=== PATIENT | female | born 1945 | race Caucasian/White ===

== ENCOUNTER 2017-12-10 14:31 | Outpatient (RCR) | payer MEDICARE, OTHER, SELFPAY ==
[2017-12-10 15:10] VITALS: BP 145/77; PULSE 70; RESP 18; TEMP 36.8; BMI 23.9
--- NOTE | 2017-12-10 17:20 | PCM.WC.HP ---
(1) Ulcer of left foot Status: Acute Current Visit: Yes Code(s): L97.529 - Non-pressure chronic ulcer of other part of left foot with unspecified severity (2) Foot callus Status: Acute Current Visit: Yes Code(s): L84 - Corns and callosities (3) Type 2 diabetes mellitus Status: Chronic Current Visit: Yes Code(s): E11.9 - Type 2 diabetes mellitus without complications (4) Status post coronary artery bypass graft Status: Chronic Current Visit: No Code(s): Z95.1 - Presence of aortocoronary bypass graft History of Present Illness Date of Service: 12/10/17 Chief Complaint: Sore on left foot caused by removing tape. History of Wound: 72 year old female was being seen for a wound on her left lateral foot at the base of the 5th toe. She states that she was seeing a javascript engineer, Dr. Santo in [place] for a callus on the arch of her left foot and for her history of Charcot foot. A month ago she had a bandage covering the callus and when she removed it, the tape pulled some skin off at the base of her 5th toe. She has had an opened wound there ever since. She has been applying silvadine cream and soaking her foot in epsome salt as prescribed by her javascript engineer. She continues to have a very large callus on the arch of her left foot. 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 Past Medical History Past Medical History: Chronic Problems Status post coronary artery bypass graft (Chronic) Coronary artery disease (Chronic) Status post stents and CABG. Type 2 diabetes mellitus (Chronic) Hypertension (Chronic) Hyperlipidemia (Chronic) Allergies/Adverse Reactions: Allergies No Known Allergies Allergy (Verified 12/12/15 22:48) Home Medications: Ambulatory Orders Medication Instructions Recorded Aspirin [Aspirin, Baby] 81 mg PO DAILY 12/12/15 Atorvastatin Calcium [Lipitor] 40 mg PO QHS 12/12/15 Carvedilol [Coreg (Beta Britney)] 25 mg PO BID 12/12/15 Milk Thistle 1,000 mg PO DAILY 12/12/15 Multivitamins,Therapeutic 1 tablet PO DAILY 12/12/15 [Multivitamin] Pyridoxine HCl [Vitamin B-6] 100 mg PO DAILY 12/12/15 Ramipril [Altace] 2.5 mg PO DAILY 12/12/15 Vitamin B12 1,000 mg PO DAILY 12/12/15 Vitamin C 1,000 mg PO DAILY 12/12/15 Insulin Detemir [Levemir FlexPen] 15 units SC DAILY 12/13/15 Insulin Detemir [Levemir FlexPen] 18 units SC QHS 12/13/15 - Family History Maternal No pertinent history Smoking Status: Never smoker Review of Systems Constitutional: Denies: Chills, Fever, Weight Change Eyes: Denies: Pain, Vision Change HEENT: Denies: Difficulty Hearing, Difficulty Swallowing, Sinus Congestion Cardiovascular: Denies: Chest Pain, Edema, Palpitations Respiratory: Denies: Cough, Shortness of Breath Gastrointestinal: Denies: Diarrhea, Nausea, Vomiting Musculoskeletal: Reports: Foot Pain - Left foot pain with a callus and open sore Skin: Reports: Wounds - Left lateral foot opened area plus callus on left arch of foot Neurological: Reports: Numbness - Has neuropathy of her feet. Endocrine: Denies: Change in Body Habitus - Physical Exam Vital Signs Temp Pulse Resp BP 98.2 F 70 18 145/77 H 12/10/17 15:10 12/10/17 15:10 12/10/17 15:10 12/10/17 15:10 General: Alert, Oriented x3, Cooperative HEENT: Atraumatic, PERRLA, EOMI Oral: Moist Mucosa Lungs: Clear to auscultation, Normal air movement Cardiovascular: Regular rate, Regular Rhythm Extremities: No edema, Diminished Peripheral Pulses Skin: Ulcer/ Wound - Ulcer left lateral foot at the base of 5th toe. Area is soft, moist and alvarez in appearance with strong odor. There is significant amount of thickened, dry skin surrounding the area. There is a large, thickened callus on the arch of her left foot. Wound Measurements and Assessment WC - Nurse 1 - General Ulcer Measurement Start: 12/10/17 15:01 Freq: Status: Active Protocol: Activity Type Activity Date Activity User E-Sign Co-Sign Detail Recorded Client Recorded Date Recorded By Document 12/10/17 15:10 DV [id number] 12/10/17 15:32 DV 12/10/17 15:10 Wound Center Nurse 1 [Ulcer Assessment] #1 Left Lateral Foot -Combined with other wound No -Current Size (cm) - Length 4.0 -Current Size (cm) - Width 4.0 -Current Size (cm) - Depth 0.4 -Total Square Cm 16.00 -Date of Last Picture (Recall this 12/10/17 field) -Photo Taken Yes -Epithelialization None Present -Tunneling No -Undermining/Tunneling No -Circular Undermining No -Classification - Gtz Grading ( Grade 2 Diabetic Ulcer) -Exudate Amt Medium (34-66%) -Exudate Type Yellow/Green -Wound Margin Indistinct, Non -Visible -Granulation Amt None Present (0 %) -Granulation Quality N/A -Slough/Fibrin Yes -Necrosis Amt Large (67-100%) -Necrotic Tissue Type Adherent Slough -Structure Exposed None/Limited to Skin Breakdown -Texture (Gissell-wound Skin Appearance) Assessed Localized Edema -Moisture (Gissell-wound Skin Appearance Assessed ) Weeping -Color (Gissell-wound Skin Appearance) Assessed Erythema -Temperature (Gissell-wound Skin No Abnormality Appearance) (Pt Warm) -Tenderness on Palpation (Gissell-wound No Skin Appearance) -Ulcer Cleansing Wound Cleanser -Foul Odor after Cleansing Yes -Anesthetic Used 4% Lidocaine Solution [Edema Assessment] -Lower Limb Edema Present Yes -Right Calf (cm) 31.0 -Right Ankle (cm) 22.0 -Left Calf (cm) 32.0 -Left Ankle (cm) 19.0 WC - Nurse 2 - General Ulcer CM Notes Start: 12/10/17 15:01 Freq: Status: Active Protocol: Activity Type Activity Date Activity User E-Sign Co-Sign Detail Recorded Client Recorded Date Recorded By Document 12/10/17 16:00 GREG [id number] 12/10/17 16:15 GREG 12/10/17 16:00 Wound Center Nurse 2 [Procedure/Treatment] #1 Left Lateral Foot -Time 16:00 -Correct Patient Yes -Correct Side, Site, Position Yes -Correct Procedure Yes -Procedure Performed Yes -Type of Procedure Debridement -Clinical Debridement Subcutaneous -Post Debridement Size (cm) - Length 2.3 -Post Debridement Size (cm) - Width 4.0 -Post Debridement Size (cm) - Depth 0.1 -Total Square Cm 9.20 -Wound/Ulcer Outcome Not Healed -Ulcer Cleansing Rinsed/ Irrigated with Saline -Foul Odor after Cleansing No -Bioengineered Tissue No -Bleeding Controlled with Pressure -Treatment Response Procedure Tolerated Well [See Physician Procedure note for Specifics] Pain Scale: 0-10 Numeric [Pain] -Is Patient Pain Free? Yes Musculoskeletal: No Tenderness to Palpation of Joints or Extremities Neurological: Neuro grossly intact Psych/Mental Status: Normal Affect, Appropriate Debridement Note Post-Debridement Measurements/Treatment WC - Nurse 2 - General Ulcer CM Notes Start: 12/10/17 15:01 Freq: Status: Active Protocol: Activity Type Activity Date Activity User E-Sign Co-Sign Detail Recorded Client Recorded Date Recorded By Document 12/10/17 16:00 [id number] 12/10/17 16:15 GREG 12/10/17 16:00 Wound Center Nurse 2 #1 Left Lateral Foot -Time 16:00 -Correct Patient Yes -Correct Side, Site, Position Yes -Correct Procedure Yes -Procedure Performed Yes -Type of Procedure Debridement -Clinical Debridement Subcutaneous -Post Debridement Size (cm) - Length 2.3 -Post Debridement Size (cm) - Width 4.0 -Post Debridement Size (cm) - Depth 0.1 -Total Square Cm 9.20 -Wound/Ulcer Outcome Not Healed -Ulcer Cleansing Rinsed/ Irrigated with Saline -Foul Odor after Cleansing No -Bioengineered Tissue No -Bleeding Controlled with Pressure -Treatment Response Procedure Tolerated Well Pain Scale: 0-10 Numeric Is Patient Pain Free? Yes Wound debrided: Left lateral foot Type of Debridement: Excisional debridement Anesthesia Used: 4% Lidocaine Solution Depth: - - Unable to debride center of wound. Percentage of wound debrided: 10 Instrument Used: 7mm curette Tissue Removed: Able to remove dry thickened tissue surrounding ulcer area Amount of bleeding with debridement: None Patient tolerated procedure well Unable to debride the center of the ulcer due to thickened, moist tissue. Most likely will need to be surgically debrided to unroof the thickened, moist skin. Able to remove significant amount of dry, thickened skin from around the left lateral ulcer. Assessment/Plan Active Problems Ulcer of left foot (Acute) Foot callus (Acute) Type 2 diabetes mellitus (Chronic) Assessment: 1. Ulcer left foot. 2. Foot callus arch of left foot. 3. Type 2 diabetes melllitus. 4. S/p coronar artery bypass graft Plan: The patient was seen and examined at the wound center today and was updated on the plan of care. A subcutaneous debridement was attempted without being able to remove the subcutaneous tissue and slough of left lateral ulcer. This most likely will need to bee surgically debrided. Was able to remove thickened dry skin from around the ulcer. Will start patient on daily silver cell dressing to left lateral foot. She is wearing a Darco Shoe on her left foot. Will obtain labs, vascular studies and xray of left foot. Encouraged high protein diet. Will consult either Dr. Omer or Dr. Mcdermott for surgical debridement consult of both the left lateral foot ulcer and the left foot callus on the arch of the foot. She will follow up in one week with one of them for further management of these issues.
== END 2017-12-25 23:59 ==
LOC: WC 14:31
PROVIDERS: Visit Provider Podiatrist
DX: E11.621 Type 2 diabetes mellitus with foot ulcer (principal); L84 Corns and callosities; L97.521 Non-pressure chronic ulcer of other part of left foot limited to breakdown of skin; Z95.1 Presence of aortocoronary bypass graft; I10 Essential (primary) hypertension; M20.40 Other hammer toe(s) (acquired), unspecified foot; Z95.2 Presence of prosthetic heart valve; I25.10 Atherosclerotic heart disease of native coronary artery without angina pectoris; E78.5 Hyperlipidemia, unspecified; Z79.899 Other long term (current) drug therapy; Z79.4 Long term (current) use of insulin; Z79.82 Long term (current) use of aspirin; E11.42 Type 2 diabetes mellitus with diabetic polyneuropathy
CPT/HCPCS: 11042; 99213; G0463

== ENCOUNTER → 2017-12-12 15:25 | Outpatient (CLI) | payer MEDICARE, OTHER, SELFPAY ==
--- NOTE | 2017-12-12 15:43 | RAD_ITS ---
STUDY: X-RAY - LEFT FOOT CLINICAL: Female, 72 years old. NON HEALING MID PLANTAR AND LATERAL ULCER TECHNIQUE: 3 view(s) of the foot. # of Images: 3 COMPARISON: None. FINDINGS: There is a plantar calcaneal spur. There is demineralization of the osseous structures. Normal visualized subtalar, talonavicular, calcaneocuboid articulations. There is chronic tarsometatarsal joint arthropathy with subluxation most likely represent neurogenic arthropathy. There is demineralization of the metatarsi. Normal metatarsophalangeal joint of the great toe. Normal tibial and fibular sesamoid bones. Normal interphalangeal joint of the great toe. Normal phalanges of the great toe. Normal second through fifth metatarsophalangeal joints. Normal interphalangeal joints and phalanges of the lesser toes. The soft tissue structures are unremarkable. RAD/Foot min 3 Views IMPRESSION: There is chronic tarsometatarsal joint arthropathy with subluxation most likely represent neurogenic arthropathy. Electronically Signed: Nima Ramírez MD at 15:19 EDT Tel , Service support ,
[2017-12-12 16:12] LABS: Hematocrit 35.1 % (37-47); Mean Corp Hgb Conc 31.3 g/gl (32-36); Mean Corpuscular Hgb 26.5 pg (27.0-32.0); Mean Corpuscular Volume 84.6 fL (81-99); Mean Platelet Vol. 12.1 fl (6.2-12.0); Platelet Count 284 K/mm3 (150-450); RBC Distribution Width CV 15.5 % (11.6-14.6); RBC Distribution Width SD 46.6 fl (35.1-43.9); Red Blood Count 4.15 M/mm3 (4.2-5.4); White Blood Count 11.2 K/mm3 (4.4-11.0)
[2017-12-12 16:16] LABS: Scan Indicated on CBC? Y/N NO
[2017-12-12 16:59] LABS: Erythrocyte Sedimentation Rate 72 mm/hr (0-30)
[2017-12-12 19:55] LABS: ALB/GLOB Ratio 0.6 RATIO (0.9-2.4); AST(SGOT) 14 U/L (15-37); Alanine Aminotransfer ALT/SGPT 10 U/L (13-56); Albumin, Serum 2.8 g/dL (3.2-5.0); Alkaline Phosphatase 128 U/L (45-117); Anion Gap 5 (5-15); BUN 18 mg/dL (7-18); BUN/Creat Ratio 17.5 RATIO (10-20); Calcium,Total 9.9 mg/dL (8.5-10.1); Chloride 103 mmol/L (98-107); Creatinine, Serum 1.03 mg/dL (0.55-1.02); EST Glomerular Filtration Rate 56 mL/min (>60); Est Glom Filt Rate - Afr Amer 68 mL/min (>60); Globulin 4.9 g/dL (2.2-4.2); Glucose 199 mg/dL (74-106); Potassium 4.2 mmol/L (3.5-5.1); Prealbumin 12.7 mg/dL (20.0-40.0); Protein, Total 7.7 g/dL (6.4-8.2); Sodium Level 135 mmol/L (136-145)
== END ==
PROVIDERS: Family Provider Family Medicine; PCP Family Medicine; Referring Provider Nurse Practitioner Family; Visit Provider Nurse Practitioner Family
DX: E11.9 Type 2 diabetes mellitus without complications (principal)
CPT/HCPCS: 36415; 73630; 80053; 84134; 85027; 85652; 86140

== ENCOUNTER 2017-12-15 21:59 | Inpatient (IN) | payer MEDICARE, OTHER, SELFPAY ==
[2017-12-15 22:00] VITALS: BP 135/64; PULSE 80; RESP 18; TEMP 37; O2SAT 95; BMI 23.9
--- NOTE | 2017-12-15 22:33 | EKG12_ITS ---
Test Reason : NAUSEA/VOMIT Blood Pressure : / mmHG Vent. Rate : 081 BPM Atrial Rate : 081 BPM P-R Int : 162 ms QRS Dur : 090 ms QT Int : 382 ms P-R-T Axes : 055 004 138 degrees QTc Int : 443 ms Normal sinus rhythm Minimal voltage criteria for LVH, may be normal variant Septal infarct (cited on or before 05-JUN-2003) T wave abnormality, consider lateral ischemia Abnormal ECG Confirmed by ROGELIO BLOCK, BRENT ([id number]), field map editor OLIVEIRO WONG ([id number]) on 12/17/2017 11:26:36 AM Referred By: DR SANTAMARIA Confirmed By:BRENT MERCADO MD
--- NOTE | 2017-12-15 22:33 | CT_ITS ---
STUDY: CT ABDOMEN AND PELVIS WITHOUT CONTRAST REASON FOR EXAM: Female, 72 years old. Nausea, vomiting and abdominal pain. History of prior splenectomy, BOBBY and BSO. History of breast cancer and lymphoma. Prior history of CABG in 5 cardiac stents. RADIATION DOSAGE (If Supplied By Facility): CTDIvol = ( 6.47 ) mGy, DLP = ( 311.84 ) mGycm TECHNIQUE: Transaxial images were obtained from the dome of the diaphragm to the symphysis pubis without oral contrast, and without intravenous contrast. Sagittal and coronal images were reconstructed. Individualized dose optimization techniques were used for this CT. COMPARISON: Prior abdomen and pelvic CT exam of December 12, 2015 FINDINGS: Stable chronic bibasilar lung changes. Coronary calcifications, stent artifact status post prior midline sternotomy. Status post mitral valve replacement? Hepatomegaly. Calcified granuloma of the liver. The nondistended gallbladder with multiple small calcified gallstones. Absence of the spleen. Normal pancreas. Normal bilateral adrenal glands. Normal right kidney. Normal left kidney. Nondistended food filled stomach. Nondistended small bowel. Nondistended colon. Diverticulosis of the colon without evidence of acute diverticulitis. The appendix is visualized and appears normal. There is diffuse atherosclerotic calcification of the abdominal aorta, without a demonstrated aneurysm. Normal inferior vena cava. Normal retroperitoneum. Nondistended urinary bladder. Status post hysterectomy without pelvic mass or free fluid of the pelvis. The patient has a large protruding disc graft isn't of the midline of the abdominal wall which contains nonobstructed transverse colon. Which is a new finding from the prior exam. The mouth of the defect is spacious measuring 9 cm across and the 5 cm from superior to inferior. Below the umbilicus there is a midline pelvic incision which appears thickened or not completely healed with several deep air bubbles at the upper edge of the incision. Demineralized osseous structures with mild degenerative disc changes of the lumbar spine. CT/Abdomen/Pelvis without Cont IMPRESSION: Hepatomegaly. Calcified granuloma of the liver. Absent spleen. Cholelithiasis. Multiple small gallstones in a nondistended gallbladder. No acute renal findings. Negative for hydronephrosis, renal, ureteral or bladder stones. No acute bowel related findings. Negative for evidence of bowel obstruction, perforation or inflammatory bowel changes. Diverticulosis without evidence of acute diverticulitis. A normal appendix is identified. Status post hysterectomy with no pelvic mass or free fluid of the pelvis. A large dysraphism of the upper abdominal wall containing nonobstructed transverse colon. Anterior pelvic wall incision which does not appear to be completely healed into a discrete scar. There are deep air bubbles associated with the upper end of the incision. Presumably this is a recent incision. Infectious process not excludable although a focal well-defined fluid collection is not evident. Electronically Signed: Phoebe Beltre MD at 23:54 EDT , Service support ,
--- NOTE | 2017-12-15 22:38 | ED.DCSUM_ITS ---
- ER Visit Summary Date of Service: 12/15/17 Chief Complaint: Vomiting History of Present Illness: The patient is a 72 F presents with vomiting. She states this started this evening. She had several episodes of nonbloody nonbilious emesis. She states she had diarrhea as well. She denies blood in her stool. She denies abdominal pain. Denies possible bad food exposure. She denies chest pain or shortness of breath. Family also noted that her left leg has become increasingly red. She has an ulcer with foul-smelling drainage on her left foot. She has had subjective fever and chills. Physical Examination: Vitals are stable. Patient is afebrile. Alert no acute distress. HEENT exam dry mucous membranes Neck is supple. Lungs are clear and equal bilaterally. Heart is regular rate and rhythm. Abdomen is soft nontender nondistended. No guarding or rebound. Incision clean, dry intact Extremities left leg erythema and warmth, left lateral foot ulcer with purulent drainage Skin is warm and dry. No focal neurologic deficit. Remainder of exam is unremarkable. Emergency Department Course and Treatment: Patient was given IV fluids, Zofran. EKG is sinus rate 81, unchanged from previous. Chest x-ray shows chronic changes. Left foot x-ray shows profound osteopenia with degenerative arthrosis. Subtle erosive changes in the fifth metatarsal head with associated soft tissue swelling and subcutaneous emphysema suggesting osteomyelitis. CT abd/pelvis shows no acute bowel related findings. Negative for evidence of bowel obstruction, perforation or inflammatory bowel changes. Diverticulosis without evidence of acute diverticulitis. A normal appendix is identified. Status post hysterectomy with no pelvic mass or free fluid of the pelvis. A large ventral hernia of the upper abdominal wall containing nonobstructed transverse colon. Anterior pelvic wall incision which does not appear to be completely healed into a discrete scar. There are deep air bubbles associated with the upper end of the incision. Presumably this is a recent incision. Infectious process not excludable although a focal well-defined fluid collection is not evident. Lactic acid is normal. ESR 84. CRP 115. CBC shows white count 15.9, hemoglobin 9.6. Chemistries show sodium 135, potassium 5.4 which is moderately hemolyzed, glucose 181, BUN 27, creatinine 1.16. Lipase is normal. Troponin is negative. Blood cultures were sent. She was given Zosyn and vancomycin. Discussed with the hospitalist for admission. Disposition: Admission Impression: Left foot osteomyelitis, cellulitis; Nausea and vomiting This note was generated with Cloud[employer] dictation software. It may contain incorrect words, spelling, and punctuation that were not noted in review of the chart prior to signing ED Disposition - Plan for ED Patient: Chief Complaint: Nausea/Vomiting Referrals: Neal Moulton [Primary Care Provider] -
--- NOTE | 2017-12-15 22:57 | RAD_ITS ---
STUDY: X-RAY CHEST REASON FOR EXAM: Female, 72 years old. Nausea and vomiting TECHNIQUE: Single AP portable view of the chest. COMPARISON: 12/15/2015 FINDINGS: EKG leads overlie the chest There are interstitial fibrotic changes of the lungs. There is no demonstrated pleural abnormality. Sternal cerclage wires and vascular clips are present from a prior sternotomy and coronary artery bypass graft procedure (CABG). Normal mediastinum and ajay. Normal visualized pulmonary arteries. Normal visualized aortic arch and descending thoracic aorta. There are diffuse degenerative changes of the visualized thoracic spine. There is degenerative osteoarthritis of the bilateral shoulders. There is no demonstrated abnormality of the visualized soft tissue structures of the upper abdomen. RAD/Chest 1 View (Portable) IMPRESSION: Chronic interstitial changes, no superimposed acute pulmonary process Electronically Signed: Owen Harris MD at 23:15 EDT , Service support ,
--- NOTE | 2017-12-15 22:57 | RAD_ITS ---
STUDY: X-RAY - LEFT FOOT CLINICAL: Female, 72 years old. Left foot nonhealing wounds TECHNIQUE: 3 view(s) of the foot. COMPARISON: None. FINDINGS: Bones are diffusely demineralized. Degenerative arthrosis noted at all visualized joint spaces, most notably in the tarsal metatarsal joint spaces and in the PIP and DIP joints. Calcaneal heel spurs noted. There is no demonstrated fracture, but there is subtle erosive changes in the fifth metatarsal head with nearby and associated subcutaneous emphysema suggesting an inflammatory process. Osteomyelitis is likely. A subtle fracture or erosive lesion elsewhere could be overlooked due to the profound osteopenia and overlapping osseous structures. If there are strong clinical suspicion of such, recommend further evaluation with MRI RAD/Foot min 3 Views IMPRESSION: Profound osteopenia with degenerative arthrosis Subtle erosive changes in the fifth metatarsal head with associated soft tissue swelling and subcutaneous emphysema suggesting osteomyelitis. Calcaneal spurs Vascular calcifications No demonstrated fracture, please see discussion above Electronically Signed: Owen Harris MD at 23:19 EDT , Service support ,
[2017-12-15 23:04] LABS: Erythrocyte Sedimentation Rate 84 mm/hr (0-30)
[2017-12-15 23:21] LABS: Lactic Acid 0.8 mmol/L (0.4-2.0)
[2017-12-15 23:35] LABS: Absolute Lymphocyte Count 1.58 X10^3/ul (0.83-4.51); Absolute Neutrophil Count 12.8 X10^3/uL (2.0-7.7); Basophil# 0.03 X10^3/uL; Basophil% 0.2 % (0-1); Eosinophil# 0.09 X10^3/uL; Eosinophils% 0.6 % (0-5); Hematocrit 30.8 % (37-47); Hemoglobin 9.6 g/dl (12.0-15.0); Lymphocyte # 1.58 X10^3/ul (4.0); Lymphocyte % 9.9 % (19-41); Mean Corp Hgb Conc 31.2 g/gl (32-36); Mean Corpuscular Hgb 25.5 pg (27.0-32.0); Mean Corpuscular Volume 81.7 fL (81-99); Mean Platelet Vol. 11.5 fl (6.2-12.0); Monocyte# 1.37 X10^3/uL; Monocyte% 8.6 % (0-10); Neutrophil # 12.84 X10^3/uL (2.7-7.7); Neutrophil % 80.6 % (47-70); Platelet Count 289 K/mm3 (150-450); RBC Distribution Width CV 15.7 % (11.6-14.6); RBC Distribution Width SD 47.4 fl (35.1-43.9); Red Blood Count 3.77 M/mm3 (4.2-5.4); White Blood Count 15.9 K/mm3 (4.4-11.0)
[2017-12-15 23:36] LABS: POSITIVE COUNT NO; POSITIVE DIFFERENTIAL NO; POSITIVE MORPHOLOGY NO
[2017-12-15 23:40] LABS: ALB/GLOB Ratio 0.5 RATIO (0.9-2.4); AST(SGOT) 25 U/L (15-37); Alanine Aminotransfer ALT/SGPT 12 U/L (13-56); Albumin, Serum 2.5 g/dL (3.2-5.0); Alkaline Phosphatase 108 U/L (45-117); Anion Gap 11 (5-15); BUN 27 mg/dL (7-18); BUN/Creat Ratio 23.3 RATIO (10-20); Calcium,Total 9.5 mg/dL (8.5-10.1); Chloride 101 mmol/L (98-107); Creatinine, Serum 1.16 mg/dL (0.55-1.02); EST Glomerular Filtration Rate 49 mL/min (>60); Est Glom Filt Rate - Afr Amer 59 mL/min (>60); Estimated Creatinine Clearance 35.18 ml/min; Glucose 181 mg/dL (74-106); Lipase 135 U/L (73-393); Potassium 5.4 mmol/L (3.5-5.1); Protein, Total 7.5 g/dL (6.4-8.2); Sodium Level 135 mmol/L (136-145)
[2017-12-15 23:47] LABS: Bacteria 0 SEEN /hpf (None Seen); Mucous, Urine 0 SEEN /hpf (<or=2+); Red Blood Cells-Urine 0 SEEN /hpf (0-5)
[2017-12-15 23:51] LABS: Color, Urine Yellow (Yellow); Glucose, Dipstick 100 mg/dl (Normal); Ketone-Dipstick Negative (Negative); Leukocyte Esterase-Dipstick Negative /ul (Negative); Nitrite-Dipstick Negative (Negative); Occult Blood-Urine 25 /ul (Negative); Protein-Dipstick 500 mg/dl (Negative); Urine Bilirubin Dipstick Negative (Negative); Urine Clarity Clear (Clear); Urine Urobilinogen Normal (Normal)
[2017-12-15 23:58] LABS: Squamous Epithelial Cells - UA 0-5 SEEN /hpf (5-10); White Blood Cells 0-5 SEEN /hpf (0-5)
[2017-12-16] VITALS (14 sets, daily range): BP systolic 118–151; BP diastolic 60–79; PULSE 64–78; RESP 16–19; TEMP 36.4–37.3; O2SAT 94–99; BMI 24.0; BMI 24.1
[2017-12-16] MEDS: Piperacil/Tazobactam 3.375 GM/50 ML ML IV ×4 (00:03→21:29)
--- NOTE | 2017-12-16 03:31 | PCM.HP.STD ---
Problem List (1) Acute osteomyelitis Status: Acute History of Present Illness Date of Admission: 12/16/17 Chief Complaint: vomiting and increased redness of left foot and left leg The patient is a 72 year old F with a significant history of CAD Status post CABG and stents; diabetes mellitus with neuropathy who presented with vomiting and increase redness of her left foot and her left leg. Patient have chronic wound at plantar side of her left foot that she has been having frequent debridement. Patient reports loss of feeling in bilateral foot but occasionally she has shooting pain in bilateral foot. About 3 weeks ago she also developed a wound at the lateral side of her left foot. She follows up with our wound clinic and she was supposed to see Dr. Omer. Also she reported that she was scheduled to have arterial Doppler of the leg before this admission. 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 Patient stated that at that time she was vomiting. So this time around, she linked up her vomiting with some possible source of infection; and possibly an infection of her left foot since she has also noticed increased redness in her left foot. X-ray of her left foot showed findings suggestive of osteomyelitis On admission her CRP was elevated. Past Medical History Past Medical History (Chronic Problems): Chronic Problems Status post coronary artery bypass graft (Chronic) Coronary artery disease (Chronic) Status post stents and CABG. Type 2 diabetes mellitus (Chronic) Hypertension (Chronic) Hyperlipidemia (Chronic) Allergies No Known Allergies Allergy (Verified 12/15/17 21:59) Home Medications: Ambulatory Orders Medication Instructions Recorded Aspirin [Aspirin, Baby] 81 mg PO DAILY 12/12/15 Atorvastatin Calcium [Lipitor] 40 mg PO QHS 12/12/15 Carvedilol [Coreg (Beta Britney)] 25 mg PO BID 12/12/15 Milk Thistle 1,000 mg PO DAILY 12/12/15 Multivitamins,Therapeutic 1 tablet PO DAILY 12/12/15 [Multivitamin] Ramipril [Altace] 2.5 mg PO DAILY 12/12/15 Vitamin C 1,000 mg PO DAILY 12/12/15 Insulin Detemir [Levemir FlexPen] 18 units SC BID 12/13/15 Calcium Citrate-Vit D3 Tablet 1 tab PO DAILY 12/15/17 Ubidecarenone [Co Q-10] 200 mg PO DAILY 12/15/17 Surgical History: - - 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 Lives: With Family Smoking Status: Never smoker Alcohol: None - *Family History Maternal History Items: Cancer - Her mother had throat cancer; and a sister had breast cancer. She had other sibling that had prostate cancer and cancer at the back of the head ofher sibling., Hypertension Review of Systems Constitutional: Reports: Chills. Denies: Fever, Weight Change HEENT: Denies: Head Aches, Sinus Congestion, Sinus Drainage Cardiovascular: Denies: Chest Pain, Palpitations Respiratory: Denies: Cough, Shortness of breath at rest, Sputum production Gastrointestinal: Denies: Abdominal Pain, Nausea, Vomiting Genitourinary: Denies: Dysuria Musculoskeletal: Reports: - - Left foot pain Skin: Reports: - - Erythema of left foot and left lower leg. Denies: Rash, Wounds - Plantar side of left foot and lateral side of left foot. Neurological: Denies: Numbness, Tingling, Focal weakness Psychiatric: Denies: Anxiety, Depression, Homicidal Ideations, Suicidal Ideations Hematologic/ Lymphatic: Denies: Easy Bruising, Easy Bleeding VTE Information - Inpt Only VTE Present on Admission: No VTE Mechan Device Prophylaxis: None VTE Pharm Prophylaxis ordered?: Yes Patient Problems: Active and Suspected Problems Acute osteomyelitis (Acute) - Physical Exam General: Alert, Oriented x3, Cooperative HEENT: Atraumatic, PERRLA, EOMI, Normocephalic Neck: Supple, No JVD, Negative Carotid Bruits Lungs: Clear to auscultation, Normal air movement Cardiovascular: Regular rate, No murmurs, - - No DP pulse palpated in left foot. Abdomen: Bowel Sounds Present - Hyperactive, Soft, Non Tender, - - Abdominal hernia Extremities: No edema, Capillary Refill Less than 3 Seconds, - - Flattening of right foot. Skin: - - Wound with eschar on the plantar side of left foot and lateral side of left foot. Musculoskeletal: Tenderness - Left foot and left leg Neurological: Cranial nerves II-XII grossly intact Psych/Mental Status: Normal Affect, Appropriate Vital Signs Temp Pulse Resp BP Pulse Ox 98.4 F 75 16 133/60 H 96 12/16/17 02:25 12/16/17 03:07 12/16/17 03:07 12/16/17 02:25 12/16/17 03:07 Oxygen Delivery Method Room Air Weight: 59.562 kg Body Mass Index (BMI) 24.0 Finger Stick Blood Glucose 153 Laboratory Tests Past 24 Hrs 12/15/17 12/15/17 12/15/17 00:45 22:40 22:40 WBC 15.9 H RBC 3.77 L Hgb 9.6 L Hct 30.8 L MCV 81.7 MCH 25.5 L MCHC 31.2 L RDW 15.7 H RDW Differential 47.4 H Plt Count 289 MPV 11.5 Immature Gran % (Auto) 0.100 Neut % (Auto) 80.6 H Lymph % (Auto) 9.9 L [place] % (Auto) 8.6 Eos % (Auto) 0.6 Baso % (Auto) 0.2 Absolute Neuts (auto) 12.8 H Absolute Lymphs (auto) 1.58 Total Counted Not Reportable ESR 84 H Sodium 135 L Potassium 5.4 H Chloride 101 Carbon Dioxide 23.0 Anion Gap 11 BUN 27 H Creatinine 1.16 H Estim Creat Clear Calc 35.18 Est GFR (MDRD) Af Amer 59 L Est GFR (MDRD) Non-Af 49 L BUN/Creatinine Ratio 23.3 H Glucose 181 H Lactic Acid Calcium 9.5 Total Bilirubin 0.60 AST 25 ALT 12 L Alkaline Phosphatase 108 Troponin I < 0.015 C-React Prot Ext Range 115.00 H Total Protein 7.5 Albumin 2.5 L Globulin 5.0 H Albumin/Globulin Ratio 0.5 L Lipase 135 Urine Color Yellow Urine Clarity Clear Urine pH 6.0 Ur Specific [place] 1.020 Urine Protein 500 H Urine Glucose (UA) 100 H Urine Ketones Negative Urine Occult Blood 25 H Urine Nitrite Negative Urine Bilirubin Negative Urine Urobilinogen Normal Ur Leukocyte Esterase Negative Urine RBC 0 SEEN Urine WBC 0-5 SEEN Ur Squamous Epith Cells 0-5 SEEN Urine Bacteria 0 SEEN Urine Mucus 0 SEEN 12/15/17 22:40 WBC RBC Hgb Hct MCV MCH MCHC RDW RDW Differential Plt Count MPV Immature Gran % (Auto) Neut % (Auto) Lymph % (Auto) [place] % (Auto) Eos % (Auto) Baso % (Auto) Absolute Neuts (auto) Absolute Lymphs (auto) Total Counted ESR Sodium Potassium Chloride Carbon Dioxide Anion Gap BUN Creatinine Estim Creat Clear Calc Est GFR (MDRD) Af Amer Est GFR (MDRD) Non-Af BUN/Creatinine Ratio Glucose Lactic Acid 0.8 Calcium Total Bilirubin AST ALT Alkaline Phosphatase Troponin I C-React Prot Ext Range Total Protein Albumin Globulin Albumin/Globulin Ratio Lipase Urine Color Urine Clarity Urine pH Ur Specific [place] Urine Protein Urine Glucose (UA) Urine Ketones Urine Occult Blood Urine Nitrite Urine Bilirubin Urine Urobilinogen Ur Leukocyte Esterase Urine RBC Urine WBC Ur Squamous Epith Cells Urine Bacteria Urine Mucus Assessment/Plan All Active Problems Ulcer of left foot (Acute) Foot callus (Acute) Acute osteomyelitis (Acute) Thrombocytopenia (Acute) E coli bacteremia (Acute) Hepatosplenomegaly (Acute) Hydroureter on left (Acute) Hydronephrosis of left kidney (Acute) Pyelonephritis (Acute) The patient is a 72 year old F with a significant history of CAD Status post CABG and stents; diabetes mellitus with neuropathy who presented with vomiting and increase redness of her left foot and her left leg; elevated CRP and radiographic findings suggestive of osteomyelitis of her left foot.. Acute Osteomyelitis of left foot X-ray findings suggestive of cellulitis of left foot Elevated white count and CRP History of diabetes and chronic pain and wound to left foot Vancomycin and Zosyn started in the emergency department Vancomycin and Zosyn continued. Arterial ultrasound of left foot Podiatry consulted MRI for better definition ordered. Trend CBC and BMP. CKD stage III Creatinine at baseline. Diabetes mellitus with proteinuria Blood glucose at admission was above goal. On twice daily basis glucose insulin at home. Correction scale insulin ordered for now.. Hypokalemia Potassium on admission was 5.4 Trend. Hypertension Blood pressure at admission was above goal Ramipril continued Trend Blood pressure DVT prophylaxis Subcutaneous heparin. Code Visit Inpatient E&M: 11619 Init Hosp L3
--- NOTE | 2017-12-16 03:54 | MRI_ITS ---
STUDY: MRI LEFT FOREFOOT WITH AND WITHOUT CONTRAST REASON FOR EXAM: Chronic lateral foot wound. Also medial wound since October. Evaluate osteomyelitis. TECHNIQUE: Standardized fat and water weighted pulse sequences were obtained in all 3 orthogonal planes, post contrast administration. 6 ml of Gadavist contrast material was administered intravenously for the contrast portion of the examination. COMPARISON: Radiographs 12/15/2017. FINDINGS: Normal metatarsophalangeal joint of the hallux. Normal tibial and fibular sesamoids, with normal sesamoids-first metatarsal articulations. Normal interphalangeal joint of the hallux. Normal proximal and distal phalanges of the great toe. Normal medial and lateral heads of the flexor hallucis brevis tendons. Normal flexor and extensor hallucis longus tendons. There is bone edema of the distal diaphysis of the fifth metatarsal and fifth proximal phalanx (inversion recovery sagittal image 20) with corresponding decreased T1 bone marrow signal (T1 sagittal image 21) and contrast enhancement (postcontrast T1 sagittal image 21) suggestive of osteomyelitis. There is a very small effusion of the fifth metatarsophalangeal joint (inversion recovery sagittal image 20). Normal second through fourth metatarsophalangeal (MTP) joints. Normal interphalangeal joints of the second through fourth toes. Normal proximal, middle and distal phalanges of the second through fourth toes. Normal flexor and extensor tendons of the second through fifth toes. Normal first through fourth intermetatarsal spaces. There is neuropathic osteoarthropathy of the Lisfranc articulation (T1 sagittal images 5-18) with disruption of Lisfranc ligament (T2 series 6 images 10, 11). There is atrophy with fat replacement of the intrinsic muscles of the forefoot (T1 sagittal images 10-19) suggestive of peripheral neuropathy. There is a soft tissue ulcer at the lateral aspect of the fifth metatarsophalangeal joint with soft tissue gas (T1 series 4 images 12-14) but no demonstrated soft tissue abscess. There is edema in the subcutis adipose space particularly in the dorsal lateral aspect of the foot with contrast enhancement (postcontrast T1 sagittal images 17-23) suggestive of cellulitis. There is a pressure lesion at the plantar medial aspect of the first metatarsophalangeal joint (T1 series 4 images 6-9). MRI/Lower Ext No Joint W/WO Cont IMPRESSION: Signal alterations of the fifth metatarsal and fifth proximal phalanx suggestive of osteomyelitis. Neuropathic osteoarthropathy of Lisfranc articulation. Atrophy of the intrinsic muscles of the forefoot suggestive of peripheral neuropathy. Soft tissue ulcer at the lateral aspect of the fifth metatarsophalangeal joint without demonstrated soft tissue abscess. Cellulitis. Pressure lesion at the plantar medial aspect of the first metatarsophalangeal joint. Electronically Signed: Luc Meneses MD at 10:33 EDT Tel , Service support ,
--- NOTE | 2017-12-16 05:09 | PCM.RX.CS ---
Consult Pharmacy has been consulted to manage selected antiobiotic: Vancomycin Type of Consult: New start Suspected Infection: Osteomyelitis Prior Doses of Antibiotics Received/Current Regimen: Medications Vancomycin HCl 750 mg/ Sodium (Chloride) 265 mls @ 250 mls/hr IV Q24H ROSSANA Discontinued Medications Vancomycin HCl 1,250 mg/ (Sodium Chloride) 275 mls @ 167 mls/hr IV X1 ONE Stop: 12/16/17 01:25 Last Admin: 12/16/17 00:57 Dose: 167 mls/hr Labs: Sodium 135 mmol/L (136-145) L 12/15/17 22:40 Potassium 5.4 mmol/L (3.5-5.1) H 12/15/17 22:40 Chloride 101 mmol/L (98-107) 12/15/17 22:40 Carbon Dioxide 23.0 mmol/L (21.0-32.0) 12/15/17 22:40 Anion Gap 11 (5-15) 12/15/17 22:40 BUN 27 mg/dL (7-18) H 12/15/17 22:40 Creatinine 1.16 mg/dL (0.55-1.02) H 12/15/17 22:40 Est GFR (MDRD) Af Amer 59 mL/min (>60) L 12/15/17 22:40 Est GFR (MDRD) Non-Af 49 mL/min (>60) L 12/15/17 22:40 BUN/Creatinine Ratio 23.3 RATIO (10-20) H 12/15/17 22:40 Glucose 181 mg/dL (74-106) H 12/15/17 22:40 Weight used for dosin.6 kg Estimated Creatinine Clearance: 35 Goal Trough: 15-20 mcg/mL Pharmacy Plan for Drug Dosing: Pharmacy Service will continue to monitor and adjust dosing as required. Follow-Up Labs: Trough Vancomycin Labs to be done on [date and time ordered]: 12/18/17 @0030
[2017-12-16] MEDS: Heparin Injection (Vial) 5,000 UNIT/ML VIAL 5000 UNIT SC ×2 (05:53→21:30)
[2017-12-16] MEDS: Insulin Lispro 100 UNIT/ML INSULN.PEN SQ ×2 (06:04→21:30)
[2017-12-16 07:43] LABS: Anion Gap 10 (5-15); BUN 23 mg/dL (7-18); BUN/Creat Ratio 23.3 RATIO (10-20); Chloride 104 mmol/L (98-107); Creatinine, Serum 0.99 mg/dL (0.55-1.02); EST Glomerular Filtration Rate 59 mL/min (>60); Est Glom Filt Rate - Afr Amer 71 mL/min (>60); Estimated Creatinine Clearance 41.22 ml/min; Glucose 158 mg/dL (74-106); Potassium 3.7 mmol/L (3.5-5.1); Sodium Level 139 mmol/L (136-145)
[2017-12-16 08:12] LABS: Absolute Lymphocyte Count 2.55 X10^3/ul (0.83-4.51); Absolute Neutrophil Count 11.6 X10^3/uL (2.0-7.7); Basophil# 0.03 X10^3/uL; Basophil% 0.2 % (0-1); Eosinophil# 0.02 X10^3/uL; Eosinophils% 0.1 % (0-5); Hematocrit 28.7 % (37-47); Hemoglobin 8.9 g/dl (12.0-15.0); Lymphocyte # 2.55 X10^3/ul (4.0); Lymphocyte % 15.9 % (19-41); Mean Corpuscular Hgb 26.2 pg (27.0-32.0); Mean Corpuscular Volume 84.4 fL (81-99); Mean Platelet Vol. 11.8 fl (6.2-12.0); Monocyte% 11.2 % (0-10); Neutrophil # 11.59 X10^3/uL (2.7-7.7); Neutrophil % 72.4 % (47-70); Platelet Count 267 K/mm3 (150-450); RBC Distribution Width CV 15.5 % (11.6-14.6); RBC Distribution Width SD 46.3 fl (35.1-43.9)
[2017-12-16 08:13] LABS: Differential Indicated SCAN CRITERIA MET; POSITIVE COUNT NO; POSITIVE DIFFERENTIAL YES; POSITIVE MORPHOLOGY NO
--- NOTE | 2017-12-16 10:40 | CASEMGMT ---
RN CM Assessment. Introduced role of CM to patient in room. She is alert, oriented and able to participate in RN CM Assessment. Pt presented to ER with increased redness of L foot and L leg. PMH: DM with neuropathy, s/p CABG, stents. For I/D of wounds today, positive for osteo per Dr. Lloyd. Discussed dc planning with pt including probable need for wound vac, IV antibiotics and Home care. Discussed option for SNF if pt/family unable to provide care at level needed. Pt states she has had IV antibiotics @ home previously for her and is familiar. -First choice would be Home with Home Health through [facility] and IV antibiotics through [facility]. -Pt lives with her daughter Junie and nic. Both work during day; daughter Annette lives in [place] but is able to assist. Pt states daughters would be willing to learn to assist with IV antibiotics. [facility]acy: [facility] Prescription coverage: yes LNOK: 2 daughters and granddaughter Living arrangements: mobile home with daughter/granddaughter. 4-5 steps into Mobile home then one floor. Transportation: Daughters assist DME: none. Pt states she has used crutches in past. Stated she may prefer crutches over walker. RN DEION let pt know she would discuss with PT/OT. RN DEION spoke with Vanessa PT and Carley OT-updated on pt living arrangements and desire to be evaluated for crutch walking. If walker is recommended, would need ordered. Options for DME given, pt agreeable to [facility] for DME needs. DC PLAN: undetermined. JUSTINE Adair and MINDY Arroyo updated.
[2017-12-16] MEDS: Carvedilol 25 MG Tablet PO ×2 (10:52→21:29)
[2017-12-16] MEDS: Multivitamins,Therapeutic Tablet 1 TABLET PO (10:52)
[2017-12-16] MEDS: Ramipril 2.5 MG Capsule PO (10:52)
--- NOTE | 2017-12-16 11:01 | PN_ITS ---
Patient Problems: Active and Suspected Problems Acute osteomyelitis (Acute) Subjective: This 72-year-old diabetic female was consulted to podiatry after being admitted last evening through the emergency room for ulcer of her left lateral foot as well as cellulitis. Last evening she stated that she had some nausea and vomiting. She said the ulcer started as a skin tear from tape. She had been having this ulcer treated by Dr. Santo in [place] for the last 3 weeks and says he was just using Silvadene cream to the area. She says over the last 3 weeks this has continued to get worse. She says recently she was seen at the [place] [facility], but that her foot got worse over the weekend and decided to come to the ER. Currently, the patient denies any feelings of nausea, vomiting, fever, or chills. - Physical Exam General: Alert, Oriented x3, Cooperative Extremities: Capillary Refill Less than 3 Seconds, No Calf Tenderness - negative sandy and barron sign, Diminished Peripheral Pulses, Edema - slight edema to left lower extremity Skin: Ulcer/ Wound - Ulcer to left distal lateral foot overlying the area of the 5th met head. There is necrotic eschar with slight bogginess apprecited underlying this area. There is surrounding erythema/cellulitis noted with slight malodor. Musculoskeletal: No Tenderness to Palpation of Joints or Extremities, - - bilateral charcot foot type changes. Contracted digits 2-5 bilateral. Neurological: - - Epicritic sensation grossly absent to the lower extremity Psych/Mental Status: Normal Affect, Appropriate Vital Signs Temp Pulse Resp BP Pulse Ox 98.1 F 73 16 137/72 H 94 12/16/17 10:23 12/16/17 10:23 12/16/17 10:23 12/16/17 10:23 12/16/17 10:23 Oxygen Delivery Method Room Air Weight: 59.562 kg Body Mass Index (BMI) 24.0 Finger Stick Blood Glucose 153 Intake and Output for Last 24 Hours 12/14/17 12/15/17 12/16/17 23:59 23:59 23:59 Intake Total 342 / 342 Balance 342 / 342 Microbiology Past 72 Hours 12/15/17 22:45 Wound Culture - Preliminary Wound - Left Foot Staphylococcus aureus Laboratory Tests Past 24 Hrs 12/15/17 12/15/17 12/15/17 00:45 22:40 22:40 WBC 15.9 H RBC 3.77 L Hgb 9.6 L Hct 30.8 L MCV 81.7 MCH 25.5 L MCHC 31.2 L RDW 15.7 H RDW Differential 47.4 H Plt Count 289 MPV 11.5 Immature Gran % (Auto) 0.100 Neut % (Auto) 80.6 H Lymph % (Auto) 9.9 L [place] % (Auto) 8.6 Eos % (Auto) 0.6 Baso % (Auto) 0.2 Absolute Neuts (auto) 12.8 H Absolute Lymphs (auto) 1.58 Total Counted Not Reportable ESR 84 H Sodium 135 L Potassium 5.4 H Chloride 101 Carbon Dioxide 23.0 Anion Gap 11 BUN 27 H Creatinine 1.16 H Estim Creat Clear Calc 35.18 Est GFR (MDRD) Af Amer 59 L Est GFR (MDRD) Non-Af 49 L BUN/Creatinine Ratio 23.3 H Glucose 181 H Lactic Acid Calcium 9.5 Total Bilirubin 0.60 AST 25 ALT 12 L Alkaline Phosphatase 108 Troponin I < 0.015 C-React Prot Ext Range 115.00 H Total Protein 7.5 Albumin 2.5 L Globulin 5.0 H Albumin/Globulin Ratio 0.5 L Lipase 135 Urine Color Yellow Urine Clarity Clear Urine pH 6.0 Ur Specific [place] 1.020 Urine Protein 500 H Urine Glucose (UA) 100 H Urine Ketones Negative Urine Occult Blood 25 H Urine Nitrite Negative Urine Bilirubin Negative Urine Urobilinogen Normal Ur Leukocyte Esterase Negative Urine RBC 0 SEEN Urine WBC 0-5 SEEN Ur Squamous Epith Cells 0-5 SEEN Urine Bacteria 0 SEEN Urine Mucus 0 SEEN 12/15/17 12/16/17 12/16/17 22:40 06:50 06:50 WBC 16.0 H RBC 3.40 L Hgb 8.9 L Hct 28.7 L MCV 84.4 MCH 26.2 L MCHC 31.0 L RDW 15.5 H RDW Differential 46.3 H Plt Count 267 MPV 11.8 Immature Gran % (Auto) 0.200 Neut % (Auto) 72.4 H Lymph % (Auto) 15.9 L [place] % (Auto) 11.2 H Eos % (Auto) 0.1 Baso % (Auto) 0.2 Absolute Neuts (auto) 11.6 H Absolute Lymphs (auto) 2.55 Total Counted Pending ESR Sodium 139 Potassium 3.7 Chloride 104 Carbon Dioxide 25.0 Anion Gap 10 BUN 23 H Creatinine 0.99 Estim Creat Clear Calc 41.22 Est GFR (MDRD) Af Amer 71 Est GFR (MDRD) Non-Af 59 L BUN/Creatinine Ratio 23.3 H Glucose 158 H Lactic Acid 0.8 Calcium 9.0 Total Bilirubin AST ALT Alkaline Phosphatase Troponin I C-React Prot Ext Range Total Protein Albumin Globulin Albumin/Globulin Ratio Lipase Urine Color Urine Clarity Urine pH Ur Specific [place] Urine Protein Urine Glucose (UA) Urine Ketones Urine Occult Blood Urine Nitrite Urine Bilirubin Urine Urobilinogen Ur Leukocyte Esterase Urine RBC Urine WBC Ur Squamous Epith Cells Urine Bacteria Urine Mucus Medical Necessity - Tobacco Use Smoking Status: Never smoker Assessment/Plan All Active Problems Ulcer of left foot (Acute) Foot callus (Acute) Acute osteomyelitis (Acute) Thrombocytopenia (Acute) E coli bacteremia (Acute) Hepatosplenomegaly (Acute) Hydroureter on left (Acute) Hydronephrosis of left kidney (Acute) Pyelonephritis (Acute) Ulcer left foot with necrotic eschar cellulitis gas gangrene DM Other comorbidities This 72-year-old diabetic female was examined and evaluated bedside this morning. WBC is 16. ESR is 84. CRP is 115. Currently vital signs are stable. Preliminary wound culture results taken yesterday show staph aureus. Patient is currently on IV antibiotics. Both left foot x-ray and MRI were taken and both show signs of osteomyelitis. MRI was read by radiologist as signal alterations of the fifth metatarsal and fifth proximal phalanx suggestive of osteomyelitis. There is evidence of soft tissue emphysema in this area. Charcot foot changes are also seen especially around the Lisfranc articulation. There is also a callus to the plantar medial arch, hyperkeratotic tissue overlying this area was carefully debrided down without incident. Currently, no ulcer appreciated in this area. LEAS studies were ordered, however due to the patient's infection with presence of soft tissue gas, results of LEAS studies will not change plan for surgery later this afternoon. ID consult recommended. I discussed the patient's case, etiology, and all possible treatment options along with all of the risks and benefits of each with the patient in great detail. She agrees to proceed with planned procedure at this time for debridement of all necrotic, nonviable, and infected soft tissue and bone of the left foot. The case was discussed in detail with the hospitalist and surgical clearance will be obtained prior to surgery. Patient is to be NPO and orders were placed. Orders also placed for patient to have surgical consent signed. All and any other questions were answered to the patient's satisfaction. Please contact me with any questions or concerns.
[2017-12-16] MEDS: Nystatin Powder 15gm Bottle 1 APPLIC TOPICAL ×2 (11:03→21:29)
[2017-12-16 11:05] LABS: Bedside Glucose 127 mg/dL (70-110)
[2017-12-16 11:38] LABS: Acanthocytes 2+; Anisocytosis 2+; Hypochromasia 1+; Microcytosis RARE; Platelet Estimate A (ADEQ)
--- NOTE | 2017-12-16 13:51 | PCM.HP.ID ---
Problem List (1) Acute osteomyelitis Status: Acute Reason for Consult: osteo Consulted by: Dr. Early History of Present Illness: The patient is a 72 year old F with DM neuropathy who presented with 1-2 weeks of L lateral foot wound with progressive redness, drainage, and foul odor. Some chills. No recent abx. Wound started with tear from removing tape from her foot. Follows with podiatry in [place], sent to wound care center, admitted here, on vanc/zosyn. OR today for debridement. Full ROS performed and neg except as noted above. - Medical History Past Medical History (Chronic Problems): Chronic Problems Status post coronary artery bypass graft (Chronic) Coronary artery disease (Chronic) Status post stents and CABG. Type 2 diabetes mellitus (Chronic) Hypertension (Chronic) Hyperlipidemia (Chronic) Allergies/Adverse Reactions: Allergies No Known Allergies Allergy (Verified 12/15/17 21:59) Home Medications: Ambulatory Orders Medication Instructions Recorded Aspirin [Aspirin, Baby] 81 mg PO DAILY 12/12/15 Atorvastatin Calcium [Lipitor] 40 mg PO QHS 12/12/15 Carvedilol [Coreg (Beta Britney)] 25 mg PO BID 12/12/15 Milk Thistle 1,000 mg PO DAILY 12/12/15 Multivitamins,Therapeutic 1 tablet PO DAILY 12/12/15 [Multivitamin] Ramipril [Altace] 2.5 mg PO DAILY 12/12/15 Vitamin C 1,000 mg PO DAILY 12/12/15 Insulin Detemir [Levemir FlexPen] 18 units SC BID 12/13/15 Calcium Citrate-Vit D3 Tablet 1 tab PO DAILY 12/15/17 Ubidecarenone [Co Q-10] 200 mg PO DAILY 12/15/17 - Social History SMOKING STATUS:: Never smoker Vital Signs Temp Pulse Resp BP Pulse Ox 98.1 F 73 16 137/72 H 94 12/16/17 10:23 12/16/17 10:23 12/16/17 10:23 12/16/17 10:23 12/16/17 10:23 Oxygen Delivery Method Room Air Weight: 59.562 kg Body Mass Index (BMI) 24.0 Finger Stick Blood Glucose 153 Microbiology Past 72 Hours 12/15/17 22:45 Gram Stain - Final Wound - Left Foot Wound Culture - Preliminary Staphylococcus aureus Laboratory Tests Past 24 Hrs 1012/15/17 12/15/17 00:45 22:40 22:40 WBC 15.9 H RBC 3.77 L Hgb 9.6 L Hct 30.8 L MCV 81.7 MCH 25.5 L MCHC 31.2 L RDW 15.7 H RDW Differential 47.4 H Plt Count 289 MPV 11.5 Immature Gran % (Auto) 0.100 Neut % (Auto) 80.6 H Lymph % (Auto) 9.9 L [place] % (Auto) 8.6 Eos % (Auto) 0.6 Baso % (Auto) 0.2 Absolute Neuts (auto) 12.8 H Absolute Lymphs (auto) 1.58 Total Counted Not Reportable Differential Comment Diff Path Review Platelet Estimate Hypochromasia Anisocytosis Microcytosis Acanthocytes (Spur) ESR 84 H Sodium 135 L Potassium 5.4 H Chloride 101 Carbon Dioxide 23.0 Anion Gap 11 BUN 27 H Creatinine 1.16 H Estim Creat Clear Calc 35.18 Est GFR (MDRD) Af Amer 59 L Est GFR (MDRD) Non-Af 49 L BUN/Creatinine Ratio 23.3 H Glucose 181 H Hemoglobin A1c Lactic Acid Calcium 9.5 Total Bilirubin 0.60 AST 25 ALT 12 L Alkaline Phosphatase 108 Troponin I < 0.015 C-React Prot Ext Range 115.00 H Total Protein 7.5 Albumin 2.5 L Globulin 5.0 H Albumin/Globulin Ratio 0.5 L Lipase 135 Urine Color Yellow Urine Clarity Clear Urine pH 6.0 Ur Specific [place] 1.020 Urine Protein 500 H Urine Glucose (UA) 100 H Urine Ketones Negative Urine Occult Blood 25 H Urine Nitrite Negative Urine Bilirubin Negative Urine Urobilinogen Normal Ur Leukocyte Esterase Negative Urine RBC 0 SEEN Urine WBC 0-5 SEEN Ur Squamous Epith Cells 0-5 SEEN Urine Bacteria 0 SEEN Urine Mucus 0 SEEN 12/15/17 12/16/17 12/16/17 22:40 06:50 06:50 WBC 16.0 H RBC 3.40 L Hgb 8.9 L Hct 28.7 L MCV 84.4 MCH 26.2 L MCHC 31.0 L RDW 15.5 H RDW Differential 46.3 H Plt Count 267 MPV 11.8 Immature Gran % (Auto) 0.200 Neut % (Auto) 72.4 H Lymph % (Auto) 15.9 L [place] % (Auto) 11.2 H Eos % (Auto) 0.1 Baso % (Auto) 0.2 Absolute Neuts (auto) 11.6 H Absolute Lymphs (auto) 2.55 Total Counted Not Reportable Differential Comment Diff Path Review May foll Platelet Estimate A Hypochromasia 1+ Anisocytosis 2+ Microcytosis RARE Acanthocytes (Spur) 2+ ESR Sodium 139 Potassium 3.7 Chloride 104 Carbon Dioxide 25.0 Anion Gap 10 BUN 23 H Creatinine 0.99 Estim Creat Clear Calc 41.22 Est GFR (MDRD) Af Amer 71 Est GFR (MDRD) Non-Af 59 L BUN/Creatinine Ratio 23.3 H Glucose 158 H Hemoglobin A1c Lactic Acid 0.8 Calcium 9.0 Total Bilirubin AST ALT Alkaline Phosphatase Troponin I C-React Prot Ext Range Total Protein Albumin Globulin Albumin/Globulin Ratio Lipase Urine Color Urine Clarity Urine pH Ur Specific [place] Urine Protein Urine Glucose (UA) Urine Ketones Urine Occult Blood Urine Nitrite Urine Bilirubin Urine Urobilinogen Ur Leukocyte Esterase Urine RBC Urine WBC Ur Squamous Epith Cells Urine Bacteria Urine Mucus 12/16/17 06:50 WBC RBC Hgb Hct MCV MCH MCHC RDW RDW Differential Plt Count MPV Immature Gran % (Auto) Neut % (Auto) Lymph % (Auto) [place] % (Auto) Eos % (Auto) Baso % (Auto) Absolute Neuts (auto) Absolute Lymphs (auto) Total Counted Differential Comment Diff Path Review Platelet Estimate Hypochromasia Anisocytosis Microcytosis Acanthocytes (Spur) ESR Sodium Potassium Chloride Carbon Dioxide Anion Gap BUN Creatinine Estim Creat Clear Calc Est GFR (MDRD) Af Amer Est GFR (MDRD) Non-Af BUN/Creatinine Ratio Glucose Hemoglobin A1c Pending Lactic Acid Calcium Total Bilirubin AST ALT Alkaline Phosphatase Troponin I C-React Prot Ext Range Total Protein Albumin Globulin Albumin/Globulin Ratio Lipase Urine Color Urine Clarity Urine pH Ur Specific [place] Urine Protein Urine Glucose (UA) Urine Ketones Urine Occult Blood Urine Nitrite Urine Bilirubin Urine Urobilinogen Ur Leukocyte Esterase Urine RBC Urine WBC Ur Squamous Epith Cells Urine Bacteria Urine Mucus - Other Studies Radiology: [] reviewed Other Studies: [] Route of nutrition/ use of supplements: [] Nutritional Intake: [] IV Site: [] [place] Catheter: [] - Physical Exam General: Alert, Oriented x3, Cooperative, No apparent distress HEENT: Atraumatic, PERRLA, EOMI Neck: Supple, No Nodes Lungs: Clear to auscultation, Normal air movement Cardiovascular: Regular rate, Regular Rhythm Abdomen: Soft, Non Tender, Non-Distended Extremities: No edema Skin: Ulcer/ Wound - L lateral foot wound with redness up to ankle IV Site: Peripheral, without redness Musculoskeletal: No Tenderness to Palpation of Joints or Extremities Neurological: Cranial nerves II-XII grossly intact - Assessment/Plan Antibiotics: [] Assessment/Plan: [] Active and Suspected Problems Acute osteomyelitis (Acute) L foot osteomyelitis - esr at 84. Cx with staph aureus. OR today for I&D by Dr. Omer. Tasha scherer. Will follow, thank you.
--- NOTE | 2017-12-16 14:00 | BON_PTH ---
PATIENT: DONNELL MOSER LOC: [facility]3 U#:[id number] AGE/SX: 72/F ROOM: MS323 RE12/16/[address]: Dr. Joby Malik MD : [id number] BED: 1 DIS: 12/20/2017 SPEC #: [id number] RECD: 12/17/17 09:56 STATUS: FATOU REQ #: [id number] SUSAN: 12/16/17 14:[address]: Lopez Omer DEPT: SURGICAL PATHOLOGY RECD BY: Akin Hanley ENTERED: 12/17/17 11:57 SP TYPE: Bone OTHR DR: MD Dr. John Oleary MD Dr. Robert Leininger, MD Dr. Thomas R Krupitzer, MD Tissues: A - Bone of foot, NOS B - Bone of foot, NOS Procedures: Decalcification bone/plaque Special Stain Group I Surgery Specimen Level III Surgery Specimen Level IV AFB Stain (control) GMS Stain (control) HEADER OPERATION: Debridement of necrotic, nonviable, infected soft tissue PRE-OP DIAGNOSIS: Left foot ulcer, osteomyelitis TISSUE SUBMITTED: A - Left foot fifth metatarsal and toe, B - Left clearance fragment from fifth metatarsal MICROSCOPIC DIAGNOSIS A. Left foot fifth metatarsal and toe, amputation: Focal ulceration, associated acute inflammation and abscess formation. Bone with acute osteomyelitis. Special stains for acid fast bacilli and fungi are negative for organisms; matched controls are appropriate. B. Foot bone clearance fragment from fifth metatarsal: A piece of bone, negative for acute osteomyelitis. SJ:janel 12/20/17 MICROSCOPIC DESCRIPTION Slides are reviewed. GROSS DESCRIPTION A - Received in fixative is one container labeled with the patient's name and designated left metatarsal and toe. The specimen consists of a portion of toe measuring 5.5 x 2 x 2 cm. The nail appears atrophic. Close to the resection margin and 3 cm away from the tip of the toe is an extensive ulceration measuring 2.5 x 2 cm. The ulcerated area is very close to the cutaneous resection margin. Also present in the container is a detached piece of bone measuring 3 x 1 x 0.5 cm. Trains Dispatcher Supervisor sections are submitted in two cassettes as follows: 1 - ulcerated area, 2 - detached piece of bone, entirely submitted after decalcification. B - Received in fixative is one container labeled with the patient's name and designated foot bone, clearance fragment from fifth metatarsal. The specimen consists of two pieces of bone measuring in aggregate 1 x 1 x 0.4 cm. The entire specimen is submitted in one cassette after decalcification. / SJ:janel 12/17/17 TC:2 CPT: 03309, 95342, [id number] x2, [id number] x2
[2017-12-16 14:34] LABS: Hemoglobin A1c 9.7 % (4.2-6.3)
[2017-12-16 15:45] LABS: Bedside Glucose 129 mg/dL (70-110)
--- NOTE | 2017-12-16 17:45 | RAD_ITS ---
STUDY: X-RAY - LEFT FOOT CLINICAL: Female, 72 years old. Postop from foot surgery TECHNIQUE: 3 view(s) of the foot. COMPARISON: Yesterday FINDINGS: Patient is status post amputation of the distal aspect of the mid and distal fifth metatarsal as well as the phalanges. There is postoperative subcutaneous emphysema and soft tissue swelling. But there is no fracture or suspicious erosive lesion noted. Degenerative arthrosis noted at all visualized joint spaces. Small calcaneal spurs RAD/Foot min 3 Views IMPRESSION: Postsurgical changes noted in the lateral aspect of the foot. There is subcutaneous emphysema and soft tissue swelling. No demonstrated fracture or suspicious erosive lesion. Calcaneal spurs Degenerative arthrosis Electronically Signed: Owen Harris MD at 18:05 EDT , Service support ,
[2017-12-16 17:46] LABS: Bedside Glucose 118 mg/dL (70-110)
--- NOTE | 2017-12-16 17:59 | PCM.OPRPT ---
Problem List (1) Gas gangrene of foot Status: Acute (2) Diabetic ulcer of left foot Status: Acute (3) Type 2 diabetes mellitus with diabetic polyneuropathy Status: Acute (4) Osteomyelitis of left foot Status: Acute (5) Cellulitis of left foot Status: Acute (6) Charcot's joint of foot Status: Acute Report of Operation Date of Procedure: 12/16/17 Pre-Operative Diagnosis: Ulcer of the left distal plantar lateral foot with cellulitis, osteomyelitis, and soft tissue gas. Post-Operative Diagnosis: same Surgery/Procedure Performed:: Debridement of all necrotic, non-viable, infected soft tissue and bone of the left foot with partial 5th ray amputation Description of Surgical Findings:: Hemostasis: well padded left ankle tourniquet Type of Anesthesia:: General - preoperative reverse brown block around 5th met base consisting of 10 mL of 0.5% marcaine plain. Specimen's removed: Necrotic and infected bone and soft tissue sent to pathology and microbiology for further evaluation. Clearance fragment from the fifth metatarsal also sent to pathology and microbiology for further evaluation. Estimated Blood Loss (mL): 20mL Description of Procedure: Indications: This 72-year-old diabetic female patient with a history of noncontrolled type 2 diabetes with neuropathy was consulted to podiatry earlier today after being admitted through the emergency room late last evening for an ulcer to the left foot that was malodorous as well as cellulitis of the left foot. This patient also has a medical history significant for Charcot foot, CAD, status post CABG and stents, ovarian tumor, as well as other comorbidities. The patient says the ulcer to her left lateral foot started as a skin tear from tape. She says the it quality assurance analyst she had been seeing in [place] was only treating the area with Silvadene cream and did not advise her to keep pressure and weight off of the affected area. She says over the last 3 weeks, the ulcer continued to slowly worsen. She says she was finally referred to the wound healing center at [place], and was supposed to follow-up with a it quality assurance analyst at the wound healing center this coming week. She states that yesterday evening she started having some nausea and vomiting and decided to come to the emergency room. The patient's WBC today was 16, her ESR was 84, and her CRP was 115. Preliminary swab cultures of the ulcer show staph aureus growth with further results pending. The patient was currently on vancomycin and Zosyn. Her vital signs were stable. 3 view foot x-rays were taken of the left foot, and results were read as erosive changes in the fifth metatarsal head consistent with signs suggesting osteomyelitis as well as associated soft tissue swelling as well as soft tissue emphysema. MRI was also taken of the left foot which showed signs consistent with osteomyelitis of the fifth metatarsal as well as the proximal phalanx of the fifth toe. 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 During physical exam today, patient's epicritic sensation is grossly absent to the lower extremities bilateral. Diminished peripheral pulses on palpation appreciated. LEAS studies ordered and results are still pending. Ulcer to the left lateral and plantar distal foot, overlying the distal fifth metatarsal. Necrotic/eschar noted overlying the ulcer site with a slight bogginess noted. There is malodor present. There is surrounding cellulitis to the foot. At this time, the planned surgical procedure was discussed in great detail with the patient as well as the patient's family members with her consent. This was done to the patient and her family's satisfaction. The patient agrees to proceed with the planned operation at this time. All of the risks and potential complications were reviewed with the patient and her family. They understand the importance of proper compliance following this procedure to optimize the potential for healing, but no guarantees were given. She is advised that the complications and risks include, but are not limited to, further infection, need for further surgeries, recurrence, transfer lesions, deformity, weakness, loss of strength, loss of function, the potential for further ulcerations, nonhealing, delayed healing, blood clots, chronic swelling, Charcot foot/ankle, nerve damage, inability to walk, inability to wear shoes, severe pain, complex regional pain syndrome, need for more proximal or extensive amputations such as a TMA or BKA, loss of complete limb, or even loss of life. All of the patient's questions were answered to her satisfaction as well as the satisfaction of the family members. It was then agreed to proceed with the debridement of all infected, necrotic, nonviable soft tissue and bone with partial fifth ray amputation of the left foot. The consent form was reviewed with the patient and was freely signed. Again, no guarantees were given. Description of procedure: The patient was brought into the operating room and placed on the table in the supine position. The patient was already on IV antibiotics per hospitalist. The patient received general anesthesia per the anesthesiologist. A local anesthetic block was then performed in a reverse Brown block fashion around the base of the left fifth metatarsal consisting of 10 mL of 0.5% Marcaine plain. A well-padded ankle tourniquet was then applied to the patient's left ankle. The left foot and ankle were then scrubbed, prepped, and draped in the usual aseptic manner. A timeout was then performed and the patient was properly identified and the surgical plan was confirmed. Next attention was directed to the dorsal left foot, to the dorso lateral fifth metatarsal shaft. Using a #15 scalpel blade, a linear longitudinal incision was carried out distally, from about midshaft of the fifth metatarsal out distally until the ulcer site was encountered. The incision was then carried completely around the ulcer site and up into the webspace between the fourth and fifth toe, making sure to hug as tightly to the fifth toe as possible. This was then connected with the initial longitudinal incision. Dissection was carefully carried down all the way to the level of the bone making sure to avoid any vital neurovascular structures. The distal shaft of the fifth metatarsal was shown to have poor bone quality and necrotic bone and soft tissue. No purulence was encountered. The fifth metatarsal shaft was then carefully dissected and freed of soft tissue attachments. At this time, the tourniquet was inflated around the left ankle to 250 mmHg. Next, a sagittal saw was used to make a cut through the shaft of the fifth metatarsal. The distal half of the fifth metatarsal as well as the fifth toe and soft tissue including the ulcer site were then carefully dissected and completely freed and passed from the the operating table. Part of the bone and soft tissue was then sent to microbiology for aerobic, anaerobic, acid-fast, and fungal evaluation, and the rest was sent to pathology for evaluation. Any remaining necrotic soft tissue was then carefully debrided and passed from the operating table. Any remaining visible tendons were then transected as far back as possible. The surgical site was then flushed with normal sterile saline. Once complete, the sagittal saw was employed again to remove a clearance fragment from the fifth metatarsal. Once this was dissected free it was also passed from the operating table. The specimen was then split in half was sent to microbiology for aerobic, anaerobic, acid-fast, and fungal evaluation and the other half was sent to pathology for further evaluation. Once this was complete and all remaining bone and soft tissue appeared healthy, the surgical site was flushed with copious amounts of normal sterile saline. The left ankle tourniquet was then deflated and hyperemic response was noted to the remaining digits of the left foot. Next, the surgical site was packed with quarter inch iodoform packing, followed by 4 x 4's, ABDs, and Kerlix. After procedure: The patient tolerated the procedure and anesthesia well. She was transferred to PACU with vital signs stable. She will be transferred back to the medical surgical floor upon continued stability. She and her family were advised to continue with strict nonweightbearing to the left lower extremity and to keep the dressing clean dry and intact. Microbiology and pathology specimens are pending. Patient is to continue IV antibiotics under the management of infectious disease. To continue DVT prophylaxis and medical management per primary team. To elevate the left foot for postop pain and inflammation management. 3 view left foot post op x-rays ordered. LEAS studies were ordered and will consider potential vascular surgery consult in the future pending results. I will continue to follow this patient while in house. - Complications none
--- NOTE | 2017-12-16 18:17 | PCM.HOSP.N ---
Hospitalist Note She was seen and examined briefly this morning before she went to surgery today, she has a history of coronary artery disease and heart valve repair but she has been having no cardiac problems for several years. She has had 2 major surgeries over the past 2 years and there were no problems with cardiac issues. I felt this morning that the patient was stable for surgery today.
[2017-12-16] MEDS: Glucerna Shake 120 ML LIQUID PO (21:29)
[2017-12-16] MEDS: Atorvastatin Calcium 40 MG Tablet PO (21:29)
[2017-12-16] MEDS: 0.9% NaCl Peripheral Flush Adult/Peds IV (21:30)
[2017-12-16 21:35] LABS: Bedside Glucose 228 mg/dL (70-110)
[2017-12-17 04:12] VITALS: BP 145/80; PULSE 81; RESP 16; TEMP 37.7; O2SAT 95
[2017-12-17] MEDS: Piperacil/Tazobactam 3.375 GM/50 ML ML IV ×3 (07:16→21:24)
[2017-12-17] MEDS: Heparin Injection (Vial) 5,000 UNIT/ML VIAL 5000 UNIT SC ×3 (07:16→21:25)
[2017-12-17] MEDS: Insulin Lispro 100 UNIT/ML INSULN.PEN SQ ×4 (07:16→21:25)
[2017-12-17 07:26] LABS: Bedside Glucose 163 mg/dL (70-110)
[2017-12-17 07:36] VITALS: BP 152/81; PULSE 82; RESP 16; TEMP 37.2; O2SAT 95
[2017-12-17] MEDS: Ramipril 2.5 MG Capsule PO (10:02)
[2017-12-17] MEDS: Carvedilol 25 MG Tablet PO ×2 (10:02→21:25)
[2017-12-17] MEDS: Nystatin Powder 15gm Bottle 1 APPLIC TOPICAL ×2 (10:02→21:24)
[2017-12-17] MEDS: Multivitamins,Therapeutic Tablet 1 TABLET PO (10:02)
[2017-12-17] MEDS: Ascorbic Acid 500 MG Tablet 1000 MG PO (10:03)
[2017-12-17] MEDS: Calcium Carb/Vitamin D 1 TABLET Tablet PO (10:03)
--- NOTE | 2017-12-17 10:22 | PN_ITS ---
Patient Problems: Active and Suspected Problems Acute osteomyelitis (Acute) Gas gangrene of foot (Acute) Diabetic ulcer of left foot (Acute) Type 2 diabetes mellitus with diabetic polyneuropathy (Acute) Osteomyelitis of left foot (Acute) Cellulitis of left foot (Acute) Charcot's joint of foot (Acute) Subjective: This 72 year old diabetic female was seen resting bedside POD #1 following open 5th ray resection and debridement of all necrotic, non-viable, and infected soft tissue and bone. She is resting comfortably in her room with her son by her side. She said she feels better today and currently has no signs of nausea, vomiting, fever, or chills. - Physical Exam General: Alert, Oriented x3, Cooperative, No apparent distress Extremities: No Calf Tenderness - negative sandy and barron sign, Diminished Peripheral Pulses, Edema - improving edema to left foot Skin: - - Open surgical site noted to the left lateral foot following open 5th ray resection. There is no purulence appreciated today. Sugical base does not appear to have any new necrotic tissue formation following procedure. The skin does not appear dusky surrounding the surgical site. The surrounding cellulitis from yesterday is reducing. Musculoskeletal: No Tenderness to Palpation of Joints or Extremities, - - bilateral charcot foot type changes. Contracted digits 2-5 on the right and 2-4 on the left. Neurological: - - Epicritic sensation grossly absent lower extremity bilateral Psych/Mental Status: Normal Affect, Appropriate Vital Signs Temp Pulse Resp BP Pulse Ox 99.0 F 82 16 152/81 H 95 12/17/17 07:36 12/17/17 07:36 12/17/17 07:36 12/17/17 07:36 12/17/17 07:36 Oxygen Flow Rate (L/min) 1 Oxygen Delivery Method Room Air Weight: 59.56 kg Body Mass Index (BMI) 24.1 Finger Stick Blood Glucose 118 Intake and Output for Last 24 Hours 12/15/17 12/16/17 12/17/17 23:59 23:59 23:59 Intake Total 785 / 785 850 / 850 Output Total 300 / 300 Balance 785 / 785 550 / 550 Microbiology Past 72 Hours 12/16/17 Unknown Gram Stain - Final Bone - Other Wound Culture - Preliminary Staphylococcus aureus 12/16/17 Unknown Gram Stain - Final Bone - Other 12/15/17 22:45 Gram Stain - Final Wound - Left Foot Wound Culture - Final Staphylococcus aureus Laboratory Tests Past 24 Hrs 12/16/17 12/16/17 06:50 06:50 Total Counted Not Reportable Differential Comment Diff Path Review May foll Platelet Estimate A Hypochromasia 1+ Anisocytosis 2+ Microcytosis RARE Acanthocytes (Spur) 2+ Hemoglobin A1c 9.7 H POC Glucose 12/17/17 12/16/17 12/16/17 07:15 21:26 17:37 POC Glucose 163 H 228 H 118 H 12/16/17 12/16/17 14:54 10:57 POC Glucose 129 H 127 H Medical Necessity - Tobacco Use Smoking Status: Never smoker Assessment/Plan All Active Problems Ulcer of left foot (Acute) Foot callus (Acute) Acute osteomyelitis (Acute) Gas gangrene of foot (Acute) Diabetic ulcer of left foot (Acute) Type 2 diabetes mellitus with diabetic polyneuropathy (Acute) Osteomyelitis of left foot (Acute) Cellulitis of left foot (Acute) Charcot's joint of foot (Acute) Thrombocytopenia (Acute) E coli bacteremia (Acute) Hepatosplenomegaly (Acute) Hydroureter on left (Acute) Hydronephrosis of left kidney (Acute) Pyelonephritis (Acute) Open surgical wound following open left 5th ray resection (12/16/17) cellulitis-resolving PVD DM with neuropathy Other comorbidities This 72 year old patient was seen resting bedside s/p debridement of all non- viable, infected, necrotic soft tissue and bone of the left foot with open 5th ray resection. Cellulitis has decreased surrounding surgical site since yesterday. Her vital signs are currently stable. Results from specimen and clear fragment sent from surgery that were sent for micro and pathology evaluation are still pending. ID has been consulted and is following the patient. Her LEAS studies revealed decreased arterial flow with numbers consistent with chronic vascular disease. Her left CHRIS was .66 and her left TBI was .21 and there was no DP waveform and monophasic PT waveform. Dr. Powers with vascular was consulted and will see this patient tomorrow. The surgical site was carefully cleansed today with dakins solution. There are no new signs of any necrotic tissue or any areas of dusky appearing tissue appreciated today. The surgical site was then packed with dakins moistened 4x4's, followed by overlying dry 4x4s, ABD, and kerlix. No JACKSON was applied. Dressing can be reinforced by nursing staff as necessary. I discussed the case again with the patient and her son, and I answered all and any questions they had. I discussed the case with the hospital ist as well, and she is ok with vascular consult. Medical management by primary team is appreciated. I will continue to follow this patient while in house.
--- NOTE | 2017-12-17 11:06 | PCM.PN.ID ---
Patient Problems: Active and Suspected Problems Acute osteomyelitis (Acute) Gas gangrene of foot (Acute) Diabetic ulcer of left foot (Acute) Type 2 diabetes mellitus with diabetic polyneuropathy (Acute) Osteomyelitis of left foot (Acute) Cellulitis of left foot (Acute) Charcot's joint of foot (Acute) Subjective: Feeling ok s/p OR. No fever, no pain in foot. - Physical Exam General: Alert, Cooperative, No apparent distress Lungs: Clear to auscultation, Normal air movement Cardiovascular: Regular rate, Regular Rhythm Abdomen: Soft, Non Tender, Non-Distended Skin: No rashes, Incision - foot wrapped Vital Signs Temp Pulse Resp BP Pulse Ox 99.0 F 82 16 152/81 H 95 12/17/17 07:36 12/17/17 07:36 12/17/17 07:36 12/17/17 07:36 12/17/17 07:36 Oxygen Flow Rate (L/min) 1 Oxygen Delivery Method Room Air Weight: 59.56 kg Body Mass Index (BMI) 24.1 Finger Stick Blood Glucose 118 Intake and Output for Last 24 Hours 12/15/17 12/16/17 12/17/17 23:59 23:59 23:59 Intake Total 785 / 785 850 / 850 Output Total 300 / 300 Balance 785 / 785 550 / 550 Microbiology Past 72 Hours 12/16/17 Unknown Gram Stain - Final Bone - Other Wound Culture - Preliminary Staphylococcus aureus 12/16/17 Unknown Gram Stain - Final Bone - Other 12/15/17 22:45 Gram Stain - Final Wound - Left Foot Wound Culture - Final Staphylococcus aureus Laboratory Tests Past 24 Hrs 12/16/17 12/16/17 06:50 06:50 Total Counted Not Reportable Differential Comment Diff Path Review May foll Platelet Estimate A Hypochromasia 1+ Anisocytosis 2+ Microcytosis RARE Acanthocytes (Spur) 2+ Hemoglobin A1c 9.7 H POC Glucose 12/17/17 12/16/17 12/16/17 07:15 21:26 17:37 POC Glucose 163 H 228 H 118 H 12/16/17 14:54 POC Glucose 129 H Medical Necessity - Tobacco Use Smoking Status: Never smoker Route of nutrition/ use of supplements: [] Nutritional Intake: [] IV Site: [] [place] Catheter: [] - Assessment/Plan Antibiotics: [] Assessment/Plan: [] Active and Suspected Problems Acute osteomyelitis (Acute) L foot osteomyelitis - esr at 84. Cx with MSSA. OR 12/16 for I&D, 5th toe amputation and partial 5th metatarsal resection by Dr. Omer. Tasha saldana, will stop vanc. Will order picc for planned 6 week course of iv cefazolin. Will follow
[2017-12-17 11:36] LABS: Bedside Glucose 303 mg/dL (70-110)
--- NOTE | 2017-12-17 13:29 | PCM.PN.HOSP ---
Patient Problems: Active and Suspected Problems Acute osteomyelitis (Acute) Gas gangrene of foot (Acute) Diabetic ulcer of left foot (Acute) Type 2 diabetes mellitus with diabetic polyneuropathy (Acute) Osteomyelitis of left foot (Acute) Cellulitis of left foot (Acute) Charcot's joint of foot (Acute) Subjective: Patient is a 72-year-old female with a history of hypertension, insulin-dependent diabetes mellitus, dyslipidemia, Charcot joint, peripheral neuropathy, CAD with remote bypass who was admitted for diabetic foot ulcer with fifth toe osteomyelitis. Patient is status post debridement of infective soft tissue and bone of left foot with partial fifth ray amputation on 12/16/17. Patient doing well, without any complaints. States that she was advised not to place pressure on her left foot and thus has not been ambulating. States pain is adequately controlled. Denies any fevers or chills. Denies any diarrhea. States her blood sugars have been in the 300s, ordinarily there are noted to be in the 200s at home. Was seen by podiatry and was noted to have decreased distal pulses. Patient will be evaluated by vascular surgery tomorrow. Vitals/I&O's: Vital Signs Temp Pulse Resp BP Pulse Ox 99.0 F 82 16 152/81 H 95 12/17/17 07:36 12/17/17 07:36 12/17/17 07:36 12/17/17 07:36 12/17/17 07:36 Oxygen Flow Rate (L/min) 1 Oxygen Delivery Method Room Air Weight: 59.56 kg Body Mass Index (BMI) 24.1 Finger Stick Blood Glucose 118 Intake and Output for Last 24 Hours 12/15/17 12/16/17 12/17/17 23:59 23:59 23:59 Intake Total 785 / 785 850 / 850 Output Total 300 / 300 Balance 785 / 785 550 / 550 General: Alert, Oriented x3, Cooperative HEENT: Normocephalic Neck: Supple, No JVD Lungs: Clear to auscultation, Normal air movement Cardiovascular: Regular rate, No murmurs Abdomen: Bowel Sounds Present, Soft, Non Tender Extremities: - - With left foot dressed, warm lower extremity, with noted erythema, no drainage noted Skin: No rashes, No breakdown Musculoskeletal: No Tenderness to Palpation of Joints or Extremities Neurological: Cranial nerves II-XII grossly intact Psych/Mental Status: Normal Affect, Appropriate Microbiology Past 72 Hours 12/16/17 Unknown Bone - Other Gram Stain - Final 12/16/17 Unknown Bone - Other Wound Culture - Preliminary Staphylococcus aureus 12/16/17 Unknown Bone - Other Gram Stain - Final 12/15/17 22:45 Wound - Left Foot Gram Stain - Final 12/15/17 22:45 Wound - Left Foot Wound Culture - Final Staphylococcus aureus Laboratory Results 12/16/17 06:50: Hemoglobin A1c 9.7 H 12/16/17 14:54: POC Glucose 129 H 12/16/17 17:37: POC Glucose 118 H 12/16/17 21:26: POC Glucose 228 H 12/17/17 07:15: POC Glucose 163 H 12/17/17 11:29: POC Glucose 303 H Current Medications Ascorbic Acid (Vitamin C) 1,000 mg PO DAILY [facility] Last Admin: 12/17/17 10:03 Dose: 1,000 mg Atorvastatin Calcium (Lipitor) 40 mg PO QHS [facility] Last Admin: 12/16/17 21:29 Dose: 40 mg Bisacodyl (Dulcolax) 5 mg PO DAILY PRN PRN Reason: Constipation Calcium/Vitamin D (Os-Trae 500mg + D) 1 tablet PO DAILY [facility] Last Admin: 12/17/17 10:03 Dose: 1 tablet Carvedilol (Coreg) 25 mg PO BID [facility] Last Admin: 12/17/17 10:02 Dose: 25 mg Dextrose (D50w Syringe) 0 gm IV X1 PRN; Protocol PRN Reason: Hypoglycemia Glucagon () 1 mg IM .X1 PRN PRN Reason: Hypoglycemia Heparin Sodium (Porcine) (Heparin Na) 5,000 unit SC Q8 [facility] Last Admin: 12/17/17 07:16 Dose: 5,000 unit Piperacillin Sod/Tazobactam Sod (Zosyn) 3.375 gm in 50 mls @ 12.5 mls/hr IV Q8 [facility] Last Admin: 12/17/17 07:16 Dose: 12.5 mls/hr Insulin Human Lispro (Humalog Kwikpen (Bkc)) 0 unit SQ ACHS [facility]; Protocol Last Admin: 12/17/17 11:47 Dose: 6 u Magnesium Hydroxide (Milk Of Magnesia) 30 ml PO DAILY PRN PRN PRN Reason: Constipation Morphine Sulfate () 1 - 2 mg IV Q4H PRN PRN PRN Reason: PAIN Multivitamins (Multivitamin) 1 tablet PO DAILYCM [facility] Last Admin: 12/17/17 10:02 Dose: 1 tablet Non-Formulary Medication (Insulin Detemir [Levemir Flexpen]) 18 units SC BID [facility] Nutritional Formula (Lactose Free) (Glucerna Shake) 120 ml PO 4X/DAY [facility] Last Admin: 12/17/17 10:04 Dose: Not Given Nystatin (Mycostatin Powder) 1 applic TOPICAL BID [facility]; Protocol Last Admin: 12/17/17 10:02 Dose: 1 applicatio Ondansetron HCl (Zofran) 4 mg IV Q6H PRN PRN PRN Reason: NAUSEA/VOMITING Ramipril (Altace) 2.5 mg PO DAILY [facility] Last Admin: 12/17/17 10:02 Dose: 2.5 mg Sodium Chloride () 5 - 30 ml IV UD PRN PRN Reason: SALINE FLUSH Last Admin: 12/16/17 21:30 Dose: 10 ml Medical Necessity - Tobacco Use Smoking Status: Never smoker Assessment/Plan All Active Problems Ulcer of left foot (Acute) Foot callus (Acute) Acute osteomyelitis (Acute) Gas gangrene of foot (Acute) Diabetic ulcer of left foot (Acute) Type 2 diabetes mellitus with diabetic polyneuropathy (Acute) Osteomyelitis of left foot (Acute) Cellulitis of left foot (Acute) Charcot's joint of foot (Acute) Thrombocytopenia (Acute) E coli bacteremia (Acute) Hepatosplenomegaly (Acute) Hydroureter on left (Acute) Hydronephrosis of left kidney (Acute) Pyelonephritis (Acute) Patient is a 72-year-old female with a history of hypertension, insulin-dependent diabetes mellitus, dyslipidemia, Charcot joint, peripheral neuropathy, CAD with remote bypass who was admitted for diabetic foot ulcer with fifth toe osteomyelitis. Patient is status post debridement of infective soft tissue and bone of left foot with partial fifth ray amputation on 12/16/17. 1. Diabetic foot ulcer with fifth digit osteomyelitis status post debridement and partial amputation, MSSA Status post debridement, continue with current IV antibiotics as recommended by infectious disease. Appreciate consultants. Likely will be discharged with IV Ancef via PICC line as recommended by infectious disease. PICC line ordered. Patient is still on Zosyn. Will change to Ancef on discharge. Await evaluation by vascular surgery given PVD. 2. Insulin dependent diabetes mellitus Blood sugars are suboptimal. Resume home regimen of Levemir and continue with sliding scale insulin. Last A1c noted to be 9.4. 3. Hypertension Blood pressure is adequate for now. Add as needed hydralazine. 4. PVD To be evaluated by vascular surgery tomorrow. Aspirin held secondary to surgery. 5. CAD, remote CABG Aware. Stable. Restart aspirin tomorrow, continue with statin and beta-riley. On JACKSON inhibitor. 6. Peripheral neuropathy 7. DVT prophylaxis On heparin. 8. Dyslipidemia Continue with current IV antibiotics, PICC line to be placed today. Will order PT/OT in the meantime. Await recommendations and evaluation by vascular surgery on 12/18/17. Patient will likely require SNF upon discharge pending recommendations by PT/OT. Code Visit Inpatient E&M: [id number] [facility] L3
--- NOTE | 2017-12-17 13:34 | PN_ITS ---
Patient Problems: Active and Suspected Problems Acute osteomyelitis (Acute) Gas gangrene of foot (Acute) Diabetic ulcer of left foot (Acute) Type 2 diabetes mellitus with diabetic polyneuropathy (Acute) Osteomyelitis of left foot (Acute) Cellulitis of left foot (Acute) Charcot's joint of foot (Acute) Subjective: Patient is a 72-year-old female with a history of hypertension, insulin- dependent diabetes mellitus, dyslipidemia, Charcot joint, peripheral neuropathy, CAD with remote bypass who was admitted for diabetic foot ulcer with fifth toe osteomyelitis. Patient is status post debridement of infective soft tissue and bone of left foot with partial fifth ray amputation on 12/16/17. Patient doing well, without any complaints. States that she was advised not to place pressure on her left foot and thus has not been ambulating. States pain is adequately controlled. Denies any fevers or chills. Denies any diarrhea. S tates her blood sugars have been in the 300s, ordinarily there are noted to be in the 200s at home. Was seen by podiatry and was noted to have decreased distal pulses. Patient will be evaluated by vascular surgery tomorrow. Vitals/I&O's: Vital Signs Temp Pulse Resp BP Pulse Ox 99.0 F 82 16 152/81 H 95 12/17/17 07:36 12/17/17 07:36 12/17/17 07:36 12/17/17 07:36 12/17/17 07:36 Oxygen Flow Rate (L/min) 1 Oxygen Delivery Method Room Air Weight: 59.56 kg Body Mass Index (BMI) 24.1 Finger Stick Blood Glucose 118 Intake and Output for Last 24 Hours 12/15/17 12/16/17 12/17/17 23:59 23:59 23:59 Intake Total 785 / 785 850 / 850 Output Total 300 / 300 Balance 785 / 785 550 / 550 General: Alert, Oriented x3, Cooperative HEENT: Normocephalic Neck: Supple, No JVD Lungs: Clear to auscultation, Normal air movement Cardiovascular: Regular rate, No murmurs Abdomen: Bowel Sounds Present, Soft, Non Tender Extremities: - - With left foot dressed, warm lower extremity, with noted erythema, no drainage noted Skin: No rashes, No breakdown Musculoskeletal: No Tenderness to Palpation of Joints or Extremities Neurological: Cranial nerves II-XII grossly intact Psych/Mental Status: Normal Affect, Appropriate Microbiology Past 72 Hours 12/16/17 Unknown Bone - Other Gram Stain - Final 12/16/17 Unknown Bone - Other Wound Culture - Preliminary Staphylococcus aureus 12/16/17 Unknown Bone - Other Gram Stain - Final 12/15/17 22:45 Wound - Left Foot Gram Stain - Final 12/15/17 22:45 Wound - Left Foot Wound Culture - Final Staphylococcus aureus Laboratory Results 12/16/17 06:50: Hemoglobin A1c 9.7 H 12/16/17 14:54: POC Glucose 129 H 12/16/17 17:37: POC Glucose 118 H 12/16/17 21:26: POC Glucose 228 H 12/17/17 07:15: POC Glucose 163 H 12/17/17 11:29: POC Glucose 303 H Current Medications Ascorbic Acid (Vitamin C) 1,000 mg PO DAILY [facility] Last Admin: 12/17/17 10:03 Dose: 1,000 mg Atorvastatin Calcium (Lipitor) 40 mg PO QHS [facility] Last Admin: 12/16/17 21:29 Dose: 40 mg Bisacodyl (Dulcolax) 5 mg PO DAILY PRN PRN Reason: Constipation Calcium/Vitamin D (Os-Trae 500mg + D) 1 tablet PO DAILY [facility] Last Admin: 12/17/17 10:03 Dose: 1 tablet Carvedilol (Coreg) 25 mg PO BID [facility] Last Admin: 12/17/17 10:02 Dose: 25 mg Dextrose (D50w Syringe) 0 gm IV X1 PRN; Protocol PRN Reason: Hypoglycemia Glucagon () 1 mg IM .X1 PRN PRN Reason: Hypoglycemia Heparin Sodium (Porcine) (Heparin Na) 5,000 unit SC Q8 [facility] Last Admin: 12/17/17 07:16 Dose: 5,000 unit Piperacillin Sod/Tazobactam Sod (Zosyn) 3.375 gm in 50 mls @ 12.5 mls/hr IV Q8 [facility] Last Admin: 12/17/17 07:16 Dose: 12.5 mls/hr Insulin Human Lispro (Humalog Kwikpen (Bkc)) 0 unit SQ ACHS [facility]; Protocol Last Admin: 12/17/17 11:47 Dose: 6 u Magnesium Hydroxide (Milk Of Magnesia) 30 ml PO DAILY PRN PRN PRN Reason: Constipation Morphine Sulfate () 1 - 2 mg IV Q4H PRN PRN PRN Reason: PAIN Multivitamins (Multivitamin) 1 tablet PO DAILYCM [facility] Last Admin: 12/17/17 10:02 Dose: 1 tablet Non-Formulary Medication (Insulin Detemir [Levemir Flexpen]) 18 units SC BID [facility] Nutritional Formula (Lactose Free) (Glucerna Shake) 120 ml PO 4X/DAY [facility] Last Admin: 12/17/17 10:04 Dose: Not Given Nystatin (Mycostatin Powder) 1 applic TOPICAL BID [facility]; Protocol Last Admin: 12/17/17 10:02 Dose: 1 applicatio Ondansetron HCl (Zofran) 4 mg IV Q6H PRN PRN PRN Reason: NAUSEA/VOMITING Ramipril (Altace) 2.5 mg PO DAILY [facility] Last Admin: 12/17/17 10:02 Dose: 2.5 mg Sodium Chloride () 5 - 30 ml IV UD PRN PRN Reason: SALINE FLUSH Last Admin: 12/16/17 21:30 Dose: 10 ml Medical Necessity - Tobacco Use Smoking Status: Never smoker Assessment/Plan All Active Problems Ulcer of left foot (Acute) Foot callus (Acute) Acute osteomyelitis (Acute) Gas gangrene of foot (Acute) Diabetic ulcer of left foot (Acute) Type 2 diabetes mellitus with diabetic polyneuropathy (Acute) Osteomyelitis of left foot (Acute) Cellulitis of left foot (Acute) Charcot's joint of foot (Acute) Thrombocytopenia (Acute) E coli bacteremia (Acute) Hepatosplenomegaly (Acute) Hydroureter on left (Acute) Hydronephrosis of left kidney (Acute) Pyelonephritis (Acute) Patient is a 72-year-old female with a history of hypertension, insulin- dependent diabetes mellitus, dyslipidemia, Charcot joint, peripheral neuropathy, CAD with remote bypass who was admitted for diabetic foot ulcer with fifth toe osteomyelitis. Patient is status post debridement of infective soft tissue and bone of left foot with partial fifth ray amputation on 12/16/17. 1. Diabetic foot ulcer with fifth digit osteomyelitis status post debridement and partial amputation, MSSA * Status post debridement, continue with current IV antibiotics as recommended by infectious disease. Appreciate consultants. Likely will be discharged with IV Ancef via PICC line as recommended by infectious disease. PICC line ordered. Patient is still on Zosyn. Will change to Ancef on discharge. Await evaluation by vascular surgery given PVD. 2. Insulin dependent diabetes mellitus * Blood sugars are suboptimal. Resume home regimen of Levemir and continue with sliding scale insulin. Last A1c noted to be 9.4. 3. Hypertension * Blood pressure is adequate for now. Add as needed hydralazine. 4. PVD * To be evaluated by vascular surgery tomorrow. Aspirin held secondary to surgery. 5. CAD, remote CABG * Aware. Stable. Restart aspirin tomorrow, continue with statin and beta- riley. On JACKSON inhibitor. 6. Peripheral neuropathy 7. DVT prophylaxis * On heparin. 8. Dyslipidemia * Continue with current IV antibiotics, PICC line to be placed today. Will order PT/OT in the meantime. Await recommendations and evaluation by vascular surgery on 12/18/17. Patient will likely require SNF upon discharge pending recommendations by PT/OT. Code Visit Inpatient E&M: [id number] [facility] L3
[2017-12-17 14:17] LABS: Absolute Lymphocyte Count 2.53 X10^3/ul (0.83-4.51); Absolute Neutrophil Count 9.1 X10^3/uL (2.0-7.7); Basophil# 0.04 X10^3/uL; Basophil% 0.3 % (0-1); Eosinophil# 0.05 X10^3/uL; Eosinophils% 0.4 % (0-5); Hematocrit 30.8 % (37-47); Hemoglobin 9.4 g/dl (12.0-15.0); Lymphocyte # 2.53 X10^3/ul (4.0); Lymphocyte % 19.5 % (19-41); Mean Corp Hgb Conc 30.5 g/gl (32-36); Mean Corpuscular Hgb 25.3 pg (27.0-32.0); Mean Corpuscular Volume 82.8 fL (81-99); Mean Platelet Vol. 11.2 fl (6.2-12.0); Monocyte# 1.23 X10^3/uL; Monocyte% 9.5 % (0-10); Neutrophil % 70.2 % (47-70); POSITIVE COUNT NO; POSITIVE DIFFERENTIAL NO; POSITIVE MORPHOLOGY NO; Platelet Count 311 K/mm3 (150-450); RBC Distribution Width CV 15.6 % (11.6-14.6); Red Blood Count 3.72 M/mm3 (4.2-5.4)
[2017-12-17 14:25] LABS: Anion Gap 7 (5-15); BUN 20 mg/dL (7-18); BUN/Creat Ratio 16.7 RATIO (10-20); Calcium,Total 9.1 mg/dL (8.5-10.1); Chloride 101 mmol/L (98-107); EST Glomerular Filtration Rate 47 mL/min (>60); Est Glom Filt Rate - Afr Amer 57 mL/min (>60); Estimated Creatinine Clearance 32.45 ml/min; Glucose 259 mg/dL (74-106); Potassium 3.8 mmol/L (3.5-5.1); Sodium Level 134 mmol/L (136-145)
[2017-12-17] MEDS: Glucerna Shake 120 ML LIQUID PO ×2 (14:45→21:24)
[2017-12-17 14:53] VITALS: BP 117/77; PULSE 68; RESP 16; TEMP 36.6; O2SAT 98
[2017-12-17 15:25] VITALS: O2SAT 98
[2017-12-17 16:50] LABS: Bedside Glucose 290 mg/dL (70-110)
[2017-12-17 20:23] VITALS: BP 118/62; PULSE 66; RESP 18; TEMP 36.5; O2SAT 94
[2017-12-17] MEDS: Atorvastatin Calcium 40 MG Tablet PO (21:24)
[2017-12-17] MEDS: 0.9% NaCl Peripheral Flush Adult/Peds IV (21:24)
[2017-12-17 21:36] LABS: Bedside Glucose 217 mg/dL (70-110)
[2017-12-18 02:10] VITALS: BP 115/70; PULSE 68; RESP 16; TEMP 36.5; O2SAT 95
[2017-12-18] MEDS: Piperacil/Tazobactam 3.375 GM/50 ML ML IV (05:19)
[2017-12-18] MEDS: 0.9% NaCl Peripheral Flush Adult/Peds IV (05:19)
[2017-12-18] MEDS: Heparin Injection (Vial) 5,000 UNIT/ML VIAL 5000 UNIT SC ×3 (05:19→21:23)
[2017-12-18 05:37] LABS: Absolute Lymphocyte Count 2.92 X10^3/ul (0.83-4.51); Basophil# 0.04 X10^3/uL; Basophil% 0.4 % (0-1); Eosinophil# 0.49 X10^3/uL; Eosinophils% 4.6 % (0-5); Hematocrit 28.3 % (37-47); Hemoglobin 8.7 g/dl (12.0-15.0); Lymphocyte # 2.92 X10^3/ul (4.0); Lymphocyte % 27.3 % (19-41); Mean Corp Hgb Conc 30.7 g/gl (32-36); Mean Corpuscular Hgb 25.5 pg (27.0-32.0); Mean Platelet Vol. 10.5 fl (6.2-12.0); Monocyte# 1.21 X10^3/uL; Monocyte% 11.3 % (0-10); Neutrophil # 6.03 X10^3/uL (2.7-7.7); Neutrophil % 56.2 % (47-70); Platelet Count 282 K/mm3 (150-450); RBC Distribution Width CV 15.7 % (11.6-14.6); Red Blood Count 3.41 M/mm3 (4.2-5.4); White Blood Count 10.7 K/mm3 (4.4-11.0)
[2017-12-18 05:40] LABS: POSITIVE COUNT NO; POSITIVE DIFFERENTIAL NO; POSITIVE MORPHOLOGY NO
[2017-12-18 05:54] LABS: Anion Gap 7 (5-15); BUN 22 mg/dL (7-18); Calcium,Total 9.1 mg/dL (8.5-10.1); Chloride 106 mmol/L (98-107); EST Glomerular Filtration Rate 52 mL/min (>60); Est Glom Filt Rate - Afr Amer 63 mL/min (>60); Glucose 78 mg/dL (74-106); Potassium 3.5 mmol/L (3.5-5.1); Sodium Level 141 mmol/L (136-145)
[2017-12-18 07:51] VITALS: O2SAT 95
[2017-12-18 08:01] VITALS: BP 118/69; PULSE 69; RESP 16; TEMP 36.7; O2SAT 95
[2017-12-18 08:01] LABS: Bedside Glucose 72 mg/dL (70-110)
[2017-12-18] MEDS: Calcium Carb/Vitamin D 1 TABLET Tablet PO (08:59)
[2017-12-18] MEDS: Ascorbic Acid 500 MG Tablet 1000 MG PO (09:00)
[2017-12-18] MEDS: Nystatin Powder 15gm Bottle 1 APPLIC TOPICAL ×2 (09:00→21:21)
[2017-12-18] MEDS: Ramipril 2.5 MG Capsule PO (09:01)
[2017-12-18] MEDS: Multivitamins,Therapeutic Tablet 1 TABLET PO (09:01)
[2017-12-18] MEDS: Carvedilol 25 MG Tablet PO ×2 (09:01→21:24)
[2017-12-18 11:51] LABS: Bedside Glucose 141 mg/dL (70-110)
--- NOTE | 2017-12-18 12:22 | CON.PCM_ITS ---
Problem List (1) Ulcer of left foot Status: Acute (2) Gas gangrene of foot Status: Acute (3) Diabetic ulcer of left foot Status: Acute (4) Type 2 diabetes mellitus with diabetic polyneuropathy Status: Acute (5) Osteomyelitis of left foot Status: Acute Reason for Consult Date of Consultation: 12/18/17 History of Present Illness: The patient is a 72 year old F with gangrene of the left fifth toe and presented with cellulitis. She had a toe amputation of some duskiness and poor healing along this. She has had some vascular lab studies that show the right and CHRIS 1.46 and 0.99 with the digit brachial index 0.84 the left is DP was unable to be found the posterior tibial 0.66 and a digit brachial index 0.21. Did appear to have an okay waveform down to the ankle. Vascular surgery consult for evaluation of this.] Past Medical History Past Medical History (Chronic Problems): Chronic Problems Status post coronary artery bypass graft (Chronic) Coronary artery disease (Chronic) Status post stents and CABG. Type 2 diabetes mellitus (Chronic) Hypertension (Chronic) Hyperlipidemia (Chronic) Allergies No Known Allergies Allergy (Verified 12/15/17 21:59) Home Medications: Ambulatory Orders Medication Instructions Recorded Aspirin [Aspirin, Baby] 81 mg PO DAILY 12/12/15 Atorvastatin Calcium [Lipitor] 40 mg PO QHS 12/12/15 Carvedilol [Coreg (Beta Britney)] 25 mg PO BID 12/12/15 Milk Thistle 1,000 mg PO DAILY 12/12/15 Multivitamins,Therapeutic 1 tablet PO DAILY 12/12/15 [Multivitamin] Ramipril [Altace] 2.5 mg PO DAILY 12/12/15 Vitamin C 1,000 mg PO DAILY 12/12/15 Insulin Detemir [Levemir FlexPen] 18 units SC BID 12/13/15 Calcium Citrate-Vit D3 Tablet 1 tab PO DAILY 12/15/17 Ubidecarenone [Co Q-10] 200 mg PO DAILY 12/15/17 Cefazolin 2 gm IV Q8 40 Days #120 vial 12/18/17 Metronidazole [Flagyl] 500 mg PO TID 14 Days #42 tablet 12/18/17 Surgical History: - - 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 Lives: With Family Smoking Status: Never smoker Alcohol: None - *Family History Maternal History Items: Cancer - Her mother had throat cancer; and a sister had breast cancer. She had other sibling that had prostate cancer and cancer at the back of the head ofher sibling., Hypertension Review of Systems Constitutional: Denies: Chills, Fever, Weight Change HEENT: Denies: Head Aches, Sinus Congestion, Sinus Drainage Cardiovascular: Denies: Chest Pain, Palpitations Respiratory: Denies: Cough, Shortness of breath at rest, Sputum production Gastrointestinal: Denies: Abdominal Pain, Nausea, Vomiting Genitourinary: Denies: Dysuria Musculoskeletal: Denies: Joint Pain, Joint Tenderness Skin: Reports: Wounds - Left fifth toe Patient Problems: Active and Suspected Problems Acute osteomyelitis (Acute) Gas gangrene of foot (Acute) Diabetic ulcer of left foot (Acute) Type 2 diabetes mellitus with diabetic polyneuropathy (Acute) Osteomyelitis of left foot (Acute) Cellulitis of left foot (Acute) Charcot's joint of foot (Acute) - Physical Exam General: Alert, Oriented x3, Cooperative, No apparent distress HEENT: Atraumatic, PERRLA, EOMI, Normocephalic Oral: Moist Mucosa Neck: Supple, No Nodes Lungs: Clear to auscultation Cardiovascular: Regular rate, Regular Rhythm Abdomen: Soft Extremities: No clubbing, No cyanosis, - - Unable to feel pulses Dressing intact along the left fifth toe amputation Vital Signs Temp Pulse Resp BP Pulse Ox 98.1 F 69 16 118/69 95 12/18/17 08:01 12/18/17 08:01 12/18/17 08:01 12/18/17 08:01 12/18/17 08:01 Oxygen Flow Rate (L/min) 1 Oxygen Delivery Method Room Air Weight: 131 lb 4.917 oz Body Mass Index (BMI) 24.1 Finger Stick Blood Glucose 118 Intake and Output for Last 24 Hours 12/16/17 12/17/17 12/18/17 23:59 23:59 23:59 Intake Total 785 / 785 850 / 850 1127 / 1127 Output Total 300 / 300 550 / 550 Balance 785 / 785 550 / 550 577 / 577 Microbiology Past 72 Hours 12/16/17 Unknown Gram Stain - Final Bone - Other Wound Culture - Final Staphylococcus aureus Anaerobic Culture - Preliminary 12/15/17 22:43 Blood Culture - Preliminary Blood Culture (Wb) - Anticubital Left No growth in 48 hours. 12/15/17 22:40 Blood Culture - Preliminary Blood Culture (Wb) - Anticubital Right No growth in 48 hours. 12/16/17 Unknown Gram Stain - Final Bone - Other Wound Culture - Preliminary Staphylococcus aureus Anaerobic Culture - Preliminary No growth in 48 hours. 12/15/17 22:45 Gram Stain - Final Wound - Left Foot Wound Culture - Final Staphylococcus aureus Laboratory Tests Past 24 Hrs 12/17/17 12/17/17 12/18/17 13:42 13:42 05:15 WBC 13.0 H 10.7 RBC 3.72 L 3.41 L Hgb 9.4 L 8.7 L Hct 30.8 L 28.3 L MCV 82.8 83.0 MCH 25.3 L 25.5 L MCHC 30.5 L 30.7 L RDW 15.6 H 15.7 H RDW Differential 48.0 H 48.0 H Plt Count 311 282 MPV 11.2 10.5 Immature Gran % (Auto) 0.100 0.200 Neut % (Auto) 70.2 H 56.2 Lymph % (Auto) 19.5 27.3 Redwood % (Auto) 9.5 11.3 H Eos % (Auto) 0.4 4.6 Baso % (Auto) 0.3 0.4 Absolute Neuts (auto) 9.1 H 6.0 Absolute Lymphs (auto) 2.53 2.92 Total Counted Not Reportable Not Reportable Sodium 134 L Potassium 3.8 Chloride 101 Carbon Dioxide 26.0 Anion Gap 7 BUN 20 H Creatinine 1.20 H Estim Creat Clear Calc 32.45 Est GFR (MDRD) Af Amer 57 L Est GFR (MDRD) Non-Af 47 L BUN/Creatinine Ratio 16.7 Glucose 259 H Calcium 9.1 12/18/17 05:15 WBC RBC Hgb Hct MCV MCH MCHC RDW RDW Differential Plt Count MPV Immature Gran % (Auto) Neut % (Auto) Lymph % (Auto) Redwood % (Auto) Eos % (Auto) Baso % (Auto) Absolute Neuts (auto) Absolute Lymphs (auto) Total Counted Sodium 141 Potassium 3.5 Chloride 106 Carbon Dioxide 28.0 Anion Gap 7 BUN 22 H Creatinine 1.10 H Estim Creat Clear Calc 35.40 Est GFR (MDRD) Af Amer 63 Est GFR (MDRD) Non-Af 52 L BUN/Creatinine Ratio 20.0 Glucose 78 Calcium 9.1 POC Glucose 12/18/17 12/18/17 12/17/17 11:42 07:51 21:21 POC Glucose 141 H 72 217 H 12/17/17 16:37 POC Glucose 290 H Assessment/Plan All Active Problems Ulcer of left foot (Acute) Foot callus (Acute) Acute osteomyelitis (Acute) Gas gangrene of foot (Acute) Diabetic ulcer of left foot (Acute) Type 2 diabetes mellitus with diabetic polyneuropathy (Acute) Osteomyelitis of left foot (Acute) Cellulitis of left foot (Acute) Charcot's joint of foot (Acute) Thrombocytopenia (Acute) E coli bacteremia (Acute) Hepatosplenomegaly (Acute) Hydroureter on left (Acute) Hydronephrosis of left kidney (Acute) Pyelonephritis (Acute) With PAD and gangrene left fifth toe PAD. She has significant arterial occlusive disease. We will plan for left leg angiogram with intervention hopefully this Saturday.
--- NOTE | 2017-12-18 12:29 | PCM.PROGNOTE ---
Patient Problems: Active and Suspected Problems Acute osteomyelitis (Acute) Gas gangrene of foot (Acute) Diabetic ulcer of left foot (Acute) Type 2 diabetes mellitus with diabetic polyneuropathy (Acute) Osteomyelitis of left foot (Acute) Cellulitis of left foot (Acute) Charcot's joint of foot (Acute) Subjective: This 72-year-old diabetic female was seen resting bedside s/p debridement of all necrotic, nonviable, infected soft tissue and bone with fifth ray resection of the left foot. Patient is postop day #2. She is resting comfortably in bed with family by her side again. She says she is feeling even better today and has no feelings of nausea, vomiting, fever, or chills. - Physical Exam General: Alert, Oriented x3, Cooperative Extremities: No Calf Tenderness - Negative Zion and Degroot sign, Diminished Peripheral Pulses, Edema - Improving edema to left foot Skin: - - Open surgical site noted to the left lateral foot following open fifth ray resection. There continues to be no signs of purulence. The surgical site does not appear to have any new necrotic tissue. The skin does not appear dusky surrounding the surgical site again today. Surrounding erythema continues to reduce. Musculoskeletal: No Tenderness to Palpation of Joints or Extremities, - - Bilateral Charcot foot type changes. Contracted digits 2 through 5 on the right foot and 2 through 4 on the left foot Neurological: - - Epicritic sensation grossly absent lower extremity bilateral Psych/Mental Status: Normal Affect, Appropriate Vital Signs Temp Pulse Resp BP Pulse Ox 98.1 F 69 16 118/69 95 12/18/17 08:01 12/18/17 08:01 12/18/17 08:01 12/18/17 08:01 12/18/17 08:01 Oxygen Flow Rate (L/min) 1 Oxygen Delivery Method Room Air Weight: 59.56 kg Body Mass Index (BMI) 24.1 Finger Stick Blood Glucose 118 Intake and Output for Last 24 Hours 12/16/17 12/17/17 12/18/17 23:59 23:59 23:59 Intake Total 785 / 785 850 / 850 1127 / 1127 Output Total 300 / 300 550 / 550 Balance 785 / 785 550 / 550 577 / 577 Microbiology Past 72 Hours 12/16/17 Unknown Gram Stain - Final Bone - Other Wound Culture - Final Staphylococcus aureus Anaerobic Culture - Preliminary 12/15/17 22:43 Blood Culture - Preliminary Blood Culture (Wb) - Anticubital Left No growth in 48 hours. 12/15/17 22:40 Blood Culture - Preliminary Blood Culture (Wb) - Anticubital Right No growth in 48 hours. 12/16/17 Unknown Gram Stain - Final Bone - Other Wound Culture - Preliminary Staphylococcus aureus Anaerobic Culture - Preliminary No growth in 48 hours. 12/15/17 22:45 Gram Stain - Final Wound - Left Foot Wound Culture - Final Staphylococcus aureus Laboratory Tests Past 24 Hrs 12/17/17 12/17/17 12/18/17 13:42 13:42 05:15 WBC 13.0 H 10.7 RBC 3.72 L 3.41 L Hgb 9.4 L 8.7 L Hct 30.8 L 28.3 L MCV 82.8 83.0 MCH 25.3 L 25.5 L MCHC 30.5 L 30.7 L RDW 15.6 H 15.7 H RDW Differential 48.0 H 48.0 H Plt Count 311 282 MPV 11.2 10.5 Immature Gran % (Auto) 0.100 0.200 Neut % (Auto) 70.2 H 56.2 Lymph % (Auto) 19.5 27.3 Meagher % (Auto) 9.5 11.3 H Eos % (Auto) 0.4 4.6 Baso % (Auto) 0.3 0.4 Absolute Neuts (auto) 9.1 H 6.0 Absolute Lymphs (auto) 2.53 2.92 Total Counted Not Reportable Not Reportable Sodium 134 L Potassium 3.8 Chloride 101 Carbon Dioxide 26.0 Anion Gap 7 BUN 20 H Creatinine 1.20 H Estim Creat Clear Calc 32.45 Est GFR (MDRD) Af Amer 57 L Est GFR (MDRD) Non-Af 47 L BUN/Creatinine Ratio 16.7 Glucose 259 H Calcium 9.1 12/18/17 05:15 WBC RBC Hgb Hct MCV MCH MCHC RDW RDW Differential Plt Count MPV Immature Gran % (Auto) Neut % (Auto) Lymph % (Auto) Meagher % (Auto) Eos % (Auto) Baso % (Auto) Absolute Neuts (auto) Absolute Lymphs (auto) Total Counted Sodium 141 Potassium 3.5 Chloride 106 Carbon Dioxide 28.0 Anion Gap 7 BUN 22 H Creatinine 1.10 H Estim Creat Clear Calc 35.40 Est GFR (MDRD) Af Amer 63 Est GFR (MDRD) Non-Af 52 L BUN/Creatinine Ratio 20.0 Glucose 78 Calcium 9.1 POC Glucose 12/18/17 12/18/17 12/17/17 11:42 07:51 21:21 POC Glucose 141 H 72 217 H 12/17/17 16:37 POC Glucose 290 H Medical Necessity - Tobacco Use Smoking Status: Never smoker Assessment/Plan All Active Problems Ulcer of left foot (Acute) Foot callus (Acute) Acute osteomyelitis (Acute) Gas gangrene of foot (Acute) Diabetic ulcer of left foot (Acute) Type 2 diabetes mellitus with diabetic polyneuropathy (Acute) Osteomyelitis of left foot (Acute) Cellulitis of left foot (Acute) Charcot's joint of foot (Acute) Thrombocytopenia (Acute) E coli bacteremia (Acute) Hepatosplenomegaly (Acute) Hydroureter on left (Acute) Hydronephrosis of left kidney (Acute) Pyelonephritis (Acute) Open surgical wound following open left 5th ray resection (12/16/17) cellulitis-resolving PVD DM with neuropathy Other comorbidities This 72 year old patient was seen resting bedside s/p debridement of all non-viable, infected, necrotic soft tissue and bone of the left foot with open 5th ray resection. POD #2. Erythema to left foot continues to decrease. WBC is 10.7. Her vital signs are currently stable. Results from specimen and clear fragment sent from surgery that were sent for micro and pathology evaluation are showing staph aureus. ID has been consulted and is following the patient with plan for PICC and antibiotics once patient is discharged. Her LEAS studies revealed decreased arterial flow with numbers consistent with chronic vascular disease. Her left CHRIS was .66 and her left TBI was .21 and there was no DP waveform and monophasic PT waveform. Dr. Powers with vascular was consulted and saw this patient today. I briefly discussed this case with him and he plans to take the patient for angio procedure on Saturday. 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 The surgical site was carefully cleansed again today with dakins solution. There are no new signs of any necrotic tissue or any areas of dusky appearing tissue appreciated today. The surgical site was then packed with dakins moistened 4x4's, followed by overlying dry 4x4s, ABD, and kerlix. No JACKSON was applied. Dressing can be reinforced by nursing staff as necessary. I discussed the case again with the patient and her family, and I answered all and any questions they had. I informed the patient and her family again today that due to her vascular status, there is real possibility of this not healing and the need for further surgeries or more proximal amputations in the future. I discussed that we will give this the best chance to heal once the angio procedure is done to try and re-establish some better blood flow to the area. Continued medical management by primary team is appreciated. I will continue to follow this patient while in house. Also discussed the plan of wound vac application once Dr. Powers finishes his case on Saturday with Jennifer. She will says she will start the paperwork for this.
--- NOTE | 2017-12-18 12:53 | PN.ID_ITS ---
Patient Problems: Active and Suspected Problems Acute osteomyelitis (Acute) Gas gangrene of foot (Acute) Diabetic ulcer of left foot (Acute) Type 2 diabetes mellitus with diabetic polyneuropathy (Acute) Osteomyelitis of left foot (Acute) Cellulitis of left foot (Acute) Charcot's joint of foot (Acute) Subjective: Feeling ok, picc in place, no fever. 2 loose stool this AM, no abd pain. - Physical Exam General: Alert, Cooperative, No apparent distress Lungs: Clear to auscultation, Normal air movement Cardiovascular: Regular rate, Regular Rhythm Abdomen: Soft, Non Tender, Non-Distended Skin: Incision - foot wrapped Vital Signs Temp Pulse Resp BP Pulse Ox 98.1 F 69 16 118/69 95 12/18/17 08:01 12/18/17 08:01 12/18/17 08:01 12/18/17 08:01 12/18/17 08:01 Oxygen Flow Rate (L/min) 1 Oxygen Delivery Method Room Air Weight: 59.56 kg Body Mass Index (BMI) 24.1 Finger Stick Blood Glucose 118 Intake and Output for Last 24 Hours 12/16/17 12/17/17 12/18/17 23:59 23:59 23:59 Intake Total 785 / 785 850 / 850 1127 / 1127 Output Total 300 / 300 550 / 550 Balance 785 / 785 550 / 550 577 / 577 Microbiology Past 72 Hours 12/16/17 Unknown Gram Stain - Final Bone - Other Wound Culture - Final Staphylococcus aureus Anaerobic Culture - Preliminary 12/15/17 22:43 Blood Culture - Preliminary Blood Culture (Wb) - Anticubital Left No growth in 48 hours. 12/15/17 22:40 Blood Culture - Preliminary Blood Culture (Wb) - Anticubital Right No growth in 48 hours. 12/16/17 Unknown Gram Stain - Final Bone - Other Wound Culture - Preliminary Staphylococcus aureus Anaerobic Culture - Preliminary No growth in 48 hours. 12/15/17 22:45 Gram Stain - Final Wound - Left Foot Wound Culture - Final Staphylococcus aureus Laboratory Tests Past 24 Hrs 12/17/17 12/17/17 12/18/17 13:42 13:42 05:15 WBC 13.0 H 10.7 RBC 3.72 L 3.41 L Hgb 9.4 L 8.7 L Hct 30.8 L 28.3 L MCV 82.8 83.0 MCH 25.3 L 25.5 L MCHC 30.5 L 30.7 L RDW 15.6 H 15.7 H RDW Differential 48.0 H 48.0 H Plt Count 311 282 MPV 11.2 10.5 Immature Gran % (Auto) 0.100 0.200 Neut % (Auto) 70.2 H 56.2 Lymph % (Auto) 19.5 27.3 [place]uleta % (Auto) 9.5 11.3 H Eos % (Auto) 0.4 4.6 Baso % (Auto) 0.3 0.4 Absolute Neuts (auto) 9.1 H 6.0 Absolute Lymphs (auto) 2.53 2.92 Total Counted Not Reportable Not Reportable Sodium 134 L Potassium 3.8 Chloride 101 Carbon Dioxide 26.0 Anion Gap 7 BUN 20 H Creatinine 1.20 H Estim Creat Clear Calc 32.45 Est GFR (MDRD) Af Amer 57 L Est GFR (MDRD) Non-Af 47 L BUN/Creatinine Ratio 16.7 Glucose 259 H Calcium 9.1 12/18/17 05:15 WBC RBC Hgb Hct MCV MCH MCHC RDW RDW Differential Plt Count MPV Immature Gran % (Auto) Neut % (Auto) Lymph % (Auto) [place] % (Auto) Eos % (Auto) Baso % (Auto) Absolute Neuts (auto) Absolute Lymphs (auto) Total Counted Sodium 141 Potassium 3.5 Chloride 106 Carbon Dioxide 28.0 Anion Gap 7 BUN 22 H Creatinine 1.10 H Estim Creat Clear Calc 35.40 Est GFR (MDRD) Af Amer 63 Est GFR (MDRD) Non-Af 52 L BUN/Creatinine Ratio 20.0 Glucose 78 Calcium 9.1 POC Glucose 12/18/17 12/18/17 12/17/17 11:42 07:51 21:21 POC Glucose 141 H 72 217 H 12/17/17 16:37 POC Glucose 290 H Medical Necessity - Tobacco Use Smoking Status: Never smoker Route of nutrition/ use of supplements: [] Nutritional Intake: [] IV Site: [] Burgos Catheter: [] - Assessment/Plan Antibiotics: [] Assessment/Plan: [] Active and Suspected Problems Acute osteomyelitis (Acute) L foot osteomyelitis - esr at 85. Cx with MSSA. OR 12/16 for I&D, 5th toe amputation and partial 5th metatarsal resection by Dr. Omer. Radha saldana. Start cefazolin for 6 week course, stop date 01/27/18, weekly bmp, cbc, and esr. Add po flagyl for anaerobic coverage while cxs are pending. ID followup with me in 2-3 weeks, and I can see her at the [facility]. Will follow, rx written for labs and abx. D/w primary team.
--- NOTE | 2017-12-18 14:20 | PCM.PN.HOSP ---
Patient Problems: Active and Suspected Problems Acute osteomyelitis (Acute) Gas gangrene of foot (Acute) Diabetic ulcer of left foot (Acute) Type 2 diabetes mellitus with diabetic polyneuropathy (Acute) Osteomyelitis of left foot (Acute) Cellulitis of left foot (Acute) Charcot's joint of foot (Acute) Subjective: Patient is a 72-year-old female with a history of hypertension, insulin-dependent diabetes mellitus, dyslipidemia, Charcot joint, peripheral neuropathy, CAD with remote bypass who was admitted for diabetic foot ulcer with fifth toe osteomyelitis. Patient is status post debridement of infective soft tissue and bone of left foot with partial fifth ray amputation on 12/16/17. Patient doing well, without any complaints. Denies any fevers or chills. Has had a few episodes of diarrhea, loose and watery. Was seen by vascular surgery today and plans for angiogram on Saturday. Objective: General: Alert, Oriented x3, Cooperative HEENT: Normocephalic Neck: Supple, No JVD Lungs: Clear to auscultation, Normal air movement Cardiovascular: Regular rate, No murmurs Abdomen: Bowel Sounds Present, Soft, Non Tender Extremities: - - With left foot dressed, warm lower extremity, with noted erythema, no drainage noted Skin: No rashes, No breakdown Musculoskeletal: No Tenderness to Palpation of Joints or Extremities Neurological: Cranial nerves II-XII grossly intact Psych/Mental Status: Normal Affect, Appropriate Vitals/I&O's: Vital Signs Temp Pulse Resp BP Pulse Ox 98.1 F 69 16 118/69 95 12/18/17 08:01 12/18/17 08:01 12/18/17 08:01 12/18/17 08:01 12/18/17 08:01 Oxygen Flow Rate (L/min) 1 Oxygen Delivery Method Room Air Weight: 59.56 kg Body Mass Index (BMI) 24.1 Finger Stick Blood Glucose 118 Intake and Output for Last 24 Hours 12/16/17 12/17/17 12/18/17 23:59 23:59 23:59 Intake Total 785 / 785 850 / 850 1127 / 1127 Output Total 300 / 300 550 / 550 Balance 785 / 785 550 / 550 577 / 577 Microbiology Past 72 Hours 12/16/17 Unknown Bone - Other Gram Stain - Final 12/16/17 Unknown Bone - Other Wound Culture - Final Staphylococcus aureus 12/16/17 Unknown Bone - Other Anaerobic Culture - Preliminary 12/15/17 22:43 Blood Culture (Wb) - Anticubital Left Blood Culture - Preliminary No growth in 48 hours. 12/15/17 22:40 Blood Culture (Wb) - Anticubital Right Blood Culture - Preliminary No growth in 48 hours. 12/16/17 Unknown Bone - Other Gram Stain - Final 12/16/17 Unknown Bone - Other Wound Culture - Preliminary Staphylococcus aureus 12/16/17 Unknown Bone - Other Anaerobic Culture - Preliminary No growth in 48 hours. 12/15/17 22:45 Wound - Left Foot Gram Stain - Final 12/15/17 22:45 Wound - Left Foot Wound Culture - Final Staphylococcus aureus Laboratory Results 12/17/17 13:42: Sodium 134 L, Potassium 3.8, Chloride 101, Carbon Dioxide 26.0, Anion Gap 7, BUN 20 H, Creatinine 1.20 H, Estim Creat Clear Calc 32.45, Est GFR (MDRD) Af Amer 57 L, Est GFR (MDRD) Non-Af 47 L, BUN/Creatinine Ratio 16.7, Glucose 259 H, Calcium 9.1 12/17/17 16:37: POC Glucose 290 H 12/17/17 21:21: POC Glucose 217 H 12/18/17 05:15: WBC 10.7, RBC 3.41 L, Hgb 8.7 L, Hct 28.3 L, MCV 83.0, MCH 25.5 L, MCHC 30.7 L, RDW 15.7 H, RDW Differential 48.0 H, Plt Count 282, MPV 10.5, Immature Gran % (Auto) 0.200, Neut % (Auto) 56.2, Lymph % (Auto) 27.3, [place] % (Auto) 11.3 H, Eos % (Auto) 4.6, Baso % (Auto) 0.4, Absolute Neuts (auto) 6.0, Absolute Lymphs (auto) 2.92, Total Counted Not Reportable 12/18/17 05:15: Sodium 141, Potassium 3.5, Chloride 106, Carbon Dioxide 28.0, Anion Gap 7, BUN 22 H, Creatinine 1.10 H, Estim Creat Clear Calc 35.40, Est GFR (MDRD) Af Amer 63, Est GFR (MDRD) Non-Af 52 L, BUN/Creatinine Ratio 20.0, Glucose 78, Calcium 9.1 12/18/17 07:51: POC Glucose 72 12/18/17 11:42: POC Glucose 141 H Current Medications Ascorbic Acid (Vitamin C) 1,000 mg PO DAILY [facility] Last Admin: 12/18/17 09:00 Dose: 1,000 mg Atorvastatin Calcium (Lipitor) 40 mg PO QHS [facility] Last Admin: 12/17/17 21:24 Dose: 40 mg Bisacodyl (Dulcolax) 5 mg PO DAILY PRN PRN Reason: Constipation Calcium/Vitamin D (Os-Trae 500mg + D) 1 tablet PO DAILY [facility] Last Admin: 12/18/17 08:59 Dose: 1 tablet Carvedilol (Coreg) 25 mg PO BID [facility] Last Admin: 12/18/17 09:01 Dose: 25 mg Dextrose (D50w Syringe) 0 gm IV X1 PRN; Protocol PRN Reason: Hypoglycemia Glucagon () 1 mg IM .X1 PRN PRN Reason: Hypoglycemia Heparin Sodium (Porcine) (Heparin Na) 5,000 unit SC Q8 [facility] Last Admin: 12/18/17 05:19 Dose: 5,000 unit Cefazolin Sodium 2 gm/ Sodium (Chloride) 110 mls @ 150 mls/hr IV Q8 [facility] Insulin Glargine (Lantus (Bkc)) 18 units SC BID [facility] Last Admin: 12/18/17 09:00 Dose: Not Given Insulin Human Lispro (Humalog Kwikpen (Bkc)) 0 unit SQ ACHS [facility]; Protocol Last Admin: 12/18/17 11:47 Dose: Not Given Magnesium Hydroxide (Milk Of Magnesia) 30 ml PO DAILY PRN PRN PRN Reason: Constipation Metronidazole (Flagyl) 500 mg PO TID [facility] Morphine Sulfate () 1 - 2 mg IV Q4H PRN PRN PRN Reason: PAIN [facility]) [facility] Admin: 12/18/17 09:01 Dose: 1 tablet Nutritional Formula (Lactose Free) (Glucerna Shake) 120 ml PO 4X/DAY [facility] Last Admin: 12/18/17 09:00 Dose: Not Given Nystatin (Mycostatin Powder) 1 applic TOPICAL BID [facility]; Protocol Last Admin: 12/18/17 09:00 Dose: 1 applicatio Ondansetron HCl (Zofran) 4 mg IV Q6H PRN PRN PRN Reason: NAUSEA/VOMITING Ramipril (Altace) 2.5 mg PO DAILY [facility] Last Admin: 12/18/17 09:01 Dose: 2.5 mg Sodium Chloride () 5 - 30 ml IV UD PRN PRN Reason: SALINE FLUSH Last Admin: 12/18/17 05:19 Dose: 30 ml Medical Necessity - Tobacco Use Smoking Status: Never smoker Assessment/Plan All Active Problems Ulcer of left foot (Acute) Foot callus (Acute) Acute osteomyelitis (Acute) Gas gangrene of foot (Acute) Diabetic ulcer of left foot (Acute) Type 2 diabetes mellitus with diabetic polyneuropathy (Acute) Osteomyelitis of left foot (Acute) Cellulitis of left foot (Acute) Charcot's joint of foot (Acute) Thrombocytopenia (Acute) E coli bacteremia (Acute) Hepatosplenomegaly (Acute) Hydroureter on left (Acute) Hydronephrosis of left kidney (Acute) Pyelonephritis (Acute) Patient is a 72-year-old female with a history of hypertension, insulin-dependent diabetes mellitus, dyslipidemia, Charcot joint, peripheral neuropathy, CAD with remote bypass who was admitted for diabetic foot ulcer with fifth toe osteomyelitis. Patient is status post debridement of infective soft tissue and bone of left foot with partial fifth ray amputation on 12/16/17. 1. Diabetic foot ulcer with fifth digit osteomyelitis status post debridement and partial amputation, MSSA Status post debridement, previously on vancomycin and Zosyn. Wound cultures with MSSA, patient now on Ancef. PICC line placed yesterday. Plan for discharge with IV Ancef via PICC line as recommended by infectious disease. For angiogram on Saturday given noted PVD (abnormal ABIs). 2. Insulin dependent diabetes mellitus Blood sugars adequate at this time with initiation of home dose of Levemir. Last A1c noted to be 9.4. 3. Hypertension Blood pressure is adequate for now. Add as needed hydralazine. 4. PVD Evaluated by vascular surgery, plans for angiogram on Saturday. 5. CAD, remote CABG Aware. Stable. Aspirin restarted, continue with statin and beta-riley. On JACKSON inhibitor. 6. Peripheral neuropathy 7. DVT prophylaxis On heparin. 8. Dyslipidemia Continue with current IV Ancef via PICC line. With plans for angiogram on Saturday to determine adequate blood flow, essential for wound healing. Discussed with case management, patient plans on going home with home health with IV antibiotics via PICC line. PT/OT evaluation.
[2017-12-18 14:54] VITALS: BP 144/85; PULSE 77; RESP 18; TEMP 36.3; O2SAT 96
[2017-12-18] MEDS: Cefazolin 2 GM in 0.9% Normal Saline 100 ML IV ×2 (15:00→21:23)
[2017-12-18] MEDS: metroNIDAZOLE 500 MG Tablet PO ×2 (15:01→21:24)
[2017-12-18] MEDS: Glucerna Shake 120 ML LIQUID PO ×2 (15:02→21:23)
[2017-12-18 15:26] LABS: Pathologist Review Reviewed
--- NOTE | 2017-12-18 15:36 | NURSING ---
wound photo: left lateral foot
[2017-12-18] MEDS: Insulin Lispro 100 UNIT/ML INSULN.PEN SQ ×2 (17:16→21:22)
[2017-12-18 17:26] LABS: Bedside Glucose 352 mg/dL (70-110)
[2017-12-18 21:15] VITALS: BP 144/77; PULSE 71; RESP 18; TEMP 36.6; O2SAT 98
[2017-12-18] MEDS: Atorvastatin Calcium 40 MG Tablet PO (21:23)
[2017-12-18 21:35] LABS: Bedside Glucose 223 mg/dL (70-110)
[2017-12-19 02:32] VITALS: BP 134/72; PULSE 74; RESP 16; TEMP 36.7; O2SAT 94
[2017-12-19] MEDS: metroNIDAZOLE 500 MG Tablet PO (05:35)
[2017-12-19] MEDS: Cefazolin 2 GM in 0.9% Normal Saline 100 ML IV ×3 (05:35→22:14)
[2017-12-19] MEDS: 0.9% NaCl Peripheral Flush Adult/Peds IV ×2 (05:35→22:13)
[2017-12-19] MEDS: Heparin Injection (Vial) 5,000 UNIT/ML VIAL 5000 UNIT SC ×3 (05:35→22:13)
[2017-12-19 05:55] LABS: Absolute Lymphocyte Count 2.45 X10^3/ul (0.83-4.51); Absolute Neutrophil Count 6.2 X10^3/uL (2.0-7.7); Basophil# 0.03 X10^3/uL; Basophil% 0.3 % (0-1); Eosinophil# 0.63 X10^3/uL; Hemoglobin 8.7 g/dl (12.0-15.0); Lymphocyte # 2.45 X10^3/ul (4.0); Lymphocyte % 23.4 % (19-41); Mean Corp Hgb Conc 31.1 g/gl (32-36); Mean Corpuscular Hgb 25.6 pg (27.0-32.0); Mean Corpuscular Volume 82.4 fL (81-99); Monocyte% 11.5 % (0-10); Neutrophil # 6.16 X10^3/uL (2.7-7.7); Neutrophil % 58.7 % (47-70); Platelet Count 316 K/mm3 (150-450); RBC Distribution Width CV 15.7 % (11.6-14.6); RBC Distribution Width SD 47.5 fl (35.1-43.9); White Blood Count 10.5 K/mm3 (4.4-11.0)
[2017-12-19 05:58] LABS: POSITIVE COUNT NO; POSITIVE DIFFERENTIAL NO; POSITIVE MORPHOLOGY NO
[2017-12-19 06:00] LABS: Anion Gap 7 (5-15); BUN 20 mg/dL (7-18); BUN/Creat Ratio 20.2 RATIO (10-20); Calcium,Total 9.1 mg/dL (8.5-10.1); Chloride 104 mmol/L (98-107); Creatinine, Serum 0.99 mg/dL (0.55-1.02); EST Glomerular Filtration Rate 59 mL/min (>60); Est Glom Filt Rate - Afr Amer 71 mL/min (>60); Estimated Creatinine Clearance 39.33 ml/min; Glucose 97 mg/dL (74-106); Potassium 3.5 mmol/L (3.5-5.1); Sodium Level 138 mmol/L (136-145)
[2017-12-19 06:50] LABS: Bedside Glucose 75 mg/dL (70-110)
[2017-12-19 09:52] VITALS: BP 147/70; PULSE 70; RESP 18; TEMP 36.4; O2SAT 96
[2017-12-19] MEDS: Ascorbic Acid 500 MG Tablet 1000 MG PO (10:00)
[2017-12-19] MEDS: Ramipril 2.5 MG Capsule PO (10:00)
[2017-12-19] MEDS: Calcium Carb/Vitamin D 1 TABLET Tablet PO (10:00)
[2017-12-19] MEDS: Glucerna Shake 120 ML LIQUID PO ×3 (10:00→22:14)
[2017-12-19] MEDS: Carvedilol 25 MG Tablet PO ×2 (10:01→22:13)
[2017-12-19] MEDS: Aspirin 81 MG TAB.CHEW PO (10:01)
[2017-12-19] MEDS: Multivitamins,Therapeutic Tablet 1 TABLET PO (10:01)
[2017-12-19] MEDS: Nystatin Powder 15gm Bottle 1 APPLIC TOPICAL ×2 (10:04→22:13)
--- NOTE | 2017-12-19 10:50 | PCM.PN.ID ---
Patient Problems: Active and Suspected Problems Acute osteomyelitis (Acute) Gas gangrene of foot (Acute) Diabetic ulcer of left foot (Acute) Type 2 diabetes mellitus with diabetic polyneuropathy (Acute) Osteomyelitis of left foot (Acute) Cellulitis of left foot (Acute) Charcot's joint of foot (Acute) Subjective: Feeling ok, angiogram tomorrow, loose stool better this AM. - Physical Exam General: Alert, Cooperative, No apparent distress Lungs: Clear to auscultation, Normal air movement Cardiovascular: Regular rate, Regular Rhythm Abdomen: Soft, Non Tender, Non-Distended Skin: Incision - foot wrapped Vital Signs Temp Pulse Resp BP Pulse Ox 97.6 F L 70 18 147/70 H 96 12/19/17 09:52 12/19/17 09:52 12/19/17 09:52 12/19/17 09:52 12/19/17 09:52 Oxygen Flow Rate (L/min) 1 Oxygen Delivery Method Room Air Weight: 59.56 kg Body Mass Index (BMI) 24.1 Finger Stick Blood Glucose 118 Intake and Output for Last 24 Hours 12/17/17 12/18/17 12/19/17 23:59 23:59 23:59 Intake Total 850 / 850 2065 / 2065 Output Total 300 / 300 550 / 550 400 / 400 Balance 550 / 550 1515 / 1515 -400 / -400 Microbiology Past 72 Hours 12/16/17 Unknown Gram Stain - Final Bone - Other Wound Culture - Final Staphylococcus aureus Anaerobic Culture - Preliminary No growth in 48 hours. 12/18/17 16:20 C. difficile DNA Amplification - Final Stool 12/16/17 Unknown Gram Stain - Final Bone - Other Wound Culture - Final Staphylococcus aureus Anaerobic Culture - Preliminary 12/15/17 22:43 Blood Culture - Preliminary Blood Culture (Wb) - Anticubital Left No growth in 48 hours. 12/15/17 22:40 Blood Culture - Preliminary Blood Culture (Wb) - Anticubital Right No growth in 48 hours. 12/15/17 22:45 Gram Stain - Final Wound - Left Foot Wound Culture - Final Staphylococcus aureus Laboratory Tests Past 24 Hrs 12/16/17 12/19/17 12/19/17 06:50 05:00 05:00 WBC 10.5 RBC 3.40 L Hgb 8.7 L Hct 28.0 L MCV 82.4 MCH 25.6 L MCHC 31.1 L RDW 15.7 H RDW Differential 47.5 H Plt Count 316 MPV 11.0 Immature Gran % (Auto) 0.100 Neut % (Auto) 58.7 Lymph % (Auto) 23.4 [place] % (Auto) 11.5 H Eos % (Auto) 6.0 H Baso % (Auto) 0.3 Absolute Neuts (auto) 6.2 Absolute Lymphs (auto) 2.45 Total Counted Not Reportable Diff Path Review Reviewed Sodium 138 Potassium 3.5 Chloride 104 Carbon Dioxide 27.0 Anion Gap 7 BUN 20 H Creatinine 0.99 Estim Creat Clear Calc 39.33 Est GFR (MDRD) Af Amer 71 Est GFR (MDRD) Non-Af 59 L BUN/Creatinine Ratio 20.2 H Glucose 97 Calcium 9.1 POC Glucose 12/19/17 12/18/17 12/18/17 06:43 21:19 17:12 POC Glucose 75 223 H 352 H 12/18/17 11:42 POC Glucose 141 H Medical Necessity - Tobacco Use Smoking Status: Never smoker Route of nutrition/ use of supplements: [] Nutritional Intake: [] IV Site: [] Burgos Catheter: [] - Assessment/Plan Antibiotics: [] Assessment/Plan: [] Active and Suspected Problems Acute osteomyelitis (Acute) L foot osteomyelitis - esr at 85. Cx with MSSA. OR 12/16 for I&D, 5th toe amputation and partial 5th metatarsal resection by Dr. Omer. On cefazolin for 6 week course, stop date 01/27/18, weekly bmp, cbc, and esr. Added po flagyl for anaerobic coverage while cxs are pending. ID followup with me in 2-3 weeks, and I can see her at the [place] [facility]. Will follow
[2017-12-19 11:01] LABS: Bedside Glucose 164 mg/dL (70-110)
[2017-12-19] MEDS: Insulin Lispro 100 UNIT/ML INSULN.PEN SQ ×3 (11:27→22:14)
[2017-12-19 11:50] LABS: Bedside Glucose 153 mg/dL (70-110)
--- NOTE | 2017-12-19 12:44 | PCM.PN.HOSP ---
Patient Problems: Active and Suspected Problems Acute osteomyelitis (Acute) Gas gangrene of foot (Acute) Diabetic ulcer of left foot (Acute) Type 2 diabetes mellitus with diabetic polyneuropathy (Acute) Osteomyelitis of left foot (Acute) Cellulitis of left foot (Acute) Charcot's joint of foot (Acute) Subjective: Patient is a 72-year-old white female, with history of hypertension, insulin-dependent diabetes mellitus, dyslipidemia, Charcot joint, peripheral neuropathy, CAD with remote bypass who has a diabetic foot ulcer with fifth toe osteomyelitis on the left, status post debridement of an infected soft tissue and left bone with partial fifth amputation on 12/16/2017. Patient is currently awaiting Angio tomorrow and will set up IV antibiotics for possible discharge this weekend if okay with vascular and podiatry. Diarrhea has improved culture is negative for C. difficile will discontinue Flagyl. Patient otherwise has no new complaints. No chest pain nausea vomiting and diarrhea has improved greatly. Vitals/I&O's: Vital Signs Temp Pulse Resp BP Pulse Ox 97.6 F L 70 18 147/70 H 96 12/19/17 09:52 12/19/17 09:52 12/19/17 09:52 12/19/17 09:52 12/19/17 09:52 Oxygen Flow Rate (L/min) 1 Oxygen Delivery Method Room Air Weight: 59.56 kg Body Mass Index (BMI) 24.1 Finger Stick Blood Glucose 118 Intake and Output for Last 24 Hours 12/17/17 12/18/17 12/19/17 23:59 23:59 23:59 Intake Total 850 / 850 2065 / 2065 1161 / 1161 Output Total 300 / 300 550 / 550 850 / 850 Balance 550 / 550 1515 / 1515 311 / 311 General: Alert, Oriented x3, Cooperative HEENT: Atraumatic, PERRLA, EOMI Oral: Moist Mucosa, No Gingival or Mucosal Lesions/ Ulcerations Neck: Supple, No JVD Lungs: Clear to auscultation, Normal air movement, No rhonchi, No wheeze, No rales Cardiovascular: Normal S1, Normal S2 Abdomen: Soft, Non Tender, Non-Distended Extremities: No clubbing, Edema, Tenderness - Left foot bandaged and not remove Skin: Ulcer/ Wound - Above Musculoskeletal: No Tenderness to Palpation of Joints or Extremities, No Muscle Wasting Lymphatic: No Cervical, Supraclavicular, or Inguinal Adenopathy Neurological: Cranial nerves II-XII grossly intact, Neuro grossly intact Psych/Mental Status: Normal Affect, Appropriate, Alert and oriented to time, place, person, mood and affect Microbiology Past 72 Hours 12/16/17 Unknown Bone - Other Gram Stain - Final 12/16/17 Unknown Bone - Other Wound Culture - Final Staphylococcus aureus 12/16/17 Unknown Bone - Other Anaerobic Culture - Preliminary No growth in 48 hours. 12/18/17 16:20 Stool C. difficile DNA Amplification - Final 12/16/17 Unknown Bone - Other Gram Stain - Final 12/16/17 Unknown Bone - Other Wound Culture - Final Staphylococcus aureus 12/16/17 Unknown Bone - Other Anaerobic Culture - Preliminary 12/15/17 22:43 Blood Culture (Wb) - Anticubital Left Blood Culture - Preliminary No growth in 48 hours. 12/15/17 22:40 Blood Culture (Wb) - Anticubital Right Blood Culture - Preliminary No growth in 48 hours. 12/15/17 22:45 Wound - Left Foot Gram Stain - Final 12/15/17 22:45 Wound - Left Foot Wound Culture - Final Staphylococcus aureus Laboratory Results 12/16/17 06:50: Diff Path Review Reviewed 12/18/17 17:12: POC Glucose 352 H 12/18/17 21:19: POC Glucose 223 H 12/19/17 05:00: WBC 10.5, RBC 3.40 L, Hgb 8.7 L, Hct 28.0 L, MCV 82.4, MCH 25.6 L, MCHC 31.1 L, RDW 15.7 H, RDW Differential 47.5 H, Plt Count 316, MPV 11.0, Immature Gran % (Auto) 0.100, Neut % (Auto) 58.7, Lymph % (Auto) 23.4, [place] % (Auto) 11.5 H, Eos % (Auto) 6.0 H, Baso % (Auto) 0.3, Absolute Neuts (auto) 6.2, Absolute Lymphs (auto) 2.45, Total Counted Not Reportable 12/19/17 05:00: Sodium 138, Potassium 3.5, Chloride 104, Carbon Dioxide 27.0, Anion Gap 7, BUN 20 H, Creatinine 0.99, Estim Creat Clear Calc 39.33, Est GFR (MDRD) Af Amer 71, Est GFR (MDRD) Non-Af 59 L, BUN/Creatinine Ratio 20.2 H, Glucose 97, Calcium 9.1 12/19/17 06:43: POC Glucose 75 12/19/17 09:52: POC Glucose 164 H 12/19/17 11:26: POC Glucose 153 H Current Medications Ascorbic Acid (Vitamin C) 1,000 mg PO DAILY [facility] Last Admin: 12/19/17 10:00 Dose: 1,000 mg Aspirin (Aspirin, Baby) 81 mg PO DAILY@0800 [facility] Last Admin: 12/19/17 10:01 Dose: 81 mg Atorvastatin Calcium (Lipitor) 40 mg PO QHS [facility] Last Admin: 12/18/17 21:23 Dose: 40 mg Bisacodyl (Dulcolax) 5 mg PO DAILY PRN PRN Reason: Constipation Calcium/Vitamin D (Os-Trae 500mg + D) 1 tablet PO DAILY [facility] Last Admin: 12/19/17 10:00 Dose: 1 tablet Carvedilol (Coreg) 25 mg PO BID [facility] Last Admin: 12/19/17 10:01 Dose: 25 mg Cholestyramine Resin (Questran 4gm Packet) 4 gm PO BIDAC PRN PRN Reason: Diarrhea Dextrose (D50w Syringe) 0 gm IV X1 PRN; Protocol PRN Reason: Hypoglycemia Glucagon () 1 mg IM .X1 PRN PRN Reason: Hypoglycemia Heparin Sodium (Porcine) (Heparin Na) 5,000 unit SC Q8 [facility] Last Admin: 12/19/17 05:35 Dose: 5,000 unit Cefazolin Sodium 2 gm/ Sodium (Chloride) 110 mls @ 150 mls/hr IV Q8 [facility] Last Admin: 12/19/17 05:35 Dose: 150 mls/hr Insulin Glargine (Lantus (Bkc)) 18 units SC BID [facility] Last Admin: 12/19/17 10:04 Dose: Not Given Insulin Human Lispro (Humalog Kwikpen (Bkc)) 0 unit SQ ACHS [facility]; Protocol Last Admin: 12/19/17 11:27 Dose: 2 u Lactobacillus Acidophilus (Acidophilus) 1 tablet PO BID [facility] Last Admin: 12/19/17 10:01 Dose: 1 tablet Magnesium Hydroxide (Milk Of Magnesia) 30 ml PO DAILY PRN PRN PRN Reason: Constipation Metronidazole (Flagyl) 500 mg PO TID [facility] Last Admin: 12/19/17 05:35 Dose: 500 mg Morphine Sulfate () 1 - 2 mg IV Q4H PRN PRN PRN Reason: PAIN Multivitamins (Multivitamin) 1 tablet PO DAILYCM [facility] Last Admin: 12/19/17 10:01 Dose: 1 tablet Nutritional Formula (Lactose Free) (Glucerna Shake) 120 ml PO 4X/DAY [facility] Last Admin: 12/19/17 10:00 Dose: 120 ml Nystatin (Mycostatin Powder) 1 applic TOPICAL BID [facility]; Protocol Last Admin: 12/19/17 10:04 Dose: 1 applicatio Ondansetron HCl (Zofran) 4 mg IV Q6H PRN PRN PRN Reason: NAUSEA/VOMITING Ramipril (Altace) 2.5 mg PO DAILY [facility] Last Admin: 12/19/17 10:00 Dose: 2.5 mg Sodium Chloride () 5 - 30 ml IV UD PRN PRN Reason: SALINE FLUSH Last Admin: 12/19/17 05:35 Dose: 20 ml Medical Necessity - Tobacco Use Smoking Status: Never smoker Assessment/Plan All Active Problems Ulcer of left foot (Acute) Foot callus (Acute) Acute osteomyelitis (Acute) Gas gangrene of foot (Acute) Diabetic ulcer of left foot (Acute) Type 2 diabetes mellitus with diabetic polyneuropathy (Acute) Osteomyelitis of left foot (Acute) Cellulitis of left foot (Acute) Charcot's joint of foot (Acute) Thrombocytopenia (Acute) E coli bacteremia (Acute) Hepatosplenomegaly (Acute) Hydroureter on left (Acute) Hydronephrosis of left kidney (Acute) Pyelonephritis (Acute) Patient is a 72-year-old female with a history of hypertension, insulin-dependent diabetes mellitus, dyslipidemia, Charcot joint, peripheral neuropathy, CAD with remote bypass who was admitted for diabetic foot ulcer with fifth toe osteomyelitis. Patient is status post debridement of infective soft tissue and bone of left foot with partial fifth ray amputation on 12/16/17. 1. Diabetic foot ulcer with fifth digit osteomyelitis status post debridement and partial amputation, MSSA Status post debridement, previously on vancomycin and Zosyn. Wound cultures with MSSA, patient now on Ancef. PICC line placed yesterday. Plan for discharge with IV Ancef via PICC line as recommended by infectious disease stop date 01/27/18. For angiogram on Saturday given noted PVD (abnormal ABIs). Monitor recommendations will vascular and podiatry if okay will discharge tomorrow if not we will monitor labs until this weekend and discharge pending approval. 2. Insulin dependent diabetes mellitus Blood sugars adequate at this time with initiation of home dose of Levemir. Last A1c noted to be 9.4. Most blood sugars now seem to be trending around 150 3. Hypertension Blood pressure is adequate for now. Add as needed hydralazine. 4. PVD Evaluated by vascular surgery, plans for angiogram on Saturday. Monitor recommendations. 5. CAD, remote CABG Aware. Stable. Aspirin restarted, continue with statin and beta-riley. On JACKSON inhibitor. 6. Peripheral neuropathy Be aware 7. DVT prophylaxis On heparin. 8. Dyslipidemia On Lipitor 9. diarrhea C. difficile is negative, will DC the Flagyl, continue Questran, monitor patient's diarrhea seems to be improving potassium is little bit on the low side we will give 1 dose to replete monitor laboratories in the a.m. CODE STATUS full Disposition IV antibiotics PICC line in place awaiting approval of vascular surgery after angiogram and podiatry on when to send the patient home spoke to case management I have already set up home health, antibiotics appreciate their help. Chart is dictated with lead manufacturing technician software. Errors may occur in dictation that may change providers meaning. This note was generated with [employer] dictation software. It may contain incorrect words, spelling, and punctuation that were not noted in checking the note before signing. Code Visit Inpatient E&M: 61637 Subs Hosp L3
--- NOTE | 2017-12-19 12:48 | PN_ITS ---
Patient Problems: Active and Suspected Problems Acute osteomyelitis (Acute) Gas gangrene of foot (Acute) Diabetic ulcer of left foot (Acute) Type 2 diabetes mellitus with diabetic polyneuropathy (Acute) Osteomyelitis of left foot (Acute) Cellulitis of left foot (Acute) Charcot's joint of foot (Acute) Subjective: Patient is a 72-year-old white female, with history of hypertension, insulin- dependent diabetes mellitus, dyslipidemia, Charcot joint, peripheral neuropathy, CAD with remote bypass who has a diabetic foot ulcer with fifth toe osteomyelitis on the left, status post debridement of an infected soft tissue and left bone with partial fifth amputation on 12/16/2017. Patient is currently awaiting Angio tomorrow and will set up IV antibiotics for possible discharge this weekend if okay with vascular and podiatry. Diarrhea has improved culture is negative for C. difficile will discontinue Flagyl. Patient otherwise has no new complaints. No chest pain nausea vomiting and diarrhea has improved greatly. Vitals/I&O's: Vital Signs Temp Pulse Resp BP Pulse Ox 97.6 F L 70 18 147/70 H 96 12/19/17 09:52 12/19/17 09:52 12/19/17 09:52 12/19/17 09:52 12/19/17 09:52 Oxygen Flow Rate (L/min) 1 Oxygen Delivery Method Room Air Weight: 59.56 kg Body Mass Index (BMI) 24.1 Finger Stick Blood Glucose 118 Intake and Output for Last 24 Hours 12/17/17 12/18/17 12/19/17 23:59 23:59 23:59 Intake Total 850 / 850 2065 / 2065 1161 / 1161 Output Total 300 / 300 550 / 550 850 / 850 Balance 550 / 550 1515 / 1515 311 / 311 General: Alert, Oriented x3, Cooperative HEENT: Atraumatic, PERRLA, EOMI Oral: Moist Mucosa, No Gingival or Mucosal Lesions/ Ulcerations Neck: Supple, No JVD Lungs: Clear to auscultation, Normal air movement, No rhonchi, No wheeze, No rales Cardiovascular: Normal S1, Normal S2 Abdomen: Soft, Non Tender, Non-Distended Extremities: No clubbing, Edema, Tenderness - Left foot bandaged and not remove Skin: Ulcer/ Wound - Above Musculoskeletal: No Tenderness to Palpation of Joints or Extremities, No Muscle Wasting Lymphatic: No Cervical, Supraclavicular, or Inguinal Adenopathy Neurological: Cranial nerves II-XII grossly intact, Neuro grossly intact Psych/Mental Status: Normal Affect, Appropriate, Alert and oriented to time, place, person, mood and affect Microbiology Past 72 Hours 12/16/17 Unknown Bone - Other Gram Stain - Final 12/16/17 Unknown Bone - Other Wound Culture - Final Staphylococcus aureus 12/16/17 Unknown Bone - Other Anaerobic Culture - Preliminary No growth in 48 hours. 12/18/17 16:20 Stool C. difficile DNA Amplification - Final 12/16/17 Unknown Bone - Other Gram Stain - Final 12/16/17 Unknown Bone - Other Wound Culture - Final Staphylococcus aureus 12/16/17 Unknown Bone - Other Anaerobic Culture - Preliminary 12/15/17 22:43 Blood Culture (Wb) - Anticubital Left Blood Culture - Preliminary No growth in 48 hours. 12/15/17 22:40 Blood Culture (Wb) - Anticubital Right Blood Culture - Preliminary No growth in 48 hours. 12/15/17 22:45 Wound - Left Foot Gram Stain - Final 12/15/17 22:45 Wound - Left Foot Wound Culture - Final Staphylococcus aureus Laboratory Results 12/16/17 06:50: Diff Path Review Reviewed 12/18/17 17:12: POC Glucose 352 H 12/18/17 21:19: POC Glucose 223 H 12/19/17 05:00: WBC 10.5, RBC 3.40 L, Hgb 8.7 L, Hct 28.0 L, MCV 82.4, MCH 25.6 L, MCHC 31.1 L, RDW 15.7 H, RDW Differential 47.5 H, Plt Count 316, MPV 11.0, Immature Gran % (Auto) 0.100, Neut % (Auto) 58.7, Lymph % (Auto) 23.4, [place] % (Auto) 11.5 H, Eos % (Auto) 6.0 H, Baso % (Auto) 0.3, Absolute Neuts (auto) 6.2, Absolute Lymphs (auto) 2.45, Total Counted Not Reportable 12/19/17 05:00: Sodium 138, Potassium 3.5, Chloride 104, Carbon Dioxide 27.0, Anion Gap 7, BUN 20 H, Creatinine 0.99, Estim Creat Clear Calc 39.33, Est GFR (MDRD) Af Amer 71, Est GFR (MDRD) Non-Af 59 L, BUN/Creatinine Ratio 20.2 H, Glucose 97, Calcium 9.1 12/19/17 06:43: POC Glucose 75 12/19/17 09:52: POC Glucose 164 H 12/19/17 11:26: POC Glucose 153 H Current Medications Ascorbic Acid (Vitamin C) 1,000 mg PO DAILY [facility] Last Admin: 12/19/17 10:00 Dose: 1,000 mg Aspirin (Aspirin, Baby) 81 mg PO DAILY@0800 [facility] Last Admin: 12/19/17 10:01 Dose: 81 mg Atorvastatin Calcium (Lipitor) 40 mg PO QHS [facility] Last Admin: 12/18/17 21:23 Dose: 40 mg Bisacodyl (Dulcolax) 5 mg PO DAILY PRN PRN Reason: Constipation Calcium/Vitamin D (Os-Trae 500mg + D) 1 tablet PO DAILY [facility] Last Admin: 12/19/17 10:00 Dose: 1 tablet Carvedilol (Coreg) 25 mg PO BID [facility] Last Admin: 12/19/17 10:01 Dose: 25 mg Cholestyramine Resin (Questran 4gm Packet) 4 gm PO BIDAC PRN PRN Reason: Diarrhea Dextrose (D50w Syringe) 0 gm IV X1 PRN; Protocol PRN Reason: Hypoglycemia Glucagon () 1 mg IM .X1 PRN PRN Reason: Hypoglycemia Heparin Sodium (Porcine) (Heparin Na) 5,000 unit SC Q8 [facility] Last Admin: 12/19/17 05:35 Dose: 5,000 unit Cefazolin Sodium 2 gm/ Sodium (Chloride) 110 mls @ 150 mls/hr IV Q8 [facility] Last Admin: 12/19/17 05:35 Dose: 150 mls/hr Insulin Glargine (Lantus (Bkc)) 18 units SC BID [facility] Last Admin: 12/19/17 10:04 Dose: Not Given Insulin Human Lispro (Humalog Kwikpen (Bkc)) 0 unit SQ ACHS [facility]; Protocol Last Admin: 12/19/17 11:27 Dose: 2 u Lactobacillus Acidophilus (Acidophilus) 1 tablet PO BID [facility] Last Admin: 12/19/17 10:01 Dose: 1 tablet Magnesium Hydroxide (Milk Of Magnesia) 30 ml PO DAILY PRN PRN PRN Reason: Constipation Metronidazole (Flagyl) 500 mg PO TID [facility] Last Admin: 12/19/17 05:35 Dose: 500 mg Morphine Sulfate () 1 - 2 mg IV Q4H PRN PRN PRN Reason: PAIN Multivitamins (Multivitamin) 1 tablet PO DAILYCM [facility] Last Admin: 12/19/17 10:01 Dose: 1 tablet Nutritional Formula (Lactose Free) (Glucerna Shake) 120 ml PO 4X/DAY [facility] Last Admin: 12/19/17 10:00 Dose: 120 ml Nystatin (Mycostatin Powder) 1 applic TOPICAL BID [facility]; Protocol Last Admin: 12/19/17 10:04 Dose: 1 applicatio Ondansetron HCl (Zofran) 4 mg IV Q6H PRN PRN PRN Reason: NAUSEA/VOMITING Ramipril (Altace) 2.5 mg PO DAILY [facility] Last Admin: 12/19/17 10:00 Dose: 2.5 mg Sodium Chloride () 5 - 30 ml IV UD PRN PRN Reason: SALINE FLUSH Last Admin: 12/19/17 05:35 Dose: 20 ml Medical Necessity - Tobacco Use Smoking Status: Never smoker Assessment/Plan All Active Problems Ulcer of left foot (Acute) Foot callus (Acute) Acute osteomyelitis (Acute) Gas gangrene of foot (Acute) Diabetic ulcer of left foot (Acute) Type 2 diabetes mellitus with diabetic polyneuropathy (Acute) Osteomyelitis of left foot (Acute) Cellulitis of left foot (Acute) Charcot's joint of foot (Acute) Thrombocytopenia (Acute) E coli bacteremia (Acute) Hepatosplenomegaly (Acute) Hydroureter on left (Acute) Hydronephrosis of left kidney (Acute) Pyelonephritis (Acute) Patient is a 72-year-old female with a history of hypertension, insulin- dependent diabetes mellitus, dyslipidemia, Charcot joint, peripheral neuropathy, CAD with remote bypass who was admitted for diabetic foot ulcer with fifth toe osteomyelitis. Patient is status post debridement of infective soft tissue and bone of left foot with partial fifth ray amputation on 12/16/17. 1. Diabetic foot ulcer with fifth digit osteomyelitis status post debridement and partial amputation, MSSA Status post debridement, previously on vancomycin and Zosyn. Wound cultures with MSSA, patient now on Ancef. PICC line placed yesterday. Plan for discharge with IV Ancef via PICC line as recommended by infectious disease stop date 01/27/18. For angiogram on Saturday given noted PVD (abnormal ABIs). Monitor recommendations will vascular and podiatry if okay will discharge tomorrow if not we will monitor labs until this weekend and discharge pending approval. 2. Insulin dependent diabetes mellitus Blood sugars adequate at this time with initiation of home dose of Levemir. Last A1c noted to be 9.4. Most blood sugars now seem to be trending around 150 3. Hypertension Blood pressure is adequate for now. Add as needed hydralazine. 4. PVD Evaluated by vascular surgery, plans for angiogram on Saturday. Monitor recommendations. 5. CAD, remote CABG Aware. Stable. Aspirin restarted, continue with statin and beta-riley. On JACKSON inhibitor. 6. Peripheral neuropathy Be aware 7. DVT prophylaxis On heparin. 8. Dyslipidemia On Lipitor 9. diarrhea C. difficile is negative, will DC the Flagyl, continue Questran, monitor patient's diarrhea seems to be improving potassium is little bit on the low side we will give 1 dose to replete monitor laboratories in the a.m. CODE STATUS full Disposition IV antibiotics PICC line in place awaiting approval of vascular surgery after angiogram and podiatry on when to send the patient home spoke to case management I have already set up home health, antibiotics appreciate their help. Chart is dictated with cat dog or other pet groomer software. Errors may occur in dictation that may change providers meaning. This note was generated with [employer] dictation software. It may contain incorrect words, spelling, and punctuation that were not noted in checking the note before signing. Code Visit Inpatient E&M: 54384 Subs Hosp L3
--- NOTE | 2017-12-19 13:46 | PCM.PROGNOTE ---
Patient Problems: Active and Suspected Problems Acute osteomyelitis (Acute) Gas gangrene of foot (Acute) Diabetic ulcer of left foot (Acute) Type 2 diabetes mellitus with diabetic polyneuropathy (Acute) Osteomyelitis of left foot (Acute) Cellulitis of left foot (Acute) Charcot's joint of foot (Acute) Subjective: This 72-year-old diabetic female was seen resting bedside s/p debridement of all necrotic, nonviable, infected soft tissue and bone with fifth ray resection of the left foot. POD #3. She is resting comfortably in bed and finishing up her lunch. She says she is feeling well today and has no feelings of nausea, vomiting, fever, or chills. - Physical Exam General: Alert, Oriented x3, Cooperative, No apparent distress Extremities: No Calf Tenderness - Negative Zion and Degroot sign, Diminished Peripheral Pulses, Edema - Improving edema to left foot Skin: - - Open surgical site noted to the left lateral foot following open fifth ray resection. There continues to be no signs of purulence or malodor. The surgical site does not appear to have any new necrotic/eschar tissue. The skin does not appear dusky surrounding the surgical site again today. Surrounding erythema continues to reduce. Musculoskeletal: No Tenderness to Palpation of Joints or Extremities, - - Bilateral Charcot foot type changes. Contracted digits 2-5 on the right foot and 2-4 on the left foot Neurological: - - Epicritic sensation grossly absent to lower extremity Psych/Mental Status: Normal Affect, Appropriate Vital Signs Temp Pulse Resp BP Pulse Ox 97.6 F L 70 18 147/70 H 96 12/19/17 09:52 12/19/17 09:52 12/19/17 09:52 12/19/17 09:52 12/19/17 09:52 Oxygen Flow Rate (L/min) 1 Oxygen Delivery Method Room Air Weight: 59.56 kg Body Mass Index (BMI) 24.1 Finger Stick Blood Glucose 118 Intake and Output for Last 24 Hours 12/17/17 12/18/17 12/19/17 23:59 23:59 23:59 Intake Total 850 / 850 2065 / 2065 1161 / 1161 Output Total 300 / 300 550 / 550 850 / 850 Balance 550 / 550 1515 / 1515 311 / 311 Microbiology Past 72 Hours 12/16/17 Unknown Gram Stain - Final Bone - Other Wound Culture - Final Staphylococcus aureus Anaerobic Culture - Preliminary No growth in 48 hours. 12/18/17 16:20 C. difficile DNA Amplification - Final Stool 12/16/17 Unknown Gram Stain - Final Bone - Other Wound Culture - Final Staphylococcus aureus Anaerobic Culture - Preliminary 12/15/17 22:43 Blood Culture - Preliminary Blood Culture (Wb) - Anticubital Left No growth in 48 hours. 12/15/17 22:40 Blood Culture - Preliminary Blood Culture (Wb) - Anticubital Right No growth in 48 hours. 12/15/17 22:45 Gram Stain - Final Wound - Left Foot Wound Culture - Final Staphylococcus aureus Laboratory Tests Past 24 Hrs 12/16/17 12/19/17 12/19/17 06:50 05:00 05:00 WBC 10.5 RBC 3.40 L Hgb 8.7 L Hct 28.0 L MCV 82.4 MCH 25.6 L MCHC 31.1 L RDW 15.7 H RDW Differential 47.5 H Plt Count 316 MPV 11.0 Immature Gran % (Auto) 0.100 Neut % (Auto) 58.7 Lymph % (Auto) 23.4 [place] % (Auto) 11.5 H Eos % (Auto) 6.0 H Baso % (Auto) 0.3 Absolute Neuts (auto) 6.2 Absolute Lymphs (auto) 2.45 Total Counted Not Reportable Diff Path Review Reviewed Sodium 138 Potassium 3.5 Chloride 104 Carbon Dioxide 27.0 Anion Gap 7 BUN 20 H Creatinine 0.99 Estim Creat Clear Calc 39.33 Est GFR (MDRD) Af Amer 71 Est GFR (MDRD) Non-Af 59 L BUN/Creatinine Ratio 20.2 H Glucose 97 Calcium 9.1 POC Glucose 12/19/17 12/19/17 12/19/17 11:26 09:52 06:43 POC Glucose 153 H 164 H 75 12/18/17 12/18/17 21:19 17:12 POC Glucose 223 H 352 H Medical Necessity - Tobacco Use Smoking Status: Never smoker Assessment/Plan All Active Problems Ulcer of left foot (Acute) Foot callus (Acute) Acute osteomyelitis (Acute) Gas gangrene of foot (Acute) Diabetic ulcer of left foot (Acute) Type 2 diabetes mellitus with diabetic polyneuropathy (Acute) Osteomyelitis of left foot (Acute) Cellulitis of left foot (Acute) Charcot's joint of foot (Acute) Thrombocytopenia (Acute) E coli bacteremia (Acute) Hepatosplenomegaly (Acute) Hydroureter on left (Acute) Hydronephrosis of left kidney (Acute) Pyelonephritis (Acute) Open surgical wound following open left 5th ray resection (12/16/17) cellulitis-resolving PVD DM with neuropathy Other comorbidities This 72 year old patient was seen resting bedside s/p debridement of all non-viable, infected, necrotic soft tissue and bone of the left foot with open 5th ray resection. POD #3. Erythema to left foot continues to decrease. WBC is 10.5. Her vital signs are currently stable. Results from specimen sent from surgery that were sent for micro and pathology evaluation are showing staph aureus, further results pending. ID has been consulted and is following the patient with plan for PICC and antibiotics once patient is discharged. Her LEAS studies revealed decreased arterial flow with numbers consistent with chronic vascular disease. Her left CHRIS was .66 and her left TBI was .21 and there was no DP waveform and monophasic PT waveform. Dr. Powers with vascular was consulted and saw this patient. I briefly discussed this case with him and he plans to take the patient for angio procedure on Saturday. 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 The surgical site was carefully cleansed again today with dakins solution. There are no new signs of any necrotic tissue or any areas of dusky appearing tissue appreciated today. The surgical site was then packed with dakins moistened 4x4's, followed by overlying dry 4x4s, ABD, and kerlix. No JACKSON was applied. Dressing can be reinforced by nursing staff as necessary. I discussed the case again with the patient and I answered all and any questions she had. I informed the patient again today that due to her vascular status, there is potentia of this not healing and the need for further surgeries or more proximal amputations in the future. I discussed that we will give this the best chance to heal once the angio procedure is done to try and re-establish some better blood flow to the area. She understands all of this. As long as procedure by Dr. Powers goes as planned on Saturday, plan on wound vac application to surgery site prior to discharge by nursing staff. I discussed this plan with Dr. Powers and he is okay with this. Continued medical management by primary team is appreciated. I will continue to follow this patient while in house.
[2017-12-19 13:59] VITALS: BP 124/63; PULSE 67; RESP 18; TEMP 36.4; O2SAT 100
--- NOTE | 2017-12-19 15:41 | CASEMGMT ---
RN CM sent referral [facility] for IV ATB setup. Anticipate possible discharge 12/20. RN CM to continue to monitor and plan for a safe discharge.
[2017-12-19 17:11] LABS: Bedside Glucose 192 mg/dL (70-110)
--- NOTE | 2017-12-19 19:12 | LEAS ---
Arterial Study - Arterial Study Arterial Study: This is a 72-year-old female with symptoms and manifestations of peripheral arterial occlusive disease. Suspecting the presence of atherosclerotic peripheral arterial occlusive disease, the patient was brought to the noninvasive vascular laboratory at this time for the purpose of bilateral noninvasive lower extremity arterial assessment. Doppler signal assessment was used to evaluate the pulses at ankle level bilaterally. On the right, the posterior tibial and dorsalis pedis pulses were biphasic. The left posterior tibial pulse was monophasic. The left dorsalis pedis pulse was absent. Segmental limb pressures were obtained bilaterally. The right ankle pressure, as determined by posterior tibial pulse, was measured at 195 mmHg. The right ankle pressure, as determined by dorsalis pedis pulse, was measured at 133 mmHg. The right digital pressure was measured at 112 mmHg. The left ankle pressure, as determined by posterior tibial pulse, was measured at 88 mmHg. The left ankle pressure, as determined by dorsalis pedis pulse, could not be determined. The left digital pressure was measured at 28 mmHg. Pulse?volume recordings were obtained bilaterally and segmentally. Waveform amplitudes appeared to be diminished at digital level on the right, and virtually pulseless at digital level on the left. Resting ankle?brachial indices were calculated bilaterally. The resting right ankle?brachial index was calculated to be 1.46. The resting left ankle?brachial index was calculated to be 0.66. Digital?brachial indices were calculated bilaterally. The right digital-brachial index was calculated to be 0.84. The left digital-brachial index was calculated to be 0.21. Impression: Based upon the findings of this resting noninvasive lower extremity arterial study, arterial perfusion in the right lower extremity appears to be normal. Biphasic waveforms were noted at ankle level on the right. The resting right ankle?brachial index is normal, if not supra?normal, which may be due to arterial calcification. The right digital-brachial index is normal, suggesting relatively normal arterial flow at digital level in the right lower extremity. The resting left ankle?brachial index is moderately diminished, suggesting moderate impairment of arterial flow at ankle level in the left lower extremity. The left digital-brachial index is severely diminished, suggesting severe, distal, small?vessel arterial occlusive disease in the left lower extremity. Clinical correlation is advised.
--- NOTE | 2017-12-19 19:19 | LEAS_ITS ---
Arterial Study - Arterial Study Arterial Study: This is a 72-year-old female with symptoms and manifestations of peripheral arterial occlusive disease. Suspecting the presence of atherosclerotic peripheral arterial occlusive disease, the patient was brought to the noninvasive vascular laboratory at this time for the purpose of bilateral noninvasive lower extremity arterial assessment. Doppler signal assessment was used to evaluate the pulses at ankle level bilaterally. On the right, the posterior tibial and dorsalis pedis pulses were biphasic. The left posterior tibial pulse was monophasic. The left dorsalis pedis pulse was absent. Segmental limb pressures were obtained bilaterally. The right ankle pressure, as determined by posterior tibial pulse, was measured at 195 mmHg. The right ankle pressure, as determined by dorsalis pedis pulse, was measured at 133 mmHg. The right digital pressure was measured at 112 mmHg. The left ankle pressure, as determined by posterior tibial pulse, was measured at 88 mmHg. The left ankle pressure, as determined by dorsalis pedis pulse, could not be determined. The left digital pressure was measured at 28 mmHg. Pulse?volume recordings were obtained bilaterally and segmentally. Waveform amplitudes appeared to be diminished at digital level on the right, and virtually pulseless at digital level on the left. Resting ankle?brachial indices were calculated bilaterally. The resting right ankle?brachial index was calculated to be 1.46. The resting left ankle?brachial index was calculated to be 0.66. Digital?brachial indices were calculated bilaterally. The right digital- brachial index was calculated to be 0.84. The left digital-brachial index was c alculated to be 0.21. Impression: Based upon the findings of this resting noninvasive lower extremity arterial study, arterial perfusion in the right lower extremity appears to be normal. Biphasic waveforms were noted at ankle level on the right. The resting right ankle?brachial index is normal, if not supra?normal, which may be due to arterial calcification. The right digital-brachial index is normal, suggesting relatively normal arterial flow at digital level in the right lower extremity. The resting left ankle?brachial index is moderately diminished, suggesting moderate impairment of arterial flow at ankle level in the left lower extremity. The left digital-brachial index is severely diminished, suggesting severe, distal, small?vessel arterial occlusive disease in the left lower extremity. Clinical correlation is advised.
[2017-12-19 20:00] VITALS: BP 153/70; PULSE 73; RESP 18; TEMP 36.5; O2SAT 97
[2017-12-19 20:03] VITALS: RESP 18; O2SAT 97
--- NOTE | 2017-12-19 20:49 | EKG12_ITS ---
Test Reason : Blood Pressure : / mmHG Vent. Rate : 070 BPM Atrial Rate : 070 BPM P-R Int : 170 ms QRS Dur : 088 ms QT Int : 380 ms P-R-T Axes : 029 -14 146 degrees QTc Int : 410 ms Normal sinus rhythm Septal infarct (cited on or before 05-JUN-2003) T wave abnormality, consider lateral ischemia Abnormal ECG When compared with ECG of 15-DEC-2017 22:48, T wave inversion less evident in Lateral leads Confirmed by KEN IRELAND ([id number]), production editor RAMOS ZARAGOZA ([id number] on 12/24/2017 12:45:43 PM Referred By: Confirmed By:KEN IRELAND
--- NOTE | 2017-12-19 21:20 | RAD_ITS ---
STUDY: X-RAY CHEST REASON FOR EXAM: Female, 72 years old. SOB / SOA TECHNIQUE: Frontal and lateral views of the chest. COMPARISON: December 15, 2017 FINDINGS: Chronic appearing increased interstitial lung markings. There is no demonstrated pleural abnormality. Enlarged heart size. Normal mediastinum and ajay. Normal visualized pulmonary arteries. There is atherosclerotic calcification of the aortic arch with tortuosity. There are diffuse degenerative changes of the visualized thoracic spine. There is degenerative osteoarthritis of the bilateral shoulders. Old appearing compression deformity of the mid thoracic spine. Diffuse osteopenia. Multiple median sternotomy wires are noted consistent for cardiac surgery. There is a right PICC line in place. The tip is in the right atrium. There is no demonstrated abnormality of the visualized soft tissue structures of the upper abdomen. RAD/Chest PA and Lateral IMPRESSION: There are no acute findings. Electronically Signed: Semaj Terrazas MD at 21:46 EDT , Service support ,
[2017-12-19 22:10] VITALS: BP 142/77; PULSE 80; RESP 18; TEMP 36.4; O2SAT 96
[2017-12-19] MEDS: Atorvastatin Calcium 40 MG Tablet PO (22:13)
[2017-12-19 22:31] LABS: Bedside Glucose 222 mg/dL (70-110)
[2017-12-20 02:46] VITALS: BP 149/82; PULSE 73; RESP 18; TEMP 36.3; O2SAT 97
[2017-12-20] MEDS: Cefazolin 2 GM in 0.9% Normal Saline 100 ML IV ×2 (05:14→13:12)
--- NOTE | 2017-12-20 05:31 | NURSING ---
Patients daughter Annette called and message left requesting call back.
[2017-12-20 05:43] LABS: ALB/GLOB Ratio 0.5 RATIO (0.9-2.4); AST(SGOT) 27 U/L (15-37); Alanine Aminotransfer ALT/SGPT 11 U/L (13-56); Albumin, Serum 2.1 g/dL (3.2-5.0); Alkaline Phosphatase 107 U/L (45-117); Anion Gap 5 (5-15); BUN 19 mg/dL (7-18); BUN/Creat Ratio 19.5 RATIO (10-20); Calcium,Total 9.4 mg/dL (8.5-10.1); Chloride 108 mmol/L (98-107); Creatinine, Serum 0.98 mg/dL (0.55-1.02); EST Glomerular Filtration Rate 60 mL/min (>60); Est Glom Filt Rate - Afr Amer 72 mL/min (>60); Estimated Creatinine Clearance 39.73 ml/min; Globulin 4.3 g/dL (2.2-4.2); Glucose 68 mg/dL (74-106); Magnesium 1.9 mg/dL (1.6-2.6); Protein, Total 6.4 g/dL (6.4-8.2); Sodium Level 140 mmol/L (136-145)
[2017-12-20 05:51] LABS: Absolute Lymphocyte Count 2.53 X10^3/ul (0.83-4.51); Absolute Neutrophil Count 5.9 X10^3/uL (2.0-7.7); Basophil# 0.06 X10^3/uL; Basophil% 0.6 % (0-1); Eosinophil# 0.76 X10^3/uL; Eosinophils% 7.3 % (0-5); Hemoglobin 8.9 g/dl (12.0-15.0); Lymphocyte # 2.53 X10^3/ul (4.0); Lymphocyte % 24.1 % (19-41); Mean Corp Hgb Conc 30.7 g/gl (32-36); Mean Corpuscular Hgb 25.2 pg (27.0-32.0); Mean Corpuscular Volume 82.2 fL (81-99); Mean Platelet Vol. 10.4 fl (6.2-12.0); Monocyte# 1.24 X10^3/uL; Monocyte% 11.8 % (0-10); Neutrophil # 5.86 X10^3/uL (2.7-7.7); Neutrophil % 55.9 % (47-70); Platelet Count 333 K/mm3 (150-450); RBC Distribution Width CV 15.8 % (11.6-14.6); RBC Distribution Width SD 47.6 fl (35.1-43.9); Red Blood Count 3.53 M/mm3 (4.2-5.4); White Blood Count 10.5 K/mm3 (4.4-11.0)
[2017-12-20 06:05] LABS: POSITIVE COUNT NO; POSITIVE DIFFERENTIAL NO; POSITIVE MORPHOLOGY NO
[2017-12-20] MEDS: Dextrose 50%-Water 25 GM/50 ML DISP.SYRIN IV (06:15)
[2017-12-20] MEDS: 0.9% NaCl Peripheral Flush Adult/Peds IV ×2 (06:15→15:12)
[2017-12-20 06:26] VITALS: BP 148/87; PULSE 70; RESP 18; TEMP 36.9; O2SAT 96
--- NOTE | 2017-12-20 06:28 | NURSING ---
This RN spoke with patients daughter Annette and gave updates.
[2017-12-20 06:46] LABS: Bedside Glucose 186 mg/dL (70-110)
--- NOTE | 2017-12-20 06:59 | NURSING ---
Report given to Enrique in laboratory equipment cleaner.
--- NOTE | 2017-12-20 08:33 | PCM.OP.BLANK ---
Problem List (1) Ulcer of left foot Status: Acute (2) Gas gangrene of foot Status: Acute (3) Diabetic ulcer of left foot Status: Acute (4) Type 2 diabetes mellitus with diabetic polyneuropathy Status: Acute (5) Osteomyelitis of left foot Status: Acute Operative Report Date of Procedure: 12/20/17 Surgeon: Dr. 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 Discussed to do left leg angiogram with intervention. Risks benefits alternatives discussed she agreed to proceed. Operation: 1. Ultrasound-guided access retrograde right common femoral artery. 2. Left lower extremity angiogram with catheter placed into the past the third order cannulation of the posterior tibial and left anterior tibial artery. 3. Balloon angioplasty of the left popliteal through the tibial peroneal trunk through the proximal posterior tibial artery with a 3 x 120 balloon. 4. Balloon angioplasty the mid to distal popliteal artery with a 4 x 120 drug-coated balloon. 5. Closure with Star close. Procedure: 72-year-old female was brought to the operating room. Underwent the appropriate timeout consent. Underwent sedation. Was prepped and draped in a sterile fashion. We did ultrasound-guided access retrograde in the right common femoral artery. We put a Glidewire up in a 5 Stateless sheath and then gave 5000 units of heparin. Was a lot of clips noted in the groin and some calcification. So we did an angiogram of the right groin, this showed appear to be probable SFA occlusion a lot of collaterals and a large profunda. There was a arterial venous communication possibly from 1 of the branches to a little bit above femoral vein aneurysm and then outflow through the iliac vein. We left this intact. We then brought in a contra catheter got up and over the bifurcation, brought the catheter of the left external iliac artery. We did an angiogram from here, showed the left common femoral profunda SFA widely patent. The put the wire down the SFA and brought in a long quick cross catheter. We imaged from here and it showed proximal popliteal was patent, mid to distal with some segmental areas of moderate severe stenosis. We then brought the catheter below the knee and image from there. This showed moderate severe stenosis in the tibial peroneal trunk, severe stenosis into the posterior tibial artery, the rest of the posterior tibial artery and peroneal artery are patent into the foot. Anterior tibial artery with severe occlusive disease proximally and then occluded in the mid segment. We brought in a long 6 Stateless sheath. Using a quick cross catheter and Glidewire got into the anterior tibial artery. We try to track down through here but could not get past the mid segment where is very calcified and a little tortuous. We then tried an 014 wire with the 014 quick cross. This still was unable to track. We then removed this out and using a wire guided into the tibioperoneal trunk and then into the posterior tibial artery. We confirmed we are in this vessel. We switched back to an 014 wire. We then balloon from the proximal posterior tibial artery through the tibioperoneal trunk into the distal popliteal. We ballooned this for over 3 minutes. This was markedly improved. We then ballooned from the proximal to the distal popliteal artery with a 4 x 120 drug-coated balloon. We ballooned this for over 2-1/2 minutes. Completion was also markedly improved. We then removed out the sheath deployed a Star close with good hemostasis she was brought to recovery stable condition. Plan: We will start her on Plavix should have much improved perfusion to help heal these lesions. 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 We will see her back in 1 month. Sedation: This 72-year-old female underwent moderate sedation given by Dr. Lino Powers. She was monitored with EKG blood pressure and pulse ox. She was given fentanyl and Versed, and monitored for over the 30 minutes of the procedure. She tolerated this well. See the EMR for the complete record.
--- NOTE | 2017-12-20 12:56 | PCM.PN.ID ---
Patient Problems: Active and Suspected Problems Acute osteomyelitis (Acute) Gas gangrene of foot (Acute) Diabetic ulcer of left foot (Acute) Type 2 diabetes mellitus with diabetic polyneuropathy (Acute) Osteomyelitis of left foot (Acute) Cellulitis of left foot (Acute) Charcot's joint of foot (Acute) - Physical Exam Vital Signs Temp Pulse Resp BP Pulse Ox 98.4 F 70 18 148/87 H 96 12/20/17 06:26 12/20/17 06:26 12/20/17 06:26 12/20/17 06:26 12/20/17 06:26 Oxygen Flow Rate (L/min) 1 Oxygen Delivery Method Room Air Weight: 59.56 kg Body Mass Index (BMI) 24.1 Finger Stick Blood Glucose 118 Intake and Output for Last 24 Hours 12/18/17 12/19/17 12/20/17 23:59 23:59 23:59 Intake Total 2065 / 2065 1858 / 1858 240 / 240 Output Total 550 / 550 1150 / 1150 250 / 250 Balance 1515 / 1515 708 / 708 -10 10 Microbiology Past 72 Hours 12/16/17 Unknown Gram Stain - Final Bone - Other Wound Culture - Final Staphylococcus aureus Anaerobic Culture - Final Anaerobic cocci 12/16/17 Unknown Gram Stain - Final Bone - Other Wound Culture - Final Staphylococcus aureus Anaerobic Culture - Final No anaerobic bacteria isolated. 12/18/17 16:20 C. difficile DNA Amplification - Final Stool 12/15/17 22:43 Blood Culture - Preliminary Blood Culture (Wb) - Anticubital Left No growth in 48 hours. 12/15/17 22:40 Blood Culture - Preliminary Blood Culture (Wb) - Anticubital Right No growth in 48 hours. Laboratory Tests Past 24 Hrs 12/19/17 12/20/17 12/20/17 22:10 05:05 05:05 WBC 10.5 RBC 3.53 L Hgb 8.9 L Hct 29.0 L MCV 82.2 MCH 25.2 L MCHC 30.7 L RDW 15.8 H RDW Differential 47.6 H Plt Count 333 MPV 10.4 Immature Gran % (Auto) 0.300 Neut % (Auto) 55.9 Lymph % (Auto) 24.1 [place] % (Auto) 11.8 H Eos % (Auto) 7.3 H Baso % (Auto) 0.6 Absolute Neuts (auto) 5.9 Absolute Lymphs (auto) 2.53 Total Counted Not Reportable Sodium 140 Potassium 4.0 Chloride 108 H Carbon Dioxide 27.0 Anion Gap 5 BUN 19 H Creatinine 0.98 Estim Creat Clear Calc 39.73 Est GFR (MDRD) Af Amer 72 Est GFR (MDRD) Non-Af 60 BUN/Creatinine Ratio 19.5 Glucose 68 L Calcium 9.4 Phosphorus 2.0 L Magnesium 1.9 Total Bilirubin 0.20 AST 27 ALT 11 L Alkaline Phosphatase 107 Troponin I 0.018 Total Protein 6.4 Albumin 2.1 L Globulin 4.3 H Albumin/Globulin Ratio 0.5 L POC Glucose 12/20/17 12/19/17 12/19/17 06:42 22:09 16:59 POC Glucose 186 H 222 H 192 H Medical Necessity - Tobacco Use Smoking Status: Never smoker Route of nutrition/ use of supplements: [] Nutritional Intake: [] IV Site: [] [place] Catheter: [] - Assessment/Plan Antibiotics: [] Assessment/Plan: [] Active and Suspected Problems Acute osteomyelitis (Acute) L foot osteomyelitis - esr at 84. Cx with MSSA and anaerobes. OR 12/16 for I&D, 5th toe amputation and partial 5th metatarsal resection by Dr. Omer. On cefazolin and po flagyl for 6 week course, stop date 01/27/18, weekly bmp, cbc, and esr. Added po flagyl for anaerobic coverage. ID followup with me in 2-3 weeks, and I can see her at the [facility]. Will follow. Pt gone to angiogram.
[2017-12-20 12:59] VITALS: BP 153/84; PULSE 78; RESP 18; TEMP 36.4; O2SAT 93
[2017-12-20] MEDS: Ascorbic Acid 500 MG Tablet 1000 MG PO (13:07)
[2017-12-20] MEDS: Carvedilol 25 MG Tablet PO (13:07)
[2017-12-20] MEDS: Calcium Carb/Vitamin D 1 TABLET Tablet PO (13:07)
[2017-12-20] MEDS: Ramipril 2.5 MG Capsule PO (13:07)
[2017-12-20] MEDS: Glucerna Shake 120 ML LIQUID PO (13:08)
[2017-12-20] MEDS: Aspirin 81 MG TAB.CHEW PO (13:08)
[2017-12-20] MEDS: Insulin Lispro 100 UNIT/ML INSULN.PEN SQ (13:09)
[2017-12-20] MEDS: Heparin Injection (Vial) 5,000 UNIT/ML VIAL 5000 UNIT SC (13:14)
[2017-12-20 13:21] LABS: Bedside Glucose 160 mg/dL (70-110)
--- NOTE | 2017-12-20 13:31 | PCM.DC ---
- Discharge Diagnoses Current Active Problems: Current Active and Chronic Problems Acute osteomyelitis (Acute) Gas gangrene of foot (Acute) Diabetic ulcer of left foot (Acute) Type 2 diabetes mellitus with diabetic polyneuropathy (Acute) Osteomyelitis of left foot (Acute) Cellulitis of left foot (Acute) Charcot's joint of foot (Acute) You will use the following diet at home:: Cardiac Your food should be the consistency of: Regular Your liquids should be the consistency of: Regular/Thin Discharge Activity: - - Do not put weight on the foot as per podiatry for 6 weeks Weight Bearing Status: No weight bearing Keep extremity elevated above heart level: Operative Extremity, Left Leg Call your doctor if your incision/area has: Continuous Slow Oozing, Sudden Increased Bleeding, Increased Pain/ Swelling, Increased Redness, Foul Smelling Discharge, Swelling at the incision site Call your doctor if you observe: Fever of 101 or Higher, Numbness or Tingling, Change in Color, Shortness of breath, Dizziness, Fainting spells, Chest pain, Increased palpitations (irregular heartbeat) Allergies/Adverse Reactions: Allergies No Known Allergies Allergy (Verified 12/15/17 21:59) Medications to take at Discharge Aspirin [Aspirin, Baby] 81 mg PO DAILY 12/12/15 Atorvastatin Calcium [Lipitor] 40 mg PO QHS 12/12/15 Carvedilol [Coreg (Beta Britney)] 25 mg PO BID 12/12/15 Multivitamins,Therapeutic [Multivitamin] 1 tablet PO DAILY 12/12/15 Ramipril [Altace] 2.5 mg PO DAILY 12/12/15 Vitamin C 1,000 mg PO DAILY 12/12/15 Insulin Detemir [Levemir FlexPen] 18 units SC BID 12/13/15 Calcium Citrate-Vit D3 Tablet 1 tab PO DAILY 12/15/17 Ubidecarenone [Co Q-10] 200 mg PO DAILY 12/15/17 Cefazolin 2 gm IV Q8 40 Days #120 vial 12/18/17 Cholestyramine (with Sugar) [Cholestyramine Packet] 4 gm PO BID PRN #30 powd.pack 12/20/17 Clopidogrel Bisulfate [Plavix] 75 mg PO DAILY #30 tablet 12/20/17 Glucerna Shake 120 ml PO 4X/DAY #120 liquid 12/20/17 Lactobacillus Acidophilus [Acidophilus] 1 tablet PO BID #60 tablet 12/20/17 Metronidazole [Flagyl] 500 mg PO Q8H #112 tablet 12/20/17 Nystatin Powder [Mycostatin Powder] 1 applic TOPICAL BID 30 Days bottle 12/20/17 Oxycodone [Oxyir] 5 mg PO Q4H PRN PRN 7 Days #42 tablet 12/20/17 The following prescriptions were given: Oxycodone [Oxyir] 5 mg PO Q4H PRN PRN 7 Days #42 tablet PRN Reason: Pain Cefazolin 2 gm IV Q8 40 Days #120 vial Clopidogrel Bisulfate [Plavix] 75 mg PO DAILY #30 tablet Metronidazole [Flagyl] 500 mg PO Q8H #112 tablet Cholestyramine (with Sugar) [Cholestyramine Packet] 4 gm PO BID PRN #30 powd.pack PRN Reason: Diarrhea Lactobacillus Acidophilus [Acidophilus] 1 tablet PO BID #60 tablet Nystatin Powder [Mycostatin Powder] 1 applic TOPICAL BID 30 Days bottle Glucerna Shake 120 ml PO 4X/DAY #120 liquid Primary Care Physician: Neal Moulton [Primary Care Provider] - Please follow up with your Primary Care Physician in: 1 week Test Results: Test results from this visit will be discussed in further detail at your follow-up appointment, if applicable.
--- NOTE | 2017-12-20 13:34 | PCM.DC.SUM ---
Discharge Date and Diagnosis - Problem List Patient Problems: Active and Suspected Problems Acute osteomyelitis (Acute) Gas gangrene of foot (Acute) Diabetic ulcer of left foot (Acute) Type 2 diabetes mellitus with diabetic polyneuropathy (Acute) Osteomyelitis of left foot (Acute) Cellulitis of left foot (Acute) Charcot's joint of foot (Acute) Date of Admission: 12/16/17 Date of Discharge: 12/20/17 - Primary Discharge Diagnosis Active and Suspected Problems Acute osteomyelitis (Acute) Gas gangrene of foot (Acute) Diabetic ulcer of left foot (Acute) Type 2 diabetes mellitus with diabetic polyneuropathy (Acute) Osteomyelitis of left foot (Acute) Cellulitis of left foot (Acute) Charcot's joint of foot (Acute) - Secondary Discharge Diagnosis Chronic Problems Status post coronary artery bypass graft (Chronic) Coronary artery disease (Chronic) Status post stents and CABG. Type 2 diabetes mellitus (Chronic) Hypertension (Chronic) Hyperlipidemia (Chronic) Hospital Course and Treatment Imaging Results: MR#: [id number] Acct: [id number] Name: DONNELL MOSER Paolo Rep #: [id number] : 1945 F 72 From: Luc Meneses MD PCP: Neal Moulton Status: ADM IN Study: Lower Ext No Joint W/WO Cont Date of Exam: 12/16/17 Exam# [id number] Ordering Dr: John Early MD STUDY: MRI LEFT FOREFOOT WITH AND WITHOUT CONTRAST REASON FOR EXAM: Chronic lateral foot wound. Also medial wound since October. Evaluate osteomyelitis. TECHNIQUE: Standardized fat and water weighted pulse sequences were obtained in all 3 orthogonal planes, post contrast administration. 6 ml of Gadavist contrast material was administered intravenously for the contrast portion of the examination. COMPARISON: Radiographs 12/15/2017. FINDINGS: Normal metatarsophalangeal joint of the hallux. Normal tibial and fibular sesamoids, with normal sesamoids-first metatarsal articulations. Normal interphalangeal joint of the hallux. Normal proximal and distal phalanges of the great toe. Normal medial and lateral heads of the flexor hallucis brevis tendons. Normal flexor and extensor hallucis longus tendons. There is bone edema of the distal diaphysis of the fifth metatarsal and fifth proximal phalanx (inversion recovery sagittal image 20) with corresponding decreased T1 bone marrow signal (T1 sagittal image 21) and contrast enhancement (postcontrast T1 sagittal image 21) suggestive of osteomyelitis. There is a very small effusion of the fifth metatarsophalangeal joint (inversion recovery sagittal image 20). Normal second through fourth metatarsophalangeal (MTP) joints. Normal interphalangeal joints of the second through fourth toes. Normal proximal, middle and distal phalanges of the second through fourth toes. Normal flexor and extensor tendons of the second through fifth toes. Normal first through fourth intermetatarsal spaces. There is neuropathic osteoarthropathy of the Lisfranc articulation (T1 sagittal images 5-18) with disruption of Lisfranc ligament (T2 series 6 images 10, 11). There is atrophy with fat replacement of the intrinsic muscles of the forefoot (T1 sagittal images 10-19) suggestive of peripheral neuropathy. There is a soft tissue ulcer at the lateral aspect of the fifth metatarsophalangeal joint with soft tissue gas (T1 series 4 images 12-14) but no demonstrated soft tissue abscess. There is edema in the subcutis adipose space particularly in the dorsal lateral aspect of the foot with contrast enhancement (postcontrast T1 sagittal images 17-23) suggestive of cellulitis. There is a pressure lesion at the plantar medial aspect of the first metatarsophalangeal joint (T1 series 4 images 6-9). MRI/Lower Ext No Joint W/WO Cont IMPRESSION: Signal alterations of the fifth metatarsal and fifth proximal phalanx suggestive of osteomyelitis. Neuropathic osteoarthropathy of Lisfranc articulation. Atrophy of the intrinsic muscles of the forefoot suggestive of peripheral neuropathy. Soft tissue ulcer at the lateral aspect of the fifth metatarsophalangeal joint without demonstrated soft tissue abscess. Cellulitis. Pressure lesion at the plantar medial aspect of the first metatarsophalangeal joint. Electronically Signed: Luc Meneses MD at 10:33 EDT Tel , Service support , Operative report: Problem List (1) Gas gangrene of foot Status: Acute (2) Diabetic ulcer of left foot Status: Acute (3) Type 2 diabetes mellitus with diabetic polyneuropathy Status: Acute (4) Osteomyelitis of left foot Status: Acute (5) Cellulitis of left foot Status: Acute (6) Charcot's joint of foot Status: Acute Report of Operation Date of Procedure: 12/16/17 Pre-Operative Diagnosis: Ulcer of the left distal plantar lateral foot with cellulitis, osteomyelitis, and soft tissue gas. Post-Operative Diagnosis: same Surgery/Procedure Performed:: Debridement of all necrotic, non-viable, infected soft tissue and bone of the left foot with partial 5th ray amputation Description of Surgical Findings:: Hemostasis: well padded left ankle tourniquet Type of Anesthesia:: General - preoperative reverse brown block around 5th met base consisting of 10 mL of 0.5% marcaine plain. Specimen's removed: Necrotic and infected bone and soft tissue sent to pathology and microbiology for further evaluation. Clearance fragment from the fifth metatarsal also sent to pathology and microbiology for further evaluation. Estimated Blood Loss (mL): 20mL Description of Procedure: Indications: This 72-year-old diabetic female patient with a history of noncontrolled type 2 diabetes with neuropathy was consulted to podiatry earlier today after being admitted through the emergency room late last evening for an ulcer to the left foot that was malodorous as well as cellulitis of the left foot. This patient also has a medical history significant for Charcot foot, CAD, status post CABG and stents, ovarian tumor, as well as other comorbidities. The patient says the ulcer to her left lateral foot started as a skin tear from tape. She says the funeral service manager she had been seeing in [place] was only treating the area with Silvadene cream and did not advise her to keep pressure and weight off of the affected area. She says over the last 3 weeks, the ulcer continued to slowly worsen. She says she was finally referred to the wound healing center at [place], and was supposed to follow-up with a funeral service manager at the wound healing center this coming week. She states that yesterday evening she started having some nausea and vomiting and decided to come to the emergency room. The patient's WBC today was 16, her ESR was 84, and her CRP was 115. Preliminary swab cultures of the ulcer show staph aureus growth with further results pending. The patient was currently on vancomycin and Zosyn. Her vital signs were stable. 3 view foot x-rays were taken of the left foot, and results were read as erosive changes in the fifth metatarsal head consistent with signs suggesting osteomyelitis as well as associated soft tissue swelling as well as soft tissue emphysema. MRI was also taken of the left foot which showed signs consistent with osteomyelitis of the fifth metatarsal as well as the proximal phalanx of the fifth toe. 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 During physical exam today, patient's epicritic sensation is grossly absent to the lower extremities bilateral. Diminished peripheral pulses on palpation appreciated. LEAS studies ordered and results are still pending. Ulcer to the left lateral and plantar distal foot, overlying the distal fifth metatarsal. Necrotic/eschar noted overlying the ulcer site with a slight bogginess noted. There is malodor present. There is surrounding cellulitis to the foot. At this time, the planned surgical procedure was discussed in great detail with the patient as well as the patient's family members with her consent. This was done to the patient and her family's satisfaction. The patient agrees to proceed with the planned operation at this time. All of the risks and potential complications were reviewed with the patient and her family. They understand the importance of proper compliance following this procedure to optimize the potential for healing, but no guarantees were given. She is advised that the complications and risks include, but are not limited to, further infection, need for further surgeries, recurrence, transfer lesions, deformity, weakness, loss of strength, loss of function, the potential for further ulcerations, nonhealing, delayed healing, blood clots, chronic swelling, Charcot foot/ankle, nerve damage, inability to walk, inability to wear shoes, severe pain, complex regional pain syndrome, need for more proximal or extensive amputations such as a TMA or BKA, loss of complete limb, or even loss of life. All of the patient's questions were answered to her satisfaction as well as the satisfaction of the family members. It was then agreed to proceed with the debridement of all infected, necrotic, nonviable soft tissue and bone with partial fifth ray amputation of the left foot. The consent form was reviewed with the patient and was freely signed. Again, no guarantees were given. Description of procedure: The patient was brought into the operating room and placed on the table in the supine position. The patient was already on IV antibiotics per hospitalist. The patient received general anesthesia per the anesthesiologist. A local anesthetic block was then performed in a reverse Brown block fashion around the base of the left fifth metatarsal consisting of 10 mL of 0.5% Marcaine plain. A well-padded ankle tourniquet was then applied to the patient's left ankle. The left foot and ankle were then scrubbed, prepped, and draped in the usual aseptic manner. A timeout was then performed and the patient was properly identified and the surgical plan was confirmed. Next attention was directed to the dorsal left foot, to the dorso lateral fifth metatarsal shaft. Using a #15 scalpel blade, a linear longitudinal incision was carried out distally, from about midshaft of the fifth metatarsal out distally until the ulcer site was encountered. The incision was then carried completely around the ulcer site and up into the webspace between the fourth and fifth toe, making sure to hug as tightly to the fifth toe as possible. This was then connected with the initial longitudinal incision. Dissection was carefully carried down all the way to the level of the bone making sure to avoid any vital neurovascular structures. The distal shaft of the fifth metatarsal was shown to have poor bone quality and necrotic bone and soft tissue. No purulence was encountered. The fifth metatarsal shaft was then carefully dissected and freed of soft tissue attachments. At this time, the tourniquet was inflated around the left ankle to 250 mmHg. Next, a sagittal saw was used to make a cut through the shaft of the fifth metatarsal. The distal half of the fifth metatarsal as well as the fifth toe and soft tissue including the ulcer site were then carefully dissected and completely freed and passed from the the operating table. Part of the bone and soft tissue was then sent to microbiology for aerobic, anaerobic, acid-fast, and fungal evaluation, and the rest was sent to pathology for evaluation. Any remaining necrotic soft tissue was then carefully debrided and passed from the operating table. Any remaining visible tendons were then transected as far back as possible. The surgical site was then flushed with normal sterile saline. Once complete, the sagittal saw was employed again to remove a clearance fragment from the fifth metatarsal. Once this was dissected free it was also passed from the operating table. The specimen was then split in half was sent to microbiology for aerobic, anaerobic, acid-fast, and fungal evaluation and the other half was sent to pathology for further evaluation. Once this was complete and all remaining bone and soft tissue appeared healthy, the surgical site was flushed with copious amounts of normal sterile saline. The left ankle tourniquet was then deflated and hyperemic response was noted to the remaining digits of the left foot. Next, the surgical site was packed with quarter inch iodoform packing, followed by 4 x 4's, ABDs, and Kerlix. After procedure: The patient tolerated the procedure and anesthesia well. She was transferred to PACU with vital signs stable. She will be transferred back to the medical surgical floor upon continued stability. She and her family were advised to continue with strict nonweightbearing to the left lower extremity and to keep the dressing clean dry and intact. Microbiology and pathology specimens are pending. Patient is to continue IV antibiotics under the management of infectious disease. To continue DVT prophylaxis and medical management per primary team. To elevate the left foot for postop pain and inflammation management. 3 view left foot post op x-rays ordered. LEAS studies were ordered and will consider potential vascular surgery consult in the future pending results. I will continue to follow this patient while in house. - Complications none 12/16/17 2539 <Electronically signed by Lopez Omer DPM> Date Lopez Omer DPM CC: SHARON Omer; Neal Moulton; Hubert Moore MD ~ Signed CC: Neal Moulton; John Early MD ~ Production Aide: Signed Angiogram: Problem List (1) Ulcer of left foot Status: Acute (2) Gas gangrene of foot Status: Acute (3) Diabetic ulcer of left foot Status: Acute (4) Type 2 diabetes mellitus with diabetic polyneuropathy Status: Acute (5) Osteomyelitis of left foot Status: Acute Operative Report Date of Procedure: 12/20/17 Surgeon: Dr. 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 Discussed to do left leg angiogram with intervention. Risks benefits alternatives discussed she agreed to proceed. Operation: 1. Ultrasound-guided access retrograde right common femoral artery. 2. Left lower extremity angiogram with catheter placed into the past the third order cannulation of the posterior tibial and left anterior tibial artery. 3. Balloon angioplasty of the left popliteal through the tibial peroneal trunk through the proximal posterior tibial artery with a 3 x 120 balloon. 4. Balloon angioplasty the mid to distal popliteal artery with a 4 x 120 drug-coated balloon. 5. Closure with Star close. Procedure: 72-year-old female was brought to the operating room. Underwent the appropriate timeout consent. Underwent sedation. Was prepped and draped in a sterile fashion. We did ultrasound-guided access retrograde in the right common femoral artery. We put a Glidewire up in a 5 [place] Islander sheath and then gave 5000 units of heparin. Was a lot of clips noted in the groin and some calcification. So we did an angiogram of the right groin, this showed appear to be probable SFA occlusion a lot of collaterals and a large profunda. There was a arterial venous communication possibly from 1 of the branches to a little bit above femoral vein aneurysm and then outflow through the iliac vein. We left this intact. We then brought in a contra catheter got up and over the bifurcation, brought the catheter of the left external iliac artery. We did an angiogram from here, showed the left common femoral profunda SFA widely patent. The put the wire down the SFA and brought in a long quick cross catheter. We imaged from here and it showed proximal popliteal was patent, mid to distal with some segmental areas of moderate severe stenosis. We then brought the catheter below the knee and image from there. This showed moderate severe stenosis in the tibial peroneal trunk, severe stenosis into the posterior tibial artery, the rest of the posterior tibial artery and peroneal artery are patent into the foot. Anterior tibial artery with severe occlusive disease proximally and then occluded in the mid segment. We brought in a long 6 [place]er sheath. Using a quick cross catheter and Glidewire got into the anterior tibial artery. We try to track down through here but could not get past the mid segment where is very calcified and a little tortuous. We then tried an 014 wire with the 014 quick cross. This still was unable to track. We then removed this out and using a wire guided into the tibioperoneal trunk and then into the posterior tibial artery. We confirmed we are in this vessel. We switched back to an 014 wire. We then balloon from the proximal posterior tibial artery through the tibioperoneal trunk into the distal popliteal. We ballooned this for over 3 minutes. This was markedly improved. We then ballooned from the proximal to the distal popliteal artery with a 4 x 120 drug-coated balloon. We ballooned this for over 2-1/2 minutes. Completion was also markedly improved. We then removed out the sheath deployed a Star close with good hemostasis she was brought to recovery stable condition. Plan: We will start her on Plavix should have much improved perfusion to help heal these lesions. 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 We will see her back in 1 month. Sedation: This 72-year-old female underwent moderate sedation given by Dr. Lino Powers. She was monitored with EKG blood pressure and pulse ox. She was given fentanyl and Versed, and monitored for over the 30 minutes of the procedure. She tolerated this well. See the EMR for the complete record. 12/20/17 0841 <Electronically signed by Lino Powers MD> Date Lino Powers MD CC: SHARON Omer; Neal Moulton; Lino Powers MD; Hubert Moore MD ~ Signed Dr. Gio Omer Operations: - - Patient Name: DONNELL MOSER DMedical Record Number: [id number] Date of : 1945Patient Status: Inpatient Attending Provider: Joby MalikAccount Number: [id number] Date: 12/16/17 17:59Initialization Date: 12/16/17 17:59 Problem List (1) Gas gangrene of foot Status: Acute (2) Diabetic ulcer of left foot Status: Acute (3) Type 2 diabetes mellitus with diabetic polyneuropathy Status: Acute (4) Osteomyelitis of left foot Status: Acute (5) Cellulitis of left foot Status: Acute (6) Charcot's joint of foot Status: Acute Report of Operation Date of Procedure: 12/16/17 Pre-Operative Diagnosis: Ulcer of the left distal plantar lateral foot with cellulitis, osteomyelitis, and soft tissue gas. Post-Operative Diagnosis: same Surgery/Procedure Performed:: Debridement of all necrotic, non-viable, infected soft tissue and bone of the left foot with partial 5th ray amputation Description of Surgical Findings:: Hemostasis: well padded left ankle tourniquet Type of Anesthesia:: General - preoperative reverse brown block around 5th met base consisting of 10 mL of 0.5% marcaine plain. Specimen's removed: Necrotic and infected bone and soft tissue sent to pathology and microbiology for further evaluation. Clearance fragment from the fifth metatarsal also sent to pathology and microbiology for further evaluation. Estimated Blood Loss (mL): 20mL Description of Procedure: Indications: This 72-year-old diabetic female patient with a history of noncontrolled type 2 diabetes with neuropathy was consulted to podiatry earlier today after being admitted through the emergency room late last evening for an ulcer to the left foot that was malodorous as well as cellulitis of the left foot. This patient also has a medical history significant for Charcot foot, CAD, status post CABG and stents, ovarian tumor, as well as other comorbidities. The patient says the ulcer to her left lateral foot started as a skin tear from tape. She says the funeral service manager she had been seeing in [place] was only treating the area with Silvadene cream and did not advise her to keep pressure and weight off of the affected area. She says over the last 3 weeks, the ulcer continued to slowly worsen. She says she was finally referred to the wound healing center at [place], and was supposed to follow-up with a funeral service manager at the wound healing center this coming week. She states that yesterday evening she started having some nausea and vomiting and decided to come to the emergency room. The patient's WBC today was 16, her ESR was 84, and her CRP was 115. Preliminary swab cultures of the ulcer show staph aureus growth with further results pending. The patient was currently on vancomycin and Zosyn. Her vital signs were stable. 3 view foot x-rays were taken of the left foot, and results were read as erosive changes in the fifth metatarsal head consistent with signs suggesting osteomyelitis as well as associated soft tissue swelling as well as soft tissue emphysema. MRI was also taken of the left foot which showed signs consistent with osteomyelitis of the fifth metatarsal as well as the proximal phalanx of the fifth toe. 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 During physical exam today, patient's epicritic sensation is grossly absent to the lower extremities bilateral. Diminished peripheral pulses on palpation appreciated. LEAS studies ordered and results are still pending. Ulcer to the left lateral and plantar distal foot, overlying the distal fifth metatarsal. Necrotic/eschar noted overlying the ulcer site with a slight bogginess noted. There is malodor present. There is surrounding cellulitis to the foot. At this time, the planned surgical procedure was discussed in great detail with the patient as well as the patient's family members with her consent. This was done to the patient and her family's satisfaction. The patient agrees to proceed with the planned operation at this time. All of the risks and potential complications were reviewed with the patient and her family. They understand the importance of proper compliance following this procedure to optimize the potential for healing, but no guarantees were given. She is advised that the complications and risks include, but are not limited to, further infection, need for further surgeries, recurrence, transfer lesions, deformity, weakness, loss of strength, loss of function, the potential for further ulcerations, nonhealing, delayed healing, blood clots, chronic swelling, Charcot foot/ankle, nerve damage, inability to walk, inability to wear shoes, severe pain, complex regional pain syndrome, need for more proximal or extensive amputations such as a TMA or BKA, loss of complete limb, or even loss of life. All of the patient's questions were answered to her satisfaction as well as the satisfaction of the family members. It was then agreed to proceed with the debridement of all infected, necrotic, nonviable soft tissue and bone with partial fifth ray amputation of the left foot. The consent form was reviewed with the patient and was freely signed. Again, no guarantees were given. Description of procedure: The patient was brought into the operating room and placed on the table in the supine position. The patient was already on IV antibiotics per hospitalist. The patient received general anesthesia per the anesthesiologist. A local anesthetic block was then performed in a reverse Brown block fashion around the base of the left fifth metatarsal consisting of 10 mL of 0.5% Marcaine plain. A well-padded ankle tourniquet was then applied to the patient's left ankle. The left foot and ankle were then scrubbed, prepped, and draped in the usual aseptic manner. A timeout was then performed and the patient was properly identified and the surgical plan was confirmed. Next attention was directed to the dorsal left foot, to the dorso lateral fifth metatarsal shaft. Using a #15 scalpel blade, a linear longitudinal incision was carried out distally, from about midshaft of the fifth metatarsal out distally until the ulcer site was encountered. The incision was then carried completely around the ulcer site and up into the webspace between the fourth and fifth toe, making sure to hug as tightly to the fifth toe as possible. This was then connected with the initial longitudinal incision. Dissection was carefully carried down all the way to the level of the bone making sure to avoid any vital neurovascular structures. The distal shaft of the fifth metatarsal was shown to have poor bone quality and necrotic bone and soft tissue. No purulence was encountered. The fifth metatarsal shaft was then carefully dissected and freed of soft tissue attachments. At this time, the tourniquet was inflated around the left ankle to 250 mmHg. Next, a sagittal saw was used to make a cut through the shaft of the fifth metatarsal. The distal half of the fifth metatarsal as well as the fifth toe and soft tissue including the ulcer site were then carefully dissected and completely freed and passed from the the operating table. Part of the bone and soft tissue was then sent to microbiology for aerobic, anaerobic, acid-fast, and fungal evaluation, and the rest was sent to pathology for evaluation. Any remaining necrotic soft tissue was then carefully debrided and passed from the operating table. Any remaining visible tendons were then transected as far back as possible. The surgical site was then flushed with normal sterile saline. Once complete, the sagittal saw was employed again to remove a clearance fragment from the fifth metatarsal. Once this was dissected free it was also passed from the operating table. The specimen was then split in half was sent to microbiology for aerobic, anaerobic, acid-fast, and fungal evaluation and the other half was sent to pathology for further evaluation. Once this was complete and all remaining bone and soft tissue appeared healthy, the surgical site was flushed with copious amounts of normal sterile saline. The left ankle tourniquet was then deflated and hyperemic response was noted to the remaining digits of the left foot. Next, the surgical site was packed with quarter inch iodoform packing, followed by 4 x 4's, ABDs, and Kerlix. After procedure: The patient tolerated the procedure and anesthesia well. She was transferred to PACU with vital signs stable. She will be transferred back to the medical surgical floor upon continued stability. She and her family were advised to continue with strict nonweightbearing to the left lower extremity and to keep the dressing clean dry and intact. Microbiology and pathology specimens are pending. Patient is to continue IV antibiotics under the management of infectious disease. To continue DVT prophylaxis and medical management per primary team. To elevate the left foot for postop pain and inflammation management. 3 view left foot post op x-rays ordered. LEAS studies were ordered and will consider potential vascular surgery consult in the future pending results. I will continue to follow this patient while in house. - Complications Patient Name: DONNELL MOSER DMedical Record Number: [id number] Date of : 1945Patient Status: Inpatient Attending Provider: Joby MalikAccount Number: [id number] Date: 12/20/17 08:33Initialization Date: 12/20/17 08:33 Problem List (1) Ulcer of left foot Status: Acute (2) Gas gangrene of foot Status: Acute (3) Diabetic ulcer of left foot Status: Acute (4) Type 2 diabetes mellitus with diabetic polyneuropathy Status: Acute (5) Osteomyelitis of left foot Status: Acute Operative Report Date of Procedure: 12/20/17 Surgeon: Dr. 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 Discussed to do left leg angiogram with intervention. Risks benefits alternatives discussed she agreed to proceed. Operation: 1. Ultrasound-guided access retrograde right common femoral artery. 2. Left lower extremity angiogram with catheter placed into the past the third order cannulation of the posterior tibial and left anterior tibial artery. 3. Balloon angioplasty of the left popliteal through the tibial peroneal trunk through the proximal posterior tibial artery with a 3 x 120 balloon. 4. Balloon angioplasty the mid to distal popliteal artery with a 4 x 120 drug-coated balloon. 5. Closure with Star close. Procedure: 72-year-old female was brought to the operating room. Underwent the appropriate timeout consent. Underwent sedation. Was prepped and draped in a sterile fashion. We did ultrasound-guided access retrograde in the right common femoral artery. We put a Glidewire up in a 5 [place] Islander sheath and then gave 5000 units of heparin. Was a lot of clips noted in the groin and some calcification. So we did an angiogram of the right groin, this showed appear to be probable SFA occlusion a lot of collaterals and a large profunda. There was a arterial venous communication possibly from 1 of the branches to a little bit above femoral vein aneurysm and then outflow through the iliac vein. We left this intact. We then brought in a contra catheter got up and over the bifurcation, brought the catheter of the left external iliac artery. We did an angiogram from here, showed the left common femoral profunda SFA widely patent. The put the wire down the SFA and brought in a long quick cross catheter. We imaged from here and it showed proximal popliteal was patent, mid to distal with some segmental areas of moderate severe stenosis. We then brought the catheter below the knee and image from there. This showed moderate severe stenosis in the tibial peroneal trunk, severe stenosis into the posterior tibial artery, the rest of the posterior tibial artery and peroneal artery are patent into the foot. Anterior tibial artery with severe occlusive disease proximally and then occluded in the mid segment. We brought in a long 6 [place] Islander sheath. Using a quick cross catheter and Glidewire got into the anterior tibial artery. We try to track down through here but could not get past the mid segment where is very calcified and a little tortuous. We then tried an 014 wire with the 014 quick cross. This still was unable to track. We then removed this out and using a wire guided into the tibioperoneal trunk and then into the posterior tibial artery. We confirmed we are in this vessel. We switched back to an 014 wire. We then balloon from the proximal posterior tibial artery through the tibioperoneal trunk into the distal popliteal. We ballooned this for over 3 minutes. This was markedly improved. We then ballooned from the proximal to the distal popliteal artery with a 4 x 120 drug-coated balloon. We ballooned this for over 2-1/2 minutes. Completion was also markedly improved. We then removed out the sheath deployed a Star close with good hemostasis she was brought to recovery stable condition. Plan: We will start her on Plavix should have much improved perfusion to help heal these lesions. 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 We will see her back in 1 month. Sedation: This 72-year-old female underwent moderate sedation given by Dr. Lino Powers. She was monitored with EKG blood pressure and pulse ox. She was given fentanyl and Versed, and monitored for over the 30 minutes of the procedure. She tolerated this well. See the EMR for the complete record. Procedures: Angiogram Summary of Care Provided: Patient is a 72-year-old white female, with history of hypertension, insulin-dependent diabetes mellitus, dyslipidemia, Charcot joint, peripheral neuropathy, CAD with remote bypass who has a diabetic foot ulcer with fifth toe osteomyelitis on the left, status post debridement of an infected soft tissue and left bone with partial fifth amputation on 12/16/2017. 1. Diabetic foot ulcer with fifth digit osteomyelitis status post debridement and partial amputation, MSSA Status post debridement, previously on vancomycin and Zosyn. Wound cultures with MSSA, patient now on Ancef. PICC line placed yesterday. Patient placed on Flagyl for anaerobic coverage as per ID will need 6 weeks of p.o. Flagyl as well. 2. Insulin dependent diabetes mellitus Blood sugars adequate at this time with initiation of home dose of Levemir. Last A1c noted to be 9.4. Most blood sugars now seem to be trending around 150 3. Hypertension Blood pressure is adequate for now. Continue home medication 4. PVD Had a revascularization see above, appreciate Dr. Powers, will continue Plavix as suggested, apparently where he has a follow-up appointment in 1 month's time 5. CAD, remote CABG Be aware. Stable. Aspirin restarted, continue with statin and beta-britney. On JACKSON inhibitor. 6. Peripheral neuropathy Be aware 7. Dyslipidemia On Lipitor 8. diarrhea C. difficile is negative, Flagyl is not for diarrhea there wound has anaerobes, continue Questran, monitor patient's diarrhea CODE STATUS full Disposition patient will be discharged home once IV antibiotics have been arranged. Chart is dictated with outside sales inspector software. Errors may occur in dictation that may change providers meaning. This note was generated with [employer] dictation software. It may contain incorrect words, spelling, and punctuation that were not noted in checking the note before signing. Medications reviewed with the patient. Risks, benefits, alternatives, side effects, potential complications and dangers of medications discussed. Patient wishes to utilize these agents despite risk. A signed medical consent/advisement form regarding narcotic medications and a side medication agreement are located in the patient's chart. Patient Problems: Active and Suspected Problems Acute osteomyelitis (Acute) Gas gangrene of foot (Acute) Diabetic ulcer of left foot (Acute) Type 2 diabetes mellitus with diabetic polyneuropathy (Acute) Osteomyelitis of left foot (Acute) Cellulitis of left foot (Acute) Charcot's joint of foot (Acute) Subjective: Patient seen and examined bit of diarrhea but no other complaints at this time. - Physical Exam General: Alert, Oriented x3, Cooperative HEENT: Atraumatic, PERRLA, EOMI Oral: Moist Mucosa, No Gingival or Mucosal Lesions/ Ulcerations Neck: Supple, No JVD, Trachea Midline Lungs: Clear to auscultation, Normal air movement, No rhonchi, No wheeze Cardiovascular: Regular rate, Regular Rhythm, Normal S1, Normal S2 Abdomen: Bowel Sounds Present, Soft, Non Tender, Non-Distended Extremities: No clubbing, No cyanosis, Edema, Tenderness, - - Bandage over the left foot Skin: No rashes, Ulcer/ Wound, - - Did not takedown wound dressing Musculoskeletal: No Tenderness to Palpation of Joints or Extremities, No Muscle Wasting Lymphatic: No Cervical, Supraclavicular, or Inguinal Adenopathy Neurological: Cranial nerves II-XII grossly intact, Neuro grossly intact Psych/Mental Status: Normal Affect, Appropriate, Alert and oriented to time, place, person, mood and affect Vital Signs Temp Pulse Resp BP Pulse Ox 97.6 F L 78 18 153/84 H 93 12/20/17 12:59 12/20/17 12:59 12/20/17 12:59 12/20/17 12:59 12/20/17 12:59 Oxygen Flow Rate (L/min) 1 Oxygen Delivery Method Room Air Weight: 59.56 kg Body Mass Index (BMI) 24.1 Finger Stick Blood Glucose 118 Intake and Output for Last 24 Hours 12/18/17 12/19/17 12/20/17 23:59 23:59 23:59 Intake Total 2065 / 2065 1858 / 1858 240 / 240 Output Total 550 / 550 1150 / 1150 250 / 250 Balance 1515 / 1515 708 / 708 -10 Microbiology Past 72 Hours 12/16/17 Unknown Gram Stain - Final Bone - Other Wound Culture - Final Staphylococcus aureus Anaerobic Culture - Final Anaerobic cocci 12/16/17 Unknown Gram Stain - Final Bone - Other Wound Culture - Final Staphylococcus aureus Anaerobic Culture - Final No anaerobic bacteria isolated. 12/18/17 16:20 C. difficile DNA Amplification - Final Stool 12/15/17 22:43 Blood Culture - Preliminary Blood Culture (Wb) - Anticubital Left No growth in 48 hours. 12/15/17 22:40 Blood Culture - Preliminary Blood Culture (Wb) - Anticubital Right No growth in 48 hours. Laboratory Tests Past 24 Hrs 12/19/17 12/20/17 12/20/17 22:10 05:05 05:05 WBC 10.5 RBC 3.53 L Hgb 8.9 L Hct 29.0 L MCV 82.2 MCH 25.2 L MCHC 30.7 L RDW 15.8 H RDW Differential 47.6 H Plt Count 333 MPV 10.4 Immature Gran % (Auto) 0.300 Neut % (Auto) 55.9 Lymph % (Auto) 24.1 Milam % (Auto) 11.8 H Eos % (Auto) 7.3 H Baso % (Auto) 0.6 Absolute Neuts (auto) 5.9 Absolute Lymphs (auto) 2.53 Total Counted Not Reportable Sodium 140 Potassium 4.0 Chloride 108 H Carbon Dioxide 27.0 Anion Gap 5 BUN 19 H Creatinine 0.98 Estim Creat Clear Calc 39.73 Est GFR (MDRD) Af Amer 72 Est GFR (MDRD) Non-Af 60 BUN/Creatinine Ratio 19.5 Glucose 68 L Calcium 9.4 Phosphorus 2.0 L Magnesium 1.9 Total Bilirubin 0.20 AST 27 ALT 11 L Alkaline Phosphatase 107 Troponin I 0.018 Total Protein 6.4 Albumin 2.1 L Globulin 4.3 H Albumin/Globulin Ratio 0.5 L POC Glucose 12/20/17 12/20/17 12/19/17 12:50 06:42 22:09 POC Glucose 160 H 186 H 222 H 12/19/17 16:59 POC Glucose 192 H Discharge Diet: Low fat/ Low Cholesterol - Sodium Discharge Activity: - - Do not put weight on the foot as per podiatry for 6 weeks Weight Bearing Status: No weight bearing Keep extremity elevated above heart level: Operative Extremity, Left Leg Call your doctor if your incision/area has: Continuous Slow Oozing, Sudden Increased Bleeding, Increased Pain/ Swelling, Increased Redness, Foul Smelling Discharge, Swelling at the incision site Call your doctor if you observe: Fever of 101 or Higher, Numbness or Tingling, Change in Color, Shortness of breath, Dizziness, Fainting spells, Chest pain, Increased palpitations (irregular heartbeat) Additional Dressing/Incision Instructions:: As per surgery Home Medications: Medications to take at Discharge Aspirin [Aspirin, Baby] 81 mg PO DAILY 12/12/15 Atorvastatin Calcium [Lipitor] 40 mg PO QHS 12/12/15 Carvedilol [Coreg (Beta Britney)] 25 mg PO BID 12/12/15 Multivitamins,Therapeutic [Multivitamin] 1 tablet PO DAILY 12/12/15 Ramipril [Altace] 2.5 mg PO DAILY 12/12/15 Vitamin C 1,000 mg PO DAILY 12/12/15 Insulin Detemir [Levemir FlexPen] 18 units SC BID 12/13/15 Calcium Citrate-Vit D3 Tablet 1 tab PO DAILY 12/15/17 Ubidecarenone [Co Q-10] 200 mg PO DAILY 12/15/17 Cefazolin 2 gm IV Q8 40 Days #120 vial 12/18/17 Cholestyramine (with Sugar) [Cholestyramine Packet] 4 gm PO BID PRN #30 powd.pack 12/20/17 Clopidogrel Bisulfate [Plavix] 75 mg PO DAILY #30 tablet 12/20/17 Glucerna Shake 120 ml PO 4X/DAY #120 liquid 12/20/17 Lactobacillus Acidophilus [Acidophilus] 1 tablet PO BID #60 tablet 12/20/17 Metronidazole [Flagyl] 500 mg PO Q8H #112 tablet 12/20/17 Nystatin Powder [Mycostatin Powder] 1 applic TOPICAL BID 30 Days bottle 12/20/17 Oxycodone [Oxyir] 5 mg PO Q4H PRN PRN 7 Days #42 tablet 12/20/17 Following Prescrptions Were Given to Patient: Oxycodone [Oxyir] 5 mg PO Q4H PRN PRN 7 Days #42 tablet PRN Reason: Pain Cefazolin 2 gm IV Q8 40 Days #120 vial Clopidogrel Bisulfate [Plavix] 75 mg PO DAILY #30 tablet Metronidazole [Flagyl] 500 mg PO Q8H #112 tablet Cholestyramine (with Sugar) [Cholestyramine Packet] 4 gm PO BID PRN #30 powd.pack PRN Reason: Diarrhea Lactobacillus Acidophilus [Acidophilus] 1 tablet PO BID #60 tablet Nystatin Powder [Mycostatin Powder] 1 applic TOPICAL BID 30 Days bottle Glucerna Shake 120 ml PO 4X/DAY #120 liquid Primary Care Physician: Neal Moulton [Primary Care Provider] - Please follow up with your Primary Care Physician in: 1 week Disposition: Home with Home Health Patient Condition:: Good Medical Necessity - Tobacco Use Smoking Status: Never smoker Meaningful Use Info Meaningful Use Diagnoses (Choose all that apply): None applicable Code Visit Inpatient E&M: 59445 Disch Hosp
--- NOTE | 2017-12-20 13:44 | DS.PCM_ITS ---
Discharge Date and Diagnosis - Problem List Patient Problems: Active and Suspected Problems Acute osteomyelitis (Acute) Gas gangrene of foot (Acute) Diabetic ulcer of left foot (Acute) Type 2 diabetes mellitus with diabetic polyneuropathy (Acute) Osteomyelitis of left foot (Acute) Cellulitis of left foot (Acute) Charcot's joint of foot (Acute) Date of Admission: 12/16/17 Date of Discharge: 12/20/17 - Primary Discharge Diagnosis Active and Suspected Problems Acute osteomyelitis (Acute) Gas gangrene of foot (Acute) Diabetic ulcer of left foot (Acute) Type 2 diabetes mellitus with diabetic polyneuropathy (Acute) Osteomyelitis of left foot (Acute) Cellulitis of left foot (Acute) Charcot's joint of foot (Acute) - Secondary Discharge Diagnosis Chronic Problems Status post coronary artery bypass graft (Chronic) Coronary artery disease (Chronic) Status post stents and CABG. Type 2 diabetes mellitus (Chronic) Hypertension (Chronic) Hyperlipidemia (Chronic) Hospital Course and Treatment Imaging Results: MR#: [id number] Acct: [id number] Name: DONNELL MOSER Paolo Rep #: [id number] : 1945 F 72 From: Luc Meneses MD PCP: Neal Moulton Status: ADM IN Study: Lower Ext No Joint W/WO Cont Date of Exam: 12/16/17 Exam# [id number] Ordering Dr: John Early MD STUDY: MRI LEFT FOREFOOT WITH AND WITHOUT CONTRAST REASON FOR EXAM: Chronic lateral foot wound. Also medial wound since October. Evaluate osteomyelitis. TECHNIQUE: Standardized fat and water weighted pulse sequences were obtained in all 3 orthogonal planes, post contrast administration. 6 ml of Gadavist contrast material was administered intravenously for the contrast portion of the examination. COMPARISON: Radiographs 12/15/2017. FINDINGS: Normal metatarsophalangeal joint of the hallux. Normal tibial and fibular sesamoids, with normal sesamoids-first metatarsal articulations. Normal interphalangeal joint of the hallux. Normal proximal and distal phalanges of the great toe. Normal medial and lateral heads of the flexor hallucis brevis tendons. Normal flexor and extensor hallucis longus tendons. There is bone edema of the distal diaphysis of the fifth metatarsal and fifth proximal phalanx (inversion recovery sagittal image 20) with corresponding decreased T1 bone marrow signal (T1 sagittal image 21) and contrast enhancement (postcontrast T1 sagittal image 21) suggestive of osteomyelitis. There is a very small effusion of the fifth metatarsophalangeal joint (inversion recovery sagittal image 20). Normal second through fourth metatarsophalangeal (MTP) joints. Normal interphalangeal joints of the second through fourth toes. Normal proximal, middle and distal phalanges of the second through fourth toes. Normal flexor and extensor tendons of the second through fifth toes. Normal first through fourth intermetatarsal spaces. There is neuropathic osteoarthropathy of the Lisfranc articulation (T1 sagittal images 5-18) with disruption of Lisfranc ligament (T2 series 6 images 10, 11). There is atrophy with fat replacement of the intrinsic muscles of the forefoot (T1 sagittal images 10-19) suggestive of peripheral neuropathy. There is a soft tissue ulcer at the lateral aspect of the fifth metatarsophalangeal joint with soft tissue gas (T1 series 4 images 12-14) but no demonstrated soft tissue abscess. There is edema in the subcutis adipose space particularly in the dorsal lateral aspect of the foot with contrast enhancement (postcontrast T1 sagittal images 17-23) suggestive of cellulitis. There is a pressure lesion at the plantar medial aspect of the first metatarsophalangeal joint (T1 series 4 images 6-9). MRI/Lower Ext No Joint W/WO Cont IMPRESSION: Signal alterations of the fifth metatarsal and fifth proximal phalanx suggestive of osteomyelitis. Neuropathic osteoarthropathy of Lisfranc articulation. Atrophy of the intrinsic muscles of the forefoot suggestive of peripheral neuropathy. Soft tissue ulcer at the lateral aspect of the fifth metatarsophalangeal joint without demonstrated soft tissue abscess. Cellulitis. Pressure lesion at the plantar medial aspect of the first metatarsophalangeal joint. Electronically Signed: Luc Meneses MD at 10:33 EDT Tel , Service support , Operative report: Problem List (1) Gas gangrene of foot Status: Acute (2) Diabetic ulcer of left foot Status: Acute (3) Type 2 diabetes mellitus with diabetic polyneuropathy Status: Acute (4) Osteomyelitis of left foot Status: Acute (5) Cellulitis of left foot Status: Acute (6) Charcot's joint of foot Status: Acute Report of Operation Date of Procedure: 12/16/17 Pre-Operative Diagnosis: Ulcer of the left distal plantar lateral foot with cellulitis, osteomyelitis, and soft tissue gas. Post-Operative Diagnosis: same Surgery/Procedure Performed:: Debridement of all necrotic, non-viable, infected soft tissue and bone of the left foot with partial 5th ray amputation Description of Surgical Findings:: Hemostasis: well padded left ankle tourniquet Type of Anesthesia:: General - preoperative reverse brown block around 5th met base consisting of 10 mL of 0.5% marcaine plain. Specimen's removed: Necrotic and infected bone and soft tissue sent to pathology and microbiology for further evaluation. Clearance fragment from the fifth mn tatarsal also sent to pathology and microbiology for further evaluation. Estimated Blood Loss (mL): 20mL Description of Procedure: Indications: This 72-year-old diabetic female patient with a history of noncontrolled type 2 diabetes with neuropathy was consulted to podiatry earlier today after being admitted through the emergency room late last evening for an ulcer to the left foot that was malodorous as well as cellulitis of the left foot. This patient also has a medical history significant for Charcot foot, CAD, status post CABG and stents, ovarian tumor, as well as other comorbidities. The patient says the ulcer to her left lateral foot started as a skin tear from tape. She says the patient's librarian she had been seeing in [place] was only treating the area with Silvadene cream and did not advise her to keep pressure and weight off of the affected area. She says over the last 3 weeks, the ulcer continued to slowly worsen. She says she was finally referred to the wound healing center at [place], and was supposed to follow-up with a patient's librarian at the wound healing center this coming week. She states that yesterday evening she started having some nausea and vomiting and decided to come to the emergency room. The patient's WBC today was 16, her ESR was 84, and her CRP was 115. Preliminary swab cultures of the ulcer show staph aureus growth with further results pending. The patient was currently on vancomycin and Zosyn. Her vital signs were stable. 3 view foot x-rays were taken of the left foot, and results were read as erosive changes in the fifth metatarsal head consistent with signs suggesting osteomyelitis as well as associated soft tissue swelling as well as soft tissue emphysema. MRI was also taken of the left foot which showed signs consistent with osteomyelitis of the fifth metatarsal as well as the proximal phalanx of the fifth toe. 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 During physical exam today, patient's epicritic sensation is grossly absent to the lower extremities bilateral. Diminished peripheral pulses on palpation appreciated. LEAS studies ordered and results are still pending. Ulcer to the left lateral and plantar distal foot, overlying the distal fifth metatarsal. Necrotic/eschar noted overlying the ulcer site with a slight bogginess noted. There is malodor present. There is surrounding cellulitis to the foot. At this time, the planned surgical procedure was discussed in great detail with the patient as well as the patient's family members with her consent. This was done to the patient and her family's satisfaction. The patient agrees to proceed with the planned operation at this time. All of the risks and potential complications were reviewed with the patient and her family. They understand the importance of proper compliance following this procedure to optimize the potential for healing, but no gua rantees were given. She is advised that the complications and risks include, but are not limited to, further infection, need for further surgeries, recurrence, transfer lesions, deformity, weakness, loss of strength, loss of function, the potential for further ulcerations, nonhealing, delayed healing, blood clots, chronic swelling, Charcot foot/ankle, nerve damage, inability to walk, inability to wear shoes, severe pain, complex regional pain syndrome, need for more proximal or extensive amputations such as a TMA or BKA, loss of complete limb, or even loss of life. All of the patient's questions were answered to her satisfaction as well as the satisfaction of the family members. It was then agreed to proceed with the debridement of all infected, necrotic, nonviable soft tissue and bone with partial fifth ray amputation of the left foot. The consent form was reviewed with the patient and was freely signed. Again, no guarantees were given. Description of procedure: The patient was brought into the operating room and placed on the table in the supine position. The patient was already on IV antibiotics per hospitalist. The patient received general anesthesia per the anesthesiologist. A local anesthetic block was then performed in a reverse Brown block fashion around the base of the left fifth metatarsal consisting of 10 mL of 0.5% Marcaine plain. A well-padded ankle tourniquet was then applied to the patient's left ankle. The left foot and ankle were then scrubbed, prepped, and draped in the usual aseptic manner. A timeout was then performed and the patient was properly identified and the surgical plan was confirmed. Next attention was directed to the dorsal left foot, to the dorso lateral fifth metatarsal shaft. Using a #15 scalpel blade, a linear longitudinal incision was carried out distally, from about midshaft of the fifth metatarsal out distally until the ulcer site was encountered. The incision was then carried completely around the ulcer site and up into the webspace between the fourth and fifth toe, making sure to hug as tightly to the fifth toe as possible. This was then connected with the initial longitudinal incision. Dissection was carefully carried down all the way to the level of the bone making sure to avoid any vital neurovascular structures. The distal shaft of the fifth metatarsal was shown to have poor bone quality and necrotic bone and soft tissue. No purulence was encountered. The fifth metatarsal shaft was then carefully dissected and freed of soft tissue attachments. At this time, the tourniquet was inflated around the left ankle to 250 mmHg. Next, a sagittal saw was used to make a cut through the shaft of the fifth metatarsal. The distal half of the fifth metatarsal as well as the fifth toe and soft tissue including the ulcer site were then carefully dissected and completely freed and passed from the the operating table. Part of the bone and soft tissue was then sent to microbiology for aerobic, anaerobic, acid-fast, and fungal evaluation, and the rest was sent to pathology for evaluation. Any remaining necrotic soft tissue was then carefully debrided and passed from the operating table. Any remaining visible tendons were then transected as far back as possible. The surgical site was then flushed with normal sterile saline. Once complete, the sagittal saw was employed again to remove a clearance fragment from the fifth metatarsal. Once this was dissected free it was also passed from the operating table. The specimen was then split in half was sent to microbiology for aerobic, anaerobic, acid-fast, and fungal evaluation and the other half was sent to pathology for further evaluation. Once this was complete and all remaining bone and soft tissue appeared healthy, the surgical site was flushed with copious amounts of normal sterile saline. The left ankle tourniquet was then deflated and hyperemic response was noted to the remaining digits of the left foot. Next, the surgical site was packed with quarter inch iodoform packing, followed by 4 x 4's, ABDs, and Kerlix. After procedure: The patient tolerated the procedure and anesthesia well. She was transferred to PACU with vital signs stable. She will be transferred back to the medical surgical floor upon continued stability. She and her family were advised to continue with strict nonweightbearing to the left lower extremity and to keep the dressing clean dry and intact. Microbiology and pathology specimens are pending. Patient is to continue IV antibiotics under the management of infectious disease. To continue DVT prophylaxis and medical management per primary team. To elevate the left foot for postop pain and inflammation management. 3 view left foot post op x-rays ordered. LEAS studies were ordered and will consider potential vascular surgery consult in the future pending results. I will continue to follow this patient while in house. - Complications none 12/16/17 2444 <Electronically signed by Lopez Omer DPM> Date Lopez Omer DPM CC: SHARON Omer; Neal Moulton; Hubert Moore MD ~ Signed CC: Neal Moulton; John Early MD ~ Center Director: Signed Angiogram: Problem List (1) Ulcer of left foot Status: Acute (2) Gas gangrene of foot Status: Acute (3) Diabetic ulcer of left foot Status: Acute (4) Type 2 diabetes mellitus with diabetic polyneuropathy Status: Acute (5) Osteomyelitis of left foot Status: Acute Operative Report Date of Procedure: 12/20/17 Surgeon: Dr. 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 Discussed to do left leg angiogram with intervention. Risks benefits alternatives discussed she agreed to proceed. Operation: 1. Ultrasound-guided access retrograde right common femoral artery. 2. Left lower extremity angiogram with catheter placed into the past the third order cannulation of the posterior tibial and left anterior tibial artery. 3. Balloon angioplasty of the left popliteal through the tibial peroneal trunk through the proximal posterior tibial artery with a 3 x 120 balloon. 4. Balloon angioplasty the mid to distal popliteal artery with a 4 x 120 drug- coated balloon. 5. Closure with Star close. Procedure: 72-year-old female was brought to the operating room. Underwent the appropriate timeout consent. Underwent sedation. Was prepped and draped in a sterile fashion. We did ultrasound-guided access retrograde in the right common femoral artery. We put a Glidewire up in a 5 Pakistani sheath and then gave 5000 units of heparin. Was a lot of clips noted in the groin and some calcification. So we did an angiogram of the right groin, this showed appear to be probable SFA occlusion a lot of collaterals and a large profunda. There was a arterial venous communication possibly from 1 of the branches to a little bit above femoral vein aneurysm and then outflow through the iliac vein. We left this intact. We then brought in a contra catheter got up and over the bifurcation, brought the catheter of the left external iliac artery. We did an angiogram from here, showed the left common femoral profunda SFA widely patent. The put the wire down the SFA and brought in a long quick cross catheter. We imaged from here and it showed proximal popliteal was patent, mid to distal with some segmental areas of moderate severe stenosis. We then brought the catheter below the knee and image from there. This showed moderate severe stenosis in the tibial peroneal trunk, severe stenosis into the posterior tibial artery, the rest of the posterior tibial artery and peroneal artery are patent into the foot. Anterior tibial artery with severe occlusive disease proximally and then occluded in the mid segment. We brought in a long 6 Pakistani sheath. Using a quick cross catheter and Glidewire got into the anterior tibial artery. We try to track down through here but could not get past the mid segment where is very calcified and a little tortuous. We then tried an 014 wire with the 014 quick cross. This still was unable to track. We then removed this out and using a wire guided into the tibioperoneal trunk and then into the posterior tibial artery. We confirmed we are in this vessel. We switched back to an 014 wire. We then balloon from the proximal posterior tibial artery through the tibi operoneal trunk into the distal popliteal. We ballooned this for over 3 minutes. This was markedly improved. We then ballooned from the proximal to the distal popliteal artery with a 4 x 120 drug-coated balloon. We ballooned this for over 2-1/2 minutes. Completion was also markedly improved. We then removed out the sheath deployed a Star close with good hemostasis she was brought to recovery stable condition. Plan: We will start her on Plavix should have much improved perfusion to help heal these lesions. 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 We will see her back in 1 month. Sedation: This 72-year-old female underwent moderate sedation given by Dr. Lino Powers. She was monitored with EKG blood pressure and pulse ox. She was given fentanyl and Versed, and monitored for over the 30 minutes of the procedure. She tolerated this well. See the EMR for the complete record. 12/20/17 0841 <Electronically signed by Lino Powers MD> Date Lino Powers MD CC: SHARON Omer; Neal Moulton; Lino Powers MD; Hubert Moore MD ~ Signed Dr. Gio Omer Operations: - - Patient Name: DONNELL MOSER DMedical Record Number: [id number] Date of : 1945Patient Status: Inpatient Attending Provider: Joby MalikAccount Number: [id number] Date: 12/16/17 17:59Initialization Date: 12/16/17 17:59 Problem List (1) Gas gangrene of foot Status: Acute (2) Diabetic ulcer of left foot Status: Acute (3) Type 2 diabetes mellitus with diabetic polyneuropathy Status: Acute (4) Osteomyelitis of left foot Status: Acute (5) Cellulitis of left foot Status: Acute (6) Charcot's joint of foot Status: Acute Report of Operation Date of Procedure: 12/16/17 Pre-Operative Diagnosis: Ulcer of the left distal plantar lateral foot with cellulitis, osteomyelitis, and soft tissue gas. Post-Operative Diagnosis: same Surgery/Procedure Performed:: Debridement of all necrotic, non-viable, infected soft tissue and bone of the left foot with partial 5th ray amputation Descripti on of Surgical Findings:: Hemostasis: well padded left ankle tourniquet Type of Anesthesia:: General - preoperative reverse brown block around 5th met base consisting of 10 mL of 0.5% marcaine plain. Specimen's removed: Necrotic and infected bone and soft tissue sent to pathology and microbiology for further evaluation. Clearance fragment from the fifth metatarsal also sent to pathology and microbiology for further evaluation. Estimated Blood Loss (mL): 20mL Description of Procedure: Indications: This 72-year-old diabetic female patient with a history of noncontrolled type 2 diabetes with neuropathy was consulted to podiatry earlier today after being admitted through the emergency room late last evening for an ulcer to the left foot that was malodorous as well as cellulitis of the left foot. This patient also has a medical history significant for Charcot foot, CAD, status post CABG and stents, ovarian tumor, as well as other comorbidities. The patient says the ulcer to her left lateral foot started as a skin tear from tape. She says the patient's librarian she had been seeing in [place] was only treating the area with Silvadene cream and did not advise her to keep pressure and weight off of the affected area. She says over the last 3 weeks, the ulcer continued to slowly worsen. She says she was finally referred to the wound healing center at [place], and was supposed to follow-up with a patient's librarian at the wound healing center this coming week. She states that yesterday evening she started having some nausea and vomiting and decided to come to the emergency room. The patient's WBC today was 16, her ESR was 84, and her CRP was 115. Preliminary swab cultures of the ulcer show staph aureus growth with further results pending. The patient was currently on vancomycin and Zosyn. Her vital signs were stable. 3 view foot x-rays were taken of the left foot, and results were read as erosive changes in the fifth metatarsal head consistent with signs suggesting osteomyelitis as well as associated soft tissue swelling as well as soft tissue emphysema. MRI was also taken of the left foot which showed signs consistent with osteomyelitis of the fifth metatarsal as well as the proximal phalanx of the fifth toe. 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 During physical exam today, patient's epicritic sensation is grossly absent to the lower extremities bilateral. Diminished peripheral pulses on palpation appreciated. LEAS studies ordered and results are still pending. Ulcer to the left lateral and plantar distal foot, overlying the distal fifth metatarsal. Necrotic/eschar noted overlying the ulcer site with a slight bogginess noted. There is malodor present. There is surrounding cellulitis to the foot. At this time, the planned surgical procedure was discussed in great detail with the patient as well as the patient's family members with her consent. This was done to the patient and her family's satisfaction. The patient agrees to proceed with the planned operation at this time. All of the risks and potential complications were reviewed with the patient and her family. They understand the importance of proper compliance following this procedure to optimize the potential for healing, but no guarantees were given. She is advised that the complications and risks include, but are not limited to, further infection, need for further surgeries, recurrence, transfer lesions, deformity, weakness, loss of strength, loss of function, the potential for further ulcerations, nonhealing, delayed healing, blood clots, chronic swelling, Charcot foot/ankle, nerve damage, inability to walk, inability to wear shoes, severe pain, complex regional pain syndrome, need for more proximal or extensive amputations such as a TMA or BKA, loss of complete limb, or even loss of life. All of the patient's questions were answered to her satisfaction as well as the satisfaction of the family members. It was then agreed to proceed with the debridement of all infected, necrotic, nonviable soft tissue and bone with partial fifth ray amputation of the left foot. The consent form was reviewed with the patient and was freely signed. Again, no guarantees were given. Description of procedure: The patient was brought into the operating room and placed on the table in the supine position. The patient was already on IV antibiotics per hospitalist. The patient received general anesthesia per the anesthesiologist. A local anesthetic block was then performed in a reverse Brown block fashion around the base of the left fifth metatarsal consisting of 10 mL of 0.5% Marcaine plain. A well-padded ankle tourniquet was then applied to the patient's left ankle. The left foot and ankle were then scrubbed, prepped, and draped in the usual aseptic manner. A timeout was then performed and the patient was properly identified and the surgical plan was confirmed. Next attention was directed to the dorsal left foot, to the dorso lateral fifth metatarsal shaft. Using a #15 scalpel blade, a linear longitudinal incision was carried out distally, from about midshaft of the fifth metatarsal out distally until the ulcer site was encountered. The incision was then carried completely around the ulcer site and up into the webspace between the fourth and fifth toe, making sure to hug as tightly to the fifth toe as possible. This was then connected with the initial longitudinal incision. Dissection was carefully carried down all the way to the level of the bone making sure to avoid any vital neurovascular structures. The distal shaft of the fifth metatarsal was shown to have poor bone quality and necrotic bone and soft tissue. No purulence was encountered. The fifth metatarsal shaft was then carefully dissected and freed of soft tissue attachments. At this time, the tourniquet was inflated around the left ankle to 250 mmHg. Next, a sagittal saw was used to make a cut through the shaft of the fifth metatarsal. The distal half of the fifth metatarsal as well as the fifth toe and soft tissue including the ulcer site were then carefully dissected and completely freed and passed from the the operating table. Part of the bone and soft tissue was then sent to microbiology for aerobic, anaerobic, acid-fast, and fungal evaluation, and the rest was sent to pathology for evaluation. Any remaining necrotic soft tissue was then carefully debrided and passed from the operating table. Any remaining visible tendons were then transected as far back as possible. The surgical site was then flushed with normal sterile saline. Once complete, the sagittal saw was employed again to remove a clearance fragment from the fifth metatarsal. Once this was dissected free it was also passed from the operating table. The specimen was then split in half was sent to microbiology for aerobic, anaerobic, acid-fast, and fungal evaluation and the other half was sent to pathology for further evaluation. Once this was complete and all remaining bone and soft tissue appeared healthy, the surgical site was flushed with copious amounts of normal sterile saline. The left ankle tourniquet was then deflated and hyperemic response was noted to the remaining digits of the left foot. Next, the surgical site was packed with quarter inch iodoform packing, followed by 4 x 4's, ABDs, and Kerlix. After procedure: The patient tolerated the procedure and anesthesia well. She was transferred to PACU with vital signs stable. She will be transferred back to the medical surgical floor upon continued stability. She and her family were advised to continue with strict nonweightbearing to the left lower extremity and to keep the dressing clean dry and intact. Microbiology and pathology specimens are pending. Patient is to continue IV antibiotics under the management of infectious disease. To continue DVT prophylaxis and medical management per primary team. To elevate the left foot for postop pain and inflammation management. 3 view left foot post op x-rays ordered. LEAS studies were ordered and will consider potential vascular surgery consult in the future pending results. I will continue to follow this patient while in house. - Complications Patient Name: DONNELL MOSER DMedical Record Number: [id number] Date of : 1945Patient Status: Inpatient Attending Provider: Cher Malik Number: [id number] Date: 12/20/17 08:33Initialization Date: 12/20/17 08:33 Problem List (1) Ulcer of left foot Status: Acute (2) Gas gangrene of foot Status: Acute (3) Diabetic ulcer of left foot Status: Acute (4) Type 2 diabetes mellitus with diabetic polyneuropathy Status: Acute (5) Osteomyelitis of left foot Status: Acute Operative Report Date of Procedure: 12/20/17 Surgeon: Dr. 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 Discussed to do left leg angiogram with intervention. Risks benefits alternatives discussed she agreed to proceed. Operation: 1. Ultrasound-guided access retrograde right common femoral artery. 2. Left lower extremity angiogram with catheter placed into the past the third order cannulation of the posterior tibial and left anterior tibial artery. 3. Balloon angioplasty of the left popliteal through the tibial peroneal trunk through the proximal posterior tibial artery with a 3 x 120 balloon. 4. Balloon angioplasty the mid to distal popliteal artery with a 4 x 120 drug-coated balloon. 5. Closure with Star close. Procedure: 72-year-old female was brought to the operating room. Underwent the appropriate timeout consent. Underwent sedation. Was prepped and draped in a sterile fashion. We did ultrasound- guided access retrograde in the right common femoral artery. We put a Glidewire up in a 5 Pakistani sheath and then gave 5000 units of heparin. Was a lot of clips noted in the groin and some calcification. So we did an angiogram of the right groin, this showed appear to be probable SFA occlusion a lot of collaterals and a large profunda. There was a arterial venous communication possibly from 1 of the branches to a little bit above femoral vein aneurysm and then outflow through the iliac vein. We left this intact. We then brought in a contra catheter got up and over the bifurcation, brought the catheter of the left external iliac artery. We did an angiogram from here, showed the left common femoral profunda SFA widely patent. The put the wire down the SFA and brought in a long quick cross catheter. We imaged from here and it showed proximal popliteal was patent, mid to distal with some segmental areas of moderate severe stenosis. We then brought the catheter below the knee and image from there. This showed moderate severe stenosis in the tibial peroneal trunk, severe stenosis into the posterior tibial artery, the rest of the posterior tibial artery and peroneal artery are patent into the foot. Anterior tibial artery with severe occlusive disease proximally and then occluded in the mid segment. We brought in a long 6 Pakistani sheath. Using a quick cross catheter and Glidewire got into the anterior tibial artery. We try to track down through here but could not get past the mid segment where is very calcified and a little tortuous. We then tried an 014 wire with the 014 quick cross. This still was unable to track. We then removed this out and using a wire guided into the tibioperoneal trunk and then into the posterior tibial artery. We confirmed we are in this vessel. We switched back to an 014 wire. We then balloon from the proximal posterior tibial artery through the tibioperoneal trunk into the distal popliteal. We ballooned this for over 3 minutes. This was markedly improved. We then ballooned from the proximal to the distal popliteal artery with a 4 x 120 drug-coated balloon. We ballooned this for over 2-1/2 minutes. Completion was also markedly improved. We then removed out the sheath deployed a Star close with good hemostasis she was brought to recovery stable condition. Plan: We will start her on Plavix should have much improved perfusion to help heal these lesions. 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 We will see her back in 1 month. Sedation: This 72-year-old female underwent moderate sedation given by Dr. Lino Powers. She was monitored with EKG blood pressure and pulse ox. She was given fentanyl and Versed, and monitored for over the 30 minutes of the procedure. She tolerated this well. See the EMR for the complete record. Procedures: Angiogram Summary of Care Provided: Patient is a 72-year-old white female, with history of hypertension, insulin- dependent diabetes mellitus, dyslipidemia, Charcot joint, peripheral neuropathy, CAD with remote bypass who has a diabetic foot ulcer with fifth toe osteomyelitis on the left, status post debridement of an infected soft tissue and left bone with partial fifth amputation on 12/16/2017. 1. Diabetic foot ulcer with fifth digit osteomyelitis status post debridement and partial amputation, MSSA Status post debridement, previously on vancomycin and Zosyn. Wound cultures with MSSA, patient now on Ancef. PICC line placed yesterday. Patient placed on Flagyl for anaerobic coverage as per ID will need 6 weeks of p.o. Flagyl as well. 2. Insulin dependent diabetes mellitus Blood sugars adequate at this time with initiation of home dose of Levemir. Last A1c noted to be 9.4. Most blood sugars now seem to be trending around 150 3. Hypertension Blood pressure is adequate for now. Continue home medication 4. PVD Had a revascularization see above, appreciate Dr. Powers, will continue Plavix as suggested, apparently where he has a follow-up appointment in 1 month's time 5. CAD, remote CABG Be aware. Stable. Aspirin restarted, continue with statin and beta-britney. On JACKSON inhibitor. 6. Peripheral neuropathy Be aware 7. Dyslipidemia On Lipitor 8. diarrhea C. difficile is negative, Flagyl is not for diarrhea there wound has anaerobes, continue Questran, monitor patient's diarrhea CODE STATUS full Disposition patient will be discharged home once IV antibiotics have been arranged. Chart is dictated with pit furnace melter software. Errors may occur in dictation that may change providers meaning. This note was generated with [employer] dictation software. It may contain incorrect words, spelling, and punctuation that were not noted in checking the note before signing. Medications reviewed with the patient. Risks, benefits, alternatives, side effects, potential complications and dangers of medications discussed. Patient wishes to utilize these agents despite risk. A signed medical consent/advisement form regarding narcotic medications and a side medication agreement are located in the patient's chart. Patient Problems: Active and Suspected Problems Acute osteomyelitis (Acute) Gas gangrene of foot (Acute) Diabetic ulcer of left foot (Acute) Type 2 diabetes mellitus with diabetic polyneuropathy (Acute) Osteomyelitis of left foot (Acute) Cellulitis of left foot (Acute) Charcot's joint of foot (Acute) Subjective: Patient seen and examined bit of diarrhea but no other complaints at this time. - Physical Exam General: Alert, Oriented x3, Cooperative HEENT: Atraumatic, PERRLA, EOMI Oral: Moist Mucosa, No Gingival or Mucosal Lesions/ Ulcerations Neck: Supple, No JVD, Trachea Midline Lungs: Clear to auscultation, Normal air movement, No rhonchi, No wheeze Cardiovascular: Regular rate, Regular Rhythm, Normal S1, Normal S2 Abdomen: Bowel Sounds Present, Soft, Non Tender, Non-Distended Extremities: No clubbing, No cyanosis, Edema, Tenderness, - - Bandage over the left foot Skin: No rashes, Ulcer/ Wound, - - Did not takedown wound dressing Musculoskeletal: No Tenderness to Palpation of Joints or Extremities, No Muscle Wasting Lymphatic: No Cervical, Supraclavicular, or Inguinal Adenopathy Neurological: Cranial nerves II-XII grossly intact, Neuro grossly intact Psych/Mental Status: Normal Affect, Appropriate, Alert and oriented to time, place, person, mood and affect Vital Signs Temp Pulse Resp BP Pulse Ox 97.6 F L 78 18 153/84 H 93 12/20/17 12:59 12/20/17 12:59 12/20/17 12:59 12/20/17 12:59 12/20/17 12:59 Oxygen Flow Rate (L/min) 1 Oxygen Delivery Method Room Air Weight: 59.56 kg Body Mass Index (BMI) 24.1 Finger Stick Blood Glucose 118 Intake and Output for Last 24 Hours 12/18/17 12/19/17 12/20/17 23:59 23:59 23:59 Intake Total 2065 / 2065 1858 / 1858 240 / 240 Output Total 550 / 550 1150 / 1150 250 / 250 Balance 1515 / 1515 708 / 708 -10 10 Microbiology Past 72 Hours 12/16/17 Unknown Gram Stain - Final Bone - Other Wound Culture - Final Staphylococcus aureus Anaerobic Culture - Final Anaerobic cocci 12/16/17 Unknown Gram Stain - Final Bone - Other Wound Culture - Final Staphylococcus aureus Anaerobic Culture - Final No anaerobic bacteria isolated. 12/18/17 16:20 C. difficile DNA Amplification - Final Stool 12/15/17 22:43 Blood Culture - Preliminary Blood Culture (Wb) - Anticubital Left No growth in 48 hours. 12/15/17 22:40 Blood Culture - Preliminary Blood Culture (Wb) - Anticubital Right No growth in 48 hours. Laboratory Tests Past 24 Hrs 12/19/17 12/20/17 12/20/17 22:10 05:05 05:05 WBC 10.5 RBC 3.53 L Hgb 8.9 L Hct 29.0 L MCV 82.2 MCH 25.2 L MCHC 30.7 L RDW 15.8 H RDW Differential 47.6 H Plt Count 333 MPV 10.4 Immature Gran % (Auto) 0.300 Neut % (Auto) 55.9 Lymph % (Auto) 24.1 [place] % (Auto) 11.8 H Eos % (Auto) 7.3 H Baso % (Auto) 0.6 Absolute Neuts (auto) 5.9 Absolute Lymphs (auto) 2.53 Total Counted Not Reportable Sodium 140 Potassium 4.0 Chloride 108 H Carbon Dioxide 27.0 Anion Gap 5 BUN 19 H Creatinine 0.98 Estim Creat Clear Calc 39.73 Est GFR (MDRD) Af Amer 72 Est GFR (MDRD) Non-Af 60 BUN/Creatinine Ratio 19.5 Glucose 68 L Calcium 9.4 Phosphorus 2.0 L Magnesium 1.9 Total Bilirubin 0.20 AST 27 ALT 11 L Alkaline Phosphatase 107 Troponin I 0.018 Total Protein 6.4 Albumin 2.1 L Globulin 4.3 H Albumin/Globulin Ratio 0.5 L POC Glucose 12/20/17 12/20/17 12/19/17 12:50 06:42 22:09 POC Glucose 160 H 186 H 222 H 12/19/17 16:59 POC Glucose 192 H Discharge Diet: Low fat/ Low Cholesterol - Sodium Discharge Activity: - - Do not put weight on the foot as per podiatry for 6 weeks Weight Bearing Status: No weight bearing Keep extremity elevated above heart level: Operative Extremity, Left Leg Call your doctor if your incision/area has: Continuous Slow Oozing, Sudden Increased Bleeding, Increased Pain/ Swelling, Increased Redness, Foul Smelling Discharge, Swelling at the incision site Call your doctor if you observe: Fever of 101 or Higher, Numbness or Tingling, Change in Color, Shortness of breath, Dizziness, Fainting spells, Chest pain, Increased palpitations (irregular heartbeat) Additional Dressing/Incision Instructions:: As per surgery Home Medications: Medications to take at Discharge Aspirin [Aspirin, Baby] 81 mg PO DAILY 12/12/15 Atorvastatin Calcium [Lipitor] 40 mg PO QHS 12/12/15 Carvedilol [Coreg (Beta Britney)] 25 mg PO BID 12/12/15 Multivitamins,Therapeutic [Multivitamin] 1 tablet PO DAILY 12/12/15 Ramipril [Altace] 2.5 mg PO DAILY 12/12/15 Vitamin C 1,000 mg PO DAILY 12/12/15 Insulin Detemir [Levemir FlexPen] 18 units SC BID 12/13/15 Calcium Citrate-Vit D3 Tablet 1 tab PO DAILY 12/15/17 Ubidecarenone [Co Q-10] 200 mg PO DAILY 12/15/17 Cefazolin 2 gm IV Q8 40 Days #120 vial 12/18/17 Cholestyramine (with Sugar) [Cholestyramine Packet] 4 gm PO BID PRN #30 powd.pack 12/20/17 Clopidogrel Bisulfate [Plavix] 75 mg PO DAILY #30 tablet 12/20/17 Glucerna Shake 120 ml PO 4X/DAY #120 liquid 12/20/17 Lactobacillus Acidophilus [Acidophilus] 1 tablet PO BID #60 tablet 12/20/17 Metronidazole [Flagyl] 500 mg PO Q8H #112 tablet 12/20/17 Nystatin Powder [Mycostatin Powder] 1 applic TOPICAL BID 30 Days bottle 12/20/17 Oxycodone [Oxyir] 5 mg PO Q4H PRN PRN 7 Days #42 tablet 12/20/17 Following Prescrptions Were Given to Patient: Oxycodone [Oxyir] 5 mg PO Q4H PRN PRN 7 Days #42 tablet PRN Reason: Pain Cefazolin 2 gm IV Q8 40 Days #120 vial Clopidogrel Bisulfate [Plavix] 75 mg PO DAILY #30 tablet Metronidazole [Flagyl] 500 mg PO Q8H #112 tablet Cholestyramine (with Sugar) [Cholestyramine Packet] 4 gm PO BID PRN #30 powd.pack PRN Reason: Diarrhea Lactobacillus Acidophilus [Acidophilus] 1 tablet PO BID #60 tablet Nystatin Powder [Mycostatin Powder] 1 applic TOPICAL BID 30 Days bottle Glucerna Shake 120 ml PO 4X/DAY #120 liquid Primary Care Physician: Neal Moulton [Primary Care Provider] - Please follow up with your Primary Care Physician in: 1 week Disposition: Home with Home Health Patient Condition:: Good Medical Necessity - Tobacco Use Smoking Status: Never smoker Meaningful Use Info Meaningful Use Diagnoses (Choose all that apply): None applicable Code Visit Inpatient E&M: 42708 Disch Hosp
[2017-12-20 13:47] VITALS: BP 153/84; PULSE 78; RESP 18; TEMP 36.4; O2SAT 93
[2017-12-20 14:01] VITALS: PULSE 78; RESP 18
--- NOTE | 2017-12-20 15:32 | NURSING ---
wound photo: left lateral foot
--- NOTE | 2017-12-23 15:32 | CASEMGMT ---
FOLLOW-UP CALL: Patient states she is doing well. She states she has filled all of her prescriptions. She denies any questions regarding discharge instructions. Patient states that home health has been out twice already. She denies any further needs/questions/concerns at this time.
== END 2017-12-20 17:13 | disposition home health service (06) | DRG 616 ==
LOC: ED 12-16 01:05 → MS3 12-16 01:22
PROVIDERS: Anesthesiology; Family Medicine; Internal Medicine; Podiatrist; Admitting Provider Hospitalist; Emergency Provider Emergency Medicine; Family Provider Family Medicine; PCP Family Medicine; Visit Provider Internal Medicine
PROC: 0Y6N0ZF Detachment at Left Foot, Partial 5th Ray, Open Approach (ICD-10-PCS; principal; 2017-12-16 13:45)
DX: E11.69 Type 2 diabetes mellitus with other specified complication (principal); A48.0 Gas gangrene; M86.172 Other acute osteomyelitis, left ankle and foot; L03.116 Cellulitis of left lower limb; E11.52 Type 2 diabetes mellitus with diabetic peripheral angiopathy with gangrene; L97.528 Non-pressure chronic ulcer of other part of left foot with other specified severity; I25.10 Atherosclerotic heart disease of native coronary artery without angina pectoris; E11.42 Type 2 diabetes mellitus with diabetic polyneuropathy; E11.621 Type 2 diabetes mellitus with foot ulcer; E11.610 Type 2 diabetes mellitus with diabetic neuropathic arthropathy; I10 Essential (primary) hypertension; B95.61 Methicillin susceptible Staphylococcus aureus infection as the cause of diseases classified elsewhere; E78.5 Hyperlipidemia, unspecified; Z79.4 Long term (current) use of insulin; Z95.5 Presence of coronary angioplasty implant and graft; Z95.1 Presence of aortocoronary bypass graft; I77.0 Arteriovenous fistula, acquired
CPT/HCPCS: 36245; 36415; 36569; 37224; 37228; 71045; 71046; 73630; 73720; 74176; 75710; 76937; 80048; 80053; 81001; 82962; 83036; 83605; 83690; 83735; 84100; 84484; 85025; 85652; 86140; 87015; 87040; 87070; 87075; 87077; 87102; 87116; 87186; 87205; 87206; 87493; 88304; 88305; 88311; 88312; 93005; 93923; 97162; 97165; 97802; 99152; 99153; 99285; A9585; J7040; J7050; Q9967; A4216; C1725; C1760; C1769; C1887; C1894; J2405

== ENCOUNTER 2017-12-23 13:09 | Outpatient (RCR) | payer MEDICARE, OTHER, SELFPAY ==
[2017-12-23 13:25] LABS: Erythrocyte Sedimentation Rate 48 mm/hr (0-30)
[2017-12-23 13:26] LABS: Anion Gap 5 (5-15); BUN 17 mg/dL (7-18); BUN/Creat Ratio 16.8 RATIO (10-20); Calcium,Total 9.4 mg/dL (8.5-10.1); Chloride 104 mmol/L (98-107); Creatinine, Serum 1.01 mg/dL (0.55-1.02); EST Glomerular Filtration Rate 57 mL/min (>60); Est Glom Filt Rate - Afr Amer 69 mL/min (>60); Glucose 169 mg/dL (74-106); Potassium 3.8 mmol/L (3.5-5.1); Sodium Level 138 mmol/L (136-145)
[2017-12-23 13:28] LABS: Hematocrit 31.3 % (37-47); Hemoglobin 9.7 g/dl (12.0-15.0); Mean Corpuscular Hgb 26.1 pg (27.0-32.0); Mean Corpuscular Volume 84.1 fL (81-99); Platelet Count 394 K/mm3 (150-450); RBC Distribution Width CV 17.2 % (11.6-14.6); RBC Distribution Width SD 48.1 fl (35.1-43.9); Red Blood Count 3.72 M/mm3 (4.2-5.4); Scan Indicated on CBC? Y/N NO; White Blood Count 11.7 K/mm3 (4.4-11.0)
== END 2017-12-25 23:59 ==
LOC: HHLAB 13:09
PROVIDERS: Family Provider Family Medicine; PCP Family Medicine; Referring Provider Family Medicine; Visit Provider Internal Medicine Infectious Disease
DX: M86.9 Osteomyelitis, unspecified (principal); B95.61 Methicillin susceptible Staphylococcus aureus infection as the cause of diseases classified elsewhere
CPT/HCPCS: 80048; 85027; 85652

== ENCOUNTER → 2018-01-13 18:43 | Outpatient (CLI) | payer MEDICARE, OTHER, SELFPAY ==
[2018-01-13 19:22] LABS: Anion Gap 6 (5-15); BUN 21 mg/dL (7-18); BUN/Creat Ratio 25.6 RATIO (10-20); Calcium,Total 9.4 mg/dL (8.5-10.1); Chloride 105 mmol/L (98-107); Creatinine, Serum 0.82 mg/dL (0.55-1.02); EST Glomerular Filtration Rate 73 mL/min (>60); Est Glom Filt Rate - Afr Amer 88 mL/min (>60); Glucose 176 mg/dL (74-106); Potassium 4.2 mmol/L (3.5-5.1); Sodium Level 138 mmol/L (136-145)
[2018-01-13 19:41] LABS: Erythrocyte Sedimentation Rate 44 mm/hr (0-30)
[2018-01-13 20:39] LABS: Hemoglobin 11.4 g/dl (12.0-15.0); Mean Corpuscular Volume 86.8 fL (81-99); Platelet Count 194 K/mm3 (150-450); Red Blood Count 4.38 M/mm3 (4.2-5.4)
[2018-01-13 20:52] LABS: Scan Indicated on CBC? Y/N YES- FLAGS NOTED
[2018-01-14 10:08] LABS: Pathologist Review Reviewed
== END ==
PROVIDERS: Family Provider Family Medicine; PCP Family Medicine; Visit Provider Internal Medicine Infectious Disease
DX: Z48.812 Encounter for surgical aftercare following surgery on the circulatory system (principal); I25.10 Atherosclerotic heart disease of native coronary artery without angina pectoris; E11.618 Type 2 diabetes mellitus with other diabetic arthropathy; E78.5 Hyperlipidemia, unspecified; Z79.2 Long term (current) use of antibiotics; Z79.82 Long term (current) use of aspirin; D49.59 Neoplasm of unspecified behavior of other genitourinary organ; Z79.4 Long term (current) use of insulin; Z90.722 Acquired absence of ovaries, bilateral; Z98.62 Peripheral vascular angioplasty status; Z86.31 Personal history of diabetic foot ulcer; Z91.81 History of falling
CPT/HCPCS: 80048; 85027; 85652

== ENCOUNTER 2018-01-20 10:21 | Outpatient (RCR) | payer MEDICARE, OTHER, SELFPAY ==
[2017-12-30 17:01] LABS: Hematocrit 37.7 % (37-47); Hemoglobin 11.7 g/dl (12.0-15.0); Mean Corpuscular Hgb 26.6 pg (27.0-32.0); Mean Corpuscular Volume 85.7 fL (81-99); Mean Platelet Vol. 11.7 fl (6.2-12.0); Platelet Count 436 K/mm3 (150-450); RBC Distribution Width CV 20.1 % (11.6-14.6); RBC Distribution Width SD 58.3 fl (35.1-43.9)
[2017-12-30 17:04] LABS: Scan Indicated on CBC? Y/N YES- FLAGS NOTED
[2017-12-30 17:24] LABS: Anion Gap 7 (5-15); BUN 22 mg/dL (7-18); BUN/Creat Ratio 22.5 RATIO (10-20); Calcium,Total 9.9 mg/dL (8.5-10.1); Chloride 101 mmol/L (98-107); Creatinine, Serum 0.98 mg/dL (0.55-1.02); EST Glomerular Filtration Rate 59 mL/min (>60); Est Glom Filt Rate - Afr Amer 72 mL/min (>60); Glucose 123 mg/dL (74-106); Potassium 3.6 mmol/L (3.5-5.1); Sodium Level 139 mmol/L (136-145)
[2017-12-30 17:32] LABS: Erythrocyte Sedimentation Rate 36 mm/hr (0-30)
[2018-01-06 16:00] LABS: Anion Gap 6 (5-15); BUN 30 mg/dL (7-18); BUN/Creat Ratio 32.3 RATIO (10-20); Calcium,Total 9.5 mg/dL (8.5-10.1); Chloride 102 mmol/L (98-107); Creatinine, Serum 0.93 mg/dL (0.55-1.02); EST Glomerular Filtration Rate 63 mL/min (>60); Est Glom Filt Rate - Afr Amer 76 mL/min (>60); Glucose 256 mg/dL (74-106); Sodium Level 137 mmol/L (136-145)
[2018-01-06 16:34] LABS: Hemoglobin 11.1 g/dl (12.0-15.0); Mean Corpuscular Hgb 25.9 pg (27.0-32.0); Mean Corpuscular Volume 86.4 fL (81-99); Platelet Count 251 K/mm3 (150-450); RBC Distribution Width CV 20.2 % (11.6-14.6); RBC Distribution Width SD 62.8 fl (35.1-43.9); Red Blood Count 4.28 M/mm3 (4.2-5.4); White Blood Count 6.6 K/mm3 (4.4-11.0)
[2018-01-06 16:35] LABS: Scan Indicated on CBC? Y/N YES- FLAGS NOTED
[2018-01-06 17:00] LABS: Erythrocyte Sedimentation Rate 41 mm/hr (0-30)
[2018-01-06 17:15] LABS: Pathologist Review May foll
[2018-01-20 19:41] LABS: Anion Gap 6 (5-15); BUN 26 mg/dL (7-18); BUN/Creat Ratio 29.4 RATIO (10-20); Calcium,Total 10.3 mg/dL (8.5-10.1); Chloride 103 mmol/L (98-107); Creatinine, Serum 0.88 mg/dL (0.55-1.02); EST Glomerular Filtration Rate 67 mL/min (>60); Est Glom Filt Rate - Afr Amer 81 mL/min (>60); Glucose 257 mg/dL (74-106); Potassium 4.1 mmol/L (3.5-5.1); Sodium Level 135 mmol/L (136-145)
[2018-01-20 19:47] LABS: Hematocrit 37.1 % (37-47); Hemoglobin 11.6 g/dl (12.0-15.0); Mean Corp Hgb Conc 31.3 g/gl (32-36); Mean Corpuscular Hgb 26.7 pg (27.0-32.0); Mean Corpuscular Volume 85.5 fL (81-99); Platelet Count 226 K/mm3 (150-450); RBC Distribution Width CV 19.7 % (11.6-14.6); RBC Distribution Width SD 61.8 fl (35.1-43.9); Red Blood Count 4.34 M/mm3 (4.2-5.4); White Blood Count 8.5 K/mm3 (4.4-11.0)
[2018-01-20 20:32] LABS: Scan Indicated on CBC? Y/N YES- FLAGS NOTED
[2018-01-20 20:38] LABS: Differential Comment SCANNED; Erythrocyte Sedimentation Rate 44 mm/hr (0-30)
== END 2018-01-24 23:59 ==
LOC: HHLAB 10:21
PROVIDERS: Family Provider Family Medicine; PCP Family Medicine; Referring Provider Internal Medicine Infectious Disease; Visit Provider Internal Medicine Infectious Disease
DX: Z47.81 Encounter for orthopedic aftercare following surgical amputation (principal); Z48.812 Encounter for surgical aftercare following surgery on the circulatory system
CPT/HCPCS: 80048; 85027; 85652

== ENCOUNTER 2018-01-23 11:30 | Outpatient (RCR) | payer MEDICARE, OTHER, SELFPAY ==
[2017-12-26 02:05] VITALS: BP 145/77; PULSE 70; RESP 18; TEMP 36.8
[2017-12-26 10:14] VITALS: BP 145/57; PULSE 72; RESP 16; TEMP 36.1
--- NOTE | 2017-12-26 13:06 | PCM.WC.PN ---
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 Status: Acute Current Visit: Yes Code(s): E11.621 - Type 2 diabetes mellitus with foot ulcer; L97.525 - Non-pressure chronic ulcer of other part of left foot with muscle involvement without evidence of necrosis (2) PVD (peripheral vascular disease) Status: Acute Current Visit: Yes Code(s): I73.9 - Peripheral vascular disease, unspecified (3) Type 2 diabetes mellitus with diabetic polyneuropathy Status: Acute Current Visit: No Code(s): E11.42 - Type 2 diabetes mellitus with diabetic polyneuropathy (4) Charcot's joint of foot Status: Acute Current Visit: No Code(s): M14.679 - Charcot's joint, unspecified ankle and foot Type of Wound Chief Complaint: Sore on left foot caused by removing tape. History of Wound: 72 year old diabetic female was being seen for a ulcer on her left lateral foot at the base of the 5th toe. She states that she was seeing a surgical garment fitter, Dr. Santo in [place] for a callus on the arch of her left foot and for her history of Charcot foot. A month ago she had a bandage covering the callus and when she removed it, the tape pulled some skin off at the base of her 5th toe. She had an opened ulcer there ever since. She has been applying silvadine cream and soaking her foot in epsome salt as prescribed by her surgical garment fitter in [place]. 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 On December 15 the patient was admitted for fever, nausea, vomiting, cellulitis of left foot, and ulcer of left foot. X-ray and MRI taken showed evidence of osteomyelitis to the fifth metatarsal and base of the fifth toe as well as showed signs of soft tissue emphysema. I was consulted on December 16 when the patient was admitted, and she was taken to surgery the same day for debridement of all necrotic, nonviable, infected soft tissue and bone of the left foot with open partial fifth ray amputation. Dr. Powers then performed an angioplasty on December 20 while the patient was still admitted prior to her discharge. Details from both operative reports can be found in the patient's chart. A wound VAC was applied prior to patient's discharge home, and she is to follow back up at the wound healing center. Progress of Wound: Open surgical site to left lateral foot shows very slight improvement since patient was last evaluated, but overall remained stable. Patient has had wound VAC applied since her discharge from the hospital, and had this changed Saturday at my office. Patient currently denies any feelings of nausea, vomiting, fever, chills. - Physical Exam Vital Signs Temp Pulse Resp BP 96.9 F L 72 16 145/57 H 12/26/17 10:14 12/26/17 10:14 12/26/17 10:14 12/26/17 10:14 General: Alert, Oriented x3, Cooperative, No apparent distress Extremities: Capillary Refill Less than 3 Seconds - To distal digits of left foot, No Calf Tenderness - Negative Zion and Degroot sign, Diminished Peripheral Pulses - DP and PT pulses nonpalpable, Edema - Slight lower extremity edema Skin: Ulcer/ Wound - Open surgical site to left lateral foot with fat layer and some muscle/tendon exposed. Measurements are noted below. No new areas of necrosis are appreciated today. Very slight amount of maceration noted to the plantar aspect of the ulcer site. The base is a mixture of adherent slough, fibrous tissue, biofilm, and granular tissue. Slight amount of hyperkeratotic tissue noted. There is no surrounding or extending cellulitis, no significant increase in warmth, no purulence, and no malodor appreciated at this time. Wound Measurements and Assessment WC - Nurse 1 - General Ulcer Measurement Start: 12/26/17 10:14 Freq: Status: Active Protocol: Activity Type Activity Date Activity User E-Sign Co-Sign Detail Recorded Client Recorded Date Recorded By Document 12/26/17 10:14 [facility] [id number] 12/26/17 10:30 [facility] 12/26/17 10:14 Wound Center Nurse 1 [Ulcer Assessment] #1 Left Lateral Foot -Combined with other wound No -Current Size (cm) - Length 5.6 -Current Size (cm) - Width 2.7 -Current Size (cm) - Depth 0.8 -Total Square Cm 15.12 -Date of Last Picture (Recall this 12/26/17 field) -Photo Taken Yes -Epithelialization None Present -Tunneling No -Undermining/Tunneling No -Circular Undermining No -Exudate Amt Small (1-33%) -Exudate Type Serosanguineous -Wound Margin Distinct, Outline Attached -Granulation Amt Small (1-33%) -Granulation Quality Red -Slough/Fibrin Yes -Necrosis Amt Large (67-100%) -Necrotic Tissue Type Adherent Slough -Texture (Gissell-wound Skin Appearance) Scarring -Moisture (Gissell-wound Skin Appearance Maceration ) Dry/Scaly -Color (Gissell-wound Skin Appearance) Erythema Palor -Temperature (Gissell-wound Skin No Abnormality Appearance) (Pt Warm) -Tenderness on Palpation (Gissell-wound No Skin Appearance) -Ulcer Cleansing Rinsed/ Irrigated with Saline -Foul Odor after Cleansing No -Anesthetic Used 4% Lidocaine Solution [Edema Assessment] -Lower Limb Edema Present No -Left Calf (cm) 29.7 -Left Ankle (cm) 17.9 YANNICK - Nurse 2 - General Ulcer CM Notes Start: 12/26/17 10:14 Freq: Status: Active Protocol: Activity Type Activity Date Activity User E-Sign Co-Sign Detail Recorded Client Recorded Date Recorded By Document 12/26/17 11:02 DV [id number] 12/26/17 11:13 DV 12/26/17 11:02 Wound Center Nurse 2 [Procedure/Treatment] #1 Left Lateral Foot -Time 11:07 -Correct Patient Yes -Correct Side, Site, Position Yes -Correct Procedure Yes -Procedure Performed Yes -Type of Procedure Debridement -Clinical Debridement Muscle -Post Debridement Size (cm) - Length 5.4 -Post Debridement Size (cm) - Width 2.6 -Post Debridement Size (cm) - Depth 1.6 -Total Square Cm 14.04 -Wound/Ulcer Outcome Not Healed -Ulcer Cleansing Rinsed/ Irrigated with Saline -Foul Odor after Cleansing No -Bioengineered Tissue No -Bleeding Controlled with Pressure -Treatment Response Procedure Tolerated Well [See Physician Procedure note for Specifics] Pain Scale: 0-10 Numeric [Pain] -Is Patient Pain Free? Yes Musculoskeletal: No Tenderness to Palpation of Joints or Extremities, - - Bilateral Charcot foot type. Bilateral hammertoe deformities digits 2?5. Neurological: - - Epicritic sensation grossly absent to lower extremity Psych/Mental Status: Normal Affect, Appropriate Debridement Note Post-Debridement Measurements/Treatment - Nurse 2 - General Ulcer CM Notes Start: 12/26/17 10:14 Freq: Status: Active Protocol: Activity Type Activity Date Activity User E-Sign Co-Sign Detail Recorded Client Recorded Date Recorded By Document 12/26/17 11:02 DV [id number] 12/26/17 11:13 DV 12/26/17 11:02 Wound Center Nurse 2 #1 Left Lateral Foot -Time 11:07 -Correct Patient Yes -Correct Side, Site, Position Yes -Correct Procedure Yes -Procedure Performed Yes -Type of Procedure Debridement -Clinical Debridement Muscle -Post Debridement Size (cm) - Length 5.4 -Post Debridement Size (cm) - Width 2.6 -Post Debridement Size (cm) - Depth 1.6 -Total Square Cm 14.04 -Wound/Ulcer Outcome Not Healed -Ulcer Cleansing Rinsed/ Irrigated with Saline -Foul Odor after Cleansing No -Bioengineered Tissue No -Bleeding Controlled with Pressure -Treatment Response Procedure Tolerated Well Pain Scale: 0-10 Numeric Is Patient Pain Free? 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 Patient had surgical debridement of all necrotic, nonviable, infected soft tissue and bone of the left foot with open partial fifth ray amputation on December 16. Patient also had an angioplasty performed by Dr. Powers on December 20. Details from each operative report can be found in the patient's chart. Patient had subcutaneous debridement performed today as noted in the clinical panel. Following debridement the site was carefully cleansed and then a wound VAC was again applied per clipper operator's guidelines and set at 125 mmHg continuous flow. This is to be changed 3 times per week. It was stressed not to use any kind of significant compression to the lower extremity due to recently performed vascular procedure. Patient is to be nonweightbearing to the left foot at all times. Patient is to keep the area clean dry and intact. Patient instructed to eat a diet high in protein to help stimulate healing potential. The importance of tight glycemic control was discussed with this patient. Patient and her daughter were educated on all signs and symptoms of local and systemic infection and they were instructed to go to the emergency room immediately should they notice any of these. Patient will follow-up and clinic in 1 week, but was instructed to follow-up in clinic sooner if needed.
--- NOTE | 2017-12-26 13:10 | PN.PCM_ITS ---
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 Status: Acute Current Visit: Yes Code(s): E11.621 - Type 2 diabetes mellitus with foot ulcer; L97.525 - Non-pressure chronic ulcer of other part of left foot with muscle involvement without evidence of necrosis (2) PVD (peripheral vascular disease) Status: Acute Current Visit: Yes Code(s): I73.9 - Peripheral vascular disease, unspecified (3) Type 2 diabetes mellitus with diabetic polyneuropathy Status: Acute Current Visit: No Code(s): E11.42 - Type 2 diabetes mellitus with diabetic polyneuropathy (4) Charcot's joint of foot Status: Acute Current Visit: No Code(s): M14.679 - Charcot's joint, unspecified ankle and foot Type of Wound Chief Complaint: Sore on left foot caused by removing tape. History of Wound: 72 year old diabetic female was being seen for a ulcer on her left lateral foot at the base of the 5th toe. She states that she was seeing a improvement spec, Dr. Santo in [place] for a callus on the arch of her left foot and for her history of Charcot foot. A month ago she had a bandage covering the callus and when she removed it, the tape pulled some skin off at the base of her 5th toe. She had an opened ulcer there ever since. She has been applying silvadine cream and soaking her foot in epsome salt as prescribed by her improvement spec in [place]. 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 On December 15 the patient was admitted for fever, nausea, vomiting, cellulitis of left foot, and ulcer of left foot. X-ray and MRI taken showed evidence of osteomyelitis to the fifth metatarsal and base of the fifth toe as well as showed signs of soft tissue emphysema. I was consulted on December 16 when the patient was admitted, and she was taken to surgery the same day for debridement of all necrotic, nonviable, infected soft tissue and bone of the left foot with open partial fifth ray amputation. Dr. Powers then performed an angioplasty on December 20 while the patient was still admitted prior to her discharge. Details from both operative reports can be found in the patient's chart. A wound VAC was applied prior to patient's discharge home, and she is to follow back up at the wound healing center. Progress of Wound: Open surgical site to left lateral foot shows very slight improvement since patient was last evaluated, but overall remained stable. Patient has had wound VAC applied since her discharge from the hospital, and had this changed Saturday at my office. Patient currently denies any feelings of nausea, vomiting, fever, chills. - Physical Exam Vital Signs Temp Pulse Resp BP 96.9 F L 72 16 145/57 H 12/26/17 10:14 12/26/17 10:14 12/26/17 10:14 12/26/17 10:14 General: Alert, Oriented x3, Cooperative, No apparent distress Extremities: Capillary Refill Less than 3 Seconds - To distal digits of left foot, No Calf Tenderness - Negative Zion and Degroot sign, Diminished Peripheral Pulses - DP and PT pulses nonpalpable, Edema - Slight lower extremity edema Skin: Ulcer/ Wound - Open surgical site to left lateral foot with fat layer and some muscle/tendon exposed. Measurements are noted below. No new areas of necrosis are appreciated today. Very slight amount of maceration noted to the plantar aspect of the ulcer site. The base is a mixture of adherent slough, fibrous tissue, biofilm, and granular tissue. Slight amount of hyperkeratotic tissue noted. There is no surrounding or extending cellulitis, no significant increase in warmth, no purulence, and no malodor appreciated at this time. Wound Measurements and Assessment WC - Nurse 1 - General Ulcer Measurement Start: 12/26/17 10:14 Freq: Status: Active Protocol: Activity Type Activity Date Activity User E-Sign Co-Sign Detail Recorded Client Recorded Date Recorded By Document 12/26/17 10:14 [facility] [id number] 12/26/17 10:30 [facility] 12/26/17 10:14 Wound Center Nurse 1 [Ulcer Assessment] #1 Left Lateral Foot -Combined with other wound No -Current Size (cm) - Length 5.6 -Current Size (cm) - Width 2.7 -Current Size (cm) - Depth 0.8 -Total Square Cm 15.12 -Date of Last Picture (Recall this 12/26/17 field) -Photo Taken Yes -Epithelialization None Present -Tunneling No -Undermining/Tunneling No -Circular Undermining No -Exudate Amt Small (1-33%) -Exudate Type Serosanguineous -Wound Margin Distinct, Outline Attached -Granulation Amt Small (1-33%) -Granulation Quality Red -Slough/Fibrin Yes -Necrosis Amt Large (67-100%) -Necrotic Tissue Type Adherent Slough -Texture (Gissell-wound Skin Appearance) Scarring -Moisture (Gissell-wound Skin Appearance Maceration ) Dry/Scaly -Color (Gissell-wound Skin Appearance) Erythema Palor -Temperature (Gissell-wound Skin No Abnormality Appearance) (Pt Warm) -Tenderness on Palpation (Gissell-wound No Skin Appearance) -Ulcer Cleansing Rinsed/ Irrigated with Saline -Foul Odor after Cleansing No -Anesthetic Used 4% Lidocaine Solution [Edema Assessment] -Lower Limb Edema Present No -Left Calf (cm) 29.7 -Left Ankle (cm) 17.9 YANNICK - Nurse 2 - General Ulcer CM Notes Start: 12/26/17 10:14 Freq: Status: Active Protocol: Activity Type Activity Date Activity User E-Sign Co-Sign Detail Recorded Client Recorded Date Recorded By Document 12/26/17 11:02 DV [id number] 12/26/17 11:13 DV 12/26/17 11:02 Wound Center Nurse 2 [Procedure/Treatment] #1 Left Lateral Foot -Time 11:07 -Correct Patient Yes -Correct Side, Site, Position Yes -Correct Procedure Yes -Procedure Performed Yes -Type of Procedure Debridement -Clinical Debridement Muscle -Post Debridement Size (cm) - Length 5.4 -Post Debridement Size (cm) - Width 2.6 -Post Debridement Size (cm) - Depth 1.6 -Total Square Cm 14.04 -Wound/Ulcer Outcome Not Healed -Ulcer Cleansing Rinsed/ Irrigated with Saline -Foul Odor after Cleansing No -Bioengineered Tissue No -Bleeding Controlled with Pressure -Treatment Response Procedure Tolerated Well [See Physician Procedure note for Specifics] Pain Scale: 0-10 Numeric [Pain] -Is Patient Pain Free? Yes Musculoskeletal: No Tenderness to Palpation of Joints or Extremities, - - Bilateral Charcot foot type. Bilateral hammertoe deformities digits 2?5. Neurological: - - Epicritic sensation grossly absent to lower extremity Psych/Mental Status: Normal Affect, Appropriate Debridement Note Post-Debridement Measurements/Treatment - Nurse 2 - General Ulcer CM Notes Start: 12/26/17 10:14 Freq: Status: Active Protocol: Activity Type Activity Date Activity User E-Sign Co-Sign Detail Recorded Client Recorded Date Recorded By Document 12/26/17 11:02 DV [id number] 12/26/17 11:13 DV 12/26/17 11:02 Wound Center Nurse 2 #1 Left Lateral Foot -Time 11:07 -Correct Patient Yes -Correct Side, Site, Position Yes -Correct Procedure Yes -Procedure Performed Yes -Type of Procedure Debridement -Clinical Debridement Muscle -Post Debridement Size (cm) - Length 5.4 -Post Debridement Size (cm) - Width 2.6 -Post Debridement Size (cm) - Depth 1.6 -Total Square Cm 14.04 -Wound/Ulcer Outcome Not Healed -Ulcer Cleansing Rinsed/ Irrigated with Saline -Foul Odor after Cleansing No -Bioengineered Tissue No -Bleeding Controlled with Pressure -Treatment Response Procedure Tolerated Well Pain Scale: 0-10 Numeric Is Patient Pain Free? 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 Patient had surgical debridement of all necrotic, nonviable, infected soft tissue and bone of the left foot with open partial fifth ray amputation on December 16. Patient also had an angioplasty performed by Dr. Powers on December 20. Details from each operative report can be found in the patient's chart. Patient had subcutaneous debridement performed today as noted in the clinical panel. Following debridement the site was carefully cleansed and then a wound VAC was again applied per dial brusher's guidelines and set at 125 mmHg continuous flow. This is to be changed 3 times per week. It was stressed not to use any kind of significant compression to the lower extremity due to recently performed vascular procedure. Patient is to be nonweightbearing to the left foot at all times. Patient is to keep the area clean dry and intact. P atient instructed to eat a diet high in protein to help stimulate healing potential. The importance of tight glycemic control was discussed with this patient. Patient and her daughter were educated on all signs and symptoms of local and systemic infection and they were instructed to go to the emergency room immediately should they notice any of these. Patient will follow-up and clinic in 1 week, but was instructed to follow-up in clinic sooner if needed.
[2018-01-02 11:28] VITALS: BP 131/69; PULSE 79; RESP 18; TEMP 36.3
--- NOTE | 2018-01-02 14:33 | PCM.WC.PN ---
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 Status: Acute Current Visit: Yes Code(s): E11.621 - Type 2 diabetes mellitus with foot ulcer; L97.525 - Non-pressure chronic ulcer of other part of left foot with muscle involvement without evidence of necrosis (2) PVD (peripheral vascular disease) Status: Acute Current Visit: Yes Code(s): I73.9 - Peripheral vascular disease, unspecified (3) Type 2 diabetes mellitus with diabetic polyneuropathy Status: Acute Current Visit: No Code(s): E11.42 - Type 2 diabetes mellitus with diabetic polyneuropathy (4) Charcot's joint of foot Status: Acute Current Visit: No Code(s): M14.679 - Charcot's joint, unspecified ankle and foot Type of Wound Chief Complaint: Sore on left foot caused by removing tape. History of Wound: 72 year old diabetic female was being seen for a ulcer on her left lateral foot at the base of the 5th toe. She states that she was seeing a claims correspondence clerk, Dr. Santo in [place] for a callus on the arch of her left foot and for her history of Charcot foot. A month ago she had a bandage covering the callus and when she removed it, the tape pulled some skin off at the base of her 5th toe. She had an opened ulcer there ever since. She has been applying silvadine cream and soaking her foot in epsome salt as prescribed by her claims correspondence clerk in [place]. 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 On December 15 the patient was admitted for fever, nausea, vomiting, cellulitis of left foot, and ulcer of left foot. X-ray and MRI taken showed evidence of osteomyelitis to the fifth metatarsal and base of the fifth toe as well as showed signs of soft tissue emphysema. I was consulted on December 16 when the patient was admitted, and she was taken to surgery the same day for debridement of all necrotic, nonviable, infected soft tissue and bone of the left foot with open partial fifth ray amputation. Dr. Powers then performed an angioplasty on December 20 while the patient was still admitted prior to her discharge. Details from both operative reports can be found in the patient's chart. A wound VAC was applied prior to patient's discharge home, and she is to follow back up at the wound healing center. Progress of Wound: Open surgical site to left lateral foot shows very slight improvement since last week. Patient has continued with wound vac changes as ordered. Patient currently denies any feelings of nausea, vomiting, fever, chills. - Physical Exam Vital Signs Temp Pulse Resp BP 97.3 F L 79 18 131/69 H 01/02/18 11:28 01/02/18 11:28 01/02/18 11:28 01/02/18 11:28 General: Alert, Oriented x3, Cooperative, No apparent distress Extremities: Capillary Refill Less than 3 Seconds, No Calf Tenderness - Negative Zion and Degroot sign, Diminished Peripheral Pulses - DP and PT pulses nonpalpable, Edema - Slight lower extremity edema Skin: Ulcer/ Wound - Open surgical site to left lateral foot with fat layer and some muscle/tendon exposed. Measurements are noted below. No new areas of necrosis are appreciated today. The base is a mixture of adherent slough, fibrous tissue, biofilm, and granular tissue. Slight amount of hyperkeratotic tissue noted. There is no surrounding or extending cellulitis, no significant increase in warmth, no purulence, and no malodor appreciated at this time. Wound Measurements and Assessment WC - Nurse 1 - General Ulcer Measurement Start: 12/26/17 10:14 Freq: Status: Active Protocol: Activity Type Activity Date Activity User E-Sign Co-Sign Detail Recorded Client Recorded Date Recorded By Document 01/02/18 11:28 RB [id number] 01/02/18 11:51 RB 01/02/18 11:28 Wound Center Nurse 1 [Ulcer Assessment] #1 Left Lateral Foot -Combined with other wound No -Current Size (cm) - Length 5.3 -Current Size (cm) - Width 2.5 -Current Size (cm) - Depth 0.4 -Total Square Cm 13.25 -Photo Taken No -Tunneling No -Undermining/Tunneling Yes -Undermining/Tunneling Starts (O' 8 clock) -Undermining/Tunneling Ends (O'clock) 9 -Maximum Distance (cm) 0.4 -Circular Undermining No -Classification - Thickness Full Thickness without Exposed Support Structure -Exudate Amt Medium (34-66%) -Exudate Type Serosanguineous -Wound Margin Thickened & Rolled Under -Granulation Amt Medium (34-66%) -Granulation Quality [place] -Slough/Fibrin Yes -Necrosis Amt Small (1-33%) -Necrotic Tissue Type Adherent Slough -Structure Exposed N/A -Texture (Gissell-wound Skin Appearance) Assessed -Moisture (Gissell-wound Skin Appearance Assessed ) Maceration -Color (Gissell-wound Skin Appearance) Assessed -Temperature (Gissell-wound Skin No Abnormality Appearance) (Pt Warm) -Tenderness on Palpation (Gissell-wound No Skin Appearance) -Ulcer Cleansing Rinsed/ Irrigated with Saline -Foul Odor after Cleansing No -Anesthetic Used 4% Lidocaine Solution - Nurse 2 - General Ulcer CM Notes Start: 12/26/17 10:14 Freq: Status: Active Protocol: Activity Type Activity Date Activity User E-Sign Co-Sign Detail Recorded Client Recorded Date Recorded By Document 01/02/18 12:00 DV [id number] 01/02/18 12:02 DV 01/02/18 12:00 Wound Center Nurse 2 [Procedure/Treatment] -Time 12:01 -Correct Patient Yes -Correct Side, Site, Position Yes -Correct Procedure Yes -Procedure Performed Yes -Type of Procedure Debridement -Clinical Debridement Subcutaneous -Post Debridement Size (cm) - Length 5.0 -Post Debridement Size (cm) - Width 2.5 -Post Debridement Size (cm) - Depth 1.5 -Total Square Cm 12.50 -Wound/Ulcer Outcome Not Healed -Ulcer Cleansing Rinsed/ Irrigated with Saline -Foul Odor after Cleansing No -Bioengineered Tissue No -Bleeding Controlled with Pressure -Treatment Response Procedure Tolerated Well [See Physician Procedure note for Specifics] Pain Scale: 0-10 Numeric [Pain] -Is Patient Pain Free? Yes Musculoskeletal: No Tenderness to Palpation of Joints or Extremities, - - Bilateral Charcot foot type. Bilateral hammertoe deformities digits 2?5 Neurological: - - Epicritic sensation grossly absent lower extremity Psych/Mental Status: Normal Affect, Appropriate Debridement Note Post-Debridement Measurements/Treatment - Nurse 2 - General Ulcer CM Notes Start: 12/26/17 10:14 Freq: Status: Active Protocol: Activity Type Activity Date Activity User E-Sign Co-Sign Detail Recorded Client Recorded Date Recorded By Document 12/26/17 11:02 DV [id number] 12/26/17 11:13 DV Document 01/02/18 12:00 DV [id number] 01/02/18 12:02 DV 12/26/17 01/02/18 11:02 12:00 Wound Center Nurse 2 #1 Left Lateral Foot -Time 11: 12:01 -Correct Patient Yes Yes -Correct Side, Site, Position Yes Yes -Correct Procedure Yes Yes -Procedure Performed Yes Yes -Type of Procedure Debridement Debridement -Clinical Debridement Muscle Subcutaneous -Post Debridement Size (cm) - Length 5.4 5.0 -Post Debridement Size (cm) - Width 2.6 2.5 -Post Debridement Size (cm) - Depth 1.6 1.5 -Total Square Cm 14.04 12.50 -Wound/Ulcer Outcome Not Healed Not Healed -Ulcer Cleansing Rinsed/ Rinsed/ Irrigated with Irrigated with Saline Saline -Foul Odor after Cleansing No No -Bioengineered Tissue No No -Bleeding Controlled with Pressure Pressure -Treatment Response Procedure Procedure Tolerated Well Tolerated Well Pain Scale: 0-10 Numeric Is Patient Pain Free? 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 Patient had surgical debridement of all necrotic, nonviable, infected soft tissue and bone of the left foot with open partial fifth ray amputation on December 16. Patient also had an angioplasty performed by Dr. Powers on December 20. Details from each operative report can be found in the patient's chart. Patient had subcutaneous debridement performed today as noted in the clinical panel. Following debridement the site was carefully cleansed, and once hemostasis was confirmed, a wound VAC was again applied per meat butcher's guidelines and set at 125 mmHg continuous flow. This is to be changed 3 times per week. It was stressed not to use any kind of significant compression to the lower extremity due to recently performed vascular procedure. Patient is to be nonweightbearing to the left foot at all times. Patient is to keep the area clean dry and intact. Patient instructed to eat a diet high in protein to help stimulate healing potential. The importance of tight glycemic control was discussed with this patient. Patient and her daughter were educated on all signs and symptoms of local and systemic infection and they were instructed to go to the emergency room immediately should they notice any of these, or if they notice any issues with her wound vac. Patient will follow-up and clinic in 1 week, but was instructed to follow-up in clinic sooner if needed.
--- NOTE | 2018-01-02 14:39 | PN.PCM_ITS ---
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 Status: Acute Current Visit: Yes Code(s): E11.621 - Type 2 diabetes mellitus with foot ulcer; L97.525 - Non-pressure chronic ulcer of other part of left foot with muscle involvement without evidence of necrosis (2) PVD (peripheral vascular disease) Status: Acute Current Visit: Yes Code(s): I73.9 - Peripheral vascular disease, unspecified (3) Type 2 diabetes mellitus with diabetic polyneuropathy Status: Acute Current Visit: No Code(s): E11.42 - Type 2 diabetes mellitus with diabetic polyneuropathy (4) Charcot's joint of foot Status: Acute Current Visit: No Code(s): M14.679 - Charcot's joint, unspecified ankle and foot Type of Wound Chief Complaint: Sore on left foot caused by removing tape. History of Wound: 72 year old diabetic female was being seen for a ulcer on her left lateral foot at the base of the 5th toe. She states that she was seeing a retail operations manager, Dr. Santo in [place] for a callus on the arch of her left foot and for her history of Charcot foot. A month ago she had a bandage covering the callus and when she removed it, the tape pulled some skin off at the base of her 5th toe. She had an opened ulcer there ever since. She has been applying silvadine cream and soaking her foot in epsome salt as prescribed by her retail operations manager in [place]. 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 On December 15 the patient was admitted for fever, nausea, vomiting, cellulitis of left foot, and ulcer of left foot. X-ray and MRI taken showed evidence of osteomyelitis to the fifth metatarsal and base of the fifth toe as well as showed signs of soft tissue emphysema. I was consulted on December 16 when the patient was admitted, and she was taken to surgery the same day for debridement of all necrotic, nonviable, infected soft tissue and bone of the left foot with open partial fifth ray amputation. Dr. Powers then performed an angioplasty on December 20 while the patient was still admitted prior to her discharge. Details from both operative reports can be found in the patient's chart. A wound VAC was applied prior to patient's discharge home, and she is to follow back up at the wound healing center. Progress of Wound: Open surgical site to left lateral foot shows very slight improvement since last week. Patient has continued with wound vac changes as ordered. Patient currently denies any feelings of nausea, vomiting, fever, chills. - Physical Exam Vital Signs Temp Pulse Resp BP 97.3 F L 79 18 131/69 H 01/02/18 11:28 01/02/18 11:28 01/02/18 11:28 01/02/18 11:28 General: Alert, Oriented x3, Cooperative, No apparent distress Extremities: Capillary Refill Less than 3 Seconds, No Calf Tenderness - Negative Zion and Degroot sign, Diminished Peripheral Pulses - DP and PT pulses nonpalpable, Edema - Slight lower extremity edema Skin: Ulcer/ Wound - Open surgical site to left lateral foot with fat layer and some muscle/tendon exposed. Measurements are noted below. No new areas of necrosis are appreciated today. The base is a mixture of adherent slough, fibrous tissue, biofilm, and granular tissue. Slight amount of hyperkeratotic tissue noted. There is no surrounding or extending cellulitis, no significant increase in warmth, no purulence, and no malodor appreciated at this time. Wound Measurements and Assessment WC - Nurse 1 - General Ulcer Measurement Start: 12/26/17 10:14 Freq: Status: Active Protocol: Activity Type Activity Date Activity User E-Sign Co-Sign Detail Recorded Client Recorded Date Recorded By Document 01/02/18 11:28 RB [id number] 01/02/18 11:51 RB 01/02/18 11:28 Wound Center Nurse 1 [Ulcer Assessment] #1 Left Lateral Foot -Combined with other wound No -Current Size (cm) - Length 5.3 -Current Size (cm) - Width 2.5 -Current Size (cm) - Depth 0.4 -Total Square Cm 13.25 -Photo Taken No -Tunneling No -Undermining/Tunneling Yes -Undermining/Tunneling Starts (O' 8 clock) -Undermining/Tunneling Ends (O'clock) 9 -Maximum Distance (cm) 0.4 -Circular Undermining No -Classification - Thickness Full Thickness without Exposed Support Structure -Exudate Amt Medium (34-66%) -Exudate Type Serosanguineous -Wound Margin Thickened & Rolled Under -Granulation Amt Medium (34-66%) -Granulation Quality [place] -Slough/Fibrin Yes -Necrosis Amt Small (1-33%) -Necrotic Tissue Type Adherent Slough -Structure Exposed N/A -Texture (Gissell-wound Skin Appearance) Assessed -Moisture (Gissell-wound Skin Appearance Assessed ) Maceration -Color (Gissell-wound Skin Appearance) Assessed -Temperature (Gissell-wound Skin No Abnormality Appearance) (Pt Warm) -Tenderness on Palpation (Gissell-wound No Skin Appearance) -Ulcer Cleansing Rinsed/ Irrigated with Saline -Foul Odor after Cleansing No -Anesthetic Used 4% Lidocaine Solution - Nurse 2 - General Ulcer CM Notes Start: 12/26/17 10:14 Freq: Status: Active Protocol: Activity Type Activity Date Activity User E-Sign Co-Sign Detail Recorded Client Recorded Date Recorded By Document 01/02/18 12:00 DV [id number] 01/02/18 12:02 DV 01/02/18 12:00 Wound Center Nurse 2 [Procedure/Treatment] -Time 12:01 -Correct Patient Yes -Correct Side, Site, Position Yes -Correct Procedure Yes -Procedure Performed Yes -Type of Procedure Debridement -Clinical Debridement Subcutaneous -Post Debridement Size (cm) - Length 5.0 -Post Debridement Size (cm) - Width 2.5 -Post Debridement Size (cm) - Depth 1.5 -Total Square Cm 12.50 -Wound/Ulcer Outcome Not Healed -Ulcer Cleansing Rinsed/ Irrigated with Saline -Foul Odor after Cleansing No -Bioengineered Tissue No -Bleeding Controlled with Pressure -Treatment Response Procedure Tolerated Well [See Physician Procedure note for Specifics] Pain Scale: 0-10 Numeric [Pain] -Is Patient Pain Free? Yes Musculoskeletal: No Tenderness to Palpation of Joints or Extremities, - - Bilateral Charcot foot type. Bilateral hammertoe deformities digits 2?5 Neurological: - - Epicritic sensation grossly absent lower extremity Psych/Mental Status: Normal Affect, Appropriate Debridement Note Post-Debridement Measurements/Treatment - Nurse 2 - General Ulcer CM Notes Start: 12/26/17 10:14 Freq: Status: Active Protocol: Activity Type Activity Date Activity User E-Sign Co-Sign Detail Recorded Client Recorded Date Recorded By Document 12/26/17 11:02 DV [id number] 12/26/17 11:13 DV Document 01/02/18 12:00 DV [id number] 01/02/18 12:02 DV 12/26/17 01/02/18 11:02 12:00 Wound Center Nurse 2 #1 Left Lateral Foot -Time 11: 12:01 -Correct Patient Yes Yes -Correct Side, Site, Position Yes Yes -Correct Procedure Yes Yes -Procedure Performed Yes Yes -Type of Procedure Debridement Debridement -Clinical Debridement Muscle Subcutaneous -Post Debridement Size (cm) - Length 5.4 5.0 -Post Debridement Size (cm) - Width 2.6 2.5 -Post Debridement Size (cm) - Depth 1.6 1.5 -Total Square Cm 14.04 12.50 -Wound/Ulcer Outcome Not Healed Not Healed -Ulcer Cleansing Rinsed/ Rinsed/ Irrigated with Irrigated with Saline Saline -Foul Odor after Cleansing No No -Bioengineered Tissue No No -Bleeding Controlled with Pressure Pressure -Treatment Response Procedure Procedure Tolerated Well Tolerated Well Pain Scale: 0-10 Numeric Is Patient Pain Free? 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 Patient had surgical debridement of all necrotic, nonviable, infected soft tissue and bone of the left foot with open partial fifth ray amputation on December 16. Patient also had an angioplasty performed by Dr. Powers on December 20. Details from each operative report can be found in the patient's chart. Patient had subcutaneous debridement performed today as noted in the clinical pa gloria. Following debridement the site was carefully cleansed, and once hemostasis was confirmed, a wound VAC was again applied per panel maker's guidelines and set at 125 mmHg continuous flow. This is to be changed 3 times per week. It was stressed not to use any kind of significant compression to the lower extremity due to recently performed vascular procedure. Patient is to be nonweightbearing to the left foot at all times. Patient is to keep the area clean dry and intact. Patient instructed to eat a diet high in protein to help stimulate healing potential. The importance of tight glycemic control was discussed with this patient. Patient and her daughter were educated on all signs and symptoms of local and systemic infection and they were instructed to go to the emergency room immediately should they notice any of these, or if they notice any issues with her wound vac. Patient will follow-up and clinic in 1 week, but was instructed to follow-up in clinic sooner if needed.
[2018-01-09 11:01] VITALS: BP 104/62; PULSE 78; RESP 16; TEMP 35.5
--- NOTE | 2018-01-09 11:55 | PCM.WC.PN ---
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 Status: Acute Current Visit: Yes Code(s): E11.621 - Type 2 diabetes mellitus with foot ulcer; L97.525 - Non-pressure chronic ulcer of other part of left foot with muscle involvement without evidence of necrosis (2) PVD (peripheral vascular disease) Status: Acute Current Visit: Yes Code(s): I73.9 - Peripheral vascular disease, unspecified (3) Type 2 diabetes mellitus with diabetic polyneuropathy Status: Acute Current Visit: No Code(s): E11.42 - Type 2 diabetes mellitus with diabetic polyneuropathy (4) Charcot's joint of foot Status: Acute Current Visit: No Code(s): M14.679 - Charcot's joint, unspecified ankle and foot Type of Wound Chief Complaint: Sore on left foot caused by removing tape. History of Wound: 72 year old diabetic female was being seen for a ulcer on her left lateral foot at the base of the 5th toe. She states that she was seeing a sheet metal assembler, Dr. Santo in [place] for a callus on the arch of her left foot and for her history of Charcot foot. A month ago she had a bandage covering the callus and when she removed it, the tape pulled some skin off at the base of her 5th toe. She had an opened ulcer there ever since. She has been applying silvadine cream and soaking her foot in epsome salt as prescribed by her sheet metal assembler in [place]. 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 On December 15 the patient was admitted for fever, nausea, vomiting, cellulitis of left foot, and ulcer of left foot. X-ray and MRI taken showed evidence of osteomyelitis to the fifth metatarsal and base of the fifth toe as well as showed signs of soft tissue emphysema. I was consulted on December 16 when the patient was admitted, and she was taken to surgery the same day for debridement of all necrotic, nonviable, infected soft tissue and bone of the left foot with open partial fifth ray amputation. Dr. Powers then performed an angioplasty on December 20 while the patient was still admitted prior to her discharge. Details from both operative reports can be found in the patient's chart. A wound VAC was applied prior to patient's discharge home, and she is to follow back up at the wound healing center. Progress of Wound: Open surgical site to left lateral foot shows very slight improvement since last week again. Patient has continued with wound vac changes as ordered. Patient currently denies any feelings of nausea, vomiting, fever, chills. - Physical Exam Vital Signs Temp Pulse Resp BP 96 F L 78 16 104/62 01/09/18 11:01/09/18 11:01/09/18 11:01/09/18 11:01 General: Alert, Oriented x3, Cooperative, No apparent distress Extremities: Capillary Refill Less than 3 Seconds, No Calf Tenderness - Negative Zion and Degroot sign, Diminished Peripheral Pulses - DP and PT pulses nonpalpable, Edema - Slight lower extremity edema Skin: Ulcer/ Wound - Open surgical site to left lateral foot with fat layer and some muscle/tendon exposed. Measurements noted below. There continues to be no new areas of any necrosis appreciated. The base continues to be a mixture of adherent slough, fibrous tissue, biofilm, granular tissue. Very minor amount of maceration to the periphery. There is no surrounding or extending cellulitis, no significant increase in warmth, no purulence, and no malodor appreciated at this time. Wound Measurements and Assessment WC - Nurse 1 - General Ulcer Measurement Start: 12/26/17 10:14 Freq: Status: Active Protocol: Activity Type Activity Date Activity User E-Sign Co-Sign Detail Recorded Client Recorded Date Recorded By Document 01/09/18 11: [facility] [id number] 01/09/18 11:12 [facility] 01/09/18 11:01 Wound Center Nurse 1 [Ulcer Assessment] #1 Left Lateral Foot -Combined with other wound No -Current Size (cm) - Length 4.7 -Current Size (cm) - Width 2.1 -Current Size (cm) - Depth 0.5 -Total Square Cm 9.87 -Date of Last Picture (Recall this 01/09/18 field) -Photo Taken Yes -Tunneling No -Undermining/Tunneling Yes -Undermining/Tunneling Starts (O' 6 clock) -Undermining/Tunneling Ends (O'clock) 11 -Maximum Distance (cm) 1.4 -Exudate Amt None Present (0 %) -Wound Margin Distinct, Outline Attached -Granulation Amt Large (67-100%) -Granulation Quality Red -Slough/Fibrin Yes -Necrosis Amt Small (1-33%) -Necrotic Tissue Type Adherent Slough -Structure Exposed Tendon -Texture (Gissell-wound Skin Appearance) Scarring -Moisture (Gissell-wound Skin Appearance Maceration ) Dry/Scaly -Color (Gissell-wound Skin Appearance) Erythema Palor -Temperature (Gissell-wound Skin No Abnormality Appearance) (Pt Warm) -Tenderness on Palpation (Gissell-wound No Skin Appearance) -Ulcer Cleansing Wound Cleanser -Foul Odor after Cleansing No -Anesthetic Used 4% Lidocaine Solution - Nurse 2 - General Ulcer CM Notes Start: 12/26/17 10:14 Freq: Status: Active Protocol: Activity Type Activity Date Activity User E-Sign Co-Sign Detail Recorded Client Recorded Date Recorded By Document 01/09/18 11:41 DV [id number] 01/09/18 11:51 DV 01/09/18 11:41 Wound Center Nurse 2 [Procedure/Treatment] -Time 11:41 -Correct Patient Yes -Correct Side, Site, Position Yes -Correct Procedure Yes -Procedure Performed Yes -Type of Procedure Debridement -Clinical Debridement Subcutaneous -Post Debridement Size (cm) - Length 5.1 -Post Debridement Size (cm) - Width 2.0 -Post Debridement Size (cm) - Depth 1.3 -Total Square Cm 10.20 -Wound/Ulcer Outcome Not Healed -Ulcer Cleansing Rinsed/ Irrigated with Saline -Foul Odor after Cleansing No -Bioengineered Tissue No -Bleeding Controlled with Pressure -Treatment Response Procedure Tolerated Well [See Physician Procedure note for Specifics] Pain Scale: 0-10 Numeric [Pain] -Is Patient Pain Free? Yes Musculoskeletal: No Tenderness to Palpation of Joints or Extremities, - - Bilateral Charcot foot type. Bilateral hammertoe deformities digits 2?5 of the right foot and 2?4 of the left foot. Neurological: - - Epicritic sensation grossly absent lower extremity Psych/Mental Status: Normal Affect, Appropriate Debridement Note Post-Debridement Measurements/Treatment - Nurse 2 - General Ulcer CM Notes Start: 12/26/17 10:14 Freq: Status: Active Protocol: Activity Type Activity Date Activity User E-Sign Co-Sign Detail Recorded Client Recorded Date Recorded By Document 12/26/17 11:02 DV [id number] 12/26/17 11:13 DV Document 01/02/18 12:00 DV [id number] 01/02/18 12:02 DV Document 01/09/18 11:41 DV [id number] 01/09/18 11:51 DV 12/26/17 01/02/18 01/09/18 11:02 12:00 11:41 Wound Center Nurse 2 #1 Left Lateral Foot -Time 11:07 12:01 11:41 -Correct Patient Yes Yes Yes -Correct Side, Site, Position Yes Yes Yes -Correct Procedure Yes Yes Yes -Procedure Performed Yes Yes Yes -Type of Procedure Debridement Debridement Debridement -Clinical Debridement Muscle Subcutaneous Subcutaneous -Post Debridement Size (cm) - Length 5.4 5.0 5.1 -Post Debridement Size (cm) - Width 2.6 2.5 2.0 -Post Debridement Size (cm) - Depth 1.6 1.5 1.3 -Total Square Cm 14.04 12.50 10.20 -Wound/Ulcer Outcome Not Healed Not Healed Not Healed -Ulcer Cleansing Rinsed/ Rinsed/ Rinsed/ Irrigated with Irrigated with Irrigated with Saline Saline Saline -Foul Odor after Cleansing No No No -Bioengineered Tissue No No No -Bleeding Controlled with Pressure Pressure Pressure -Treatment Response Procedure Procedure Procedure Tolerated Well Tolerated Well Tolerated Well Pain Scale: 0-10 Numeric Is Patient Pain Free? 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 Patient had surgical debridement of all necrotic, nonviable, infected soft tissue and bone of the left foot with open partial fifth ray amputation on December 16. Patient also had an angioplasty performed by Dr. Powers on December 20. Details from each operative report can be found in the patient's chart. Patient had subcutaneous debridement performed today as noted in the clinical panel. Following debridement the site was carefully cleansed, and a wound VAC was again applied per box office manager's guidelines and set at 125 mmHg continuous flow. This is to be changed 3 times per week. It was stressed not to use any kind of significant compression to the lower extremity due to recently performed vascular procedure. Patient is to be nonweightbearing to the left foot at all times. Patient is to keep the area clean dry and intact. Patient instructed to eat a diet high in protein to help stimulate healing potential. The importance of tight glycemic control was discussed with this patient. Patient and her daughter were educated on all signs and symptoms of local and systemic infection and they were instructed to go to the emergency room immediately should they notice any of these, or if they notice any issues with her wound vac. Patient will follow-up and clinic in 1 week for a nurse visit and vac change, but was instructed to follow-up in clinic sooner if needed.
--- NOTE | 2018-01-09 12:00 | PN.PCM_ITS ---
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 Status: Acute Current Visit: Yes Code(s): E11.621 - Type 2 diabetes mellitus with foot ulcer; L97.525 - Non-pressure chronic ulcer of other part of left foot with muscle involvement without evidence of necrosis (2) PVD (peripheral vascular disease) Status: Acute Current Visit: Yes Code(s): I73.9 - Peripheral vascular disease, unspecified (3) Type 2 diabetes mellitus with diabetic polyneuropathy Status: Acute Current Visit: No Code(s): E11.42 - Type 2 diabetes mellitus with diabetic polyneuropathy (4) Charcot's joint of foot Status: Acute Current Visit: No Code(s): M14.679 - Charcot's joint, unspecified ankle and foot Type of Wound Chief Complaint: Sore on left foot caused by removing tape. History of Wound: 72 year old diabetic female was being seen for a ulcer on her left lateral foot at the base of the 5th toe. She states that she was seeing a chemical manager, Dr. Santo in [place] for a callus on the arch of her left foot and for her history of Charcot foot. A month ago she had a bandage covering the callus and when she removed it, the tape pulled some skin off at the base of her 5th toe. She had an opened ulcer there ever since. She has been applying silvadine cream and soaking her foot in epsome salt as prescribed by her chemical manager in [place]. 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 On December 15 the patient was admitted for fever, nausea, vomiting, cellulitis of left foot, and ulcer of left foot. X-ray and MRI taken showed evidence of osteomyelitis to the fifth metatarsal and base of the fifth toe as well as showed signs of soft tissue emphysema. I was consulted on December 16 when the patient was admitted, and she was taken to surgery the same day for debridement of all necrotic, nonviable, infected soft tissue and bone of the left foot with open partial fifth ray amputation. Dr. Powers then performed an angioplasty on December 20 while the patient was still admitted prior to her discharge. Details from both operative reports can be found in the patient's chart. A wound VAC was applied prior to patient's discharge home, and she is to follow back up at the wound healing center. Progress of Wound: Open surgical site to left lateral foot shows very slight improvement since last week again. Patient has continued with wound vac changes as ordered. Patient currently denies any feelings of nausea, vomiting, fever, chills. - Physical Exam Vital Signs Temp Pulse Resp BP 96 F L 78 16 104/62 01/09/18 11:01/09/18 11:01/09/18 11:01/09/18 11:01 General: Alert, Oriented x3, Cooperative, No apparent distress Extremities: Capillary Refill Less than 3 Seconds, No Calf Tenderness - Negative Zion and Degroot sign, Diminished Peripheral Pulses - DP and PT pulses nonpalpable, Edema - Slight lower extremity edema Skin: Ulcer/ Wound - Open surgical site to left lateral foot with fat layer and some muscle/tendon exposed. Measurements noted below. There continues to be no new areas of any necrosis appreciated. The base continues to be a mixture of adherent slough, fibrous tissue, biofilm, granular tissue. Very minor amount of maceration to the periphery. There is no surrounding or extending cellulitis, no significant increase in warmth, no purulence, and no malodor appreciated at this time. Wound Measurements and Assessment WC - Nurse 1 - General Ulcer Measurement Start: 12/26/17 10:14 Freq: Status: Active Protocol: Activity Type Activity Date Activity User E-Sign Co-Sign Detail Recorded Client Recorded Date Recorded By Document 01/09/18 11: [facility] [id number] 01/09/18 11:12 [facility] 01/09/18 11:01 Wound Center Nurse 1 [Ulcer Assessment] #1 Left Lateral Foot -Combined with other wound No -Current Size (cm) - Length 4.7 -Current Size (cm) - Width 2.1 -Current Size (cm) - Depth 0.5 -Total Square Cm 9.87 -Date of Last Picture (Recall this 01/09/18 field) -Photo Taken Yes -Tunneling No -Undermining/Tunneling Yes -Undermining/Tunneling Starts (O' 6 clock) -Undermining/Tunneling Ends (O'clock) 11 -Maximum Distance (cm) 1.4 -Exudate Amt None Present (0 %) -Wound Margin Distinct, Outline Attached -Granulation Amt Large (67-100%) -Granulation Quality Red -Slough/Fibrin Yes -Necrosis Amt Small (1-33%) -Necrotic Tissue Type Adherent Slough -Structure Exposed Tendon -Texture (Gissell-wound Skin Appearance) Scarring -Moisture (Gissell-wound Skin Appearance Maceration ) Dry/Scaly -Color (Gissell-wound Skin Appearance) Erythema Palor -Temperature (Gissell-wound Skin No Abnormality Appearance) (Pt Warm) -Tenderness on Palpation (Gissell-wound No Skin Appearance) -Ulcer Cleansing Wound Cleanser -Foul Odor after Cleansing No -Anesthetic Used 4% Lidocaine Solution - Nurse 2 - General Ulcer CM Notes Start: 12/26/17 10:14 Freq: Status: Active Protocol: Activity Type Activity Date Activity User E-Sign Co-Sign Detail Recorded Client Recorded Date Recorded By Document 01/09/18 11:41 DV [id number] 01/09/18 11:51 DV 01/09/18 11:41 Wound Center Nurse 2 [Procedure/Treatment] -Time 11:41 -Correct Patient Yes -Correct Side, Site, Position Yes -Correct Procedure Yes -Procedure Performed Yes -Type of Procedure Debridement -Clinical Debridement Subcutaneous -Post Debridement Size (cm) - Length 5.1 -Post Debridement Size (cm) - Width 2.0 -Post Debridement Size (cm) - Depth 1.3 -Total Square Cm 10.20 -Wound/Ulcer Outcome Not Healed -Ulcer Cleansing Rinsed/ Irrigated with Saline -Foul Odor after Cleansing No -Bioengineered Tissue No -Bleeding Controlled with Pressure -Treatment Response Procedure Tolerated Well [See Physician Procedure note for Specifics] Pain Scale: 0-10 Numeric [Pain] -Is Patient Pain Free? Yes Musculoskeletal: No Tenderness to Palpation of Joints or Extremities, - - Bilateral Charcot foot type. Bilateral hammertoe deformities digits 2?5 of the right foot and 2?4 of the left foot. Neurological: - - Epicritic sensation grossly absent lower extremity Psych/Mental Status: Normal Affect, Appropriate Debridement Note Post-Debridement Measurements/Treatment - Nurse 2 - General Ulcer CM Notes Start: 12/26/17 10:14 Freq: Status: Active Protocol: Activity Type Activity Date Activity User E-Sign Co-Sign Detail Recorded Client Recorded Date Recorded By Document 12/26/17 11:02 DV [id number] 12/26/17 11:13 DV Document 01/02/18 12:00 DV [id number] 01/02/18 12:02 DV Document 01/09/18 11:41 DV [id number] 01/09/18 11:51 DV 12/26/17 01/02/18 01/09/18 11:02 12:00 11:41 Wound Center Nurse 2 #1 Left Lateral Foot -Time 11:07 12:01 11:41 -Correct Patient Yes Yes Yes -Correct Side, Site, Position Yes Yes Yes -Correct Procedure Yes Yes Yes -Procedure Performed Yes Yes Yes -Type of Procedure Debridement Debridement Debridement -Clinical Debridement Muscle Subcutaneous Subcutaneous -Post Debridement Size (cm) - Length 5.4 5.0 5.1 -Post Debridement Size (cm) - Width 2.6 2.5 2.0 -Post Debridement Size (cm) - Depth 1.6 1.5 1.3 -Total Square Cm 14.04 12.50 10.20 -Wound/Ulcer Outcome Not Healed Not Healed Not Healed -Ulcer Cleansing Rinsed/ Rinsed/ Rinsed/ Irrigated with Irrigated with Irrigated with Saline Saline Saline -Foul Odor after Cleansing No No No -Bioengineered Tissue No No No -Bleeding Controlled with Pressure Pressure Pressure -Treatment Response Procedure Procedure Procedure Tolerated Well Tolerated Well Tolerated Well Pain Scale: 0-10 Numeric Is Patient Pain Free? 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 Patient had surgical debridement of all necrotic, nonviable, infected soft tissue and bone of the left foot with open partial fifth ray amputation on December 16. Patient also had an angioplasty performed by Dr. Powers on December 20. Details from each operative report can be found in the patient's chart. Patient had subcutaneous debridement performed today as noted in the clinical panel. Following debridement the site was carefully cleansed, and a wound VAC was again applied per incoming inspector's guidelines and set at 125 mmHg continuous flow. This is to be changed 3 times per week. It was stressed not to use any kind of significant compression to the lower extremity due to recently performed vascular procedure. Patient is to be nonweightbearing to the left foot at all times. Patient is to keep the area clean dry and intact. Patient instructed to eat a diet high in protein to help stimulate healing potential. The importance of tight glycemic control was discussed with this patient. Patient and her daughter were educated on all signs and symptoms of local and systemic infection and they were instructed to go to the emergency room immediately should they notice any of these, or if they notice any issues with her wound vac. Patient will follow-up and clinic in 1 week for a nurse visit and vac change, but was instructed to follow-up in clinic sooner if needed.
[2018-01-15 13:37] VITALS: BP 108/56; PULSE 75; RESP 16; TEMP 36.2
[2018-01-23 11:41] VITALS: BP 100/58; PULSE 72; RESP 16; TEMP 36.1
--- NOTE | 2018-01-23 14:14 | PCM.WC.PN ---
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 Status: Acute Current Visit: Yes Code(s): E11.621 - Type 2 diabetes mellitus with foot ulcer; L97.525 - Non-pressure chronic ulcer of other part of left foot with muscle involvement without evidence of necrosis (2) PVD (peripheral vascular disease) Status: Acute Current Visit: Yes Code(s): I73.9 - Peripheral vascular disease, unspecified (3) Type 2 diabetes mellitus with diabetic polyneuropathy Status: Acute Current Visit: No Code(s): E11.42 - Type 2 diabetes mellitus with diabetic polyneuropathy (4) Charcot's joint of foot Status: Acute Current Visit: No Code(s): M14.679 - Charcot's joint, unspecified ankle and foot Type of Wound Chief Complaint: Sore on left foot caused by removing tape. History of Wound: 72 year old diabetic female was being seen for a ulcer on her left lateral foot at the base of the 5th toe. She states that she was seeing a medical asst, Dr. Santo in [place] for a callus on the arch of her left foot and for her history of Charcot foot. A month ago she had a bandage covering the callus and when she removed it, the tape pulled some skin off at the base of her 5th toe. She had an opened ulcer there ever since. She has been applying silvadine cream and soaking her foot in epsome salt as prescribed by her medical asst in [place]. 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 On December 15 the patient was admitted for fever, nausea, vomiting, cellulitis of left foot, and ulcer of left foot. X-ray and MRI taken showed evidence of osteomyelitis to the fifth metatarsal and base of the fifth toe as well as showed signs of soft tissue emphysema. I was consulted on December 16 when the patient was admitted, and she was taken to surgery the same day for debridement of all necrotic, nonviable, infected soft tissue and bone of the left foot with open partial fifth ray amputation. Dr. Powers then performed an angioplasty on December 20 while the patient was still admitted prior to her discharge. Details from both operative reports can be found in the patient's chart. A wound VAC was applied prior to patient's discharge home, and she is to follow back up at the wound healing center. Progress of Wound: Open surgical site to left lateral foot shows slight improvement since last visit again. Patient has continued with wound vac changes as ordered. Patient currently denies any feelings of nausea, vomiting, fever, chills. - Physical Exam Vital Signs Temp Pulse Resp BP 97 F L 72 16 100/58 L 01/23/18 11:41 01/23/18 11:41 01/23/18 11:41 01/23/18 11:41 General: Alert, Oriented x3, Cooperative, No apparent distress Extremities: Capillary Refill Less than 3 Seconds, No Calf Tenderness - Negative Zion and Degroot sign, Diminished Peripheral Pulses - DP and PT pulses nonpalpable, Edema - Slight lower extremity edema Skin: Ulcer/ Wound - Open surgical site to left lateral foot with fat layer exposed. Measurements noted below. There continues to be no new areas of any necrosis appreciated. The base continues to be a mixture of adherent slough, fibrous tissue, biofilm, granular tissue. Improved maceration to the periphery. There is no surrounding or extending cellulitis, no significant increase in warmth, no purulence, and no malodor appreciated at this time. Wound Measurements and Assessment WC - Nurse 1 - General Ulcer Measurement Start: 12/26/17 10:14 Freq: Status: Active Protocol: Activity Type Activity Date Activity User E-Sign Co-Sign Detail Recorded Client Recorded Date Recorded By Document 01/23/18 11:41 BM [id number] 01/23/18 11:45 BMF 01/23/18 11:41 Wound Center Nurse 1 [Ulcer Assessment] #1 Left Lateral Foot -Combined with other wound No -Current Size (cm) - Length 3.6 -Current Size (cm) - Width 1.5 -Current Size (cm) - Depth 0.4 -Total Square Cm 5.40 -Date of Last Picture (Recall this 01/23/18 field) -Photo Taken Yes -Epithelialization None Present -Tunneling No -Undermining/Tunneling Yes -Undermining/Tunneling Starts (O' 7 clock) -Undermining/Tunneling Ends (O'clock) 12 -Maximum Distance (cm) 0.6 -Classification - Thickness Full Thickness without Exposed Support Structure -Exudate Amt Small (1-33%) -Exudate Type Serosanguineous -Wound Margin Thickened & Rolled Under -Granulation Amt Large (67-100%) -Granulation Quality Red -Slough/Fibrin No -Necrosis Amt None Present (0 %) -Texture (Gissell-wound Skin Appearance) Localized Edema Scarring -Moisture (Gissell-wound Skin Appearance Maceration ) -Color (Gissell-wound Skin Appearance) Erythema Palor -Temperature (Gissell-wound Skin No Abnormality Appearance) (Pt Warm) -Tenderness on Palpation (Gissell-wound No Skin Appearance) -Ulcer Cleansing Wound Cleanser -Foul Odor after Cleansing No -Anesthetic Used 5% Lidocaine Gel WC - Nurse 2 - General Ulcer CM Notes Start: 12/26/17 10:14 Freq: Status: Active Protocol: Activity Type Activity Date Activity User E-Sign Co-Sign Detail Recorded Client Recorded Date Recorded By Document 01/23/18 12:16 DV [id number] 01/23/18 12:20 DV 01/23/18 12:16 Wound Center Nurse 2 [Procedure/Treatment] -Time 12:16 -Correct Patient Yes -Correct Side, Site, Position Yes -Correct Procedure Yes -Procedure Performed Yes -Type of Procedure Debridement -Clinical Debridement Subcutaneous -Post Debridement Size (cm) - Length 4.0 -Post Debridement Size (cm) - Width 1.8 -Post Debridement Size (cm) - Depth 0.7 -Total Square Cm 7.20 -Wound/Ulcer Outcome Not Healed -Ulcer Cleansing Rinsed/ Irrigated with Saline -Foul Odor after Cleansing No -Bioengineered Tissue No -Bleeding Controlled with Pressure -Offloading No -Treatment Response Procedure Tolerated Well [See Physician Procedure note for Specifics] Pain Scale: 0-10 Numeric [Pain] -Is Patient Pain Free? No Musculoskeletal: No Tenderness to Palpation of Joints or Extremities, - - Bilateral Charcot foot type. Bilateral hammertoe deformities of digits 2?5 of the right foot and 2?4 of the left foot. Neurological: - - Epicritic sensation grossly absent lower extremity Psych/Mental Status: Normal Affect, Appropriate Debridement Note Post-Debridement Measurements/Treatment - Nurse 2 - General Ulcer CM Notes Start: 12/26/17 10:14 Freq: Status: Active Protocol: Activity Type Activity Date Activity User E-Sign Co-Sign Detail Recorded Client Recorded Date Recorded By Document 12/26/17 11:02 DV [id number] 12/26/17 11:13 DV Document 01/02/18 12:00 DV [id number] 01/02/18 12:02 DV Document 01/09/18 11:41 DV [id number] 01/09/18 11:51 DV Document 01/23/18 12:16 DV [id number] 01/23/18 12:20 DV 12/26/17 01/02/18 01/09/18 11:02 12:00 11:41 Wound Center Nurse 2 #1 Left Lateral Foot -Time 11:07 12:01 11:41 -Correct Patient Yes Yes Yes -Correct Side, Site, Position Yes Yes Yes -Correct Procedure Yes Yes Yes -Procedure Performed Yes Yes Yes -Type of Procedure Debridement Debridement Debridement -Clinical Debridement Muscle Subcutaneous Subcutaneous -Post Debridement Size (cm) - Length 5.4 5.0 5.1 -Post Debridement Size (cm) - Width 2.6 2.5 2.0 -Post Debridement Size (cm) - Depth 1.6 1.5 1.3 -Total Square Cm 14.04 12.50 10.20 -Wound/Ulcer Outcome Not Healed Not Healed Not Healed -Ulcer Cleansing Rinsed/ Rinsed/ Rinsed/ Irrigated with Irrigated with Irrigated with Saline Saline Saline -Foul Odor after Cleansing No No No -Bioengineered Tissue No No No -Bleeding Controlled with Pressure Pressure Pressure -Offloading -Treatment Response Procedure Procedure Procedure Tolerated Well Tolerated Well Tolerated Well Pain Scale: 0-10 Numeric Is Patient Pain Free? Yes Yes Yes 01/23/18 12:16 Wound Center Nurse 2 #1 Left Lateral Foot -Time 12:16 -Correct Patient Yes -Correct Side, Site, Position Yes -Correct Procedure Yes -Procedure Performed Yes -Type of Procedure Debridement -Clinical Debridement Subcutaneous -Post Debridement Size (cm) - Length 4.0 -Post Debridement Size (cm) - Width 1.8 -Post Debridement Size (cm) - Depth 0.7 -Total Square Cm 7.20 -Wound/Ulcer Outcome Not Healed -Ulcer Cleansing Rinsed/ Irrigated with Saline -Foul Odor after Cleansing No -Bioengineered Tissue No -Bleeding Controlled with Pressure -Offloading No -Treatment Response Procedure Tolerated Well Pain Scale: 0-10 Numeric Is Patient Pain Free? 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 Patient had surgical debridement of all necrotic, nonviable, infected soft tissue and bone of the left foot with open partial fifth ray amputation on December 16. Patient also had an angioplasty performed by Dr. Powers on December 20. Details from each operative report can be found in the patient's chart. Patient had subcutaneous debridement performed today as noted in the clinical panel. Following debridement the site was carefully cleansed, and a wound VAC was again applied per poultryman's guidelines and set at 125 mmHg continuous flow. This is to be changed 3 times per week. It was stressed not to use any kind of significant compression to the lower extremity due to recently performed vascular procedure. Patient is to be nonweightbearing to the left foot at all times. Patient is to keep the area clean dry and intact. Patient instructed to eat a diet high in protein to help stimulate healing potential. The importance of tight glycemic control was discussed with this patient. Patient and her daughter were educated on all signs and symptoms of local and systemic infection and they were instructed to go to the emergency room immediately should they notice any of these, or if they notice any issues with her wound vac. Patient will follow-up and clinic in 1 week for a nurse visit and vac change, but was instructed to follow-up in clinic sooner if needed.
--- NOTE | 2018-01-23 14:19 | PN.PCM_ITS ---
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 Status: Acute Current Visit: Yes Code(s): E11.621 - Type 2 diabetes mellitus with foot ulcer; L97.525 - Non-pressure chronic ulcer of other part of left foot with muscle involvement without evidence of necrosis (2) PVD (peripheral vascular disease) Status: Acute Current Visit: Yes Code(s): I73.9 - Peripheral vascular disease, unspecified (3) Type 2 diabetes mellitus with diabetic polyneuropathy Status: Acute Current Visit: No Code(s): E11.42 - Type 2 diabetes mellitus with diabetic polyneuropathy (4) Charcot's joint of foot Status: Acute Current Visit: No Code(s): M14.679 - Charcot's joint, unspecified ankle and foot Type of Wound Chief Complaint: Sore on left foot caused by removing tape. History of Wound: 72 year old diabetic female was being seen for a ulcer on her left lateral foot at the base of the 5th toe. She states that she was seeing a wharf builder, Dr. Santo in [place] for a callus on the arch of her left foot and for her history of Charcot foot. A month ago she had a bandage covering the callus and when she removed it, the tape pulled some skin off at the base of her 5th toe. She had an opened ulcer there ever since. She has been applying silvadine cream and soaking her foot in epsome salt as prescribed by her wharf builder in [place]. 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 On December 15 the patient was admitted for fever, nausea, vomiting, cellulitis of left foot, and ulcer of left foot. X-ray and MRI taken showed evidence of osteomyelitis to the fifth metatarsal and base of the fifth toe as well as showed signs of soft tissue emphysema. I was consulted on December 16 when the patient was admitted, and she was taken to surgery the same day for debridement of all necrotic, nonviable, infected soft tissue and bone of the left foot with open partial fifth ray amputation. Dr. Powers then performed an angioplasty on December 20 while the patient was still admitted prior to her discharge. Details from both operative reports can be found in the patient's chart. A wound VAC was applied prior to patient's discharge home, and she is to follow back up at the wound healing center. Progress of Wound: Open surgical site to left lateral foot shows slight improvement since last visit again. Patient has continued with wound vac changes as ordered. Patient currently denies any feelings of nausea, vomiting, fever, chills. - Physical Exam Vital Signs Temp Pulse Resp BP 97 F L 72 16 100/58 L 01/23/18 11:41 01/23/18 11:41 01/23/18 11:41 01/23/18 11:41 General: Alert, Oriented x3, Cooperative, No apparent distress Extremities: Capillary Refill Less than 3 Seconds, No Calf Tenderness - Negative Zion and Degroot sign, Diminished Peripheral Pulses - DP and PT pulses nonpalpable, Edema - Slight lower extremity edema Skin: Ulcer/ Wound - Open surgical site to left lateral foot with fat layer exposed. Measurements noted below. There continues to be no new areas of any necrosis appreciated. The base continues to be a mixture of adherent slough, fibrous tissue, biofilm, granular tissue. Improved maceration to the periphery. There is no surrounding or extending cellulitis, no significant increase in warmth, no purulence, and no malodor appreciated at this time. Wound Measurements and Assessment WC - Nurse 1 - General Ulcer Measurement Start: 12/26/17 10:14 Freq: Status: Active Protocol: Activity Type Activity Date Activity User E-Sign Co-Sign Detail Recorded Client Recorded Date Recorded By Document 01/23/18 11:41 BM [id number] 01/23/18 11:45 BMF 01/23/18 11:41 Wound Center Nurse 1 [Ulcer Assessment] #1 Left Lateral Foot -Combined with other wound No -Current Size (cm) - Length 3.6 -Current Size (cm) - Width 1.5 -Current Size (cm) - Depth 0.4 -Total Square Cm 5.40 -Date of Last Picture (Recall this 01/23/18 field) -Photo Taken Yes -Epithelialization None Present -Tunneling No -Undermining/Tunneling Yes -Undermining/Tunneling Starts (O' 7 clock) -Undermining/Tunneling Ends (O'clock) 12 -Maximum Distance (cm) 0.6 -Classification - Thickness Full Thickness without Exposed Support Structure -Exudate Amt Small (1-33%) -Exudate Type Serosanguineous -Wound Margin Thickened & Rolled Under -Granulation Amt Large (67-100%) -Granulation Quality Red -Slough/Fibrin No -Necrosis Amt None Present (0 %) -Texture (Gissell-wound Skin Appearance) Localized Edema Scarring -Moisture (Gissell-wound Skin Appearance Maceration ) -Color (Gissell-wound Skin Appearance) Erythema Palor -Temperature (Gissell-wound Skin No Abnormality Appearance) (Pt Warm) -Tenderness on Palpation (Gissell-wound No Skin Appearance) -Ulcer Cleansing Wound Cleanser -Foul Odor after Cleansing No -Anesthetic Used 5% Lidocaine Gel WC - Nurse 2 - General Ulcer CM Notes Start: 12/26/17 10:14 Freq: Status: Active Protocol: Activity Type Activity Date Activity User E-Sign Co-Sign Detail Recorded Client Recorded Date Recorded By Document 01/23/18 12:16 DV [id number] 01/23/18 12:20 DV 01/23/18 12:16 Wound Center Nurse 2 [Procedure/Treatment] -Time 12:16 -Correct Patient Yes -Correct Side, Site, Position Yes -Correct Procedure Yes -Procedure Performed Yes -Type of Procedure Debridement -Clinical Debridement Subcutaneous -Post Debridement Size (cm) - Length 4.0 -Post Debridement Size (cm) - Width 1.8 -Post Debridement Size (cm) - Depth 0.7 -Total Square Cm 7.20 -Wound/Ulcer Outcome Not Healed -Ulcer Cleansing Rinsed/ Irrigated with Saline -Foul Odor after Cleansing No -Bioengineered Tissue No -Bleeding Controlled with Pressure -Offloading No -Treatment Response Procedure Tolerated Well [See Physician Procedure note for Specifics] Pain Scale: 0-10 Numeric [Pain] -Is Patient Pain Free? No Musculoskeletal: No Tenderness to Palpation of Joints or Extremities, - - Bilateral Charcot foot type. Bilateral hammertoe deformities of digits 2?5 of the right foot and 2?4 of the left foot. Neurological: - - Epicritic sensation grossly absent lower extremity Psych/Mental Status: Normal Affect, Appropriate Debridement Note Post-Debridement Measurements/Treatment - Nurse 2 - General Ulcer CM Notes Start: 12/26/17 10:14 Freq: Status: Active Protocol: Activity Type Activity Date Activity User E-Sign Co-Sign Detail Recorded Client Recorded Date Recorded By Document 12/26/17 11:02 DV [id number] 12/26/17 11:13 DV Document 01/02/18 12:00 DV [id number] 01/02/18 12:02 DV Document 01/09/18 11:41 DV [id number] 01/09/18 11:51 DV Document 01/23/18 12:16 DV [id number] 01/23/18 12:20 DV 12/26/17 01/02/18 01/09/18 11:02 12:00 11:41 Wound Center Nurse 2 #1 Left Lateral Foot -Time 11:07 12:01 11:41 -Correct Patient Yes Yes Yes -Correct Side, Site, Position Yes Yes Yes -Correct Procedure Yes Yes Yes -Procedure Performed Yes Yes Yes -Type of Procedure Debridement Debridement Debridement -Clinical Debridement Muscle Subcutaneous Subcutaneous -Post Debridement Size (cm) - Length 5.4 5.0 5.1 -Post Debridement Size (cm) - Width 2.6 2.5 2.0 -Post Debridement Size (cm) - Depth 1.6 1.5 1.3 -Total Square Cm 14.04 12.50 10.20 -Wound/Ulcer Outcome Not Healed Not Healed Not Healed -Ulcer Cleansing Rinsed/ Rinsed/ Rinsed/ Irrigated with Irrigated with Irrigated with Saline Saline Saline -Foul Odor after Cleansing No No No -Bioengineered Tissue No No No -Bleeding Controlled with Pressure Pressure Pressure -Offloading -Treatment Response Procedure Procedure Procedure Tolerated Well Tolerated Well Tolerated Well Pain Scale: 0-10 Numeric Is Patient Pain Free? Yes Yes Yes 01/23/18 12:16 Wound Center Nurse 2 #1 Left Lateral Foot -Time 12:16 -Correct Patient Yes -Correct Side, Site, Position Yes -Correct Procedure Yes -Procedure Performed Yes -Type of Procedure Debridement -Clinical Debridement Subcutaneous -Post Debridement Size (cm) - Length 4.0 -Post Debridement Size (cm) - Width 1.8 -Post Debridement Size (cm) - Depth 0.7 -Total Square Cm 7.20 -Wound/Ulcer Outcome Not Healed -Ulcer Cleansing Rinsed/ Irrigated with Saline -Foul Odor after Cleansing No -Bioengineered Tissue No -Bleeding Controlled with Pressure -Offloading No -Treatment Response Procedure Tolerated Well Pain Scale: 0-10 Numeric Is Patient Pain Free? 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 Patient had surgical debridement of all necrotic, nonviable, infected soft tissue and bone of the left foot with open partial fifth ray amputation on December 16. Patient also had an angioplasty performed by Dr. Powers on December 20. Details from each operative report can be found in the patient's chart. Patient had subcutaneous debridement performed today as noted in the clinical panel. Following debridement the site was carefully cleansed, and a wound VAC was again applied per biodiesel production technician's guidelines and set at 125 mmHg continuous flow. This is to be changed 3 times per week. It was stressed not to use any kind of significant compression to the lower extremity due to recently performed vascular procedure. Patient is to be nonweightbearing to the left foot at all times. Patient is to keep the area clean dry and intact. Patient instructed to eat a diet high in protein to help stimulate healing potential. The importance of tight glycemic control was discussed with this patient. Patient and her daughter were educated on all signs and symptoms of local and systemic infection and they were instructed to go to the emergency room immediately should they notice any of these, or if they notice any issues with her wound vac. Patient will follow-up and clinic in 1 week for a nurse visit and vac change, but was instructed to follow-up in clinic sooner if needed.
== END 2018-01-24 23:59 ==
LOC: WC 11:30
PROVIDERS: Family Provider Family Medicine; PCP Family Medicine; Visit Provider Podiatrist
DX: E11.621 Type 2 diabetes mellitus with foot ulcer (principal); E11.51 Type 2 diabetes mellitus with diabetic peripheral angiopathy without gangrene; E11.42 Type 2 diabetes mellitus with diabetic polyneuropathy; E11.610 Type 2 diabetes mellitus with diabetic neuropathic arthropathy; I10 Essential (primary) hypertension; L84 Corns and callosities; M20.42 Other hammer toe(s) (acquired), left foot; M20.41 Other hammer toe(s) (acquired), right foot; L97.522 Non-pressure chronic ulcer of other part of left foot with fat layer exposed
CPT/HCPCS: 11042; 11043; 97605; 99212; G0463

== ENCOUNTER 2018-01-27 15:38 | Outpatient (RCR) | payer MEDICARE, OTHER, SELFPAY ==
[2017-12-16 14:57] VITALS: BMI 24.1
[2018-01-27 16:56] LABS: Hematocrit 36.9 % (37-47); Hemoglobin 11.5 g/dl (12.0-15.0); Mean Corp Hgb Conc 31.2 g/gl (32-36); Mean Corpuscular Hgb 27.1 pg (27.0-32.0); Mean Corpuscular Volume 86.8 fL (81-99); Platelet Count 181 K/mm3 (150-450); RBC Distribution Width CV 19.7 % (11.6-14.6); Red Blood Count 4.25 M/mm3 (4.2-5.4); Scan Indicated on CBC? Y/N YES- FLAGS NOTED; White Blood Count 7.8 K/mm3 (4.4-11.0)
[2018-01-27 16:57] LABS: BUN 20 mg/dL (7-18); BUN/Creat Ratio 21.9 RATIO (10-20); Calcium,Total 10.5 mg/dL (8.5-10.1); Creatinine, Serum 0.91 mg/dL (0.55-1.02); EST Glomerular Filtration Rate 64 mL/min (>60); Est Glom Filt Rate - Afr Amer 78 mL/min (>60); Glucose 249 mg/dL (74-106); Sodium Level 139 mmol/L (136-145)
[2018-01-27 16:58] LABS: Anion Gap 5 (5-15); Chloride 103 mmol/L (98-107); Potassium 3.8 mmol/L (3.5-5.1)
[2018-01-27 17:22] LABS: Erythrocyte Sedimentation Rate 33 mm/hr (0-30)
== END 2018-01-27 16:00 | disposition home or self-care (01) ==
LOC: HHLAB 15:38
PROVIDERS: Family Provider Family Medicine; PCP Family Medicine; Referring Provider Internal Medicine Infectious Disease; Visit Provider Internal Medicine Infectious Disease
DX: Z47.81 Encounter for orthopedic aftercare following surgical amputation (principal); Z48.812 Encounter for surgical aftercare following surgery on the circulatory system; A49.01 Methicillin susceptible Staphylococcus aureus infection, unspecified site; M86.9 Osteomyelitis, unspecified
CPT/HCPCS: 80048; 85027; 85652

== ENCOUNTER 2018-02-20 11:30 | Outpatient (RCR) | payer MEDICARE, OTHER, SELFPAY ==
[2017-12-16 14:57] VITALS: BMI 24.1
[2018-01-25 01:39] VITALS: BP 100/58; PULSE 72; RESP 16; TEMP 36.1
[2018-01-30 11:28] VITALS: BP 152/71; PULSE 73; RESP 16; TEMP 36.1; BMI 24.1
--- NOTE | 2018-01-30 15:08 | PCM.WC.PN ---
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 Status: Acute Current Visit: Yes Code(s): E11.621 - Type 2 diabetes mellitus with foot ulcer; L97.522 - Non-pressure chronic ulcer of other part of left foot with fat layer exposed (2) Type 2 diabetes mellitus with diabetic polyneuropathy Status: Acute Current Visit: No Code(s): E11.42 - Type 2 diabetes mellitus with diabetic polyneuropathy (3) Charcot's joint of foot Status: Acute Current Visit: No Code(s): M14.679 - Charcot's joint, unspecified ankle and foot (4) PVD (peripheral vascular disease) Status: Acute Current Visit: No Code(s): I73.9 - Peripheral vascular disease, unspecified Type of Wound Chief Complaint: Sore on left foot caused by removing tape. History of Wound: 72 year old diabetic female was being seen for a ulcer on her left lateral foot at the base of the 5th toe. She states that she was seeing a metallurgical specialist, Dr. Santo in [place] for a callus on the arch of her left foot and for her history of Charcot foot. A month ago she had a bandage covering the callus and when she removed it, the tape pulled some skin off at the base of her 5th toe. She had an opened ulcer there ever since. She has been applying silvadine cream and soaking her foot in epsome salt as prescribed by her metallurgical specialist in [place]. 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 On December 15 the patient was admitted for fever, nausea, vomiting, cellulitis of left foot, and ulcer of left foot. X-ray and MRI taken showed evidence of osteomyelitis to the fifth metatarsal and base of the fifth toe as well as showed signs of soft tissue emphysema. I was consulted on December 16 when the patient was admitted, and she was taken to surgery the same day for debridement of all necrotic, nonviable, infected soft tissue and bone of the left foot with open partial fifth ray amputation. Dr. Powers then performed an angioplasty on December 20 while the patient was still admitted prior to her discharge. Details from both operative reports can be found in the patient's chart. A wound VAC was applied prior to patient's discharge home, and she is to follow back up at the wound healing center. Progress of Wound: Open surgical site to left lateral foot shows slight improvement since last visit again. Patient has continued with wound vac changes as ordered. Patient currently denies any feelings of nausea, vomiting, fever, chills. - Physical Exam Vital Signs Temp Pulse Resp BP 96.9 F L 73 16 152/71 H 01/30/18 11:28 12 11:28 01/30/18 11:28 01/30/18 11:28 General: Alert, Oriented x3, Cooperative, No apparent distress Extremities: Capillary Refill Less than 3 Seconds, No Calf Tenderness - Negative Zion and Degroot sign, Diminished Peripheral Pulses - PA PT pulses nonpalpable, Edema - Minor lower extremity edema Skin: Ulcer/ Wound - Open surgical site to left lateral foot with fat layer exposed. Measurements noted below. The base continues to be a mixture of adherent slough, fibrous tissue, biofilm, granular tissue. Granular tissue continues to improve. Improving maceration to the sites periphery. There continues to be no extending or surrounding cellulitis, no increase in warmth, no purulence, no malodor, and no probing, no tracking, no undermining at this time. Wound Measurements and Assessment WC - Nurse 1 - General Ulcer Measurement Start: 01/30/18 11:28 Freq: Status: Active Protocol: Activity Type Activity Date Activity User E-Sign Co-Sign Detail Recorded Client Recorded Date Recorded By Document 01/30/18 11:28 [facility] [id number] 01/30/18 11:41 [facility] 01/30/18 11:28 Wound Center Nurse 1 [Ulcer Assessment] #1 Left Lateral Foot -Combined with other wound No -Current Size (cm) - Length 3.1 -Current Size (cm) - Width 1.8 -Current Size (cm) - Depth 0.3 -Total Square Cm 5.58 -Photo Taken No -Epithelialization Small 1-33% -Tunneling No -Undermining/Tunneling Yes -Undermining/Tunneling Starts (O' 7 clock) -Undermining/Tunneling Ends (O'clock) 10 -Maximum Distance (cm) 0.2 -Classification - Thickness Full Thickness without Exposed Support Structure -Exudate Amt None Present (0 %) -Wound Margin Distinct, Outline Attached -Granulation Amt Large (67-100%) -Granulation Quality Red -Slough/Fibrin No -Necrosis Amt None Present (0 %) -Texture (Gissell-wound Skin Appearance) Scarring -Moisture (Gissell-wound Skin Appearance Maceration ) -Color (Gissell-wound Skin Appearance) Erythema Palor -Temperature (Gissell-wound Skin No Abnormality Appearance) (Pt Warm) -Tenderness on Palpation (Gissell-wound No Skin Appearance) -Ulcer Cleansing Wound Cleanser -Foul Odor after Cleansing No -Anesthetic Used 5% Lidocaine Gel - Nurse 2 - General Ulcer CM Notes Start: 01/30/18 11:28 Freq: Status: Active Protocol: Activity Type Activity Date Activity User E-Sign Co-Sign Detail Recorded Client Recorded Date Recorded By Document 01/30/18 12:40 DV [id number] 01/30/18 12:53 DV 01/30/18 12:40 Wound Center Nurse 2 [Procedure/Treatment] -Time 12:40 -Correct Patient Yes -Correct Side, Site, Position Yes -Correct Procedure Yes -Procedure Performed Yes -Type of Procedure Debridement -Clinical Debridement Subcutaneous -Post Debridement Size (cm) - Length 3.8 -Post Debridement Size (cm) - Width 1.8 -Post Debridement Size (cm) - Depth 0.3 -Total Square Cm 6.84 -Wound/Ulcer Outcome Not Healed -Ulcer Cleansing Rinsed/ Irrigated with Saline -Foul Odor after Cleansing No -Bioengineered Tissue No -Bleeding Controlled with Pressure -Offloading No -Treatment Response Procedure Tolerated Well [See Physician Procedure note for Specifics] Pain Scale: 0-10 Numeric [Pain] -Is Patient Pain Free? No Musculoskeletal: No Tenderness to Palpation of Joints or Extremities, - - Bilateral Charcot foot type. Bilateral hammer toe deformities of digits 2?5 of the right foot and 2?4 of the left foot. Neurological: - - Epicritic sensation grossly absent lower extremity Psych/Mental Status: Normal Affect, Appropriate Debridement Note Post-Debridement Measurements/Treatment - Nurse 2 - General Ulcer CM Notes Start: 01/30/18 11:28 Freq: Status: Active Protocol: Activity Type Activity Date Activity User E-Sign Co-Sign Detail Recorded Client Recorded Date Recorded By Document 01/30/18 12:40 DV [id number] 01/30/18 12:53 DV 01/30/18 12:40 Wound Center Nurse 2 #1 Left Lateral Foot -Time 12:40 -Correct Patient Yes -Correct Side, Site, Position Yes -Correct Procedure Yes -Procedure Performed Yes -Type of Procedure Debridement -Clinical Debridement Subcutaneous -Post Debridement Size (cm) - Length 3.8 -Post Debridement Size (cm) - Width 1.8 -Post Debridement Size (cm) - Depth 0.3 -Total Square Cm 6.84 -Wound/Ulcer Outcome Not Healed -Ulcer Cleansing Rinsed/ Irrigated with Saline -Foul Odor after Cleansing No -Bioengineered Tissue No -Bleeding Controlled with Pressure -Offloading No -Treatment Response Procedure Tolerated Well Pain Scale: 0-10 Numeric Is Patient Pain Free? No Wound debrided: Left lateral foot Laterality: Left Type of Debridement: Excisional debridement Anesthesia Used: 4% Lidocaine Solution Depth: in the subcutaneous layer Percentage of wound debrided: 100 Instrument Used: 7mm curette Tissue Removed: Adherent slough, fibrous tissue, biofilm Severity: Fat Layer Exposed Amount of bleeding with debridement: Mild Bleeding Controlled with: Pressure Patient tolerated procedure well Assessment/Plan Active Problems Diabetic ulcer of left foot with fat layer exposed (Acute) Assessment: Open surgical site left lateral foot, DM with neuropathy, PVD, other comorbidities Plan: This patient was carefully examined and evaluated with her daughter in the room again today. Patient had surgical debridement of all necrotic, nonviable, infected soft tissue and bone of the left foot with open partial fifth ray amputation on December 16. Patient also had an angioplasty performed by Dr. Powers on December 20. Details from each operative report can be found in the patient's chart. Patient had subcutaneous debridement performed today as noted in the clinical panel. Following debridement the site was carefully cleansed, and a wound VAC was again applied per ornamental bronze worker's guidelines and set at 125 mmHg continuous flow. This is to be changed 3 times per week. It was stressed not to use any kind of significant compression to the lower extremity due to recently performed vascular procedure. Patient is to be nonweightbearing to the left foot at all times. Patient is to keep the area clean dry and intact. Patient instructed to eat a diet high in protein to help stimulate healing potential. The importance of tight glycemic control was discussed with this patient. Patient and her daughter were educated on all signs and symptoms of local and systemic infection and they were instructed to go to the emergency room immediately should they notice any of these, or if they notice any issues with her wound vac. Patient will follow-up and clinic in 1 week for a nurse visit and vac change, but was instructed to follow-up in clinic sooner if needed.
--- NOTE | 2018-01-30 15:12 | PN.PCM_ITS ---
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 Status: Acute Current Visit: Yes Code(s): E11.621 - Type 2 diabetes mellitus with foot ulcer; L97.522 - Non-pressure chronic ulcer of other part of left foot with fat layer exposed (2) Type 2 diabetes mellitus with diabetic polyneuropathy Status: Acute Current Visit: No Code(s): E11.42 - Type 2 diabetes mellitus with diabetic polyneuropathy (3) Charcot's joint of foot Status: Acute Current Visit: No Code(s): M14.679 - Charcot's joint, unspecified ankle and foot (4) PVD (peripheral vascular disease) Status: Acute Current Visit: No Code(s): I73.9 - Peripheral vascular disease, unspecified Type of Wound Chief Complaint: Sore on left foot caused by removing tape. History of Wound: 72 year old diabetic female was being seen for a ulcer on her left lateral foot at the base of the 5th toe. She states that she was seeing a beading machine operator, Dr. Santo in [place] for a callus on the arch of her left foot and for her history of Charcot foot. A month ago she had a bandage covering the callus and when she removed it, the tape pulled some skin off at the base of her 5th toe. She had an opened ulcer there ever since. She has been applying silvadine cream and soaking her foot in epsome salt as prescribed by her beading machine operator in [place]. 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 On December 15 the patient was admitted for fever, nausea, vomiting, cellulitis of left foot, and ulcer of left foot. X-ray and MRI taken showed evidence of osteomyelitis to the fifth metatarsal and base of the fifth toe as well as showed signs of soft tissue emphysema. I was consulted on December 16 when the patient was admitted, and she was taken to surgery the same day for debridement of all necrotic, nonviable, infected soft tissue and bone of the left foot with open partial fifth ray amputation. Dr. Powers then performed an angioplasty on December 20 while the patient was still admitted prior to her discharge. Details from both operative reports can be found in the patient's chart. A wound VAC was applied prior to patient's discharge home, and she is to follow back up at the wound healing center. Progress of Wound: Open surgical site to left lateral foot shows slight improvement since last visit again. Patient has continued with wound vac changes as ordered. Patient currently denies any feelings of nausea, vomiting, fever, chills. - Physical Exam Vital Signs Temp Pulse Resp BP 96.9 F L 73 16 152/71 H 01/30/18 11:28 12 11:28 01/30/18 11:28 01/30/18 11:28 General: Alert, Oriented x3, Cooperative, No apparent distress Extremities: Capillary Refill Less than 3 Seconds, No Calf Tenderness - Negative Zion and Degroot sign, Diminished Peripheral Pulses - PA PT pulses nonpalpable, Edema - Minor lower extremity edema Skin: Ulcer/ Wound - Open surgical site to left lateral foot with fat layer exposed. Measurements noted below. The base continues to be a mixture of adherent slough, fibrous tissue, biofilm, granular tissue. Granular tissue continues to improve. Improving maceration to the sites periphery. There continues to be no extending or surrounding cellulitis, no increase in warmth, no purulence, no malodor, and no probing, no tracking, no undermining at this time. Wound Measurements and Assessment WC - Nurse 1 - General Ulcer Measurement Start: 01/30/18 11:28 Freq: Status: Active Protocol: Activity Type Activity Date Activity User E-Sign Co-Sign Detail Recorded Client Recorded Date Recorded By Document 01/30/18 11:28 [facility] [id number] 01/30/18 11:41 [facility] 01/30/18 11:28 Wound Center Nurse 1 [Ulcer Assessment] #1 Left Lateral Foot -Combined with other wound No -Current Size (cm) - Length 3.1 -Current Size (cm) - Width 1.8 -Current Size (cm) - Depth 0.3 -Total Square Cm 5.58 -Photo Taken No -Epithelialization Small 1-33% -Tunneling No -Undermining/Tunneling Yes -Undermining/Tunneling Starts (O' 7 clock) -Undermining/Tunneling Ends (O'clock) 10 -Maximum Distance (cm) 0.2 -Classification - Thickness Full Thickness without Exposed Support Structure -Exudate Amt None Present (0 %) -Wound Margin Distinct, Outline Attached -Granulation Amt Large (67-100%) -Granulation Quality Red -Slough/Fibrin No -Necrosis Amt None Present (0 %) -Texture (Gissell-wound Skin Appearance) Scarring -Moisture (Gissell-wound Skin Appearance Maceration ) -Color (Gissell-wound Skin Appearance) Erythema Palor -Temperature (Gissell-wound Skin No Abnormality Appearance) (Pt Warm) -Tenderness on Palpation (Gissell-wound No Skin Appearance) -Ulcer Cleansing Wound Cleanser -Foul Odor after Cleansing No -Anesthetic Used 5% Lidocaine Gel - Nurse 2 - General Ulcer CM Notes Start: 01/30/18 11:28 Freq: Status: Active Protocol: Activity Type Activity Date Activity User E-Sign Co-Sign Detail Recorded Client Recorded Date Recorded By Document 01/30/18 12:40 DV [id number] 01/30/18 12:53 DV 01/30/18 12:40 Wound Center Nurse 2 [Procedure/Treatment] -Time 12:40 -Correct Patient Yes -Correct Side, Site, Position Yes -Correct Procedure Yes -Procedure Performed Yes -Type of Procedure Debridement -Clinical Debridement Subcutaneous -Post Debridement Size (cm) - Length 3.8 -Post Debridement Size (cm) - Width 1.8 -Post Debridement Size (cm) - Depth 0.3 -Total Square Cm 6.84 -Wound/Ulcer Outcome Not Healed -Ulcer Cleansing Rinsed/ Irrigated with Saline -Foul Odor after Cleansing No -Bioengineered Tissue No -Bleeding Controlled with Pressure -Offloading No -Treatment Response Procedure Tolerated Well [See Physician Procedure note for Specifics] Pain Scale: 0-10 Numeric [Pain] -Is Patient Pain Free? No Musculoskeletal: No Tenderness to Palpation of Joints or Extremities, - - Bilateral Charcot foot type. Bilateral hammer toe deformities of digits 2?5 of the right foot and 2?4 of the left foot. Neurological: - - Epicritic sensation grossly absent lower extremity Psych/Mental Status: Normal Affect, Appropriate Debridement Note Post-Debridement Measurements/Treatment - Nurse 2 - General Ulcer CM Notes Start: 01/30/18 11:28 Freq: Status: Active Protocol: Activity Type Activity Date Activity User E-Sign Co-Sign Detail Recorded Client Recorded Date Recorded By Document 01/30/18 12:40 DV [id number] 01/30/18 12:53 DV 01/30/18 12:40 Wound Center Nurse 2 #1 Left Lateral Foot -Time 12:40 -Correct Patient Yes -Correct Side, Site, Position Yes -Correct Procedure Yes -Procedure Performed Yes -Type of Procedure Debridement -Clinical Debridement Subcutaneous -Post Debridement Size (cm) - Length 3.8 -Post Debridement Size (cm) - Width 1.8 -Post Debridement Size (cm) - Depth 0.3 -Total Square Cm 6.84 -Wound/Ulcer Outcome Not Healed -Ulcer Cleansing Rinsed/ Irrigated with Saline -Foul Odor after Cleansing No -Bioengineered Tissue No -Bleeding Controlled with Pressure -Offloading No -Treatment Response Procedure Tolerated Well Pain Scale: 0-10 Numeric Is Patient Pain Free? No Wound debrided: Left lateral foot Laterality: Left Type of Debridement: Excisional debridement Anesthesia Used: 4% Lidocaine Solution Depth: in the subcutaneous layer Percentage of wound debrided: 100 Instrument Used: 7mm curette Tissue Removed: Adherent slough, fibrous tissue, biofilm Severity: Fat Layer Exposed Amount of bleeding with debridement: Mild Bleeding Controlled with: Pressure Patient tolerated procedure well Assessment/Plan Active Problems Diabetic ulcer of left foot with fat layer exposed (Acute) Assessment: Open surgical site left lateral foot, DM with neuropathy, PVD, other comorbidities Plan: This patient was carefully examined and evaluated with her daughter in the room again today. Patient had surgical debridement of all necrotic, nonviable, infected soft tissue and bone of the left foot with open partial fifth ray amputation on December 16. Patient also had an angioplasty performed by Dr. Powers on December 20. Details from each operative report can be found in the patient's chart. Patient had subcutaneous debridement performed today as noted in the clinical panel. Following debridement the site was carefully cleansed, and a wound VAC was again applied per lawn technician's guidelines and set at 125 mmHg continuous flow. This is to be changed 3 times per week. It was stressed not to use any kind of significant compression to the lower extremity due to recently performed vascular procedure. Patient is to be nonweightbearing to the left foot at all times. Patient is to keep the area clean dry and intact. Patient instructed to eat a diet high in protein to help stimulate healing potential. The importance of tight glycemic control was discussed with this patient. Patient and her daughter were educated on all signs and symptoms of local and systemic infection and they were instructed to go to the emergency room immediately should they notice any of these, or if they notice any issues with her wound vac. Patient will follow-up and clinic in 1 week for a nurse visit and vac change, but was instructed to follow-up in clinic sooner if needed.
[2018-02-06 11:35] VITALS: BP 111/56; PULSE 71; RESP 18; TEMP 36.2; BMI 24.1
--- NOTE | 2018-02-06 12:29 | PCM.WC.PN ---
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 Status: Acute Current Visit: Yes Code(s): E11.621 - Type 2 diabetes mellitus with foot ulcer; L97.522 - Non-pressure chronic ulcer of other part of left foot with fat layer exposed (2) Type 2 diabetes mellitus with diabetic polyneuropathy Status: Acute Current Visit: No Code(s): E11.42 - Type 2 diabetes mellitus with diabetic polyneuropathy (3) Charcot's joint of foot Status: Acute Current Visit: No Code(s): M14.679 - Charcot's joint, unspecified ankle and foot (4) PVD (peripheral vascular disease) Status: Acute Current Visit: No Code(s): I73.9 - Peripheral vascular disease, unspecified Type of Wound Chief Complaint: Sore on left foot caused by removing tape. History of Wound: 72 year old diabetic female was being seen for a ulcer on her left lateral foot at the base of the 5th toe. She states that she was seeing a suction drum drier operator, Dr. Santo in [place] for a callus on the arch of her left foot and for her history of Charcot foot. A month ago she had a bandage covering the callus and when she removed it, the tape pulled some skin off at the base of her 5th toe. She had an opened ulcer there ever since. She has been applying silvadine cream and soaking her foot in epsome salt as prescribed by her suction drum drier operator in [place]. 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 On December 15 the patient was admitted for fever, nausea, vomiting, cellulitis of left foot, and ulcer of left foot. X-ray and MRI taken showed evidence of osteomyelitis to the fifth metatarsal and base of the fifth toe as well as showed signs of soft tissue emphysema. I was consulted on December 16 when the patient was admitted, and she was taken to surgery the same day for debridement of all necrotic, nonviable, infected soft tissue and bone of the left foot with open partial fifth ray amputation. Dr. Powers then performed an angioplasty on December 20 while the patient was still admitted prior to her discharge. Details from both operative reports can be found in the patient's chart. A wound VAC was applied prior to patient's discharge home, and she is to follow back up at the wound healing center. Progress of Wound: Open surgical site to left lateral foot shows continued improvement since last visit. Patient has continued with wound vac changes as ordered. Patient currently denies any feelings of nausea, vomiting, fever, chills. - Physical Exam Vital Signs Temp Pulse Resp BP 97.1 F L 71 18 111/56 L 02/06/18 11:35 02/06/18 11:35 02/06/18 11:35 02/06/18 11:35 General: Alert, Oriented x3, Cooperative, No apparent distress Extremities: Capillary Refill Less than 3 Seconds, No Calf Tenderness - Negative Zion and Degroot sign, Diminished Peripheral Pulses - DP and PT pulses nonpalpable, Edema - Minor lower extremity edema Skin: Ulcer/ Wound - Open surgical site to left lateral foot with fat layer exposed. Measurements noted below. The base continues to be a mixture of adherent slough, fibrous tissue, granular tissue. Very slight amount of maceration noted around the ulcer site periphery. There continues to be no extending or surrounding cellulitis, no increase in warmth, no purulence, no probing to bone, no tracking, and no undermining noted at this time. Wound Measurements and Assessment WC - Nurse 1 - General Ulcer Measurement Start: 01/30/18 11:28 Freq: Status: Active Protocol: Activity Type Activity Date Activity User E-Sign Co-Sign Detail Recorded Client Recorded Date Recorded By Document 02/06/18 11:35 DL [id number] 02/06/18 11:57 DL 02/06/18 11:35 Wound Center Nurse 1 [Ulcer Assessment] #1 Left Lateral Foot -Current Size (cm) - Length 2.5 -Current Size (cm) - Width 1.1 -Current Size (cm) - Depth 0.1 -Total Square Cm 2.75 -Photo Taken No -Exudate Amt Small (1-33%) -Exudate Type Serosanguineous -Wound Margin Distinct, Outline Attached -Granulation Amt Large (67-100%) -Granulation Quality Red -Necrosis Amt None Present (0 %) -Structure Exposed N/A -Texture (Gissell-wound Skin Appearance) Scarring -Moisture (Gissell-wound Skin Appearance Maceration ) -Color (Gissell-wound Skin Appearance) No Abnormality -Temperature (Gissell-wound Skin No Abnormality Appearance) (Pt Warm) -Tenderness on Palpation (Gissell-wound No Skin Appearance) -Ulcer Cleansing Rinsed/ Irrigated with Saline -Foul Odor after Cleansing No -Anesthetic Used 4% Lidocaine Solution - Nurse 2 - General Ulcer CM Notes Start: 01/30/18 11:28 Freq: Status: Active Protocol: Activity Type Activity Date Activity User E-Sign Co-Sign Detail Recorded Client Recorded Date Recorded By Document 02/06/18 12:00 DV [id number] 02/06/18 12:09 DV 02/06/18 12:00 Wound Center Nurse 2 [Procedure/Treatment] -Time 12:04 -Correct Patient Yes -Correct Side, Site, Position Yes -Correct Procedure Yes -Procedure Performed Yes -Type of Procedure Debridement -Clinical Debridement Subcutaneous -Post Debridement Size (cm) - Length 3.2 -Post Debridement Size (cm) - Width 1.5 -Post Debridement Size (cm) - Depth 0.2 -Total Square Cm 4.80 -Wound/Ulcer Outcome Not Healed -Ulcer Cleansing Rinsed/ Irrigated with Saline -Foul Odor after Cleansing No -Bioengineered Tissue No -Bleeding Controlled with Pressure -Offloading No -Treatment Response Procedure Tolerated Well [See Physician Procedure note for Specifics] Pain Scale: 0-10 Numeric [Pain] -Is Patient Pain Free? Yes Musculoskeletal: No Tenderness to Palpation of Joints or Extremities, - - Bilateral Charcot foot type. Bilateral hammertoe deformities of digits 2?5 of the right foot and 2?4 of the left foot. Neurological: - - Epicritic sensation grossly absent lower extremity Psych/Mental Status: Normal Affect, Appropriate Debridement Note Post-Debridement Measurements/Treatment - Nurse 2 - General Ulcer CM Notes Start: 01/30/18 11:28 Freq: Status: Active Protocol: Activity Type Activity Date Activity User E-Sign Co-Sign Detail Recorded Client Recorded Date Recorded By Document 01/30/18 12:40 DV [id number] 01/30/18 12:53 DV Document 02/06/18 12:00 DV [id number] 02/06/18 12:09 DV 01/30/18 02/06/18 12:40 12:00 Wound Center Nurse 2 #1 Left Lateral Foot -Time 12:40 12:04 -Correct Patient Yes Yes -Correct Side, Site, Position Yes Yes -Correct Procedure Yes Yes -Procedure Performed Yes Yes -Type of Procedure Debridement Debridement -Clinical Debridement Subcutaneous Subcutaneous -Post Debridement Size (cm) - Length 3.8 3.2 -Post Debridement Size (cm) - Width 1.8 1.5 -Post Debridement Size (cm) - Depth 0.3 0.2 -Total Square Cm 6.84 4.80 -Wound/Ulcer Outcome Not Healed Not Healed -Ulcer Cleansing Rinsed/ Rinsed/ Irrigated with Irrigated with Saline Saline -Foul Odor after Cleansing No No -Bioengineered Tissue No No -Bleeding Controlled with Pressure Pressure -Offloading No No -Treatment Response Procedure Procedure Tolerated Well Tolerated Well Pain Scale: 0-10 Numeric Is Patient Pain Free? No Yes Wound debrided: Left lateral foot Laterality: Left Type of Debridement: Excisional debridement Anesthesia Used: 4% Lidocaine Solution Depth: in the subcutaneous layer Percentage of wound debrided: 100 Instrument Used: 7mm curette Tissue Removed: Adherent slough, fibrous tissue, biofilm Severity: Fat Layer Exposed Amount of bleeding with debridement: Mild Bleeding Controlled with: Pressure Patient tolerated procedure well Assessment/Plan Active Problems Diabetic ulcer of left foot with fat layer exposed (Acute) Assessment: Open surgical site left lateral foot, DM with neuropathy, PVD, other comorbidities Plan: This patient was carefully examined and evaluated with her daughter in the room again today. Patient had surgical debridement of all necrotic, nonviable, infected soft tissue and bone of the left foot with open partial fifth ray amputation on December 16. Patient also had an angioplasty performed by Dr. Powers on December 20. Details from each operative report can be found in the patient's chart. Patient had subcutaneous debridement performed today as noted in the clinical panel. Following debridement the site was carefully cleansed, and dressed with aquacel ag to the base, followed by a dry sterile dressing. The site is to be changed in this manner daily. Dressing supplies ordered for the patient. We are taking a vac holiday. We will apply for skin substitute for next week. It was stressed not to use any kind of significant compression to the lower extremity due to recently performed vascular procedure. Patient is to be nonweightbearing to the left foot at all times. Patient is to keep the area clean dry and intact. Patient instructed to eat a diet high in protein to help stimulate healing potential. The importance of tight glycemic control was discussed with this patient. Patient and her daughter were educated on all signs and symptoms of local and systemic infection and they were instructed to go to the emergency room immediately should they notice any of these, or if they notice any issues with her wound vac. Patient will follow-up and clinic in 1 week for a nurse visit and vac change, but was instructed to follow-up in clinic sooner if needed.
--- NOTE | 2018-02-06 12:33 | PN.PCM_ITS ---
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 Status: Acute Current Visit: Yes Code(s): E11.621 - Type 2 diabetes mellitus with foot ulcer; L97.522 - Non-pressure chronic ulcer of other part of left foot with fat layer exposed (2) Type 2 diabetes mellitus with diabetic polyneuropathy Status: Acute Current Visit: No Code(s): E11.42 - Type 2 diabetes mellitus with diabetic polyneuropathy (3) Charcot's joint of foot Status: Acute Current Visit: No Code(s): M14.679 - Charcot's joint, unspecified ankle and foot (4) PVD (peripheral vascular disease) Status: Acute Current Visit: No Code(s): I73.9 - Peripheral vascular disease, unspecified Type of Wound Chief Complaint: Sore on left foot caused by removing tape. History of Wound: 72 year old diabetic female was being seen for a ulcer on her left lateral foot at the base of the 5th toe. She states that she was seeing a dip guider stoves, Dr. Santo in [place] for a callus on the arch of her left foot and for her history of Charcot foot. A month ago she had a bandage covering the callus and when she removed it, the tape pulled some skin off at the base of her 5th toe. She had an opened ulcer there ever since. She has been applying silvadine cream and soaking her foot in epsome salt as prescribed by her dip guider stoves in [place]. 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 On December 15 the patient was admitted for fever, nausea, vomiting, cellulitis of left foot, and ulcer of left foot. X-ray and MRI taken showed evidence of osteomyelitis to the fifth metatarsal and base of the fifth toe as well as showed signs of soft tissue emphysema. I was consulted on December 16 when the patient was admitted, and she was taken to surgery the same day for debridement of all necrotic, nonviable, infected soft tissue and bone of the left foot with open partial fifth ray amputation. Dr. Powers then performed an angioplasty on December 20 while the patient was still admitted prior to her discharge. Details from both operative reports can be found in the patient's chart. A wound VAC was applied prior to patient's discharge home, and she is to follow back up at the wound healing center. Progress of Wound: Open surgical site to left lateral foot shows continued improvement since last visit. Patient has continued with wound vac changes as ordered. Patient currently denies any feelings of nausea, vomiting, fever, chills. - Physical Exam Vital Signs Temp Pulse Resp BP 97.1 F L 71 18 111/56 L 02/06/18 11:35 02/06/18 11:35 02/06/18 11:35 02/06/18 11:35 General: Alert, Oriented x3, Cooperative, No apparent distress Extremities: Capillary Refill Less than 3 Seconds, No Calf Tenderness - Negative Zion and Degroot sign, Diminished Peripheral Pulses - DP and PT pulses nonpalpable, Edema - Minor lower extremity edema Skin: Ulcer/ Wound - Open surgical site to left lateral foot with fat layer exposed. Measurements noted below. The base continues to be a mixture of adherent slough, fibrous tissue, granular tissue. Very slight amount of maceration noted around the ulcer site periphery. There continues to be no extending or surrounding cellulitis, no increase in warmth, no purulence, no probing to bone, no tracking, and no undermining noted at this time. Wound Measurements and Assessment WC - Nurse 1 - General Ulcer Measurement Start: 01/30/18 11:28 Freq: Status: Active Protocol: Activity Type Activity Date Activity User E-Sign Co-Sign Detail Recorded Client Recorded Date Recorded By Document 02/06/18 11:35 DL [id number] 02/06/18 11:57 DL 02/06/18 11:35 Wound Center Nurse 1 [Ulcer Assessment] #1 Left Lateral Foot -Current Size (cm) - Length 2.5 -Current Size (cm) - Width 1.1 -Current Size (cm) - Depth 0.1 -Total Square Cm 2.75 -Photo Taken No -Exudate Amt Small (1-33%) -Exudate Type Serosanguineous -Wound Margin Distinct, Outline Attached -Granulation Amt Large (67-100%) -Granulation Quality Red -Necrosis Amt None Present (0 %) -Structure Exposed N/A -Texture (Gissell-wound Skin Appearance) Scarring -Moisture (Gissell-wound Skin Appearance Maceration ) -Color (Gissell-wound Skin Appearance) No Abnormality -Temperature (Gissell-wound Skin No Abnormality Appearance) (Pt Warm) -Tenderness on Palpation (Gissell-wound No Skin Appearance) -Ulcer Cleansing Rinsed/ Irrigated with Saline -Foul Odor after Cleansing No -Anesthetic Used 4% Lidocaine Solution - Nurse 2 - General Ulcer CM Notes Start: 01/30/18 11:28 Freq: Status: Active Protocol: Activity Type Activity Date Activity User E-Sign Co-Sign Detail Recorded Client Recorded Date Recorded By Document 02/06/18 12:00 DV [id number] 02/06/18 12:09 DV 02/06/18 12:00 Wound Center Nurse 2 [Procedure/Treatment] -Time 12:04 -Correct Patient Yes -Correct Side, Site, Position Yes -Correct Procedure Yes -Procedure Performed Yes -Type of Procedure Debridement -Clinical Debridement Subcutaneous -Post Debridement Size (cm) - Length 3.2 -Post Debridement Size (cm) - Width 1.5 -Post Debridement Size (cm) - Depth 0.2 -Total Square Cm 4.80 -Wound/Ulcer Outcome Not Healed -Ulcer Cleansing Rinsed/ Irrigated with Saline -Foul Odor after Cleansing No -Bioengineered Tissue No -Bleeding Controlled with Pressure -Offloading No -Treatment Response Procedure Tolerated Well [See Physician Procedure note for Specifics] Pain Scale: 0-10 Numeric [Pain] -Is Patient Pain Free? Yes Musculoskeletal: No Tenderness to Palpation of Joints or Extremities, - - Bilateral Charcot foot type. Bilateral hammertoe deformities of digits 2?5 of the right foot and 2?4 of the left foot. Neurological: - - Epicritic sensation grossly absent lower extremity Psych/Mental Status: Normal Affect, Appropriate Debridement Note Post-Debridement Measurements/Treatment - Nurse 2 - General Ulcer CM Notes Start: 01/30/18 11:28 Freq: Status: Active Protocol: Activity Type Activity Date Activity User E-Sign Co-Sign Detail Recorded Client Recorded Date Recorded By Document 01/30/18 12:40 DV [id number] 01/30/18 12:53 DV Document 02/06/18 12:00 DV [id number] 02/06/18 12:09 DV 01/30/18 02/06/18 12:40 12:00 Wound Center Nurse 2 #1 Left Lateral Foot -Time 12:40 12:04 -Correct Patient Yes Yes -Correct Side, Site, Position Yes Yes -Correct Procedure Yes Yes -Procedure Performed Yes Yes -Type of Procedure Debridement Debridement -Clinical Debridement Subcutaneous Subcutaneous -Post Debridement Size (cm) - Length 3.8 3.2 -Post Debridement Size (cm) - Width 1.8 1.5 -Post Debridement Size (cm) - Depth 0.3 0.2 -Total Square Cm 6.84 4.80 -Wound/Ulcer Outcome Not Healed Not Healed -Ulcer Cleansing Rinsed/ Rinsed/ Irrigated with Irrigated with Saline Saline -Foul Odor after Cleansing No No -Bioengineered Tissue No No -Bleeding Controlled with Pressure Pressure -Offloading No No -Treatment Response Procedure Procedure Tolerated Well Tolerated Well Pain Scale: 0-10 Numeric Is Patient Pain Free? No Yes Wound debrided: Left lateral foot Laterality: Left Type of Debridement: Excisional debridement Anesthesia Used: 4% Lidocaine Solution Depth: in the subcutaneous layer Percentage of wound debrided: 100 Instrument Used: 7mm curette Tissue Removed: Adherent slough, fibrous tissue, biofilm Severity: Fat Layer Exposed Amount of bleeding with debridement: Mild Bleeding Controlled with: Pressure Patient tolerated procedure well Assessment/Plan Active Problems Diabetic ulcer of left foot with fat layer exposed (Acute) Assessment: Open surgical site left lateral foot, DM with neuropathy, PVD, other comorbidities Plan: This patient was carefully examined and evaluated with her daughter in the room again today. Patient had surgical debridement of all necrotic, nonviable, infected soft tissue and bone of the left foot with open partial fifth ray amputation on December 16. Patient also had an angioplasty performed by Dr. Powers on December 20. Details from each operative report can be found in the patient's chart. Patient had subcutaneous debridement performed today as noted in the clinical panel. Following debridement the site was carefully cleansed, and dressed with aquacel ag to the base, followed by a dry sterile dressing. The site is to be changed in this manner daily. Dressing supplies ordered for the patient. We are taking a vac holiday. We will apply for skin substitute for next week. It was stressed not to use any kind of significant compression to the lower extremity due to recently performed vascular procedure. Patient is to be nonweightbearing to the left foot at all times. Patient is to keep the area clean dry and intact. Patient instructed to eat a diet high in protein to help stimulate healing potential. The importance of tight glycemic control was discussed with this patient. Patient and her daughter were educated on all signs and symptoms of local and systemic infection and they were instructed to go to the emergency room immediately should they notice any of these, or if they notice any issues with her wound vac. Patient will follow-up and clinic in 1 week for a nurse visit and vac change, but was instructed to follow-up in clinic sooner if needed.
[2018-02-13 11:17] VITALS: BP 154/87; PULSE 76; RESP 16; TEMP 36.3; BMI 24.1
--- NOTE | 2018-02-13 12:15 | PCM.WC.PN ---
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 Status: Acute Current Visit: Yes Code(s): E11.621 - Type 2 diabetes mellitus with foot ulcer; L97.522 - Non-pressure chronic ulcer of other part of left foot with fat layer exposed (2) Type 2 diabetes mellitus with diabetic polyneuropathy Status: Acute Current Visit: No Code(s): E11.42 - Type 2 diabetes mellitus with diabetic polyneuropathy (3) Charcot's joint of foot Status: Acute Current Visit: No Code(s): M14.679 - Charcot's joint, unspecified ankle and foot (4) PVD (peripheral vascular disease) Status: Acute Current Visit: No Code(s): I73.9 - Peripheral vascular disease, unspecified Type of Wound Chief Complaint: Sore on left foot caused by removing tape. History of Wound: 72 year old diabetic female was being seen for a ulcer on her left lateral foot at the base of the 5th toe. She states that she was seeing a folder stitcher operator, Dr. Santo in [place] for a callus on the arch of her left foot and for her history of Charcot foot. A month ago she had a bandage covering the callus and when she removed it, the tape pulled some skin off at the base of her 5th toe. She had an opened ulcer there ever since. She has been applying silvadine cream and soaking her foot in epsome salt as prescribed by her folder stitcher operator in [place]. 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 On December 15 the patient was admitted for fever, nausea, vomiting, cellulitis of left foot, and ulcer of left foot. X-ray and MRI taken showed evidence of osteomyelitis to the fifth metatarsal and base of the fifth toe as well as showed signs of soft tissue emphysema. I was consulted on December 16 when the patient was admitted, and she was taken to surgery the same day for debridement of all necrotic, nonviable, infected soft tissue and bone of the left foot with open partial fifth ray amputation. Dr. Powers then performed an angioplasty on December 20 while the patient was still admitted prior to her discharge. Details from both operative reports can be found in the patient's chart. A wound VAC was applied prior to patient's discharge home, and she is to follow back up at the wound healing center. Progress of Wound: Open surgical site to left lateral foot shows continued improvement since last visit. Patient has been having daily dressing changes performed over the last week. Patient currently denies any feelings of nausea, vomiting, fever, chills. - Physical Exam Vital Signs Temp Pulse Resp BP 97.3 F L 76 16 154/87 H 02/13/18 11:17 02/13/18 11:17 02/13/18 11:17 02/13/18 11:17 General: Alert, Oriented x3, Cooperative, No apparent distress Extremities: Capillary Refill Less than 3 Seconds, No Calf Tenderness - Negative Zion and Degroot sign, Diminished Peripheral Pulses - DP and PT pulses nonpalpable, Edema - Minor lower extremity edema Skin: Ulcer/ Wound - Open surgical site to left lateral foot with fat layer exposed. Measurements are noted below. The base continues to be a mixture of adherent slough, fibrin, granular tissue as well as some slight surrounding hyperkeratotic tissue as well. No maceration appreciated today. There continues to be no extending or surrounding cellulitis, no increase in warmth, no purulence, no malodor, no probing to bone, no tracking, and no undermining at this time. Wound Measurements and Assessment WC - Nurse 1 - General Ulcer Measurement Start: 01/30/18 11:28 Freq: Status: Active Protocol: Activity Type Activity Date Activity User E-Sign Co-Sign Detail Recorded Client Recorded Date Recorded By Document 02/13/18 11:17 [facility] [id number] 02/13/18 11:28 [facility] 02/13/18 11:17 Wound Center Nurse 1 [Ulcer Assessment] #1 Left Lateral Foot -Combined with other wound No -Current Size (cm) - Length 2.6 -Current Size (cm) - Width 0.9 -Current Size (cm) - Depth 0.2 -Total Square Cm 2.34 -Date of Last Picture (Recall this 02/13/18 field) -Photo Taken Yes -Epithelialization Small 1-33% -Tunneling No -Undermining/Tunneling No -Circular Undermining No -Exudate Amt Small (1-33%) -Exudate Type Serosanguineous -Wound Margin Distinct, Outline Attached -Granulation Amt Large (67-100%) -Granulation Quality Red -Slough/Fibrin Yes -Necrosis Amt Small (1-33%) -Necrotic Tissue Type Adherent Slough -Texture (Gissell-wound Skin Appearance) Assessed Scarring -Moisture (Gissell-wound Skin Appearance Dry/Scaly ) -Color (Gissell-wound Skin Appearance) Assessed -Temperature (Gissell-wound Skin No Abnormality Appearance) (Pt Warm) -Tenderness on Palpation (Gissell-wound No Skin Appearance) -Ulcer Cleansing Rinsed/ Irrigated with Saline -Foul Odor after Cleansing No -Anesthetic Used 5% Lidocaine Gel - Nurse 2 - General Ulcer CM Notes Start: 01/30/18 11:28 Freq: Status: Active Protocol: Activity Type Activity Date Activity User E-Sign Co-Sign Detail Recorded Client Recorded Date Recorded By Document 02/13/18 11:38 BM [id number] 02/13/18 11:43 [facility] 02/13/18 11:38 Wound Center Nurse 2 [Procedure/Treatment] -Time 11:39 -Correct Patient Yes -Correct Side, Site, Position Yes -Correct Procedure Yes -Procedure Performed Yes -Type of Procedure Debridement -Clinical Debridement Subcutaneous -Post Debridement Size (cm) - Length 3.2 -Post Debridement Size (cm) - Width 1.1 -Post Debridement Size (cm) - Depth 0.2 -Total Square Cm 3.52 -Wound/Ulcer Outcome Not Healed -Ulcer Cleansing Rinsed/ Irrigated with Saline -Foul Odor after Cleansing No -Bioengineered Tissue No -Bleeding Controlled with Pressure -Offloading No -Treatment Response Procedure Tolerated Well [See Physician Procedure note for Specifics] Pain Scale: 0-10 Numeric [Pain] -Is Patient Pain Free? Yes Musculoskeletal: No Tenderness to Palpation of Joints or Extremities, - - Bilateral Charcot foot type. Bilateral hammertoe deformities of digits 2?5 of the right foot and 2?4 of the left foot. Neurological: - - Epicritic sensation grossly absent lower extremity Psych/Mental Status: Normal Affect, Appropriate Debridement Note Post-Debridement Measurements/Treatment - Nurse 2 - General Ulcer CM Notes Start: 01/30/18 11:28 Freq: Status: Active Protocol: Activity Type Activity Date Activity User E-Sign Co-Sign Detail Recorded Client Recorded Date Recorded By Document 01/30/18 12:40 DV [id number] 01/30/18 12:53 DV Document 02/06/18 12:00 DV [id number] 02/06/18 12:09 DV Document 02/13/18 11:38 [facility] [id number] 02/13/18 11:43 BM 01/30/18 02/06/18 02/13/18 12:40 12:00 11:38 Wound Center Nurse 2 #1 Left Lateral Foot -Time 12:40 12:04 11:39 -Correct Patient Yes Yes Yes -Correct Side, Site, Position Yes Yes Yes -Correct Procedure Yes Yes Yes -Procedure Performed Yes Yes Yes -Type of Procedure Debridement Debridement Debridement -Clinical Debridement Subcutaneous Subcutaneous Subcutaneous -Post Debridement Size (cm) - Length 3.8 3.2 3.2 -Post Debridement Size (cm) - Width 1.8 1.5 1.1 -Post Debridement Size (cm) - Depth 0.3 0.2 0.2 -Total Square Cm 6.84 4.80 3.52 -Wound/Ulcer Outcome Not Healed Not Healed Not Healed -Ulcer Cleansing Rinsed/ Rinsed/ Rinsed/ Irrigated with Irrigated with Irrigated with Saline Saline Saline -Foul Odor after Cleansing No No No -Bioengineered Tissue No No No -Bleeding Controlled with Pressure Pressure Pressure -Offloading No No No -Treatment Response Procedure Procedure Procedure Tolerated Well Tolerated Well Tolerated Well Pain Scale: 0-10 Numeric Is Patient Pain Free? No Yes Yes Wound debrided: Left lateral foot Laterality: Left Type of Debridement: Excisional debridement Anesthesia Used: 4% Lidocaine Solution Depth: in the subcutaneous layer Percentage of wound debrided: 100 Instrument Used: 7mm curette, #15 blade Tissue Removed: Adherent slough, fibrin, hyperkeratotic tissue Severity: Fat Layer Exposed Amount of bleeding with debridement: Mild Bleeding Controlled with: Pressure Patient tolerated procedure well Assessment/Plan Active Problems Diabetic ulcer of left foot with fat layer exposed (Acute) Assessment: Open surgical site left lateral foot, DM with neuropathy, PVD, other comorbidities Plan: This patient was carefully examined and evaluated with her daughter in the room again today. Patient had surgical debridement of all necrotic, nonviable, infected soft tissue and bone of the left foot with open partial fifth ray amputation on December 16. Patient also had an angioplasty performed by Dr. Powers on December 20. Details from each operative report can be found in the patient's chart. Patient had subcutaneous debridement performed today as noted in the clinical panel. Following debridement the site was carefully cleansed, and dressed with marko to the base, followed by a dry sterile dressing. The site is to be changed in this manner daily. Dressing supplies ordered for the patient. We are taking a vac holiday again this week. We will apply for skin substitute for next week again. It was stressed not to use any kind of significant compression to the lower extremity due to recently performed vascular procedure. Patient is to be nonweightbearing to the left foot at all times. Patient is to keep the area clean dry and intact. Patient instructed to eat a diet high in protein to help stimulate healing potential. The importance of tight glycemic control was discussed with this patient. Patient and her daughter were educated on all signs and symptoms of local and systemic infection and they were instructed to go to the emergency room immediately should they notice any of these, or if they notice any issues with her wound vac. Patient will follow-up and clinic in 1 week for a nurse visit and vac change, but was instructed to follow-up in clinic sooner if needed.
--- NOTE | 2018-02-13 12:19 | PN.PCM_ITS ---
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 Status: Acute Current Visit: Yes Code(s): E11.621 - Type 2 diabetes mellitus with foot ulcer; L97.522 - Non-pressure chronic ulcer of other part of left foot with fat layer exposed (2) Type 2 diabetes mellitus with diabetic polyneuropathy Status: Acute Current Visit: No Code(s): E11.42 - Type 2 diabetes mellitus with diabetic polyneuropathy (3) Charcot's joint of foot Status: Acute Current Visit: No Code(s): M14.679 - Charcot's joint, unspecified ankle and foot (4) PVD (peripheral vascular disease) Status: Acute Current Visit: No Code(s): I73.9 - Peripheral vascular disease, unspecified Type of Wound Chief Complaint: Sore on left foot caused by removing tape. History of Wound: 72 year old diabetic female was being seen for a ulcer on her left lateral foot at the base of the 5th toe. She states that she was seeing a machine setup operator, Dr. Santo in [place] for a callus on the arch of her left foot and for her history of Charcot foot. A month ago she had a bandage covering the callus and when she removed it, the tape pulled some skin off at the base of her 5th toe. She had an opened ulcer there ever since. She has been applying silvadine cream and soaking her foot in epsome salt as prescribed by her machine setup operator in [place]. 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 On December 15 the patient was admitted for fever, nausea, vomiting, cellulitis of left foot, and ulcer of left foot. X-ray and MRI taken showed evidence of osteomyelitis to the fifth metatarsal and base of the fifth toe as well as showed signs of soft tissue emphysema. I was consulted on December 16 when the patient was admitted, and she was taken to surgery the same day for debridement of all necrotic, nonviable, infected soft tissue and bone of the left foot with open partial fifth ray amputation. Dr. Powers then performed an angioplasty on December 20 while the patient was still admitted prior to her discharge. Details from both operative reports can be found in the patient's chart. A wound VAC was applied prior to patient's discharge home, and she is to follow back up at the wound healing center. Progress of Wound: Open surgical site to left lateral foot shows continued improvement since last visit. Patient has been having daily dressing changes performed over the last week. Patient currently denies any feelings of nausea, vomiting, fever, chills. - Physical Exam Vital Signs Temp Pulse Resp BP 97.3 F L 76 16 154/87 H 02/13/18 11:17 02/13/18 11:17 02/13/18 11:17 02/13/18 11:17 General: Alert, Oriented x3, Cooperative, No apparent distress Extremities: Capillary Refill Less than 3 Seconds, No Calf Tenderness - Negative Zion and Degroot sign, Diminished Peripheral Pulses - DP and PT pulses nonpalpable, Edema - Minor lower extremity edema Skin: Ulcer/ Wound - Open surgical site to left lateral foot with fat layer exposed. Measurements are noted below. The base continues to be a mixture of adherent slough, fibrin, granular tissue as well as some slight surrounding hyperkeratotic tissue as well. No maceration appreciated today. There continues to be no extending or surrounding cellulitis, no increase in warmth, no purulence, no malodor, no probing to bone, no tracking, and no undermining at this time. Wound Measurements and Assessment WC - Nurse 1 - General Ulcer Measurement Start: 01/30/18 11:28 Freq: Status: Active Protocol: Activity Type Activity Date Activity User E-Sign Co-Sign Detail Recorded Client Recorded Date Recorded By Document 02/13/18 11:17 [facility] [id number] 02/13/18 11:28 [facility] 02/13/18 11:17 Wound Center Nurse 1 [Ulcer Assessment] #1 Left Lateral Foot -Combined with other wound No -Current Size (cm) - Length 2.6 -Current Size (cm) - Width 0.9 -Current Size (cm) - Depth 0.2 -Total Square Cm 2.34 -Date of Last Picture (Recall this 02/13/18 field) -Photo Taken Yes -Epithelialization Small 1-33% -Tunneling No -Undermining/Tunneling No -Circular Undermining No -Exudate Amt Small (1-33%) -Exudate Type Serosanguineous -Wound Margin Distinct, Outline Attached -Granulation Amt Large (67-100%) -Granulation Quality Red -Slough/Fibrin Yes -Necrosis Amt Small (1-33%) -Necrotic Tissue Type Adherent Slough -Texture (Gissell-wound Skin Appearance) Assessed Scarring -Moisture (Gissell-wound Skin Appearance Dry/Scaly ) -Color (Gissell-wound Skin Appearance) Assessed -Temperature (Gissell-wound Skin No Abnormality Appearance) (Pt Warm) -Tenderness on Palpation (Gissell-wound No Skin Appearance) -Ulcer Cleansing Rinsed/ Irrigated with Saline -Foul Odor after Cleansing No -Anesthetic Used 5% Lidocaine Gel - Nurse 2 - General Ulcer CM Notes Start: 01/30/18 11:28 Freq: Status: Active Protocol: Activity Type Activity Date Activity User E-Sign Co-Sign Detail Recorded Client Recorded Date Recorded By Document 02/13/18 11:38 BM [id number] 02/13/18 11:43 [facility] 02/13/18 11:38 Wound Center Nurse 2 [Procedure/Treatment] -Time 11:39 -Correct Patient Yes -Correct Side, Site, Position Yes -Correct Procedure Yes -Procedure Performed Yes -Type of Procedure Debridement -Clinical Debridement Subcutaneous -Post Debridement Size (cm) - Length 3.2 -Post Debridement Size (cm) - Width 1.1 -Post Debridement Size (cm) - Depth 0.2 -Total Square Cm 3.52 -Wound/Ulcer Outcome Not Healed -Ulcer Cleansing Rinsed/ Irrigated with Saline -Foul Odor after Cleansing No -Bioengineered Tissue No -Bleeding Controlled with Pressure -Offloading No -Treatment Response Procedure Tolerated Well [See Physician Procedure note for Specifics] Pain Scale: 0-10 Numeric [Pain] -Is Patient Pain Free? Yes Musculoskeletal: No Tenderness to Palpation of Joints or Extremities, - - Bilateral Charcot foot type. Bilateral hammertoe deformities of digits 2?5 of the right foot and 2?4 of the left foot. Neurological: - - Epicritic sensation grossly absent lower extremity Psych/Mental Status: Normal Affect, Appropriate Debridement Note Post-Debridement Measurements/Treatment - Nurse 2 - General Ulcer CM Notes Start: 01/30/18 11:28 Freq: Status: Active Protocol: Activity Type Activity Date Activity User E-Sign Co-Sign Detail Recorded Client Recorded Date Recorded By Document 01/30/18 12:40 DV [id number] 01/30/18 12:53 DV Document 02/06/18 12:00 DV [id number] 02/06/18 12:09 DV Document 02/13/18 11:38 [facility] [id number] 02/13/18 11:43 BM 01/30/18 02/06/18 02/13/18 12:40 12:00 11:38 Wound Center Nurse 2 #1 Left Lateral Foot -Time 12:40 12:04 11:39 -Correct Patient Yes Yes Yes -Correct Side, Site, Position Yes Yes Yes -Correct Procedure Yes Yes Yes -Procedure Performed Yes Yes Yes -Type of Procedure Debridement Debridement Debridement -Clinical Debridement Subcutaneous Subcutaneous Subcutaneous -Post Debridement Size (cm) - Length 3.8 3.2 3.2 -Post Debridement Size (cm) - Width 1.8 1.5 1.1 -Post Debridement Size (cm) - Depth 0.3 0.2 0.2 -Total Square Cm 6.84 4.80 3.52 -Wound/Ulcer Outcome Not Healed Not Healed Not Healed -Ulcer Cleansing Rinsed/ Rinsed/ Rinsed/ Irrigated with Irrigated with Irrigated with Saline Saline Saline -Foul Odor after Cleansing No No No -Bioengineered Tissue No No No -Bleeding Controlled with Pressure Pressure Pressure -Offloading No No No -Treatment Response Procedure Procedure Procedure Tolerated Well Tolerated Well Tolerated Well Pain Scale: 0-10 Numeric Is Patient Pain Free? No Yes Yes Wound debrided: Left lateral foot Laterality: Left Type of Debridement: Excisional debridement Anesthesia Used: 4% Lidocaine Solution Depth: in the subcutaneous layer Percentage of wound debrided: 100 Instrument Used: 7mm curette, #15 blade Tissue Removed: Adherent slough, fibrin, hyperkeratotic tissue Severity: Fat Layer Exposed Amount of bleeding with debridement: Mild Bleeding Controlled with: Pressure Patient tolerated procedure well Assessment/Plan Active Problems Diabetic ulcer of left foot with fat layer exposed (Acute) Assessment: Open surgical site left lateral foot, DM with neuropathy, PVD, other comorbidities Plan: This patient was carefully examined and evaluated with her daughter in the room again today. Patient had surgical debridement of all necrotic, nonviable, infected soft tissue and bone of the left foot with open partial fifth ray am putation on December 16. Patient also had an angioplasty performed by Dr. Powers on December 20. Details from each operative report can be found in the patient's chart. Patient had subcutaneous debridement performed today as noted in the clinical panel. Following debridement the site was carefully cleansed, and dressed with marko to the base, followed by a dry sterile dressing. The site is to be changed in this manner daily. Dressing supplies ordered for the patient. We are taking a vac holiday again this week. We will apply for skin substitute for next week again. It was stressed not to use any kind of significant compression to the lower extremity due to recently performed vascular procedure. Patient is to be nonweightbearing to the left foot at all times. Patient is to keep the area clean dry and intact. Patient instructed to eat a diet high in protein to help stimulate healing potential. The importance of tight glycemic control was discussed with this patient. Patient and her daughter were educated on all signs and symptoms of local and systemic infection and they were instructed to go to the emergency room immediately should they notice any of these, or if they notice any issues with her wound vac. Patient will follow-up and clinic in 1 week for a nurse visit and vac change, but was instructed to follow-up in clinic sooner if needed.
[2018-02-20 11:24] VITALS: BP 125/56; PULSE 72; RESP 14; TEMP 36.2; BMI 24.1
--- NOTE | 2018-02-20 12:13 | PCM.WC.PN ---
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 Status: Acute Current Visit: Yes Code(s): E11.621 - Type 2 diabetes mellitus with foot ulcer; L97.522 - Non-pressure chronic ulcer of other part of left foot with fat layer exposed (2) Type 2 diabetes mellitus with diabetic polyneuropathy Status: Acute Current Visit: No Code(s): E11.42 - Type 2 diabetes mellitus with diabetic polyneuropathy (3) Charcot's joint of foot Status: Acute Current Visit: No Code(s): M14.679 - Charcot's joint, unspecified ankle and foot (4) PVD (peripheral vascular disease) Status: Acute Current Visit: No Code(s): I73.9 - Peripheral vascular disease, unspecified Type of Wound Chief Complaint: Sore on left foot caused by removing tape. History of Wound: 72 year old diabetic female was being seen for a ulcer on her left lateral foot at the base of the 5th toe. She states that she was seeing a hydrological technical officer, Dr. Santo in [place] for a callus on the arch of her left foot and for her history of Charcot foot. A month ago she had a bandage covering the callus and when she removed it, the tape pulled some skin off at the base of her 5th toe. She had an opened ulcer there ever since. She has been applying silvadine cream and soaking her foot in epsome salt as prescribed by her hydrological technical officer in [place]. 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 On December 15 the patient was admitted for fever, nausea, vomiting, cellulitis of left foot, and ulcer of left foot. X-ray and MRI taken showed evidence of osteomyelitis to the fifth metatarsal and base of the fifth toe as well as showed signs of soft tissue emphysema. I was consulted on December 16 when the patient was admitted, and she was taken to surgery the same day for debridement of all necrotic, nonviable, infected soft tissue and bone of the left foot with open partial fifth ray amputation. Dr. Powers then performed an angioplasty on December 20 while the patient was still admitted prior to her discharge. Details from both operative reports can be found in the patient's chart. A wound VAC was applied prior to patient's discharge home, and she is to follow back up at the wound healing center. Progress of Wound: Open surgical site to left lateral foot shows continued improvement since last visit. Patient has been having daily dressing changes performed over the last week. Patient currently denies any feelings of nausea, vomiting, fever, chills. - Physical Exam Vital Signs Temp Pulse Resp BP 97.1 F L 72 14 125/56 H 02/20/18 11:24 02/20/18 11:24 02/20/18 11:24 02/20/18 11:24 General: Alert, Oriented x3, Cooperative, No apparent distress Extremities: Capillary Refill Less than 3 Seconds, No Calf Tenderness - Negative [place] and Degroot sign, Diminished Peripheral Pulses - DP and PT pulses nonpalpable, Edema - Minor lower extremity edema Skin: Ulcer/ Wound - Open surgical site to left lateral foot with fat layer exposed. Improvement appreciated again this week. Measurements are noted below. The base continues to be a mixture of adherent slough, fibrin, granular tissue as well as some slight surrounding hyperkeratotic tissue as well. No maceration appreciated today. There continues to be no extending or surrounding cellulitis, no increase in warmth, no purulence, no malodor, no probing to bone, no tracking, and no undermining at this time. Wound Measurements and Assessment WC - Nurse 1 - General Ulcer Measurement Start: 01/30/18 11:28 Freq: Status: Active Protocol: Activity Type Activity Date Activity User E-Sign Co-Sign Detail Recorded Client Recorded Date Recorded By Document 02/20/18 11:[address] [facility] [id number] 02/20/18 11:31 BM 02/20/18 11:24 Wound Center Nurse 1 [Ulcer Assessment] #1 Left Lateral Foot -Combined with other wound No -Current Size (cm) - Length 2.5 -Current Size (cm) - Width 0.7 -Current Size (cm) - Depth 0.1 -Total Square Cm 1.75 -Photo Taken No -Epithelialization Small 1-33% -Tunneling No -Undermining/Tunneling No -Circular Undermining No -Exudate Amt Small (1-33%) -Exudate Type Serosanguineous -Wound Margin Thickened -Granulation Amt Large (67-100%) -Granulation Quality [place] -Slough/Fibrin Yes -Necrosis Amt Small (1-33%) -Necrotic Tissue Type Adherent Slough -Texture (Gissell-wound Skin Appearance) Scarring -Moisture (Gissell-wound Skin Appearance Assessed ) Dry/Scaly -Color (Gissell-wound Skin Appearance) Assessed -Temperature (Gissell-wound Skin No Abnormality Appearance) (Pt Warm) -Tenderness on Palpation (Gissell-wound No Skin Appearance) -Ulcer Cleansing Rinsed/ Irrigated with Saline -Foul Odor after Cleansing No -Anesthetic Used 5% Lidocaine Gel WC - Nurse 2 - General Ulcer CM Notes Start: 01/30/18 11:28 Freq: Status: Active Protocol: Activity Type Activity Date Activity User E-Sign Co-Sign Detail Recorded Client Recorded Date Recorded By Document 02/20/18 11:56 CS [id number] 02/20/18 12:05 CS 02/20/18 11:56 Wound Center Nurse 2 [Procedure/Treatment] -Time 12:00 -Correct Patient Yes -Correct Side, Site, Position Yes -Correct Procedure Yes -Procedure Performed Yes -Type of Procedure Debridement -Clinical Debridement Subcutaneous -Post Debridement Size (cm) - Length 2.7 -Post Debridement Size (cm) - Width 1.3 -Post Debridement Size (cm) - Depth 0.2 -Total Square Cm 3.51 -Wound/Ulcer Outcome Not Healed -Ulcer Cleansing Rinsed/ Irrigated with Saline -Foul Odor after Cleansing No -Bioengineered Tissue No -Type of bioengineered Tissue EPIFIX -Expiration Date 09/25/22 -Product Lot Number [id number] -Percent Used 80 -Saline Lot Number [id number] -Topical Lidocaine (%) 4 -Bleeding Controlled with Pressure -Offloading Yes -Type of Offloading Surgical Shoe -Treatment Response Procedure Tolerated Well [See Physician Procedure note for Specifics] Pain Scale: 0-10 Numeric [Pain] -Is Patient Pain Free? Yes Musculoskeletal: No Tenderness to Palpation of Joints or Extremities, - - Bilateral Charcot foot type. Bilateral hammertoe deformities of digits 2?5 of the right foot and 2?4 of the left foot. Neurological: - - Epicritic sensation grossly absent lower extremity Psych/Mental Status: Normal Affect, Appropriate Debridement Note Post-Debridement Measurements/Treatment WC - Nurse 2 - General Ulcer CM Notes Start: 01/30/18 11:28 Freq: Status: Active Protocol: Activity Type Activity Date Activity User E-Sign Co-Sign Detail Recorded Client Recorded Date Recorded By Document 01/30/18 12:40 DV [id number] 01/30/18 12:53 DV Document 02/06/18 12:00 DV [id number] 02/06/18 12:09 DV Document 02/13/18 11:[address] [facility] [id number] 02/13/18 11:43 BM Document 02/20/18 11:56 CS [id number] 02/20/18 12:05 CS 01/30/18 02/06/18 02/13/18 12:40 12:00 11:38 Wound Center Nurse 2 #1 Left Lateral Foot -Time 12:40 12:04 11:39 -Correct Patient Yes Yes Yes -Correct Side, Site, Position Yes Yes Yes -Correct Procedure Yes Yes Yes -Procedure Performed Yes Yes Yes -Type of Procedure Debridement Debridement Debridement -Clinical Debridement Subcutaneous Subcutaneous Subcutaneous -Post Debridement Size (cm) - Length 3.8 3.2 3.2 -Post Debridement Size (cm) - Width 1.8 1.5 1.1 -Post Debridement Size (cm) - Depth 0.3 0.2 0.2 -Total Square Cm 6.84 4.80 3.52 -Wound/Ulcer Outcome Not Healed Not Healed Not Healed -Ulcer Cleansing Rinsed/ Rinsed/ Rinsed/ Irrigated with Irrigated with Irrigated with Saline Saline Saline -Foul Odor after Cleansing No No No -Bioengineered Tissue No No No -Type of bioengineered Tissue -Expiration Date -Product Lot Number -Percent Used -Saline Lot Number -Topical Lidocaine (%) -Bleeding Controlled with Pressure Pressure Pressure -Offloading No No No -Type of Offloading -Treatment Response Procedure Procedure Procedure Tolerated Well Tolerated Well Tolerated Well Pain Scale: 0-10 Numeric Is Patient Pain Free? No Yes Yes 02/20/18 11:56 Wound Center Nurse 2 #1 Left Lateral Foot -Time 12:00 -Correct Patient Yes -Correct Side, Site, Position Yes -Correct Procedure Yes -Procedure Performed Yes -Type of Procedure Debridement -Clinical Debridement Subcutaneous -Post Debridement Size (cm) - Length 2.7 -Post Debridement Size (cm) - Width 1.3 -Post Debridement Size (cm) - Depth 0.2 -Total Square Cm 3.51 -Wound/Ulcer Outcome Not Healed -Ulcer Cleansing Rinsed/ Irrigated with Saline -Foul Odor after Cleansing No -Bioengineered Tissue No -Type of bioengineered Tissue EPIFIX -Expiration Date 09/25/22 -Product Lot Number [id number] -Percent Used 80 -Saline Lot Number [id number] -Topical Lidocaine (%) 4 -Bleeding Controlled with Pressure -Offloading Yes -Type of Offloading Surgical Shoe -Treatment Response Procedure Tolerated Well Pain Scale: 0-10 Numeric Is Patient Pain Free? Yes Wound debrided: Left lateral foot Laterality: Left Type of Debridement: Excisional debridement Anesthesia Used: 4% Lidocaine Solution Depth: in the subcutaneous layer Percentage of wound debrided: 100 Instrument Used: 7mm curette Tissue Removed: Adherent slough, fibrin, hyperkeratotic tissue Severity: Fat Layer Exposed Amount of bleeding with debridement: Mild Bleeding Controlled with: Pressure Patient tolerated procedure well Assessment/Plan Active Problems Diabetic ulcer of left foot with fat layer exposed (Acute) Assessment: Open surgical site left lateral foot, DM with neuropathy, PVD, other comorbidities Plan: This patient was carefully examined and evaluated with her daughter in the room again today. Patient had surgical debridement of all necrotic, nonviable, infected soft tissue and bone of the left foot with open partial fifth ray amputation on December 16. Patient also had an angioplasty performed by Dr. Powers on December 20. Details from each operative report can be found in the patient's chart. Patient had subcutaneous debridement performed today as noted in the clinical panel. Following debridement the site was carefully cleansed, and dressed with epifix #1 to the base, followed wound veil, Steri-Strips, and a dry sterile dressing. Everything below the layer of Steri-Strips and wound veil is to stay in place for the next week. If there is drainage noted to the outer dressing above these layers the patient is able to have these changed. They understand this. It was stressed not to use any kind of significant compression to the lower extremity due to recently performed vascular procedure. Patient is to be nonweightbearing to the left foot at all times. Patient is to keep the area clean dry and intact. Patient instructed to eat a diet high in protein to help stimulate healing potential. The importance of tight glycemic control was discussed with this patient. Patient and her daughter were educated on all signs and symptoms of local and systemic infection and they were instructed to go to the emergency room immediately should they notice any of these, or if they notice any issues with her wound vac. Patient will follow-up and clinic in 1 week for a nurse visit and vac change, but was instructed to follow-up in clinic sooner if needed.
--- NOTE | 2018-02-20 12:17 | PN.PCM_ITS ---
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 Status: Acute Current Visit: Yes Code(s): E11.621 - Type 2 diabetes mellitus with foot ulcer; L97.522 - Non-pressure chronic ulcer of other part of left foot with fat layer exposed (2) Type 2 diabetes mellitus with diabetic polyneuropathy Status: Acute Current Visit: No Code(s): E11.42 - Type 2 diabetes mellitus with diabetic polyneuropathy (3) Charcot's joint of foot Status: Acute Current Visit: No Code(s): M14.679 - Charcot's joint, unspecified ankle and foot (4) PVD (peripheral vascular disease) Status: Acute Current Visit: No Code(s): I73.9 - Peripheral vascular disease, unspecified Type of Wound Chief Complaint: Sore on left foot caused by removing tape. History of Wound: 72 year old diabetic female was being seen for a ulcer on her left lateral foot at the base of the 5th toe. She states that she was seeing a day light relief operator, Dr. Santo in [place] for a callus on the arch of her left foot and for her history of Charcot foot. A month ago she had a bandage covering the callus and when she removed it, the tape pulled some skin off at the base of her 5th toe. She had an opened ulcer there ever since. She has been applying silvadine cream and soaking her foot in epsome salt as prescribed by her day light relief operator in [place]. 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 On December 15 the patient was admitted for fever, nausea, vomiting, cellulitis of left foot, and ulcer of left foot. X-ray and MRI taken showed evidence of osteomyelitis to the fifth metatarsal and base of the fifth toe as well as showed signs of soft tissue emphysema. I was consulted on December 16 when the patient was admitted, and she was taken to surgery the same day for debridement of all necrotic, nonviable, infected soft tissue and bone of the left foot with open partial fifth ray amputation. Dr. Powers then performed an angioplasty on December 20 while the patient was still admitted prior to her discharge. Details from both operative reports can be found in the patient's chart. A wound VAC was applied prior to patient's discharge home, and she is to follow back up at the wound healing center. Progress of Wound: Open surgical site to left lateral foot shows continued improvement since last visit. Patient has been having daily dressing changes performed over the last week. Patient currently denies any feelings of nausea, vomiting, fever, chills. - Physical Exam Vital Signs Temp Pulse Resp BP 97.1 F L 72 14 125/56 H 02/20/18 11:24 02/20/18 11:24 02/20/18 11:24 02/20/18 11:24 General: Alert, Oriented x3, Cooperative, No apparent distress Extremities: Capillary Refill Less than 3 Seconds, No Calf Tenderness - Negative [place] and Degroot sign, Diminished Peripheral Pulses - DP and PT pulses nonpalpable, Edema - Minor lower extremity edema Skin: Ulcer/ Wound - Open surgical site to left lateral foot with fat layer exposed. Improvement appreciated again this week. Measurements are noted below. The base continues to be a mixture of adherent slough, fibrin, granular tissue as well as some slight surrounding hyperkeratotic tissue as well. No maceration appreciated today. There continues to be no extending or surrounding cellulitis, no increase in warmth, no purulence, no malodor, no probing to bone, no tracking, and no undermining at this time. Wound Measurements and Assessment WC - Nurse 1 - General Ulcer Measurement Start: 01/30/18 11:28 Freq: Status: Active Protocol: Activity Type Activity Date Activity User E-Sign Co-Sign Detail Recorded Client Recorded Date Recorded By Document 02/20/18 11:24 [facility] [id number] 02/20/18 11:31 BM 02/20/18 11:24 Wound Center Nurse 1 [Ulcer Assessment] #1 Left Lateral Foot -Combined with other wound No -Current Size (cm) - Length 2.5 -Current Size (cm) - Width 0.7 -Current Size (cm) - Depth 0.1 -Total Square Cm 1.75 -Photo Taken No -Epithelialization Small 1-33% -Tunneling No -Undermining/Tunneling No -Circular Undermining No -Exudate Amt Small (1-33%) -Exudate Type Serosanguineous -Wound Margin Thickened -Granulation Amt Large (67-100%) -Granulation Quality [place] -Slough/Fibrin Yes -Necrosis Amt Small (1-33%) -Necrotic Tissue Type Adherent Slough -Texture (Gissell-wound Skin Appearance) Scarring -Moisture (Gissell-wound Skin Appearance Assessed ) Dry/Scaly -Color (Gissell-wound Skin Appearance) Assessed -Temperature (Gissell-wound Skin No Abnormality Appearance) (Pt Warm) -Tenderness on Palpation (Gissell-wound No Skin Appearance) -Ulcer Cleansing Rinsed/ Irrigated with Saline -Foul Odor after Cleansing No -Anesthetic Used 5% Lidocaine Gel WC - Nurse 2 - General Ulcer CM Notes Start: 01/30/18 11:28 Freq: Status: Active Protocol: Activity Type Activity Date Activity User E-Sign Co-Sign Detail Recorded Client Recorded Date Recorded By Document 02/20/18 11:56 CS [id number] 02/20/18 12:05 CS 02/20/18 11:56 Wound Center Nurse 2 [Procedure/Treatment] -Time 12:00 -Correct Patient Yes -Correct Side, Site, Position Yes -Correct Procedure Yes -Procedure Performed Yes -Type of Procedure Debridement -Clinical Debridement Subcutaneous -Post Debridement Size (cm) - Length 2.7 -Post Debridement Size (cm) - Width 1.3 -Post Debridement Size (cm) - Depth 0.2 -Total Square Cm 3.51 -Wound/Ulcer Outcome Not Healed -Ulcer Cleansing Rinsed/ Irrigated with Saline -Foul Odor after Cleansing No -Bioengineered Tissue No -Type of bioengineered Tissue EPIFIX -Expiration Date 09/25/22 -Product Lot Number [id number] -Percent Used 80 -Saline Lot Number [id number] -Topical Lidocaine (%) 4 -Bleeding Controlled with Pressure -Offloading Yes -Type of Offloading Surgical Shoe -Treatment Response Procedure Tolerated Well [See Physician Procedure note for Specifics] Pain Scale: 0-10 Numeric [Pain] -Is Patient Pain Free? Yes Musculoskeletal: No Tenderness to Palpation of Joints or Extremities, - - Bilateral Charcot foot type. Bilateral hammertoe deformities of digits 2?5 of the right foot and 2?4 of the left foot. Neurological: - - Epicritic sensation grossly absent lower extremity Psych/Mental Status: Normal Affect, Appropriate Debridement Note Post-Debridement Measurements/Treatment WC - Nurse 2 - General Ulcer CM Notes Start: 01/30/18 11:28 Freq: Status: Active Protocol: Activity Type Activity Date Activity User E-Sign Co-Sign Detail Recorded Client Recorded Date Recorded By Document 01/30/18 12:40 DV [id number] 01/30/18 12:53 DV Document 02/06/18 12:00 DV [id number] 02/06/18 12:09 DV Document 02/13/18 11:38 [facility] [id number] 02/13/18 11:43 BM Document 02/20/18 11:56 CS [id number] 02/20/18 12:05 CS 01/30/18 02/06/18 02/13/18 12:40 12:00 11:38 Wound Center Nurse 2 #1 Left Lateral Foot -Time 12:40 12:04 11:39 -Correct Patient Yes Yes Yes -Correct Side, Site, Position Yes Yes Yes -Correct Procedure Yes Yes Yes -Procedure Performed Yes Yes Yes -Type of Procedure Debridement Debridement Debridement -Clinical Debridement Subcutaneous Subcutaneous Subcutaneous -Post Debridement Size (cm) - Length 3.8 3.2 3.2 -Post Debridement Size (cm) - Width 1.8 1.5 1.1 -Post Debridement Size (cm) - Depth 0.3 0.2 0.2 -Total Square Cm 6.84 4.80 3.52 -Wound/Ulcer Outcome Not Healed Not Healed Not Healed -Ulcer Cleansing Rinsed/ Rinsed/ Rinsed/ Irrigated with Irrigated with Irrigated with Saline Saline Saline -Foul Odor after Cleansing No No No -Bioengineered Tissue No No No -Type of bioengineered Tissue -Expiration Date -Product Lot Number -Percent Used -Saline Lot Number -Topical Lidocaine (%) -Bleeding Controlled with Pressure Pressure Pressure -Offloading No No No -Type of Offloading -Treatment Response Procedure Procedure Procedure Tolerated Well Tolerated Well Tolerated Well Pain Scale: 0-10 Numeric Is Patient Pain Free? No Yes Yes 02/20/18 11:56 Wound Center Nurse 2 #1 Left Lateral Foot -Time 12:00 -Correct Patient Yes -Correct Side, Site, Position Yes -Correct Procedure Yes -Procedure Performed Yes -Type of Procedure Debridement -Clinical Debridement Subcutaneous -Post Debridement Size (cm) - Length 2.7 -Post Debridement Size (cm) - Width 1.3 -Post Debridement Size (cm) - Depth 0.2 -Total Square Cm 3.51 -Wound/Ulcer Outcome Not Healed -Ulcer Cleansing Rinsed/ Irrigated with Saline -Foul Odor after Cleansing No -Bioengineered Tissue No -Type of bioengineered Tissue EPIFIX -Expiration Date 09/25/22 -Product Lot Number [id number] -Percent Used 80 -Saline Lot Number [id number] -Topical Lidocaine (%) 4 -Bleeding Controlled with Pressure -Offloading Yes -Type of Offloading Surgical Shoe -Treatment Response Procedure Tolerated Well Pain Scale: 0-10 Numeric Is Patient Pain Free? Yes Wound debrided: Left lateral foot Laterality: Left Type of Debridement: Excisional debridement Anesthesia Used: 4% Lidocaine Solution Depth: in the subcutaneous layer Percentage of wound debrided: 100 Instrument Used: 7mm curette Tissue Removed: Adherent slough, fibrin, hyperkeratotic tissue Severity: Fat Layer Exposed Amount of bleeding with debridement: Mild Bleeding Controlled with: Pressure Patient tolerated procedure well Assessment/Plan Active Problems Diabetic ulcer of left foot with fat layer exposed (Acute) Assessment: Open surgical site left lateral foot, DM with neuropathy, PVD, other comorbidities Plan: This patient was carefully examined and evaluated with her daughter in the room again today. Patient had surgical debridement of all necrotic, nonviable, infected soft tissue and bone of the left foot with open partial fifth ray amputation on December 16. Patient also had an angioplasty performed by Dr. Powers on December 20. Details from each operative report can be found in the patient's chart. Patient had subcutaneous debridement performed today as noted in the clinical panel. Following debridement the site was carefully cleansed, and dressed with epifix #1 to the base, followed wound veil, Steri-Strips, and a dry sterile dressing. Everything below the layer of Steri-Strips and wound veil is to stay in place for the next week. If there is drainage noted to the outer dressing above these layers the patient is able to have these changed. They understand this. It was stressed not to use any kind of significant compression to the lower extremity due to recently performed vascular procedure. Patient is to be nonweightbearing to the left foot at all times. Patient is to keep the area clean dry and intact. Patient instructed to eat a diet high in protein to help stimulate healing potential. The importance of tight glycemic control was discussed with this patient. Patient and her daughter were educated on all signs and symptoms of local and systemic infection and they were instructed to go to the emergency room immediately should they notice any of these, or if they notice any issues with her wound vac. Patient will follow-up and clinic in 1 week for a nurse visit and vac change, but was instructed to follow-up in clinic sooner if needed.
== END 2018-02-24 23:59 ==
LOC: WC 11:30
PROVIDERS: Family Provider Family Medicine; PCP Family Medicine; Visit Provider Podiatrist
DX: E11.621 Type 2 diabetes mellitus with foot ulcer (principal); E11.42 Type 2 diabetes mellitus with diabetic polyneuropathy; E11.51 Type 2 diabetes mellitus with diabetic peripheral angiopathy without gangrene; E11.610 Type 2 diabetes mellitus with diabetic neuropathic arthropathy; I10 Essential (primary) hypertension; M20.42 Other hammer toe(s) (acquired), left foot; M20.41 Other hammer toe(s) (acquired), right foot; L97.522 Non-pressure chronic ulcer of other part of left foot with fat layer exposed
CPT/HCPCS: 11042; 15275; 97605; Q4131

== ENCOUNTER 2018-03-27 11:00 | Outpatient (RCR) | payer MEDICARE, OTHER, SELFPAY ==
[2018-02-25 01:08] VITALS: BP 125/56; PULSE 72; RESP 14; TEMP 36.2
[2018-02-27 11:39] VITALS: BP 119/58; PULSE 71; RESP 16; TEMP 36.1; BMI 24.1
--- NOTE | 2018-02-27 14:51 | PCM.WC.PN ---
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 Status: Acute Current Visit: No Code(s): E11.621 - Type 2 diabetes mellitus with foot ulcer; L97.522 - Non-pressure chronic ulcer of other part of left foot with fat layer exposed (2) Type 2 diabetes mellitus with diabetic polyneuropathy Status: Acute Current Visit: No Code(s): E11.42 - Type 2 diabetes mellitus with diabetic polyneuropathy (3) Charcot's joint of foot Status: Acute Current Visit: No Code(s): M14.679 - Charcot's joint, unspecified ankle and foot (4) PVD (peripheral vascular disease) Status: Acute Current Visit: No Code(s): I73.9 - Peripheral vascular disease, unspecified Type of Wound Chief Complaint: Sore on left foot caused by removing tape. History of Wound: 72 year old diabetic female was being seen for a ulcer on her left lateral foot at the base of the 5th toe. She states that she was seeing a tenant selector, Dr. Santo in [place] for a callus on the arch of her left foot and for her history of Charcot foot. A month ago she had a bandage covering the callus and when she removed it, the tape pulled some skin off at the base of her 5th toe. She had an opened ulcer there ever since. She has been applying silvadine cream and soaking her foot in epsome salt as prescribed by her tenant selector in [place]. 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 On December 15 the patient was admitted for fever, nausea, vomiting, cellulitis of left foot, and ulcer of left foot. X-ray and MRI taken showed evidence of osteomyelitis to the fifth metatarsal and base of the fifth toe as well as showed signs of soft tissue emphysema. I was consulted on December 16 when the patient was admitted, and she was taken to surgery the same day for debridement of all necrotic, nonviable, infected soft tissue and bone of the left foot with open partial fifth ray amputation. Dr. Powers then performed an angioplasty on December 20 while the patient was still admitted prior to her discharge. Details from both operative reports can be found in the patient's chart. A wound VAC was applied prior to patient's discharge home, and she is to follow back up at the wound healing center. Progress of Wound: Open surgical site to left lateral foot shows continued improvement since last visit. Patient had epifix dressing applied last week. Patient currently denies any feelings of nausea, vomiting, fever, chills. - Physical Exam Vital Signs Temp Pulse Resp BP 97.0 F L 71 16 119/58 L 02/27/18 11:39 02/27/18 11:39 02/27/18 11:39 02/27/18 11:39 General: Alert, Oriented x3, Cooperative, No apparent distress Extremities: Capillary Refill Less than 3 Seconds, No Calf Tenderness, Diminished Peripheral Pulses - Negative Zion and Degroot sign DP and PT pulses nonpalpable, Edema - Minor lower extremity edema Skin: Ulcer/ Wound - Open surgical site to left lateral foot with fat layer exposed. Improvement appreciated again this week. Measurements are noted below. The base continues to be a mixture of adherent slough, fibrin, granular tissue as well as some slight surrounding hyperkeratotic tissue as well. No maceration appreciated today. There continues to be no extending or surrounding cellulitis, no increase in warmth, no purulence, no malodor, no probing to bone, no tracking, and no undermining at this time. Wound Measurements and Assessment WC - Nurse 1 - General Ulcer Measurement Start: 02/27/18 11:39 Freq: Status: Active Protocol: Activity Type Activity Date Activity User E-Sign Co-Sign Detail Recorded Client Recorded Date Recorded By Document 02/27/18 11:39 IA [id number] 02/27/18 11:50 IA 02/27/18 11:39 Wound Center Nurse 1 [Ulcer Assessment] #1 Left Lateral Foot -Combined with other wound No -Current Size (cm) - Length 1.5 -Current Size (cm) - Width 0.5 -Current Size (cm) - Depth 0.2 -Total Square Cm 0.75 -Photo Taken No -Tunneling No -Undermining/Tunneling No -Circular Undermining No -Exudate Amt Small (1-33%) -Exudate Type Purulent -Wound Margin Thickened -Granulation Amt Small (1-33%) -Granulation Quality Pale [place] -Necrosis Amt Large (67-100%) -Necrotic Tissue Type Adherent Slough -Texture (Gissell-wound Skin Appearance) Assessed Scarring -Moisture (Gissell-wound Skin Appearance Assessed ) Maceration -Color (Gissell-wound Skin Appearance) Assessed -Temperature (Gissell-wound Skin No Abnormality Appearance) (Pt Warm) -Tenderness on Palpation (Gissell-wound No Skin Appearance) -Ulcer Cleansing Rinsed/ Irrigated with Saline -Foul Odor after Cleansing No -Anesthetic Used 4% Lidocaine Solution [Edema Assessment] -Lower Limb Edema Present No -Left Calf (cm) 26 -Left Ankle (cm) 16.5 WC - Nurse 2 - General Ulcer CM Notes Start: 02/27/18 11:39 Freq: Status: Active Protocol: Activity Type Activity Date Activity User E-Sign Co-Sign Detail Recorded Client Recorded Date Recorded By Document 02/27/18 12:16 DV [id number] 02/27/18 12:28 DV 02/27/18 12:16 Wound Center Nurse 2 [Procedure/Treatment] #1 Left Lateral Foot -Time 12:16 -Correct Patient Yes -Correct Side, Site, Position Yes -Correct Procedure Yes -Procedure Performed Yes -Type of Procedure Debridement -Clinical Debridement Subcutaneous -Post Debridement Size (cm) - Length 2.5 -Post Debridement Size (cm) - Width 0.7 -Post Debridement Size (cm) - Depth 0.2 -Total Square Cm 1.75 -Wound/Ulcer Outcome Not Healed -Ulcer Cleansing Rinsed/ Irrigated with Saline -Foul Odor after Cleansing No -Bioengineered Tissue Yes -Type of bioengineered Tissue EPIFIX -Expiration Date 08/25/22 -Product Lot Number [id number] -Percent Used 100 -Saline Lot Number [id number] -Topical Lidocaine (%) 4 -Bleeding Controlled with Pressure -Offloading No -Treatment Response Procedure Tolerated Well [See Physician Procedure note for Specifics] Pain Scale: 0-10 Numeric [Pain] -Is Patient Pain Free? Yes Musculoskeletal: No Tenderness to Palpation of Joints or Extremities, - - Bilateral Charcot foot type. Bilateral hammertoe deformities of digits 2?5 of the right foot and 2?4 of the left foot. Neurological: - - Epicritic sensation grossly absent to the lower extremity Psych/Mental Status: Normal Affect, Appropriate Debridement Note Post-Debridement Measurements/Treatment WC - Nurse 2 - General Ulcer CM Notes Start: 02/27/18 11:39 Freq: Status: Active Protocol: Activity Type Activity Date Activity User E-Sign Co-Sign Detail Recorded Client Recorded Date Recorded By Document 02/27/18 12:16 DV [id number] 02/27/18 12:28 DV 02/27/18 12:16 Wound Center Nurse 2 #1 Left Lateral Foot -Time 12:16 -Correct Patient Yes -Correct Side, Site, Position Yes -Correct Procedure Yes -Procedure Performed Yes -Type of Procedure Debridement -Clinical Debridement Subcutaneous -Post Debridement Size (cm) - Length 2.5 -Post Debridement Size (cm) - Width 0.7 -Post Debridement Size (cm) - Depth 0.2 -Total Square Cm 1.75 -Wound/Ulcer Outcome Not Healed -Ulcer Cleansing Rinsed/ Irrigated with Saline -Foul Odor after Cleansing No -Bioengineered Tissue Yes -Type of bioengineered Tissue EPIFIX -Expiration Date 08/25/22 -Product Lot Number [id number] -Percent Used 100 -Saline Lot Number [id number] -Topical Lidocaine (%) 4 -Bleeding Controlled with Pressure -Offloading No -Treatment Response Procedure Tolerated Well Pain Scale: 0-10 Numeric Is Patient Pain Free? Yes Wound debrided: Left lateral foot Laterality: Left Type of Debridement: Excisional debridement Anesthesia Used: 4% Lidocaine Solution Depth: in the subcutaneous layer Percentage of wound debrided: 100 Instrument Used: 7mm curette Tissue Removed: Adherent slough, fibrin, hyperkeratotic tissue Severity: Fat Layer Exposed Amount of bleeding with debridement: Mild Bleeding Controlled with: Pressure Patient tolerated procedure well Assessment/Plan Assessment: Open surgical site left lateral foot, DM with neuropathy, PVD, other comorbidities Plan: This patient was carefully examined and evaluated with her daughter in the room again today. Patient had surgical debridement of all necrotic, nonviable, infected soft tissue and bone of the left foot with open partial fifth ray amputation on December 16. Patient also had an angioplasty performed by Dr. Powers on December 20. Details from each operative report can be found in the patient's chart. Patient had subcutaneous debridement performed today as noted in the clinical panel. Following debridement the site was carefully cleansed, and dressed with epifix #2 to the base, followed wound veil, Steri-Strips, and a dry sterile dressing. Everything below the layer of Steri-Strips and wound veil is to stay in place for the next week. If there is drainage noted to the outer dressing above these layers the patient is able to have these changed. They understand this. It was stressed not to use any kind of significant compression to the lower extremity due to recently performed vascular procedure. Patient is to be nonweightbearing to the left foot at all times. Patient is to keep the area clean dry and intact. Patient instructed to eat a diet high in protein to help stimulate healing potential. The importance of tight glycemic control was discussed with this patient. Patient and her daughter were educated on all signs and symptoms of local and systemic infection and they were instructed to go to the emergency room immediately should they notice any of these, or if they notice any issues with her wound vac. Patient will follow-up and clinic in 1 week to check on progress, but was instructed to follow-up in clinic sooner if needed.
--- NOTE | 2018-02-27 14:56 | PN.PCM_ITS ---
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 Status: Acute Current Visit: No Code(s): E11.621 - Type 2 diabetes mellitus with foot ulcer; L97.522 - Non-pressure chronic ulcer of other part of left foot with fat layer exposed (2) Type 2 diabetes mellitus with diabetic polyneuropathy Status: Acute Current Visit: No Code(s): E11.42 - Type 2 diabetes mellitus with diabetic polyneuropathy (3) Charcot's joint of foot Status: Acute Current Visit: No Code(s): M14.679 - Charcot's joint, unspecified ankle and foot (4) PVD (peripheral vascular disease) Status: Acute Current Visit: No Code(s): I73.9 - Peripheral vascular disease, unspecified Type of Wound Chief Complaint: Sore on left foot caused by removing tape. History of Wound: 72 year old diabetic female was being seen for a ulcer on her left lateral foot at the base of the 5th toe. She states that she was seeing a presser automatic, Dr. Santo in [place] for a callus on the arch of her left foot and for her history of Charcot foot. A month ago she had a bandage covering the callus and when she removed it, the tape pulled some skin off at the base of her 5th toe. She had an opened ulcer there ever since. She has been applying silvadine cream and soaking her foot in epsome salt as prescribed by her presser automatic in [place]. 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 On December 15 the patient was admitted for fever, nausea, vomiting, cellulitis of left foot, and ulcer of left foot. X-ray and MRI taken showed evidence of osteomyelitis to the fifth metatarsal and base of the fifth toe as well as showed signs of soft tissue emphysema. I was consulted on December 16 when the patient was admitted, and she was taken to surgery the same day for debridement of all necrotic, nonviable, infected soft tissue and bone of the left foot with open partial fifth ray amputation. Dr. Powers then performed an angioplasty on December 20 while the patient was still admitted prior to her discharge. Details from both operative reports can be found in the patient's chart. A wound VAC was applied prior to patient's discharge home, and she is to follow back up at the wound healing center. Progress of Wound: Open surgical site to left lateral foot shows continued improvement since last visit. Patient had epifix dressing applied last week. Patient currently denies any feelings of nausea, vomiting, fever, chills. - Physical Exam Vital Signs Temp Pulse Resp BP 97.0 F L 71 16 119/58 L 02/27/18 11:39 02/27/18 11:39 02/27/18 11:39 02/27/18 11:39 General: Alert, Oriented x3, Cooperative, No apparent distress Extremities: Capillary Refill Less than 3 Seconds, No Calf Tenderness, Diminished Peripheral Pulses - Negative Zion and Degroot sign DP and PT pulses nonpalpable, Edema - Minor lower extremity edema Skin: Ulcer/ Wound - Open surgical site to left lateral foot with fat layer exposed. Improvement appreciated again this week. Measurements are noted below. The base continues to be a mixture of adherent slough, fibrin, granular tissue as well as some slight surrounding hyperkeratotic tissue as well. No maceration appreciated today. There continues to be no extending or surrounding cellulitis, no increase in warmth, no purulence, no malodor, no probing to bone, no tracking, and no undermining at this time. Wound Measurements and Assessment WC - Nurse 1 - General Ulcer Measurement Start: 02/27/18 11:39 Freq: Status: Active Protocol: Activity Type Activity Date Activity User E-Sign Co-Sign Detail Recorded Client Recorded Date Recorded By Document 02/27/18 11:39 MA [id number] 02/27/18 11:50 MA 02/27/18 11:39 Wound Center Nurse 1 [Ulcer Assessment] #1 Left Lateral Foot -Combined with other wound No -Current Size (cm) - Length 1.5 -Current Size (cm) - Width 0.5 -Current Size (cm) - Depth 0.2 -Total Square Cm 0.75 -Photo Taken No -Tunneling No -Undermining/Tunneling No -Circular Undermining No -Exudate Amt Small (1-33%) -Exudate Type Purulent -Wound Margin Thickened -Granulation Amt Small (1-33%) -Granulation Quality Pale [place] -Necrosis Amt Large (67-100%) -Necrotic Tissue Type Adherent Slough -Texture (Gissell-wound Skin Appearance) Assessed Scarring -Moisture (Gissell-wound Skin Appearance Assessed ) Maceration -Color (Gissell-wound Skin Appearance) Assessed -Temperature (Gissell-wound Skin No Abnormality Appearance) (Pt Warm) -Tenderness on Palpation (Gissell-wound No Skin Appearance) -Ulcer Cleansing Rinsed/ Irrigated with Saline -Foul Odor after Cleansing No -Anesthetic Used 4% Lidocaine Solution [Edema Assessment] -Lower Limb Edema Present No -Left Calf (cm) 26 -Left Ankle (cm) 16.5 WC - Nurse 2 - General Ulcer CM Notes Start: 02/27/18 11:39 Freq: Status: Active Protocol: Activity Type Activity Date Activity User E-Sign Co-Sign Detail Recorded Client Recorded Date Recorded By Document 02/27/18 12:16 DV [id number] 02/27/18 12:28 DV 02/27/18 12:16 Wound Center Nurse 2 [Procedure/Treatment] #1 Left Lateral Foot -Time 12:16 -Correct Patient Yes -Correct Side, Site, Position Yes -Correct Procedure Yes -Procedure Performed Yes -Type of Procedure Debridement -Clinical Debridement Subcutaneous -Post Debridement Size (cm) - Length 2.5 -Post Debridement Size (cm) - Width 0.7 -Post Debridement Size (cm) - Depth 0.2 -Total Square Cm 1.75 -Wound/Ulcer Outcome Not Healed -Ulcer Cleansing Rinsed/ Irrigated with Saline -Foul Odor after Cleansing No -Bioengineered Tissue Yes -Type of bioengineered Tissue EPIFIX -Expiration Date 08/25/22 -Product Lot Number [id number] -Percent Used 100 -Saline Lot Number [id number] -Topical Lidocaine (%) 4 -Bleeding Controlled with Pressure -Offloading No -Treatment Response Procedure Tolerated Well [See Physician Procedure note for Specifics] Pain Scale: 0-10 Numeric [Pain] -Is Patient Pain Free? Yes Musculoskeletal: No Tenderness to Palpation of Joints or Extremities, - - Bilateral Charcot foot type. Bilateral hammertoe deformities of digits 2?5 of the right foot and 2?4 of the left foot. Neurological: - - Epicritic sensation grossly absent to the lower extremity Psych/Mental Status: Normal Affect, Appropriate Debridement Note Post-Debridement Measurements/Treatment WC - Nurse 2 - General Ulcer CM Notes Start: 02/27/18 11:39 Freq: Status: Active Protocol: Activity Type Activity Date Activity User E-Sign Co-Sign Detail Recorded Client Recorded Date Recorded By Document 02/27/18 12:16 DV [id number] 02/27/18 12:28 DV 02/27/18 12:16 Wound Center Nurse 2 #1 Left Lateral Foot -Time 12:16 -Correct Patient Yes -Correct Side, Site, Position Yes -Correct Procedure Yes -Procedure Performed Yes -Type of Procedure Debridement -Clinical Debridement Subcutaneous -Post Debridement Size (cm) - Length 2.5 -Post Debridement Size (cm) - Width 0.7 -Post Debridement Size (cm) - Depth 0.2 -Total Square Cm 1.75 -Wound/Ulcer Outcome Not Healed -Ulcer Cleansing Rinsed/ Irrigated with Saline -Foul Odor after Cleansing No -Bioengineered Tissue Yes -Type of bioengineered Tissue EPIFIX -Expiration Date 08/25/22 -Product Lot Number [id number] -Percent Used 100 -Saline Lot Number [id number] -Topical Lidocaine (%) 4 -Bleeding Controlled with Pressure -Offloading No -Treatment Response Procedure Tolerated Well Pain Scale: 0-10 Numeric Is Patient Pain Free? Yes Wound debrided: Left lateral foot Laterality: Left Type of Debridement: Excisional debridement Anesthesia Used: 4% Lidocaine Solution Depth: in the subcutaneous layer Percentage of wound debrided: 100 Instrument Used: 7mm curette Tissue Removed: Adherent slough, fibrin, hyperkeratotic tissue Severity: Fat Layer Exposed Amount of bleeding with debridement: Mild Bleeding Controlled with: Pressure Patient tolerated procedure well Assessment/Plan Assessment: Open surgical site left lateral foot, DM with neuropathy, PVD, other comorbidities Plan: This patient was carefully examined and evaluated with her daughter in the room again today. Patient had surgical debridement of all necrotic, nonviable, infected soft tissue and bone of the left foot with open partial fifth ray amputation on December 16. Patient also had an angioplasty performed by Dr. Powers on December 20. Details from each operative report can be found in the patient's chart. Patient had subcutaneous debridement performed today as noted in the clinical panel. Following debridement the site was carefully cleansed, and dressed with epifix #2 to the base, followed wound veil, Steri-Strips, and a dry sterile dressing. Everything below the layer of Steri-Strips and wound veil is to stay in place for the next week. If there is drainage noted to the outer dressing above these layers the patient is able to have these changed. They understand this. It was stressed not to use any kind of significant compression to the lower extremity due to recently performed vascular procedure. Patient is to be nonweightbearing to the left foot at all times. Patient is to keep the area clean dry and intact. Patient instructed to eat a diet high in protein to help stimulate healing potential. The importance of tight glycemic control was discussed with this patient. Patient and her daughter were educated on all signs and symptoms of local and systemic infection and they were inst ructed to go to the emergency room immediately should they notice any of these, or if they notice any issues with her wound vac. Patient will follow-up and clinic in 1 week to check on progress, but was instructed to follow-up in clinic sooner if needed.
[2018-03-06 12:08] VITALS: BMI 24.1
--- NOTE | 2018-03-06 13:16 | PCM.WC.PN ---
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 Status: Acute Current Visit: No Code(s): E11.621 - Type 2 diabetes mellitus with foot ulcer; L97.522 - Non-pressure chronic ulcer of other part of left foot with fat layer exposed (2) Type 2 diabetes mellitus with diabetic polyneuropathy Status: Acute Current Visit: No Code(s): E11.42 - Type 2 diabetes mellitus with diabetic polyneuropathy (3) Charcot's joint of foot Status: Acute Current Visit: No Code(s): M14.679 - Charcot's joint, unspecified ankle and foot (4) PVD (peripheral vascular disease) Status: Acute Current Visit: No Code(s): I73.9 - Peripheral vascular disease, unspecified Type of Wound Chief Complaint: Sore on left foot caused by removing tape. History of Wound: 72 year old diabetic female was being seen for a ulcer on her left lateral foot at the base of the 5th toe. She states that she was seeing a warehouseman, Dr. Santo in [place] for a callus on the arch of her left foot and for her history of Charcot foot. A month ago she had a bandage covering the callus and when she removed it, the tape pulled some skin off at the base of her 5th toe. She had an opened ulcer there ever since. She has been applying silvadine cream and soaking her foot in epsome salt as prescribed by her warehouseman in [place]. 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 On December 15 the patient was admitted for fever, nausea, vomiting, cellulitis of left foot, and ulcer of left foot. X-ray and MRI taken showed evidence of osteomyelitis to the fifth metatarsal and base of the fifth toe as well as showed signs of soft tissue emphysema. I was consulted on December 16 when the patient was admitted, and she was taken to surgery the same day for debridement of all necrotic, nonviable, infected soft tissue and bone of the left foot with open partial fifth ray amputation. Dr. Powers then performed an angioplasty on December 20 while the patient was still admitted prior to her discharge. Details from both operative reports can be found in the patient's chart. A wound VAC was applied prior to patient's discharge home, and she is to follow back up at the wound healing center. Progress of Wound: Open surgical site to left lateral foot shows continued improvement since last visit. Patient had epifix dressing applied last week again. Patient currently denies any feelings of nausea, vomiting, fever, chills. - Physical Exam Vital Signs Temp Pulse Resp BP 97.0 F L 71 16 119/58 L 02/27/18 11:39 02/27/18 11:39 02/27/18 11:39 02/27/18 11:39 General: Alert, Oriented x3, Cooperative, No apparent distress Extremities: Capillary Refill Less than 3 Seconds, No Calf Tenderness - Negative Zion and Degroot sign, Diminished Peripheral Pulses - DP and PT pulses nonpalpable, Edema - Minor lower extremity edema Skin: Ulcer/ Wound - Open surgical site to left lateral foot with fat layer exposed. Improvement noted again this week. Measurements noted below. Based remains a mixture of adherent slough, fibrin, granular tissue as well as some slight surrounding hyperkeratotic tissue. There continues to be no extending or surrounding cellulitis, no increase in warmth, no purulence, no malodor, no probing to bone, no tracking, and no undermining at this time. Wound Measurements and Assessment WC - Nurse 1 - General Ulcer Measurement Start: 02/27/18 11:39 Freq: Status: Active Protocol: Activity Type Activity Date Activity User E-Sign Co-Sign Detail Recorded Client Recorded Date Recorded By Document 03/06/18 12:08 DV [id number] 03/06/18 12:21 DV 03/06/18 12:08 Wound Center Nurse 1 [Ulcer Assessment] #1 Left Lateral Foot -Combined with other wound No -Current Size (cm) - Length 2.0 -Current Size (cm) - Width 0.6 -Current Size (cm) - Depth 0.2 -Total Square Cm 1.20 -Photo Taken No -Epithelialization Small 1-33% -Tunneling No -Undermining/Tunneling No -Circular Undermining No [Edema Assessment] -Lower Limb Edema Present No WC - Nurse 2 - General Ulcer CM Notes Start: 02/27/18 11:39 Freq: Status: Active Protocol: Activity Type Activity Date Activity User E-Sign Co-Sign Detail Recorded Client Recorded Date Recorded By Document 03/06/18 12:08 DV [id number] 03/06/18 12:21 DV 03/06/18 12:08 Wound Center Nurse 2 [Procedure/Treatment] #1 Left Lateral Foot -Time 12:12 -Correct Patient Yes -Correct Side, Site, Position Yes -Correct Procedure Yes -Procedure Performed Yes -Type of Procedure Debridement -Clinical Debridement Subcutaneous -Post Debridement Size (cm) - Length 2.1 -Post Debridement Size (cm) - Width 0.6 -Post Debridement Size (cm) - Depth 0.2 -Total Square Cm 1.26 -Wound/Ulcer Outcome Not Healed -Ulcer Cleansing Rinsed/ Irrigated with Saline -Foul Odor after Cleansing No -Bioengineered Tissue Yes -Type of bioengineered Tissue EPIFIX -Expiration Date 09/25/22 -Product Lot Number [id number] -Percent Used 100 -Saline Lot Number [id number] -Topical Lidocaine (%) 4 -Bleeding Controlled with Pressure -Offloading No -Treatment Response Procedure Tolerated Well Musculoskeletal: No Tenderness to Palpation of Joints or Extremities, - - Bilateral Charcot foot type. Bilateral hammertoe deformities of digits 2?5 of the right foot and 2?4 of the left foot. Neurological: - - Epicritic sensation grossly absent to the lower extremity Psych/Mental Status: Normal Affect, Appropriate Debridement Note Post-Debridement Measurements/Treatment WC - Nurse 2 - General Ulcer CM Notes Start: 02/27/18 11:39 Freq: Status: Active Protocol: Activity Type Activity Date Activity User E-Sign Co-Sign Detail Recorded Client Recorded Date Recorded By Document 02/27/18 12:16 DV [id number] 02/27/18 12:28 DV Document 03/06/18 12:08 DV [id number] 03/06/18 12:21 DV 02/27/18 03/06/18 12:16 12:08 Wound Center Nurse 2 #1 Left Lateral Foot -Time 12:16 12:12 -Correct Patient Yes Yes -Correct Side, Site, Position Yes Yes -Correct Procedure Yes Yes -Procedure Performed Yes Yes -Type of Procedure Debridement Debridement -Clinical Debridement Subcutaneous Subcutaneous -Post Debridement Size (cm) - Length 2.5 2.1 -Post Debridement Size (cm) - Width 0.7 0.6 -Post Debridement Size (cm) - Depth 0.2 0.2 -Total Square Cm 1.75 1.26 -Wound/Ulcer Outcome Not Healed Not Healed -Ulcer Cleansing Rinsed/ Rinsed/ Irrigated with Irrigated with Saline Saline -Foul Odor after Cleansing No No -Bioengineered Tissue Yes Yes -Type of bioengineered Tissue EPIFIX EPIFIX -Expiration Date 08/25/22 09/25/22 -Product Lot Number [id number] -Percent Used 100 100 -Saline Lot Number [id number] -Topical Lidocaine (%) 4 4 -Bleeding Controlled with Pressure Pressure -Offloading No No -Treatment Response Procedure Procedure Tolerated Well Tolerated Well Pain Scale: 0-10 Numeric Is Patient Pain Free? Yes Wound debrided: Left lateral foot Laterality: Left Type of Debridement: Excisional debridement Anesthesia Used: 4% Lidocaine Solution Depth: in the subcutaneous layer Percentage of wound debrided: 100 Instrument Used: 7mm curette, #15 blade Tissue Removed: Adherent slough, fibrin, hyperkeratotic tissue Severity: Fat Layer Exposed Amount of bleeding with debridement: Mild Bleeding Controlled with: Pressure Patient tolerated procedure well Assessment/Plan Assessment: Open surgical site left lateral foot, DM with neuropathy, PVD, other comorbidities Plan: This patient was carefully examined and evaluated with her daughter in the room again today. Patient had surgical debridement of all necrotic, nonviable, infected soft tissue and bone of the left foot with open partial fifth ray amputation on December 16. Patient also had an angioplasty performed by Dr. Powers on December 20. Details from each operative report can be found in the patient's chart. Patient had subcutaneous debridement performed today as noted in the clinical panel. Following debridement the site was carefully cleansed, and dressed with epifix #3 to the base, followed wound veil, Steri-Strips, and a dry sterile dressing. Everything below the layer of Steri-Strips and wound veil is to stay in place for the next week. If there is drainage noted to the outer dressing above these layers, the patient is able to have these changed. They understand this. It was stressed not to use any kind of significant compression to the lower extremity due to recently performed vascular procedure. Patient is to be nonweightbearing to the left foot at all times. Patient is to keep the area clean dry and intact. Patient instructed to eat a diet high in protein to help stimulate healing potential. The importance of tight glycemic control was discussed with this patient. Patient and her daughter were educated on all signs and symptoms of local and systemic infection and they were instructed to go to the emergency room immediately should they notice any of these, or if they notice any issues with her wound vac. Patient will follow-up and clinic in 1 week to check on progress, but was instructed to follow-up in clinic sooner if needed.
--- NOTE | 2018-03-06 13:20 | PN.PCM_ITS ---
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 Status: Acute Current Visit: No Code(s): E11.621 - Type 2 diabetes mellitus with foot ulcer; L97.522 - Non-pressure chronic ulcer of other part of left foot with fat layer exposed (2) Type 2 diabetes mellitus with diabetic polyneuropathy Status: Acute Current Visit: No Code(s): E11.42 - Type 2 diabetes mellitus with diabetic polyneuropathy (3) Charcot's joint of foot Status: Acute Current Visit: No Code(s): M14.679 - Charcot's joint, unspecified ankle and foot (4) PVD (peripheral vascular disease) Status: Acute Current Visit: No Code(s): I73.9 - Peripheral vascular disease, unspecified Type of Wound Chief Complaint: Sore on left foot caused by removing tape. History of Wound: 72 year old diabetic female was being seen for a ulcer on her left lateral foot at the base of the 5th toe. She states that she was seeing a manager of business, Dr. Santo in [place] for a callus on the arch of her left foot and for her history of Charcot foot. A month ago she had a bandage covering the callus and when she removed it, the tape pulled some skin off at the base of her 5th toe. She had an opened ulcer there ever since. She has been applying silvadine cream and soaking her foot in epsome salt as prescribed by her manager of business in [place]. 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 On December 15 the patient was admitted for fever, nausea, vomiting, cellulitis of left foot, and ulcer of left foot. X-ray and MRI taken showed evidence of osteomyelitis to the fifth metatarsal and base of the fifth toe as well as showed signs of soft tissue emphysema. I was consulted on December 16 when the patient was admitted, and she was taken to surgery the same day for debridement of all necrotic, nonviable, infected soft tissue and bone of the left foot with open partial fifth ray amputation. Dr. Powers then performed an angioplasty on December 20 while the patient was still admitted prior to her discharge. Details from both operative reports can be found in the patient's chart. A wound VAC was applied prior to patient's discharge home, and she is to follow back up at the wound healing center. Progress of Wound: Open surgical site to left lateral foot shows continued improvement since last visit. Patient had epifix dressing applied last week again. Patient currently denies any feelings of nausea, vomiting, fever, chills. - Physical Exam Vital Signs Temp Pulse Resp BP 97.0 F L 71 16 119/58 L 02/27/18 11:39 02/27/18 11:39 02/27/18 11:39 02/27/18 11:39 General: Alert, Oriented x3, Cooperative, No apparent distress Extremities: Capillary Refill Less than 3 Seconds, No Calf Tenderness - Negative Zion and Degroot sign, Diminished Peripheral Pulses - DP and PT pulses nonpalpable, Edema - Minor lower extremity edema Skin: Ulcer/ Wound - Open surgical site to left lateral foot with fat layer exposed. Improvement noted again this week. Measurements noted below. Based remains a mixture of adherent slough, fibrin, granular tissue as well as some slight surrounding hyperkeratotic tissue. There continues to be no extending or surrounding cellulitis, no increase in warmth, no purulence, no malodor, no probing to bone, no tracking, and no undermining at this time. Wound Measurements and Assessment WC - Nurse 1 - General Ulcer Measurement Start: 02/27/18 11:39 Freq: Status: Active Protocol: Activity Type Activity Date Activity User E-Sign Co-Sign Detail Recorded Client Recorded Date Recorded By Document 03/06/18 12:08 DV [id number] 03/06/18 12:21 DV 03/06/18 12:08 Wound Center Nurse 1 [Ulcer Assessment] #1 Left Lateral Foot -Combined with other wound No -Current Size (cm) - Length 2.0 -Current Size (cm) - Width 0.6 -Current Size (cm) - Depth 0.2 -Total Square Cm 1.20 -Photo Taken No -Epithelialization Small 1-33% -Tunneling No -Undermining/Tunneling No -Circular Undermining No [Edema Assessment] -Lower Limb Edema Present No WC - Nurse 2 - General Ulcer CM Notes Start: 02/27/18 11:39 Freq: Status: Active Protocol: Activity Type Activity Date Activity User E-Sign Co-Sign Detail Recorded Client Recorded Date Recorded By Document 03/06/18 12:08 DV [id number] 03/06/18 12:21 DV 03/06/18 12:08 Wound Center Nurse 2 [Procedure/Treatment] #1 Left Lateral Foot -Time 12:12 -Correct Patient Yes -Correct Side, Site, Position Yes -Correct Procedure Yes -Procedure Performed Yes -Type of Procedure Debridement -Clinical Debridement Subcutaneous -Post Debridement Size (cm) - Length 2.1 -Post Debridement Size (cm) - Width 0.6 -Post Debridement Size (cm) - Depth 0.2 -Total Square Cm 1.26 -Wound/Ulcer Outcome Not Healed -Ulcer Cleansing Rinsed/ Irrigated with Saline -Foul Odor after Cleansing No -Bioengineered Tissue Yes -Type of bioengineered Tissue EPIFIX -Expiration Date 09/25/22 -Product Lot Number [id number] -Percent Used 100 -Saline Lot Number [id number] -Topical Lidocaine (%) 4 -Bleeding Controlled with Pressure -Offloading No -Treatment Response Procedure Tolerated Well Musculoskeletal: No Tenderness to Palpation of Joints or Extremities, - - Bilateral Charcot foot type. Bilateral hammertoe deformities of digits 2?5 of the right foot and 2?4 of the left foot. Neurological: - - Epicritic sensation grossly absent to the lower extremity Psych/Mental Status: Normal Affect, Appropriate Debridement Note Post-Debridement Measurements/Treatment WC - Nurse 2 - General Ulcer CM Notes Start: 02/27/18 11:39 Freq: Status: Active Protocol: Activity Type Activity Date Activity User E-Sign Co-Sign Detail Recorded Client Recorded Date Recorded By Document 02/27/18 12:16 DV [id number] 02/27/18 12:28 DV Document 03/06/18 12:08 DV [id number] 03/06/18 12:21 DV 02/27/18 03/06/18 12:16 12:08 Wound Center Nurse 2 #1 Left Lateral Foot -Time 12:16 12:12 -Correct Patient Yes Yes -Correct Side, Site, Position Yes Yes -Correct Procedure Yes Yes -Procedure Performed Yes Yes -Type of Procedure Debridement Debridement -Clinical Debridement Subcutaneous Subcutaneous -Post Debridement Size (cm) - Length 2.5 2.1 -Post Debridement Size (cm) - Width 0.7 0.6 -Post Debridement Size (cm) - Depth 0.2 0.2 -Total Square Cm 1.75 1.26 -Wound/Ulcer Outcome Not Healed Not Healed -Ulcer Cleansing Rinsed/ Rinsed/ Irrigated with Irrigated with Saline Saline -Foul Odor after Cleansing No No -Bioengineered Tissue Yes Yes -Type of bioengineered Tissue EPIFIX EPIFIX -Expiration Date 08/25/22 09/25/22 -Product Lot Number [id number] -Percent Used 100 100 -Saline Lot Number [id number] -Topical Lidocaine (%) 4 4 -Bleeding Controlled with Pressure Pressure -Offloading No No -Treatment Response Procedure Procedure Tolerated Well Tolerated Well Pain Scale: 0-10 Numeric Is Patient Pain Free? Yes Wound debrided: Left lateral foot Laterality: Left Type of Debridement: Excisional debridement Anesthesia Used: 4% Lidocaine Solution Depth: in the subcutaneous layer Percentage of wound debrided: 100 Instrument Used: 7mm curette, #15 blade Tissue Removed: Adherent slough, fibrin, hyperkeratotic tissue Severity: Fat Layer Exposed Amount of bleeding with debridement: Mild Bleeding Controlled with: Pressure Patient tolerated procedure well Assessment/Plan Assessment: Open surgical site left lateral foot, DM with neuropathy, PVD, other comorbidities Plan: This patient was carefully examined and evaluated with her daughter in the room again today. Patient had surgical debridement of all necrotic, nonviable, infected soft tissue and bone of the left foot with open partial fifth ray amputation on December 16. Patient also had an angioplasty performed by Dr. Powers on December 20. Details from each operative report can be found in the patient's chart. Patient had subcutaneous debridement performed today as noted in the clinical panel. Following debridement the site was carefully cleansed, and dressed with epifix #3 to the base, followed wound veil, Steri-Strips, and a dry sterile dressing. Everything below the layer of Steri-Strips and wound veil is to stay in place for the next week. If there is drainage noted to the outer dressing above these layers, the patient is able to have these changed. They understand this. It was stressed not to use any kind of significant compression to the lower extremity due to recently performed vascular procedure. Patient is to be nonweightbearing to the left foot at all times. Patient is to keep the area clean dry and intact. Patient instructed to eat a diet high in protein to help stimulate healing potential. The importance of tight glycemic control was discussed with this patient. Patient and her daughter were educated on all signs and symptoms of local and systemic infection and they were instructed to go to the emergency room immediately should they notice any of these, or if they notice any issues with her wound vac. Patient will follow-up and clinic in 1 week to check on progress, but was instructed to follow-up in clinic sooner if needed.
[2018-03-13 11:31] VITALS: RESP 16; TEMP 35.7; BMI 24.1
--- NOTE | 2018-03-13 12:19 | PCM.WC.PN ---
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 Status: Acute Current Visit: No Code(s): E11.621 - Type 2 diabetes mellitus with foot ulcer; L97.522 - Non-pressure chronic ulcer of other part of left foot with fat layer exposed (2) Type 2 diabetes mellitus with diabetic polyneuropathy Status: Acute Current Visit: No Code(s): E11.42 - Type 2 diabetes mellitus with diabetic polyneuropathy (3) Charcot's joint of foot Status: Acute Current Visit: No Code(s): M14.679 - Charcot's joint, unspecified ankle and foot (4) PVD (peripheral vascular disease) Status: Acute Current Visit: No Code(s): I73.9 - Peripheral vascular disease, unspecified Type of Wound Chief Complaint: Sore on left foot caused by removing tape. History of Wound: 72 year old diabetic female was being seen for a ulcer on her left lateral foot at the base of the 5th toe. She states that she was seeing a porcelain finish sprayer, Dr. Santo in [place] for a callus on the arch of her left foot and for her history of Charcot foot. A month ago she had a bandage covering the callus and when she removed it, the tape pulled some skin off at the base of her 5th toe. She had an opened ulcer there ever since. She has been applying silvadine cream and soaking her foot in epsome salt as prescribed by her porcelain finish sprayer in [place]. 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 On December 15 the patient was admitted for fever, nausea, vomiting, cellulitis of left foot, and ulcer of left foot. X-ray and MRI taken showed evidence of osteomyelitis to the fifth metatarsal and base of the fifth toe as well as showed signs of soft tissue emphysema. I was consulted on December 16 when the patient was admitted, and she was taken to surgery the same day for debridement of all necrotic, nonviable, infected soft tissue and bone of the left foot with open partial fifth ray amputation. Dr. Powers then performed an angioplasty on December 20 while the patient was still admitted prior to her discharge. Details from both operative reports can be found in the patient's chart. A wound VAC was applied prior to patient's discharge home, and she is to follow back up at the wound healing center. Progress of Wound: Open surgical site to left lateral foot shows continued improvement again this week. Patient had epifix dressing applied last week. Patient currently denies any feelings of nausea, vomiting, fever, chills. - Physical Exam Vital Signs Temp Pulse Resp BP 96.2 F L 71 16 119/58 L 03/13/18 11:31 02/27/18 11:39 03/13/18 11:31 02/27/18 11:39 General: Alert, Oriented x3, Cooperative, No apparent distress Extremities: Capillary Refill Less than 3 Seconds, No Calf Tenderness - Negative Zion and Degroot sign, Diminished Peripheral Pulses - DP and PT pulses nonpalpable, Edema - Minor lower extremity edema Skin: Ulcer/ Wound - Open surgical site to left lateral foot with fat layer exposed. Improvement noted again this week. Measurements noted below. Base remains a mixture of adherent slough, fibrin, granular tissue as well as some slight surrounding hyperkeratotic tissue. There continues to be no extending or surrounding cellulitis, no increase in warmth, no purulence, no malodor, no probing to bone, no tracking, and no undermining at this time. Wound Measurements and Assessment WC - Nurse 1 - General Ulcer Measurement Start: 02/27/18 11:39 Freq: Status: Active Protocol: Activity Type Activity Date Activity User E-Sign Co-Sign Detail Recorded Client Recorded Date Recorded By Document 03/13/18 11:31 DL [id number] 03/13/18 11:38 DL 03/13/18 11:31 Wound Center Nurse 1 [Ulcer Assessment] #1 Left Lateral Foot -Combined with other wound No -Current Size (cm) - Length 2 -Current Size (cm) - Width 0.9 -Current Size (cm) - Depth 0.1 -Total Square Cm 1.8 -Photo Taken No -Epithelialization None Present -Tunneling No -Undermining/Tunneling No -Circular Undermining No -Exudate Amt Small -Exudate Type Serosanguineous -Wound Margin Flat & Intact -Granulation Amt None Present (0 %) -Slough/Fibrin Yes -Necrosis Amt Large (67-100%) -Necrotic Tissue Type Eschar -Structure Exposed N/A -Texture (Gissell-wound Skin Appearance) Scarring -Moisture (Gissell-wound Skin Appearance Dry/Scaly ) -Color (Gissell-wound Skin Appearance) Erythema -Temperature (Gissell-wound Skin No Abnormality Appearance) (Pt Warm) -Tenderness on Palpation (Gissell-wound No Skin Appearance) -Ulcer Cleansing Rinsed/ Irrigated with Saline -Foul Odor after Cleansing No -Anesthetic Used 5% Lidocaine Gel WC - Nurse 2 - General Ulcer CM Notes Start: 02/27/18 11:39 Freq: Status: Active Protocol: Activity Type Activity Date Activity User E-Sign Co-Sign Detail Recorded Client Recorded Date Recorded By Document 03/13/18 11:47 DV [id number] 03/13/18 12:00 DV 03/13/18 11:47 Wound Center Nurse 2 [Procedure/Treatment] -Time 11:49 -Correct Patient Yes -Correct Side, Site, Position Yes -Correct Procedure Yes -Procedure Performed Yes -Type of Procedure Debridement -Clinical Debridement Subcutaneous -Post Debridement Size (cm) - Length 1.8 -Post Debridement Size (cm) - Width 0.6 -Post Debridement Size (cm) - Depth 0.1 -Total Square Cm 1.08 -Wound/Ulcer Outcome Not Healed -Ulcer Cleansing Rinsed/ Irrigated with Saline -Foul Odor after Cleansing No -Bioengineered Tissue Yes -Type of bioengineered Tissue EPIFIX -Expiration Date 03/04/22 -Product Lot Number [id number] -Percent Used 100 -Saline Lot Number [id number] -Topical Lidocaine (%) 4 -Bleeding Controlled with Pressure -Offloading No -Type of Offloading Surgical Shoe -Treatment Response Procedure Tolerated Well [See Physician Procedure note for Specifics] Pain Scale: 0-10 Numeric [Pain] -Is Patient Pain Free? Yes Musculoskeletal: No Tenderness to Palpation of Joints or Extremities, - - Bilateral Charcot foot type. Bilateral hammertoe deformities of digits 2?5 of the right foot and 2?4 of the left foot. Neurological: - - Epicritic sensation grossly absent to lower extremity Psych/Mental Status: Normal Affect, Appropriate Debridement Note Post-Debridement Measurements/Treatment WC - Nurse 2 - General Ulcer CM Notes Start: 02/27/18 11:39 Freq: Status: Active Protocol: Activity Type Activity Date Activity User E-Sign Co-Sign Detail Recorded Client Recorded Date Recorded By Document 02/27/18 12:16 DV [id number] 02/27/18 12:28 DV Document 03/06/18 12:08 DV [id number] 03/06/18 12:21 DV Document 03/13/18 11:47 DV [id number] 03/13/18 12:00 DV 02/27/18 03/06/18 03/13/18 12:16 12:08 11:47 Wound Center Nurse 2 #1 Left Lateral Foot -Time 12:16 12:12 11:49 -Correct Patient Yes Yes Yes -Correct Side, Site, Position Yes Yes Yes -Correct Procedure Yes Yes Yes -Procedure Performed Yes Yes Yes -Type of Procedure Debridement Debridement Debridement -Clinical Debridement Subcutaneous Subcutaneous Subcutaneous -Post Debridement Size (cm) - Length 2.5 2.1 1.8 -Post Debridement Size (cm) - Width 0.7 0.6 0.6 -Post Debridement Size (cm) - Depth 0.2 0.2 0.1 -Total Square Cm 1.75 1.26 1.08 -Wound/Ulcer Outcome Not Healed Not Healed Not Healed -Ulcer Cleansing Rinsed/ Rinsed/ Rinsed/ Irrigated with Irrigated with Irrigated with Saline Saline Saline -Foul Odor after Cleansing No No No -Bioengineered Tissue Yes Yes Yes -Type of bioengineered Tissue EPIFIX EPIFIX EPIFIX -Expiration Date 08/25/22 09/25/22 03/04/22 -Product Lot Number [id number] [id number] -Percent Used 100 100 100 -Saline Lot Number [id number] -Topical Lidocaine (%) 4 4 4 -Bleeding Controlled with Pressure Pressure Pressure -Offloading No No No -Type of Offloading Surgical Shoe -Treatment Response Procedure Procedure Procedure Tolerated Well Tolerated Well Tolerated Well Pain Scale: 0-10 Numeric Is Patient Pain Free? Yes Yes Wound debrided: Left lateral foot Laterality: Left Type of Debridement: Excisional debridement Anesthesia Used: 4% Lidocaine Solution Depth: in the subcutaneous layer Percentage of wound debrided: 100 Instrument Used: 7mm curette, #15 blade Tissue Removed: Adherent slough, fibrin, hyperkeratotic tissue Severity: Fat Layer Exposed Amount of bleeding with debridement: Mild Bleeding Controlled with: Pressure Patient tolerated procedure well Assessment/Plan Assessment: Open surgical site left lateral foot, DM with neuropathy, PVD, other comorbidities Plan: This patient was carefully examined and evaluated with her daughter in the room again today. Patient had surgical debridement of all necrotic, nonviable, infected soft tissue and bone of the left foot with open partial fifth ray amputation on December 16. Patient also had an angioplasty performed by Dr. Powers on December 20. Details from each operative report can be found in the patient's chart. Patient had subcutaneous debridement performed today as noted in the clinical panel. Following debridement the site was carefully cleansed, and dressed with epifix #4 to the base, followed wound veil, Steri-Strips, and a dry sterile dressing. Everything below the layer of Steri-Strips and wound veil is to stay in place for the next week. If there is drainage noted to the outer dressing above these layers, the patient is able to have these changed. They understand this. It was stressed not to use any kind of significant compression to the lower extremity due to recently performed vascular procedure. Patient is to be nonweightbearing to the left foot at all times. Patient is to keep the area clean dry and intact. Patient instructed to eat a diet high in protein to help stimulate healing potential. The importance of tight glycemic control was discussed with this patient. Patient and her daughter were educated on all signs and symptoms of local and systemic infection and they were instructed to go to the emergency room immediately should they notice any of these, or if they notice any issues with her wound vac. Patient will follow-up and clinic in 1 week to check on progress, but was instructed to follow-up in clinic sooner if needed.
--- NOTE | 2018-03-13 12:23 | PN.PCM_ITS ---
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 Status: Acute Current Visit: No Code(s): E11.621 - Type 2 diabetes mellitus with foot ulcer; L97.522 - Non-pressure chronic ulcer of other part of left foot with fat layer exposed (2) Type 2 diabetes mellitus with diabetic polyneuropathy Status: Acute Current Visit: No Code(s): E11.42 - Type 2 diabetes mellitus with diabetic polyneuropathy (3) Charcot's joint of foot Status: Acute Current Visit: No Code(s): M14.679 - Charcot's joint, unspecified ankle and foot (4) PVD (peripheral vascular disease) Status: Acute Current Visit: No Code(s): I73.9 - Peripheral vascular disease, unspecified Type of Wound Chief Complaint: Sore on left foot caused by removing tape. History of Wound: 72 year old diabetic female was being seen for a ulcer on her left lateral foot at the base of the 5th toe. She states that she was seeing a councilperson, Dr. Santo in [place] for a callus on the arch of her left foot and for her history of Charcot foot. A month ago she had a bandage covering the callus and when she removed it, the tape pulled some skin off at the base of her 5th toe. She had an opened ulcer there ever since. She has been applying silvadine cream and soaking her foot in epsome salt as prescribed by her councilperson in [place]. 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 On December 15 the patient was admitted for fever, nausea, vomiting, cellulitis of left foot, and ulcer of left foot. X-ray and MRI taken showed evidence of osteomyelitis to the fifth metatarsal and base of the fifth toe as well as showed signs of soft tissue emphysema. I was consulted on December 16 when the patient was admitted, and she was taken to surgery the same day for debridement of all necrotic, nonviable, infected soft tissue and bone of the left foot with open partial fifth ray amputation. Dr. Powers then performed an angioplasty on December 20 while the patient was still admitted prior to her discharge. Details from both operative reports can be found in the patient's chart. A wound VAC was applied prior to patient's discharge home, and she is to follow back up at the wound healing center. Progress of Wound: Open surgical site to left lateral foot shows continued improvement again this week. Patient had epifix dressing applied last week. Patient currently denies any feelings of nausea, vomiting, fever, chills. - Physical Exam Vital Signs Temp Pulse Resp BP 96.2 F L 71 16 119/58 L 03/13/18 11:31 02/27/18 11:39 03/13/18 11:31 02/27/18 11:39 General: Alert, Oriented x3, Cooperative, No apparent distress Extremities: Capillary Refill Less than 3 Seconds, No Calf Tenderness - Negative Zion and Degroot sign, Diminished Peripheral Pulses - DP and PT pulses nonpalpable, Edema - Minor lower extremity edema Skin: Ulcer/ Wound - Open surgical site to left lateral foot with fat layer exposed. Improvement noted again this week. Measurements noted below. Base remains a mixture of adherent slough, fibrin, granular tissue as well as some slight surrounding hyperkeratotic tissue. There continues to be no extending or surrounding cellulitis, no increase in warmth, no purulence, no malodor, no probing to bone, no tracking, and no undermining at this time. Wound Measurements and Assessment WC - Nurse 1 - General Ulcer Measurement Start: 02/27/18 11:39 Freq: Status: Active Protocol: Activity Type Activity Date Activity User E-Sign Co-Sign Detail Recorded Client Recorded Date Recorded By Document 03/13/18 11:31 DL [id number] 03/13/18 11:38 DL 03/13/18 11:31 Wound Center Nurse 1 [Ulcer Assessment] #1 Left Lateral Foot -Combined with other wound No -Current Size (cm) - Length 2 -Current Size (cm) - Width 0.9 -Current Size (cm) - Depth 0.1 -Total Square Cm 1.8 -Photo Taken No -Epithelialization None Present -Tunneling No -Undermining/Tunneling No -Circular Undermining No -Exudate Amt Small -Exudate Type Serosanguineous -Wound Margin Flat & Intact -Granulation Amt None Present (0 %) -Slough/Fibrin Yes -Necrosis Amt Large (67-100%) -Necrotic Tissue Type Eschar -Structure Exposed N/A -Texture (Gissell-wound Skin Appearance) Scarring -Moisture (Gissell-wound Skin Appearance Dry/Scaly ) -Color (Gissell-wound Skin Appearance) Erythema -Temperature (Gissell-wound Skin No Abnormality Appearance) (Pt Warm) -Tenderness on Palpation (Gissell-wound No Skin Appearance) -Ulcer Cleansing Rinsed/ Irrigated with Saline -Foul Odor after Cleansing No -Anesthetic Used 5% Lidocaine Gel WC - Nurse 2 - General Ulcer CM Notes Start: 02/27/18 11:39 Freq: Status: Active Protocol: Activity Type Activity Date Activity User E-Sign Co-Sign Detail Recorded Client Recorded Date Recorded By Document 03/13/18 11:47 DV [id number] 03/13/18 12:00 DV 03/13/18 11:47 Wound Center Nurse 2 [Procedure/Treatment] -Time 11:49 -Correct Patient Yes -Correct Side, Site, Position Yes -Correct Procedure Yes -Procedure Performed Yes -Type of Procedure Debridement -Clinical Debridement Subcutaneous -Post Debridement Size (cm) - Length 1.8 -Post Debridement Size (cm) - Width 0.6 -Post Debridement Size (cm) - Depth 0.1 -Total Square Cm 1.08 -Wound/Ulcer Outcome Not Healed -Ulcer Cleansing Rinsed/ Irrigated with Saline -Foul Odor after Cleansing No -Bioengineered Tissue Yes -Type of bioengineered Tissue EPIFIX -Expiration Date 03/04/22 -Product Lot Number [id number] -Percent Used 100 -Saline Lot Number [id number] -Topical Lidocaine (%) 4 -Bleeding Controlled with Pressure -Offloading No -Type of Offloading Surgical Shoe -Treatment Response Procedure Tolerated Well [See Physician Procedure note for Specifics] Pain Scale: 0-10 Numeric [Pain] -Is Patient Pain Free? Yes Musculoskeletal: No Tenderness to Palpation of Joints or Extremities, - - Bilateral Charcot foot type. Bilateral hammertoe deformities of digits 2?5 of the right foot and 2?4 of the left foot. Neurological: - - Epicritic sensation grossly absent to lower extremity Psych/Mental Status: Normal Affect, Appropriate Debridement Note Post-Debridement Measurements/Treatment WC - Nurse 2 - General Ulcer CM Notes Start: 02/27/18 11:39 Freq: Status: Active Protocol: Activity Type Activity Date Activity User E-Sign Co-Sign Detail Recorded Client Recorded Date Recorded By Document 02/27/18 12:16 DV [id number] 02/27/18 12:28 DV Document 03/06/18 12:08 DV [id number] 03/06/18 12:21 DV Document 03/13/18 11:47 DV [id number] 03/13/18 12:00 DV 02/27/18 03/06/18 03/13/18 12:16 12:08 11:47 Wound Center Nurse 2 #1 Left Lateral Foot -Time 12:16 12:12 11:49 -Correct Patient Yes Yes Yes -Correct Side, Site, Position Yes Yes Yes -Correct Procedure Yes Yes Yes -Procedure Performed Yes Yes Yes -Type of Procedure Debridement Debridement Debridement -Clinical Debridement Subcutaneous Subcutaneous Subcutaneous -Post Debridement Size (cm) - Length 2.5 2.1 1.8 -Post Debridement Size (cm) - Width 0.7 0.6 0.6 -Post Debridement Size (cm) - Depth 0.2 0.2 0.1 -Total Square Cm 1.75 1.26 1.08 -Wound/Ulcer Outcome Not Healed Not Healed Not Healed -Ulcer Cleansing Rinsed/ Rinsed/ Rinsed/ Irrigated with Irrigated with Irrigated with Saline Saline Saline -Foul Odor after Cleansing No No No -Bioengineered Tissue Yes Yes Yes -Type of bioengineered Tissue EPIFIX EPIFIX EPIFIX -Expiration Date 08/25/22 09/25/22 03/04/22 -Product Lot Number [id number] [id number] -Percent Used 100 100 100 -Saline Lot Number [id number] -Topical Lidocaine (%) 4 4 4 -Bleeding Controlled with Pressure Pressure Pressure -Offloading No No No -Type of Offloading Surgical Shoe -Treatment Response Procedure Procedure Procedure Tolerated Well Tolerated Well Tolerated Well Pain Scale: 0-10 Numeric Is Patient Pain Free? Yes Yes Wound debrided: Left lateral foot Laterality: Left Type of Debridement: Excisional debridement Anesthesia Used: 4% Lidocaine Solution Depth: in the subcutaneous layer Percentage of wound debrided: 100 Instrument Used: 7mm curette, #15 blade Tissue Removed: Adherent slough, fibrin, hyperkeratotic tissue Severity: Fat Layer Exposed Amount of bleeding with debridement: Mild Bleeding Controlled with: Pressure Patient tolerated procedure well Assessment/Plan Assessment: Open surgical site left lateral foot, DM with neuropathy, PVD, other comorbidities Plan: This patient was carefully examined and evaluated with her daughter in the room again today. Patient had surgical debridement of all necrotic, nonviable, infected soft tissue and bone of the left foot with open partial fifth ray amputation on December 16. Patient also had an angioplasty performed by Dr. Powers on December 20. Details from each operative report can be found in the patient's chart. Patient had subcutaneous debridement performed today as noted in the clinical panel. Following debridement the site was carefully cleansed, and dressed with epifix #4 to the base, followed wound veil, Steri-Strips, and a dry sterile dressing. Everything below the layer of Steri-Strips and wound veil is to stay in place for the next week. If there is drainage noted to the outer dressing above these layers, the patient is able to have these changed. They understand this. It was stressed not to use any kind of significant com pression to the lower extremity due to recently performed vascular procedure. Patient is to be nonweightbearing to the left foot at all times. Patient is to keep the area clean dry and intact. Patient instructed to eat a diet high in protein to help stimulate healing potential. The importance of tight glycemic control was discussed with this patient. Patient and her daughter were educated on all signs and symptoms of local and systemic infection and they were instructed to go to the emergency room immediately should they notice any of these, or if they notice any issues with her wound vac. Patient will follow-up and clinic in 1 week to check on progress, but was instructed to follow-up in clinic sooner if needed.
[2018-03-20 11:42] VITALS: BP 96/42; PULSE 75; RESP 14; TEMP 35.4; BMI 24.1
--- NOTE | 2018-03-20 12:07 | PCM.WC.PN ---
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 Status: Acute Current Visit: No Code(s): E11.621 - Type 2 diabetes mellitus with foot ulcer; L97.522 - Non-pressure chronic ulcer of other part of left foot with fat layer exposed (2) Type 2 diabetes mellitus with diabetic polyneuropathy Status: Acute Current Visit: No Code(s): E11.42 - Type 2 diabetes mellitus with diabetic polyneuropathy (3) Charcot's joint of foot Status: Acute Current Visit: No Code(s): M14.679 - Charcot's joint, unspecified ankle and foot (4) PVD (peripheral vascular disease) Status: Acute Current Visit: No Code(s): I73.9 - Peripheral vascular disease, unspecified Type of Wound Chief Complaint: Sore on left foot caused by removing tape. History of Wound: 72 year old diabetic female was being seen for a ulcer on her left lateral foot at the base of the 5th toe. She states that she was seeing a channel opener outsoles, Dr. Santo in [place] for a callus on the arch of her left foot and for her history of Charcot foot. A month ago she had a bandage covering the callus and when she removed it, the tape pulled some skin off at the base of her 5th toe. She had an opened ulcer there ever since. She has been applying silvadine cream and soaking her foot in epsome salt as prescribed by her channel opener outsoles in [place]. 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 On December 15 the patient was admitted for fever, nausea, vomiting, cellulitis of left foot, and ulcer of left foot. X-ray and MRI taken showed evidence of osteomyelitis to the fifth metatarsal and base of the fifth toe as well as showed signs of soft tissue emphysema. I was consulted on December 16 when the patient was admitted, and she was taken to surgery the same day for debridement of all necrotic, nonviable, infected soft tissue and bone of the left foot with open partial fifth ray amputation. Dr. Powers then performed an angioplasty on December 20 while the patient was still admitted prior to her discharge. Details from both operative reports can be found in the patient's chart. A wound VAC was applied prior to patient's discharge home, and she is to follow back up at the wound healing center. Progress of Wound: Open surgical site to left lateral foot shows continued improvement again this week. Patient had epifix dressing applied again last week. Patient currently denies any feelings of nausea, vomiting, fever, chills. - Physical Exam Vital Signs Temp Pulse Resp BP 95.7 F L 75 14 96/42 L 03/20/18 11:42 03/20/18 11:42 03/20/18 11:42 03/20/18 11:42 General: Alert, Oriented x3, Cooperative, No apparent distress Extremities: Capillary Refill Less than 3 Seconds, No Calf Tenderness - Negative Zion and Degroot sign, Diminished Peripheral Pulses - DP and PT pulses nonpalpable, Edema - Minor lower extremity edema Skin: Ulcer/ Wound - Open surgical site to left lateral foot with fat layer exposed. Improvement noted again this week. Measurements noted below. Base is a mixture of adherent slough, fibrin, granular tissue as well as some slight surrounding hyperkeratotic tissue. There continues to be no extending or surrounding cellulitis, no increase in warmth, no purulence, no malodor, no probing to bone, no tracking, and no undermining at this time. Wound Measurements and Assessment WC - Nurse 1 - General Ulcer Measurement Start: 02/27/18 11:39 Freq: Status: Active Protocol: Activity Type Activity Date Activity User E-Sign Co-Sign Detail Recorded Client Recorded Date Recorded By Document 03/20/18 11:42 [email or web address] 03/20/18 11:44 CS 03/20/18 11:42 Wound Center Nurse 1 [Ulcer Assessment] #1 Left Lateral Foot -Combined with other wound No -Current Size (cm) - Length 1.4 -Current Size (cm) - Width 0.5 -Current Size (cm) - Depth 0 -Total Square Cm 0.70 -Photo Taken No -Epithelialization None Present -Tunneling No -Undermining/Tunneling No -Circular Undermining No -Wound Margin Thickened -Granulation Amt None Present (0 %) -Granulation Quality N/A -Necrosis Amt Large (67-100%) -Necrotic Tissue Type Eschar -Structure Exposed None/Limited to Skin Breakdown -Texture (Gissell-wound Skin Appearance) Callus -Moisture (Gissell-wound Skin Appearance Assessed ) -Color (Gissell-wound Skin Appearance) No Abnormality Assessed -Temperature (Gissell-wound Skin No Abnormality Appearance) (Pt Warm) -Tenderness on Palpation (Gissell-wound No Skin Appearance) -Ulcer Cleansing Rinsed/ Irrigated with Saline -Foul Odor after Cleansing No -Anesthetic Used 5% Lidocaine Gel [Edema Assessment] -Lower Limb Edema Present NA Musculoskeletal: No Tenderness to Palpation of Joints or Extremities, - - Bilateral Charcot foot type. Bilateral hammertoe deformities of digits 2?5 of the right foot and 2?4 of the left foot. Neurological: - - Epicritic sensation grossly absent lower extremity Psych/Mental Status: Normal Affect, Appropriate Debridement Note Post-Debridement Measurements/Treatment WC - Nurse 2 - General Ulcer CM Notes Start: 02/27/18 11:39 Freq: Status: Active Protocol: Activity Type Activity Date Activity User E-Sign Co-Sign Detail Recorded Client Recorded Date Recorded By Document 02/27/18 12:16 DV [id number] 02/27/18 12:28 DV Document 03/06/18 12:08 DV [id number] 03/06/18 12:21 DV Document 03/13/18 11:47 DV [id number] 03/13/18 12:00 DV 02/27/18 03/06/18 03/13/18 12:16 12:08 11:47 Wound Center Nurse 2 #1 Left Lateral Foot -Time 12:16 12:12 11:49 -Correct Patient Yes Yes Yes -Correct Side, Site, Position Yes Yes Yes -Correct Procedure Yes Yes Yes -Procedure Performed Yes Yes Yes -Type of Procedure Debridement Debridement Debridement -Clinical Debridement Subcutaneous Subcutaneous Subcutaneous -Post Debridement Size (cm) - Length 2.5 2.1 1.8 -Post Debridement Size (cm) - Width 0.7 0.6 0.6 -Post Debridement Size (cm) - Depth 0.2 0.2 0.1 -Total Square Cm 1.75 1.26 1.08 -Wound/Ulcer Outcome Not Healed Not Healed Not Healed -Ulcer Cleansing Rinsed/ Rinsed/ Rinsed/ Irrigated with Irrigated with Irrigated with Saline Saline Saline -Foul Odor after Cleansing No No No -Bioengineered Tissue Yes Yes Yes -Type of bioengineered Tissue EPIFIX EPIFIX EPIFIX -Expiration Date 08/25/22 09/25/22 03/04/22 -Product Lot Number [id number] -Percent Used 100 100 100 -Saline Lot Number [id number] -Topical Lidocaine (%) 4 4 4 -Bleeding Controlled with Pressure Pressure Pressure -Offloading No No No -Type of Offloading Surgical Shoe -Treatment Response Procedure Procedure Procedure Tolerated Well Tolerated Well Tolerated Well Pain Scale: 0-10 Numeric Is Patient Pain Free? Yes Yes Wound debrided: Left lateral foot Laterality: Left Type of Debridement: Excisional debridement Anesthesia Used: 4% Lidocaine Solution Depth: in the subcutaneous layer Percentage of wound debrided: 100 Instrument Used: 7mm curette Tissue Removed: Adherent slough, fibrin, hyperkeratotic tissue Severity: Fat Layer Exposed Amount of bleeding with debridement: Mild Bleeding Controlled with: Pressure Patient tolerated procedure well Assessment/Plan Assessment: Open surgical site left lateral foot, DM with neuropathy, PVD, other comorbidities Plan: This patient was carefully examined and evaluated with her daughter in the room again today. Patient had surgical debridement of all necrotic, nonviable, infected soft tissue and bone of the left foot with open partial fifth ray amputation on December 16. Patient also had an angioplasty performed by Dr. Powers on December 20. Details from each operative report can be found in the patient's chart. Patient had subcutaneous debridement performed today as noted in the clinical panel. Following debridement the site was carefully cleansed, and dressed with epifix #5 to the base, followed wound veil, Steri-Strips, and a dry sterile dressing. Everything below the layer of Steri-Strips and wound veil is to stay in place for the next week. If there is drainage noted to the outer dressing above these layers, the patient is able to have these changed. They understand this. It was stressed not to use any kind of significant compression to the lower extremity due to recently performed vascular procedure. Patient is to be nonweightbearing to the left foot at all times while site continues to heal. Patient is to keep the area clean dry and intact. Patient instructed to eat a diet high in protein to help stimulate healing potential. The importance of tight glycemic control was discussed with this patient. Patient and her daughter were educated on all signs and symptoms of local and systemic infection and they were instructed to go to the emergency room immediately should they notice any of these. Patient will follow-up and clinic in 1 week to check on progress, but was instructed to follow-up in clinic sooner if needed.
--- NOTE | 2018-03-20 12:12 | PN.PCM_ITS ---
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 Status: Acute Current Visit: No Code(s): E11.621 - Type 2 diabetes mellitus with foot ulcer; L97.522 - Non-pressure chronic ulcer of other part of left foot with fat layer exposed (2) Type 2 diabetes mellitus with diabetic polyneuropathy Status: Acute Current Visit: No Code(s): E11.42 - Type 2 diabetes mellitus with diabetic polyneuropathy (3) Charcot's joint of foot Status: Acute Current Visit: No Code(s): M14.679 - Charcot's joint, unspecified ankle and foot (4) PVD (peripheral vascular disease) Status: Acute Current Visit: No Code(s): I73.9 - Peripheral vascular disease, unspecified Type of Wound Chief Complaint: Sore on left foot caused by removing tape. History of Wound: 72 year old diabetic female was being seen for a ulcer on her left lateral foot at the base of the 5th toe. She states that she was seeing a blender conveyor operator, Dr. Santo in [place] for a callus on the arch of her left foot and for her history of Charcot foot. A month ago she had a bandage covering the callus and when she removed it, the tape pulled some skin off at the base of her 5th toe. She had an opened ulcer there ever since. She has been applying silvadine cream and soaking her foot in epsome salt as prescribed by her blender conveyor operator in [place]. 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 On December 15 the patient was admitted for fever, nausea, vomiting, cellulitis of left foot, and ulcer of left foot. X-ray and MRI taken showed evidence of osteomyelitis to the fifth metatarsal and base of the fifth toe as well as showed signs of soft tissue emphysema. I was consulted on December 16 when the patient was admitted, and she was taken to surgery the same day for debridement of all necrotic, nonviable, infected soft tissue and bone of the left foot with open partial fifth ray amputation. Dr. Powers then performed an angioplasty on December 20 while the patient was still admitted prior to her discharge. Details from both operative reports can be found in the patient's chart. A wound VAC was applied prior to patient's discharge home, and she is to follow back up at the wound healing center. Progress of Wound: Open surgical site to left lateral foot shows continued improvement again this week. Patient had epifix dressing applied again last week. Patient currently denies any feelings of nausea, vomiting, fever, chills. - Physical Exam Vital Signs Temp Pulse Resp BP 95.7 F L 75 14 96/42 L 03/20/18 11:42 03/20/18 11:42 03/20/18 11:42 03/20/18 11:42 General: Alert, Oriented x3, Cooperative, No apparent distress Extremities: Capillary Refill Less than 3 Seconds, No Calf Tenderness - Negative Zion and Degroot sign, Diminished Peripheral Pulses - DP and PT pulses nonpalpable, Edema - Minor lower extremity edema Skin: Ulcer/ Wound - Open surgical site to left lateral foot with fat layer exposed. Improvement noted again this week. Measurements noted below. Base is a mixture of adherent slough, fibrin, granular tissue as well as some slight surrounding hyperkeratotic tissue. There continues to be no extending or surrounding cellulitis, no increase in warmth, no purulence, no malodor, no probing to bone, no tracking, and no undermining at this time. Wound Measurements and Assessment WC - Nurse 1 - General Ulcer Measurement Start: 02/27/18 11:39 Freq: Status: Active Protocol: Activity Type Activity Date Activity User E-Sign Co-Sign Detail Recorded Client Recorded Date Recorded By Document 03/20/18 11:42 [id number] 03/20/18 11:44 CS 03/20/18 11:42 Wound Center Nurse 1 [Ulcer Assessment] #1 Left Lateral Foot -Combined with other wound No -Current Size (cm) - Length 1.4 -Current Size (cm) - Width 0.5 -Current Size (cm) - Depth 0 -Total Square Cm 0.70 -Photo Taken No -Epithelialization None Present -Tunneling No -Undermining/Tunneling No -Circular Undermining No -Wound Margin Thickened -Granulation Amt None Present (0 %) -Granulation Quality N/A -Necrosis Amt Large (67-100%) -Necrotic Tissue Type Eschar -Structure Exposed None/Limited to Skin Breakdown -Texture (Gissell-wound Skin Appearance) Callus -Moisture (Gissell-wound Skin Appearance Assessed ) -Color (Gissell-wound Skin Appearance) No Abnormality Assessed -Temperature (Gissell-wound Skin No Abnormality Appearance) (Pt Warm) -Tenderness on Palpation (Gissell-wound No Skin Appearance) -Ulcer Cleansing Rinsed/ Irrigated with Saline -Foul Odor after Cleansing No -Anesthetic Used 5% Lidocaine Gel [Edema Assessment] -Lower Limb Edema Present NA Musculoskeletal: No Tenderness to Palpation of Joints or Extremities, - - Bilateral Charcot foot type. Bilateral hammertoe deformities of digits 2?5 of the right foot and 2?4 of the left foot. Neurological: - - Epicritic sensation grossly absent lower extremity Psych/Mental Status: Normal Affect, Appropriate Debridement Note Post-Debridement Measurements/Treatment WC - Nurse 2 - General Ulcer CM Notes Start: 02/27/18 11:39 Freq: Status: Active Protocol: Activity Type Activity Date Activity User E-Sign Co-Sign Detail Recorded Client Recorded Date Recorded By Document 02/27/18 12:16 DV [id number] 02/27/18 12:28 DV Document 03/06/18 12:08 DV [id number] 03/06/18 12:21 DV Document 03/13/18 11:47 DV [id number] 03/13/18 12:00 DV 02/27/18 03/06/18 03/13/18 12:16 12:08 11:47 Wound Center Nurse 2 #1 Left Lateral Foot -Time 12:16 12:12 11:49 -Correct Patient Yes Yes Yes -Correct Side, Site, Position Yes Yes Yes -Correct Procedure Yes Yes Yes -Procedure Performed Yes Yes Yes -Type of Procedure Debridement Debridement Debridement -Clinical Debridement Subcutaneous Subcutaneous Subcutaneous -Post Debridement Size (cm) - Length 2.5 2.1 1.8 -Post Debridement Size (cm) - Width 0.7 0.6 0.6 -Post Debridement Size (cm) - Depth 0.2 0.2 0.1 -Total Square Cm 1.75 1.26 1.08 -Wound/Ulcer Outcome Not Healed Not Healed Not Healed -Ulcer Cleansing Rinsed/ Rinsed/ Rinsed/ Irrigated with Irrigated with Irrigated with Saline Saline Saline -Foul Odor after Cleansing No No No -Bioengineered Tissue Yes Yes Yes -Type of bioengineered Tissue EPIFIX EPIFIX EPIFIX -Expiration Date 08/25/22 09/25/22 03/04/22 -Product Lot Number [id number] -Percent Used 100 100 100 -Saline Lot Number [id number] -Topical Lidocaine (%) 4 4 4 -Bleeding Controlled with Pressure Pressure Pressure -Offloading No No No -Type of Offloading Surgical Shoe -Treatment Response Procedure Procedure Procedure Tolerated Well Tolerated Well Tolerated Well Pain Scale: 0-10 Numeric Is Patient Pain Free? Yes Yes Wound debrided: Left lateral foot Laterality: Left Type of Debridement: Excisional debridement Anesthesia Used: 4% Lidocaine Solution Depth: in the subcutaneous layer Percentage of wound debrided: 100 Instrument Used: 7mm curette Tissue Removed: Adherent slough, fibrin, hyperkeratotic tissue Severity: Fat Layer Exposed Amount of bleeding with debridement: Mild Bleeding Controlled with: Pressure Patient tolerated procedure well Assessment/Plan Assessment: Open surgical site left lateral foot, DM with neuropathy, PVD, other comorbidities Plan: This patient was carefully examined and evaluated with her daughter in the room again today. Patient had surgical debridement of all necrotic, nonviable, infected soft tissue and bone of the left foot with open partial fifth ray amputation on December 16. Patient also had an angioplasty performed by Dr. Powers on December 20. Details from each operative report can be found in the patient's chart. Patient had subcutaneous debridement performed today as noted in the clinical panel. Following debridement the site was carefully cleansed, and dressed with epifix #5 to the base, followed wound veil, Steri-Strips, and a dry sterile dressing. Everything below the layer of Steri-Strips and wound veil is to stay in place for the next week. If there is drainage noted to the outer dressing above these layers, the patient is able to have these changed. They understand this. It was stressed not to use any kind of significant compression to the lower extremity due to recently performed vascular procedure. Patient is to be nonweightbearing to the left foot at all times while site continues to heal. Patient is to keep the area clean dry and intact. Patient instructed to eat a diet high in protein to help stimulate healing potential. The importance of tight glycemic control was discussed with this patient. Patient and her daughter were educated on all signs and symptoms of local and systemic infection and they were instructed to go to the emergency room immediately should they notice any of these. Patient will follow-up and clinic in 1 week to check on progress, but was instructed to follow-up in clinic sooner if needed.
[2018-03-27 10:18] VITALS: BP 120/54; PULSE 70; RESP 18; TEMP 36.4; BMI 24.1
--- NOTE | 2018-03-27 10:38 | PCM.WC.PN ---
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 Status: Acute Current Visit: No Code(s): E11.621 - Type 2 diabetes mellitus with foot ulcer; L97.522 - Non-pressure chronic ulcer of other part of left foot with fat layer exposed (2) Type 2 diabetes mellitus with diabetic polyneuropathy Status: Acute Current Visit: No Code(s): E11.42 - Type 2 diabetes mellitus with diabetic polyneuropathy (3) Charcot's joint of foot Status: Acute Current Visit: No Code(s): M14.679 - Charcot's joint, unspecified ankle and foot (4) PVD (peripheral vascular disease) Status: Acute Current Visit: No Code(s): I73.9 - Peripheral vascular disease, unspecified Type of Wound Chief Complaint: Ulcer left foot History of Wound: 72 year old diabetic female was being seen for a ulcer on her left lateral foot at the base of the 5th toe. She states that she was seeing a sportspersons, Dr. Santo in [place] for a callus on the arch of her left foot and for her history of Charcot foot. A month ago she had a bandage covering the callus and when she removed it, the tape pulled some skin off at the base of her 5th toe. She had an opened ulcer there ever since. She has been applying silvadine cream and soaking her foot in epsome salt as prescribed by her sportspersons in [place]. 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 On December 15 the patient was admitted for fever, nausea, vomiting, cellulitis of left foot, and ulcer of left foot. X-ray and MRI taken showed evidence of osteomyelitis to the fifth metatarsal and base of the fifth toe as well as showed signs of soft tissue emphysema. I was consulted on December 16 when the patient was admitted, and she was taken to surgery the same day for debridement of all necrotic, nonviable, infected soft tissue and bone of the left foot with open partial fifth ray amputation. Dr. Powers then performed an angioplasty on December 20 while the patient was still admitted prior to her discharge. Details from both operative reports can be found in the patient's chart. A wound VAC was applied prior to patient's discharge home, and she is to follow back up at the wound healing center. Progress of Wound: Open surgical site to left lateral foot shows continued improvement again this week. Patient had epifix dressing applied again last week. Epifix continues to be dry. Patient currently denies any feelings of nausea, vomiting, fever, chills. - Physical Exam Vital Signs Temp Pulse Resp BP 97.6 F L 70 18 120/54 L 03/27/18 10:18 03/27/18 10:18 03/27/18 10:18 03/27/18 10:18 General: Alert, Oriented x3, Cooperative, No apparent distress Extremities: Capillary Refill Less than 3 Seconds, No Calf Tenderness, Diminished Peripheral Pulses - Negative Zion and Degroot sign DP and PT pulses nonpalpable, Edema - Minor lower extremity edema Skin: Ulcer/ Wound - Open surgical site to left lateral foot with fat layer exposed. Improvement noted again this week. Measurements noted below. Base is a mixture of adherent slough, fibrin, granular tissue as well as some slight surrounding hyperkeratotic tissue. There continues to be no extending or surrounding cellulitis, no increase in warmth, no purulence, no malodor, no probing to bone, no tracking, and no undermining at this time. Wound Measurements and Assessment WC - Nurse 1 - General Ulcer Measurement Start: 02/27/18 11:39 Freq: Status: Active Protocol: Activity Type Activity Date Activity User E-Sign Co-Sign Detail Recorded Client Recorded Date Recorded By Document 03/27/18 10:18 DL [id number] 03/27/18 10:25 DL 03/27/18 10:18 Wound Center Nurse 1 [Ulcer Assessment] #1 Left Lateral Foot -Combined with other wound No -Current Size (cm) - Length 0.8 -Current Size (cm) - Width 0.4 -Current Size (cm) - Depth 0.1 -Total Square Cm 0.32 -Photo Taken No -Epithelialization Large 67-100% -Tunneling No -Undermining/Tunneling No -Circular Undermining No -Exudate Amt None Present -Wound Margin Indistinct, Non -Visible -Granulation Amt None Present (0 %) -Slough/Fibrin Yes -Necrosis Amt Large (67-100%) -Necrotic Tissue Type Adherent Slough -Structure Exposed N/A -Texture (Gissell-wound Skin Appearance) Assessed Localized Edema -Moisture (Gissell-wound Skin Appearance Assessed ) -Color (Gissell-wound Skin Appearance) Assessed -Temperature (Gissell-wound Skin No Abnormality Appearance) (Pt Warm) -Tenderness on Palpation (Gissell-wound No Skin Appearance) -Ulcer Cleansing Rinsed/ Irrigated with Saline -Foul Odor after Cleansing No -Anesthetic Used 5% Lidocaine Gel [Edema Assessment] -Lower Limb Edema Present No Musculoskeletal: No Tenderness to Palpation of Joints or Extremities, - - Bilateral Charcot foot type. Bilateral hammertoe deformities of digits 2?5 of the right foot and 2?4 of the left foot. Neurological: - - Epicritic sensation grossly absent to lower extremity Psych/Mental Status: Normal Affect, Appropriate Debridement Note Post-Debridement Measurements/Treatment WC - Nurse 2 - General Ulcer CM Notes Start: 02/27/18 11:39 Freq: Status: Active Protocol: Activity Type Activity Date Activity User E-Sign Co-Sign Detail Recorded Client Recorded Date Recorded By Document 02/27/18 12:16 DV [id number] 02/27/18 12:28 DV Document 03/06/18 12:08 DV [id number] 03/06/18 12:21 DV Document 03/13/18 11:47 DV [id number] 03/13/18 12:00 DV Document 03/20/18 11:55 DV [id number] 03/20/18 12:07 DV 02/27/18 03/06/18 03/13/18 12:16 12:08 11:47 Wound Center Nurse 2 #1 Left Lateral Foot -Time 12:16 12:12 11:49 -Correct Patient Yes Yes Yes -Correct Side, Site, Position Yes Yes Yes -Correct Procedure Yes Yes Yes -Procedure Performed Yes Yes Yes -Type of Procedure Debridement Debridement Debridement -Clinical Debridement Subcutaneous Subcutaneous Subcutaneous -Post Debridement Size (cm) - Length 2.5 2.1 1.8 -Post Debridement Size (cm) - Width 0.7 0.6 0.6 -Post Debridement Size (cm) - Depth 0.2 0.2 0.1 -Total Square Cm 1.75 1.26 1.08 -Wound/Ulcer Outcome Not Healed Not Healed Not Healed -Ulcer Cleansing Rinsed/ Rinsed/ Rinsed/ Irrigated with Irrigated with Irrigated with Saline Saline Saline -Foul Odor after Cleansing No No No -Bioengineered Tissue Yes Yes Yes -Type of bioengineered Tissue EPIFIX EPIFIX EPIFIX -Expiration Date 08/25/22 09/25/22 03/04/22 -Product Lot Number [id number] 007 -Percent Used 100 100 100 -Saline Lot Number [id number] -Topical Lidocaine (%) 4 4 4 -Bleeding Controlled with Pressure Pressure Pressure -Offloading No No No -Type of Offloading Surgical Shoe -Treatment Response Procedure Procedure Procedure Tolerated Well Tolerated Well Tolerated Well Pain Scale: 0-10 Numeric Is Patient Pain Free? Yes Yes 03/20/18 11:55 Wound Center Nurse 2 #1 Left Lateral Foot -Time 11:55 -Correct Patient Yes -Correct Side, Site, Position Yes -Correct Procedure Yes -Procedure Performed Yes -Type of Procedure Debridement -Clinical Debridement Subcutaneous -Post Debridement Size (cm) - Length 1.3 -Post Debridement Size (cm) - Width 0.4 -Post Debridement Size (cm) - Depth 0.1 -Total Square Cm 0.52 -Wound/Ulcer Outcome Not Healed -Ulcer Cleansing -Foul Odor after Cleansing No -Bioengineered Tissue Yes -Type of bioengineered Tissue EPIFIX -Expiration Date 09/25/22 -Product Lot Number [id number] -Percent Used 50 -Saline Lot Number [id number] -Topical Lidocaine (%) 4 -Bleeding Controlled with Pressure -Offloading No -Type of Offloading Surgical Shoe -Treatment Response Procedure Tolerated Well Pain Scale: 0-10 Numeric Is Patient Pain Free? Yes Wound debrided: Left lateral foot Laterality: Left Type of Debridement: Excisional debridement Anesthesia Used: 4% Lidocaine Solution Depth: in the subcutaneous layer Percentage of wound debrided: 100 Instrument Used: #15 blade Tissue Removed: Adherent slough, fibrin, hyperkeratotic tissue Severity: Fat Layer Exposed Amount of bleeding with debridement: Mild Bleeding Controlled with: Pressure Patient tolerated procedure well Assessment/Plan Assessment: Open surgical site left lateral foot, DM with neuropathy, PVD, other comorbidities Plan: This patient was carefully examined and evaluated with her daughter in the room again today. Patient had surgical debridement of all necrotic, nonviable, infected soft tissue and bone of the left foot with open partial fifth ray amputation on December 16. Patient also had an angioplasty performed by Dr. Powers on December 20. Details from each operative report can be found in the patient's chart. Patient had subcutaneous debridement performed today as noted in the clinical panel. Following debridement the site was carefully cleansed, and dressed with epifix #6 to the base, followed wound veil, Steri-Strips, hydrogel, and a dry sterile dressing. Everything below the layer of Steri-Strips and wound veil is to stay in place for the next week. If there is drainage noted to the outer dressing above these layers, the patient is able to have these changed. They understand this. It was stressed not to use any kind of significant compression to the lower extremity due to recently performed vascular procedure. Patient is to be nonweightbearing to the left foot at all times while site continues to heal. Patient is to keep the area clean dry and intact. Patient instructed to eat a diet high in protein to help stimulate healing potential. The importance of tight glycemic control was discussed again with this patient. Patient and her daughter were educated on all signs and symptoms of local and systemic infection and they were instructed to go to the emergency room immediately should they notice any of these. Patient will follow-up and clinic in 1 week to check on progress, but was instructed to follow-up in clinic sooner if needed.
--- NOTE | 2018-03-27 10:42 | PN.PCM_ITS ---
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 Status: Acute Current Visit: No Code(s): E11.621 - Type 2 diabetes mellitus with foot ulcer; L97.522 - Non-pressure chronic ulcer of other part of left foot with fat layer exposed (2) Type 2 diabetes mellitus with diabetic polyneuropathy Status: Acute Current Visit: No Code(s): E11.42 - Type 2 diabetes mellitus with diabetic polyneuropathy (3) Charcot's joint of foot Status: Acute Current Visit: No Code(s): M14.679 - Charcot's joint, unspecified ankle and foot (4) PVD (peripheral vascular disease) Status: Acute Current Visit: No Code(s): I73.9 - Peripheral vascular disease, unspecified Type of Wound Chief Complaint: Ulcer left foot History of Wound: 72 year old diabetic female was being seen for a ulcer on her left lateral foot at the base of the 5th toe. She states that she was seeing a graphic arts technician, Dr. Santo in [place] for a callus on the arch of her left foot and for her history of Charcot foot. A month ago she had a bandage covering the callus and when she removed it, the tape pulled some skin off at the base of her 5th toe. She had an opened ulcer there ever since. She has been applying silvadine cream and soaking her foot in epsome salt as prescribed by her graphic arts technician in [place]. 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 On December 15 the patient was admitted for fever, nausea, vomiting, cellulitis of left foot, and ulcer of left foot. X-ray and MRI taken showed evidence of osteomyelitis to the fifth metatarsal and base of the fifth toe as well as showed signs of soft tissue emphysema. I was consulted on December 16 when the patient was admitted, and she was taken to surgery the same day for debridement of all necrotic, nonviable, infected soft tissue and bone of the left foot with open partial fifth ray amputation. Dr. Powers then performed an angioplasty on December 20 while the patient was still admitted prior to her discharge. Details from both operative reports can be found in the patient's chart. A wound VAC was applied prior to patient's discharge home, and she is to follow back up at the wound healing center. Progress of Wound: Open surgical site to left lateral foot shows continued improvement again this week. Patient had epifix dressing applied again last week. Epifix continues to be dry. Patient currently denies any feelings of nausea, vomiting, fever, chills. - Physical Exam Vital Signs Temp Pulse Resp BP 97.6 F L 70 18 120/54 L 03/27/18 10:18 03/27/18 10:18 03/27/18 10:18 03/27/18 10:18 General: Alert, Oriented x3, Cooperative, No apparent distress Extremities: Capillary Refill Less than 3 Seconds, No Calf Tenderness, Diminished Peripheral Pulses - Negative Zion and Degroot sign DP and PT pulses nonpalpable, Edema - Minor lower extremity edema Skin: Ulcer/ Wound - Open surgical site to left lateral foot with fat layer exposed. Improvement noted again this week. Measurements noted below. Base is a mixture of adherent slough, fibrin, granular tissue as well as some slight surrounding hyperkeratotic tissue. There continues to be no extending or surrounding cellulitis, no increase in warmth, no purulence, no malodor, no probing to bone, no tracking, and no undermining at this time. Wound Measurements and Assessment WC - Nurse 1 - General Ulcer Measurement Start: 02/27/18 11:39 Freq: Status: Active Protocol: Activity Type Activity Date Activity User E-Sign Co-Sign Detail Recorded Client Recorded Date Recorded By Document 03/27/18 10:18 DL [id number] 03/27/18 10:25 DL 03/27/18 10:18 Wound Center Nurse 1 [Ulcer Assessment] #1 Left Lateral Foot -Combined with other wound No -Current Size (cm) - Length 0.8 -Current Size (cm) - Width 0.4 -Current Size (cm) - Depth 0.1 -Total Square Cm 0.32 -Photo Taken No -Epithelialization Large 67-100% -Tunneling No -Undermining/Tunneling No -Circular Undermining No -Exudate Amt None Present -Wound Margin Indistinct, Non -Visible -Granulation Amt None Present (0 %) -Slough/Fibrin Yes -Necrosis Amt Large (67-100%) -Necrotic Tissue Type Adherent Slough -Structure Exposed N/A -Texture (Gissell-wound Skin Appearance) Assessed Localized Edema -Moisture (Gissell-wound Skin Appearance Assessed ) -Color (Igssell-wound Skin Appearance) Assessed -Temperature (Gissell-wound Skin No Abnormality Appearance) (Pt Warm) -Tenderness on Palpation (Gissell-wound No Skin Appearance) -Ulcer Cleansing Rinsed/ Irrigated with Saline -Foul Odor after Cleansing No -Anesthetic Used 5% Lidocaine Gel [Edema Assessment] -Lower Limb Edema Present No Musculoskeletal: No Tenderness to Palpation of Joints or Extremities, - - Bilateral Charcot foot type. Bilateral hammertoe deformities of digits 2?5 of the right foot and 2?4 of the left foot. Neurological: - - Epicritic sensation grossly absent to lower extremity Psych/Mental Status: Normal Affect, Appropriate Debridement Note Post-Debridement Measurements/Treatment WC - Nurse 2 - General Ulcer CM Notes Start: 02/27/18 11:39 Freq: Status: Active Protocol: Activity Type Activity Date Activity User E-Sign Co-Sign Detail Recorded Client Recorded Date Recorded By Document 02/27/18 12:16 DV [id number] 02/27/18 12:28 DV Document 03/06/18 12:08 DV [id number] 03/06/18 12:21 DV Document 03/13/18 11:47 DV [id number] 03/13/18 12:00 DV Document 03/20/18 11:55 DV [id number] 03/20/18 12:07 DV 02/27/18 03/06/18 03/13/18 12:16 12:08 11:47 Wound Center Nurse 2 #1 Left Lateral Foot -Time 12:16 12:12 11:49 -Correct Patient Yes Yes Yes -Correct Side, Site, Position Yes Yes Yes -Correct Procedure Yes Yes Yes -Procedure Performed Yes Yes Yes -Type of Procedure Debridement Debridement Debridement -Clinical Debridement Subcutaneous Subcutaneous Subcutaneous -Post Debridement Size (cm) - Length 2.5 2.1 1.8 -Post Debridement Size (cm) - Width 0.7 0.6 0.6 -Post Debridement Size (cm) - Depth 0.2 0.2 0.1 -Total Square Cm 1.75 1.26 1.08 -Wound/Ulcer Outcome Not Healed Not Healed Not Healed -Ulcer Cleansing Rinsed/ Rinsed/ Rinsed/ Irrigated with Irrigated with Irrigated with Saline Saline Saline -Foul Odor after Cleansing No No No -Bioengineered Tissue Yes Yes Yes -Type of bioengineered Tissue EPIFIX EPIFIX EPIFIX -Expiration Date 08/25/22 09/25/22 03/04/22 -Product Lot Number [id number] [id number] -Percent Used 100 100 100 -Saline Lot Number [id number] -Topical Lidocaine (%) 4 4 4 -Bleeding Controlled with Pressure Pressure Pressure -Offloading No No No -Type of Offloading Surgical Shoe -Treatment Response Procedure Procedure Procedure Tolerated Well Tolerated Well Tolerated Well Pain Scale: 0-10 Numeric Is Patient Pain Free? Yes Yes 03/20/18 11:55 Wound Center Nurse 2 #1 Left Lateral Foot -Time 11:55 -Correct Patient Yes -Correct Side, Site, Position Yes -Correct Procedure Yes -Procedure Performed Yes -Type of Procedure Debridement -Clinical Debridement Subcutaneous -Post Debridement Size (cm) - Length 1.3 -Post Debridement Size (cm) - Width 0.4 -Post Debridement Size (cm) - Depth 0.1 -Total Square Cm 0.52 -Wound/Ulcer Outcome Not Healed -Ulcer Cleansing -Foul Odor after Cleansing No -Bioengineered Tissue Yes -Type of bioengineered Tissue EPIFIX -Expiration Date 09/25/22 -Product Lot Number [id number] -Percent Used 50 -Saline Lot Number [id number] -Topical Lidocaine (%) 4 -Bleeding Controlled with Pressure -Offloading No -Type of Offloading Surgical Shoe -Treatment Response Procedure Tolerated Well Pain Scale: 0-10 Numeric Is Patient Pain Free? Yes Wound debrided: Left lateral foot Laterality: Left Type of Debridement: Excisional debridement Anesthesia Used: 4% Lidocaine Solution Depth: in the subcutaneous layer Percentage of wound debrided: 100 Instrument Used: #15 blade Tissue Removed: Adherent slough, fibrin, hyperkeratotic tissue Severity: Fat Layer Exposed Amount of bleeding with debridement: Mild Bleeding Controlled with: Pressure Patient tolerated procedure well Assessment/Plan Assessment: Open surgical site left lateral foot, DM with neuropathy, PVD, other comorbidities Plan: This patient was carefully examined and evaluated with her daughter in the room again today. Patient had surgical debridement of all necrotic, nonviable, infected soft tissue and bone of the left foot with open partial fifth ray amputation on December 16. Patient also had an angioplasty performed by Dr. Powers on December 20. Details from each operative report can be found in the patient's chart. Patient had subcutaneous debridement performed today as noted in the clinical panel. Following debridement the site was carefully cleansed, and dressed with epifix #6 to the base, followed wound veil, Steri-Strips, hydrogel, and a dry sterile dressing. Everything below the layer of Steri- Strips and wound veil is to stay in place for the next week. If there is drainage noted to the outer dressing above these layers, the patient is able to have these changed. They understand this. It was stressed not to use any kind of significant compression to the lower extremity due to recently performed vascular procedure. Patient is to be nonweightbearing to the left foot at all times while site continues to heal. Patient is to keep the area clean dry and intact. Patient instructed to eat a diet high in protein to help stimulate healing potential. The importance of tight glycemic control was discussed again with this patient. Patient and her daughter were educated on all signs and symptoms of local and systemic infection and they were instructed to go to the emergency room immediately should they notice any of these. Patient will follow-up and clinic in 1 week to check on progress, but was instructed to follow-up in clinic sooner if needed.
== END 2018-03-27 23:59 ==
LOC: WC 11:00
PROVIDERS: Family Provider Family Medicine; PCP Family Medicine; Visit Provider Podiatrist
DX: E11.621 Type 2 diabetes mellitus with foot ulcer (principal); E11.42 Type 2 diabetes mellitus with diabetic polyneuropathy; M14.679 Charcot's joint, unspecified ankle and foot; E11.51 Type 2 diabetes mellitus with diabetic peripheral angiopathy without gangrene; I10 Essential (primary) hypertension; L97.522 Non-pressure chronic ulcer of other part of left foot with fat layer exposed; M20.42 Other hammer toe(s) (acquired), left foot; M20.41 Other hammer toe(s) (acquired), right foot
CPT/HCPCS: 15275; Q4186

== ENCOUNTER 2018-04-24 11:00 | Outpatient (RCR) | payer MEDICARE, OTHER, SELFPAY ==
[2018-03-28 01:19] VITALS: BP 120/54; PULSE 70; RESP 18; TEMP 36.4
[2018-04-03 10:52] VITALS: BP 119/54; PULSE 72; RESP 18; TEMP 36.3; BMI 24.1
--- NOTE | 2018-04-03 12:04 | PCM.WC.PN ---
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 Status: Acute Current Visit: No Code(s): E11.621 - Type 2 diabetes mellitus with foot ulcer; L97.522 - Non-pressure chronic ulcer of other part of left foot with fat layer exposed (2) Type 2 diabetes mellitus with diabetic polyneuropathy Status: Acute Current Visit: No Code(s): E11.42 - Type 2 diabetes mellitus with diabetic polyneuropathy (3) Charcot's joint of foot Status: Acute Current Visit: No Code(s): M14.679 - Charcot's joint, unspecified ankle and foot (4) PVD (peripheral vascular disease) Status: Acute Current Visit: No Code(s): I73.9 - Peripheral vascular disease, unspecified Type of Wound Chief Complaint: Ulcer left foot History of Wound: 72 year old diabetic female was being seen for a ulcer on her left lateral foot at the base of the 5th toe. She states that she was seeing a sapphire stylus grinder, Dr. Santo in [place] for a callus on the arch of her left foot and for her history of Charcot foot. A month ago she had a bandage covering the callus and when she removed it, the tape pulled some skin off at the base of her 5th toe. She had an opened ulcer there ever since. She has been applying silvadine cream and soaking her foot in epsome salt as prescribed by her sapphire stylus grinder in [place]. 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 On December 15 the patient was admitted for fever, nausea, vomiting, cellulitis of left foot, and ulcer of left foot. X-ray and MRI taken showed evidence of osteomyelitis to the fifth metatarsal and base of the fifth toe as well as showed signs of soft tissue emphysema. I was consulted on December 16 when the patient was admitted, and she was taken to surgery the same day for debridement of all necrotic, nonviable, infected soft tissue and bone of the left foot with open partial fifth ray amputation. Dr. Powers then performed an angioplasty on December 20 while the patient was still admitted prior to her discharge. Details from both operative reports can be found in the patient's chart. A wound VAC was applied prior to patient's discharge home, and she is to follow back up at the wound healing center. Progress of Wound: Open surgical site to left lateral foot shows continued improvement again this week. Patient had epifix dressing applied again last week. Patient currently denies any feelings of nausea, vomiting, fever, chills. - Physical Exam Vital Signs Temp Pulse Resp BP 97.3 F L 72 18 119/54 L 04/03/18 10:52 04/03/18 10:52 04/03/18 10:52 04/03/18 10:52 General: Alert, Oriented x3, Cooperative, No apparent distress Extremities: Capillary Refill Less than 3 Seconds, No Calf Tenderness - Negative Zion and Degroot sign, Diminished Peripheral Pulses - DP and PT pulses nonpalpable, Edema - Slight lower extremity edema Skin: Ulcer/ Wound - Open surgical site to left lateral foot with fat layer exposed. Improvement noted again this week. Measurements noted below. Base is a mixture of slough, fibrin, granular tissue as well as some slight surrounding hyperkeratotic tissue. There continues to be no extending or surrounding cellulitis, no increase in warmth, no purulence, no malodor, no probing to bone, no tracking, and no undermining at this time. Wound Measurements and Assessment WC - Nurse 1 - General Ulcer Measurement Start: 04/03/18 10:52 Freq: Status: Active Protocol: Activity Type Activity Date Activity User E-Sign Co-Sign Detail Recorded Client Recorded Date Recorded By Document 04/03/18 10:52 [id number] 04/03/18 11:04 RB 04/03/18 10:52 Wound Center Nurse 1 [Ulcer Assessment] #1 Left Lateral Foot -Combined with other wound No -Current Size (cm) - Length 0.1 -Current Size (cm) - Width 0.1 -Current Size (cm) - Depth 0.1 -Total Square Cm 0.01 -Photo Taken No -Tunneling No -Undermining/Tunneling No -Circular Undermining No -Exudate Amt None Present -Wound Margin Distinct, Outline Attached -Granulation Amt Medium (34-66%) -Granulation Quality [place] -Necrosis Amt Medium (34-66%) -Necrotic Tissue Type Adherent Slough -Structure Exposed N/A -Texture (Gissell-wound Skin Appearance) Assessed -Moisture (Gissell-wound Skin Appearance Assessed ) Dry/Scaly -Color (Gissell-wound Skin Appearance) Assessed -Temperature (Gissell-wound Skin No Abnormality Appearance) (Pt Warm) -Tenderness on Palpation (Gissell-wound No Skin Appearance) -Ulcer Cleansing Rinsed/ Irrigated with Saline -Foul Odor after Cleansing No -Anesthetic Used 5% Lidocaine Gel [Edema Assessment] -Lower Limb Edema Present No -Left Calf (cm) 26 -Left Ankle (cm) 17 WC - Nurse 2 - General Ulcer CM Notes Start: 04/03/18 10:52 Freq: Status: Active Protocol: Activity Type Activity Date Activity User E-Sign Co-Sign Detail Recorded Client Recorded Date Recorded By Document 04/03/18 11:21 DV [id number] 04/03/18 11:24 DV 04/03/18 11:21 Wound Center Nurse 2 [Procedure/Treatment] #1 Left Lateral Foot -Time 11:23 -Correct Patient Yes -Correct Side, Site, Position Yes -Correct Procedure Yes -Procedure Performed Yes -Type of Procedure Debridement -Clinical Debridement Subcutaneous -Post Debridement Size (cm) - Length 0.5 -Post Debridement Size (cm) - Width 0.2 -Post Debridement Size (cm) - Depth 0.1 -Total Square Cm 0.10 -Wound/Ulcer Outcome Not Healed -Ulcer Cleansing Rinsed/ Irrigated with Saline -Foul Odor after Cleansing No -Bioengineered Tissue No -Bleeding Controlled with Pressure -Offloading Yes -Type of Offloading Surgical Shoe -Treatment Response Procedure Tolerated Well [See Physician Procedure note for Specifics] Pain Scale: 0-10 Numeric [Pain] -Is Patient Pain Free? Yes Musculoskeletal: No Tenderness to Palpation of Joints or Extremities, - - Bilateral Charcot foot type. Bilateral hammertoe deformities of digits 2?5 of the right foot and 2?4 of the left foot. Neurological: - - Epicritic sensation grossly absent to lower extremity Psych/Mental Status: Normal Affect, Appropriate Debridement Note Post-Debridement Measurements/Treatment WC - Nurse 2 - General Ulcer CM Notes Start: 04/03/18 10:52 Freq: Status: Active Protocol: Activity Type Activity Date Activity User E-Sign Co-Sign Detail Recorded Client Recorded Date Recorded By Document 04/03/18 11:21 DV [id number] 04/03/18 11:24 DV 04/03/18 11:21 Wound Center Nurse 2 #1 Left Lateral Foot -Time 11:23 -Correct Patient Yes -Correct Side, Site, Position Yes -Correct Procedure Yes -Procedure Performed Yes -Type of Procedure Debridement -Clinical Debridement Subcutaneous -Post Debridement Size (cm) - Length 0.5 -Post Debridement Size (cm) - Width 0.2 -Post Debridement Size (cm) - Depth 0.1 -Total Square Cm 0.10 -Wound/Ulcer Outcome Not Healed -Ulcer Cleansing Rinsed/ Irrigated with Saline -Foul Odor after Cleansing No -Bioengineered Tissue No -Bleeding Controlled with Pressure -Offloading Yes -Type of Offloading Surgical Shoe -Treatment Response Procedure Tolerated Well Pain Scale: 0-10 Numeric Is Patient Pain Free? Yes Wound debrided: Left lateral foot Laterality: Left Type of Debridement: Excisional debridement Depth: in the subcutaneous layer Percentage of wound debrided: 100 Instrument Used: #15 blade Tissue Removed: Slough, fibrin, hyperkeratotic tissue Severity: Fat Layer Exposed Amount of bleeding with debridement: Mild Bleeding Controlled with: Pressure Patient tolerated procedure well Assessment/Plan Assessment: Open surgical site left lateral foot, DM with neuropathy, PVD, other comorbidities Plan: This patient was carefully examined and evaluated with her daughter in the room again today. Patient had surgical debridement of all necrotic, nonviable, infected soft tissue and bone of the left foot with open partial fifth ray amputation on December 16. Patient also had an angioplasty performed by Dr. Powers on December 20. Details from each operative report can be found in the patient's chart. Patient had subcutaneous debridement performed today as noted in the clinical panel. Following debridement the site was carefully cleansed, and dressed with promogran to the base, followed by a dry sterile dressing. Dressing supplies ordered for the patient. Her dressing is to be changed daily in this manner with assistance of family and home health. They understand this. It was stressed not to use any kind of significant compression to the lower extremity due to recently performed vascular procedure. Patient is to be nonweightbearing to the left foot at all times while site continues to heal. Patient is to keep the area clean dry and intact. Patient instructed to eat a diet high in protein to help stimulate healing potential. The importance of tight glycemic control was discussed again with this patient. Patient and her daughter were educated on all signs and symptoms of local and systemic infection and they were instructed to go to the emergency room immediately should they notice any of these. Patient will follow-up and clinic in 1 week to check on progress, but was instructed to follow-up in clinic sooner if needed.
[2018-04-10 11:17] VITALS: BP 92/56; PULSE 73; RESP 18; TEMP 36.2; BMI 24.1
--- NOTE | 2018-04-10 12:59 | PN.PCM_ITS ---
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 Status: Acute Current Visit: No Code(s): E11.621 - Type 2 diabetes mellitus with foot ulcer; L97.522 - Non-pressure chronic ulcer of other part of left foot with fat layer exposed (2) Type 2 diabetes mellitus with diabetic polyneuropathy Status: Acute Current Visit: No Code(s): E11.42 - Type 2 diabetes mellitus with diabetic polyneuropathy (3) Charcot's joint of foot Status: Acute Current Visit: No Code(s): M14.679 - Charcot's joint, unspecified ankle and foot (4) PVD (peripheral vascular disease) Status: Acute Current Visit: No Code(s): I73.9 - Peripheral vascular disease, unspecified Type of Wound Chief Complaint: Ulcer left foot History of Wound: 72 year old diabetic female was being seen for a ulcer on her left lateral foot at the base of the 5th toe. She states that she was seeing a helmet coverer, Dr. Santo in [place] for a callus on the arch of her left foot and for her history of Charcot foot. A month ago she had a bandage covering the callus and when she removed it, the tape pulled some skin off at the base of her 5th toe. She had an opened ulcer there ever since. She has been applying silvadine cream and soaking her foot in epsome salt as prescribed by her helmet coverer in [place]. 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 On December 15 the patient was admitted for fever, nausea, vomiting, cellulitis of left foot, and ulcer of left foot. X-ray and MRI taken showed evidence of osteomyelitis to the fifth metatarsal and base of the fifth toe as well as showed signs of soft tissue emphysema. I was consulted on December 16 when the patient was admitted, and she was taken to surgery the same day for debridement of all necrotic, nonviable, infected soft tissue and bone of the left foot with open partial fifth ray amputation. Dr. Powers then performed an angioplasty on December 20 while the patient was still admitted prior to her discharge. Details from both operative reports can be found in the patient's chart. A wound VAC was applied prior to patient's discharge home, and she is to follow back up at the wound healing center. Progress of Wound: Open surgical site to left lateral foot shows continued improvement again this week. Patient had marko dressing applied again last week. Patient currently denies any feelings of nausea, vomiting, fever, chills. - Physical Exam Vital Signs Temp Pulse Resp BP 97.1 F L 73 18 92/56 L 04/10/18 11:17 04/10/18 11:17 04/10/18 11:17 04/10/18 11:17 General: Alert, Oriented x3, Cooperative, No apparent distress Extremities: Capillary Refill Less than 3 Seconds, No Calf Tenderness - Negative Zion and Degroot sign, Diminished Peripheral Pulses - DP and PT pulses nonpalpable, Edema - Slight lower extremity edema Skin: Ulcer/ Wound - Open surgical site to left lateral foot with fat layer exposed. Continued improvement noted again this week. Measurements noted below. Base is a mixture of slough, fibrin, granular tissue as well as some slight surrounding hyperkeratotic tissue. There continues to be no extending or surrounding cellulitis, no increase in warmth, no purulence, no malodor, no probing to bone, no tracking, and no undermining at this time. Wound Measurements and Assessment WC - Nurse 1 - General Ulcer Measurement Start: 04/03/18 10:52 Freq: Status: Active Protocol: Activity Type Activity Date Activity User E-Sign Co-Sign Detail Recorded Client Recorded Date Recorded By Document 04/10/18 11:17 AN [id number] 04/10/18 11:25 AN 04/10/18 11:17 Wound Center Nurse 1 [Ulcer Assessment] #1 Left Lateral Foot -Current Size (cm) - Length 0.1 -Current Size (cm) - Width 0.1 -Current Size (cm) - Depth 0.1 -Total Square Cm 0.01 -Photo Taken No -Epithelialization None Present -Tunneling No -Undermining/Tunneling No -Exudate Amt None Present -Wound Margin Fibrotic Scar, Thickened Scar -Granulation Amt None Present (0 %) -Slough/Fibrin No -Necrosis Amt None Present (0 %) -Temperature (Gissell-wound Skin No Abnormality Appearance) (Pt Warm) -Tenderness on Palpation (Gissell-wound No Skin Appearance) -Ulcer Cleansing Rinsed/ Irrigated with Saline -Foul Odor after Cleansing No WC - Nurse 2 - General Ulcer CM Notes Start: 04/03/18 10:52 Freq: Status: Active Protocol: Activity Type Activity Date Activity User E-Sign Co-Sign Detail Recorded Client Recorded Date Recorded By Document 04/10/18 12:04 DV [id number] 04/10/18 12:09 DV 04/10/18 12:04 Wound Center Nurse 2 [Procedure/Treatment] -Time 12:07 -Correct Patient Yes -Correct Side, Site, Position Yes -Correct Procedure Yes -Procedure Performed Yes -Type of Procedure Debridement -Clinical Debridement Selective -Post Debridement Size (cm) - Length 0.5 -Post Debridement Size (cm) - Width 0.2 -Post Debridement Size (cm) - Depth 0.1 -Total Square Cm 0.10 -Wound/Ulcer Outcome Not Healed -Ulcer Cleansing Rinsed/ Irrigated with Saline -Foul Odor after Cleansing No -Bioengineered Tissue No -Bleeding Controlled with Pressure -Offloading No -Treatment Response Procedure Tolerated Well [See Physician Procedure note for Specifics] Pain Scale: 0-10 Numeric [Pain] -Is Patient Pain Free? Yes Musculoskeletal: No Tenderness to Palpation of Joints or Extremities, - - Bilateral Charcot foot type. Bilateral hammertoe deformities of digits 2?5 of the right foot and 2?4 of the left foot. Neurological: - - Epicritic sensation grossly absent lower extremity Psych/Mental Status: Normal Affect, Appropriate Debridement Note Post-Debridement Measurements/Treatment - Nurse 2 - General Ulcer CM Notes Start: 04/03/18 10:52 Freq: Status: Active Protocol: Activity Type Activity Date Activity User E-Sign Co-Sign Detail Recorded Client Recorded Date Recorded By Document 04/03/18 11:21 DV [id number] 04/03/18 11:24 DV Document 04/10/18 12:04 DV [id number] 04/10/18 12:09 DV 04/03/18 04/10/18 11:21 12:04 Wound Center Nurse 2 #1 Left Lateral Foot -Time 11:23 12:07 -Correct Patient Yes Yes -Correct Side, Site, Position Yes Yes -Correct Procedure Yes Yes -Procedure Performed Yes Yes -Type of Procedure Debridement Debridement -Clinical Debridement Subcutaneous Selective -Post Debridement Size (cm) - Length 0.5 0.5 -Post Debridement Size (cm) - Width 0.2 0.2 -Post Debridement Size (cm) - Depth 0.1 0.1 -Total Square Cm 0.10 0.10 -Wound/Ulcer Outcome Not Healed Not Healed -Ulcer Cleansing Rinsed/ Rinsed/ Irrigated with Irrigated with Saline Saline -Foul Odor after Cleansing No No -Bioengineered Tissue No No -Bleeding Controlled with Pressure Pressure -Offloading Yes No -Type of Offloading Surgical Shoe -Treatment Response Procedure Procedure Tolerated Well Tolerated Well Pain Scale: 0-10 Numeric Is Patient Pain Free? Yes Yes Wound debrided: Left lateral foot Laterality: Left Type of Debridement: Selective debridement Anesthesia Used: 4% Lidocaine Solution Depth: in the subcutaneous layer Percentage of wound debrided: 100 Instrument Used: #15 blade Tissue Removed: Slough, fibrin, hyperkeratotic tissue Severity: Fat Layer Exposed Amount of bleeding with debridement: Mild Bleeding Controlled with: Pressure Patient tolerated procedure well Assessment/Plan Assessment: Open surgical site left lateral foot, DM with neuropathy, PVD, other comorbidities Plan: This patient was carefully examined and evaluated with her daughter in the room again today. Patient had surgical debridement of all necrotic, nonviable, infected soft tissue and bone of the left foot with open partial fifth ray amputation on December 16. Patient also had an angioplasty performed by Dr. Powers on December 20. Details from each operative report can be found in the patient's chart. Patient had selective debridement performed today as noted in the clinical panel. Following debridement, the site was carefully cleansed, and dressed with collagen with silver to the base, followed by a dry sterile dressing. This was picked due to the dryness of the site each week. Her dressing is to be changed daily in this manner with assistance of family and home health. They understand this. It was stressed not to use any kind of significant compression to the lower extremity due to recently performed vascular procedure. Patient is to be nonweightbearing to the left foot at all times while site continues to heal. Patient is to keep the area clean dry and intact. Patient instructed to eat a diet high in protein to help stimulate healing potential. The importance of tight glycemic control was discussed again with this patient. Patient and her daughter were educated on all signs and symptoms of local and systemic infection and they were instructed to go to the emergency room immediately should they notice any of these. Patient will follow-up and clinic in 1 week to check on progress, but was instructed to follow-up in clinic sooner if needed.
[2018-04-17 11:21] VITALS: BP 101/61; PULSE 71; RESP 16; TEMP 36.4; BMI 24.1
--- NOTE | 2018-04-17 12:43 | PCM.WC.PN ---
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 Status: Acute Current Visit: No Code(s): E11.621 - Type 2 diabetes mellitus with foot ulcer; L97.522 - Non-pressure chronic ulcer of other part of left foot with fat layer exposed (2) Type 2 diabetes mellitus with diabetic polyneuropathy Status: Acute Current Visit: No Code(s): E11.42 - Type 2 diabetes mellitus with diabetic polyneuropathy (3) Charcot's joint of foot Status: Acute Current Visit: No Code(s): M14.679 - Charcot's joint, unspecified ankle and foot (4) PVD (peripheral vascular disease) Status: Acute Current Visit: No Code(s): I73.9 - Peripheral vascular disease, unspecified Type of Wound Chief Complaint: Ulcer left foot History of Wound: 72 year old diabetic female was being seen for a ulcer on her left lateral foot at the base of the 5th toe. She states that she was seeing a sheet rock finisher, Dr. Santo in [place] for a callus on the arch of her left foot and for her history of Charcot foot. A month ago she had a bandage covering the callus and when she removed it, the tape pulled some skin off at the base of her 5th toe. She had an opened ulcer there ever since. She has been applying silvadine cream and soaking her foot in epsome salt as prescribed by her sheet rock finisher in [place]. 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 On December 15 the patient was admitted for fever, nausea, vomiting, cellulitis of left foot, and ulcer of left foot. X-ray and MRI taken showed evidence of osteomyelitis to the fifth metatarsal and base of the fifth toe as well as showed signs of soft tissue emphysema. I was consulted on December 16 when the patient was admitted, and she was taken to surgery the same day for debridement of all necrotic, nonviable, infected soft tissue and bone of the left foot with open partial fifth ray amputation. Dr. Powers then performed an angioplasty on December 20 while the patient was still admitted prior to her discharge. Details from both operative reports can be found in the patient's chart. A wound VAC was applied prior to patient's discharge home, and she is to follow back up at the wound healing center. Progress of Wound: Open surgical site to left lateral foot stable this week.Patient currently denies any feelings of nausea, vomiting, fever, chills. - Physical Exam Vital Signs Temp Pulse Resp BP 97.5 F L 71 16 101/61 04/17/18 11:21 04/17/18 11:21 04/17/18 11:21 04/17/18 11:21 General: Alert, Oriented x3, Cooperative, No apparent distress Extremities: Capillary Refill Less than 3 Seconds, No Calf Tenderness - Negative Zion and Degroot sign, Diminished Peripheral Pulses - DP and PT pulses nonpalpable, Edema - Very minor lower extremity edema Skin: Ulcer/ Wound - Open surgical site to left lateral foot with fat layer exposed. Ulcer stable this week. Measurements noted below. Base is a mixture of slough, fibrin, granular tissue as well as some slight surrounding hyperkeratotic tissue. There continues to be no extending or surrounding cellulitis, no increase in warmth, no purulence, no malodor, no probing to bone, no tracking, and no undermining at this time. Wound Measurements and Assessment WC - Nurse 1 - General Ulcer Measurement Start: 04/03/18 10:52 Freq: Status: Active Protocol: Activity Type Activity Date Activity User E-Sign Co-Sign Detail Recorded Client Recorded Date Recorded By Document 04/17/18 11:21 [facility] [id number] 04/17/18 11:27 [facility] 04/17/18 11:21 Wound Center Nurse 1 [Ulcer Assessment] #1 Left Lateral Foot -Combined with other wound No -Current Size (cm) - Length 0.1 -Current Size (cm) - Width 0.1 -Current Size (cm) - Depth 0.1 -Total Square Cm 0.01 -Photo Taken No -Epithelialization Large 67-100% -Tunneling No -Undermining/Tunneling No -Circular Undermining No -Exudate Amt Small -Exudate Type Serous -Wound Margin Flat & Intact -Texture (Gissell-wound Skin Appearance) Scarring -Moisture (Gissell-wound Skin Appearance Dry/Scaly ) -Temperature (Gissell-wound Skin No Abnormality Appearance) (Pt Warm) -Tenderness on Palpation (Gissell-wound No Skin Appearance) -Ulcer Cleansing Rinsed/ Irrigated with Saline -Foul Odor after Cleansing No -Anesthetic Used 5% Lidocaine Gel Musculoskeletal: No Tenderness to Palpation of Joints or Extremities, - - Bilateral Charcot foot type. Bilateral hammertoe deformities of digits 2?5 of the right foot and 2?4 of the left foot. Neurological: - - Epicritic sensation grossly absent to lower extremity Psych/Mental Status: Normal Affect, Appropriate Debridement Note Post-Debridement Measurements/Treatment WC - Nurse 2 - General Ulcer CM Notes Start: 04/03/18 10:52 Freq: Status: Active Protocol: Activity Type Activity Date Activity User E-Sign Co-Sign Detail Recorded Client Recorded Date Recorded By Document 04/03/18 11:21 DV [id number] 04/03/18 11:24 DV Document 04/10/18 12:04 DV [id number] 04/10/18 12:09 DV 04/03/18 04/10/18 11:21 12:04 Wound Center Nurse 2 #1 Left Lateral Foot -Time 11:23 12:07 -Correct Patient Yes Yes -Correct Side, Site, Position Yes Yes -Correct Procedure Yes Yes -Procedure Performed Yes Yes -Type of Procedure Debridement Debridement -Clinical Debridement Subcutaneous Selective -Post Debridement Size (cm) - Length 0.5 0.5 -Post Debridement Size (cm) - Width 0.2 0.2 -Post Debridement Size (cm) - Depth 0.1 0.1 -Total Square Cm 0.10 0.10 -Wound/Ulcer Outcome Not Healed Not Healed -Ulcer Cleansing Rinsed/ Rinsed/ Irrigated with Irrigated with Saline Saline -Foul Odor after Cleansing No No -Bioengineered Tissue No No -Bleeding Controlled with Pressure Pressure -Offloading Yes No -Type of Offloading Surgical Shoe -Treatment Response Procedure Procedure Tolerated Well Tolerated Well Pain Scale: 0-10 Numeric Is Patient Pain Free? Yes Yes Wound debrided: Left lateral foot Laterality: Left Type of Debridement: Excisional debridement Anesthesia Used: 4% Lidocaine Solution Depth: in the subcutaneous layer Percentage of wound debrided: 100 Instrument Used: #15 blade Tissue Removed: Adherent slough, fibrin, hyperkeratotic tissue Severity: Fat Layer Exposed Amount of bleeding with debridement: Mild Bleeding Controlled with: Pressure Patient tolerated procedure well Assessment/Plan Assessment: Open surgical site left lateral foot, DM with neuropathy, PVD, other comorbidities Plan: This patient was carefully examined and evaluated with her daughter in the room again today. Patient had surgical debridement of all necrotic, nonviable, infected soft tissue and bone of the left foot with open partial fifth ray amputation on December 16. Patient also had an angioplasty performed by Dr. Powers on December 20. Details from each operative report can be found in the patient's chart. Patient had subcutaneous debridement performed today as noted in the clinical panel. Ulcer slightly larger in size this week. Following debridement, the site was carefully cleansed, and dressed with another epipharynx to the base, followed by hydrogel, wound veil, Steri-Strips, and a dry sterile dressing. This dressing is to remain clean dry and intact for the next week. Patient is instructed to not go below the layer of wound veil if the top dressing needs changed over the week. It was stressed not to use any kind of significant compression to the lower extremity due to recently performed vascular procedure. Patient is to be nonweightbearing to the left foot at all times while site continues to heal. Patient is to keep the area clean dry and intact. Patient instructed to eat a diet high in protein to help stimulate healing potential. The importance of tight glycemic control was discussed again with this patient. Patient and her daughter were educated on all signs and symptoms of local and systemic infection and they were instructed to go to the emergency room immediately should they notice any of these. Patient will follow-up and clinic in 1 week to check on progress, but was instructed to follow-up in clinic sooner if needed.
--- NOTE | 2018-04-17 12:49 | PN.PCM_ITS ---
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 Status: Acute Current Visit: No Code(s): E11.621 - Type 2 diabetes mellitus with foot ulcer; L97.522 - Non-pressure chronic ulcer of other part of left foot with fat layer exposed (2) Type 2 diabetes mellitus with diabetic polyneuropathy Status: Acute Current Visit: No Code(s): E11.42 - Type 2 diabetes mellitus with diabetic polyneuropathy (3) Charcot's joint of foot Status: Acute Current Visit: No Code(s): M14.679 - Charcot's joint, unspecified ankle and foot (4) PVD (peripheral vascular disease) Status: Acute Current Visit: No Code(s): I73.9 - Peripheral vascular disease, unspecified Type of Wound Chief Complaint: Ulcer left foot History of Wound: 72 year old diabetic female was being seen for a ulcer on her left lateral foot at the base of the 5th toe. She states that she was seeing a baggage porter head, Dr. Santo in [place] for a callus on the arch of her left foot and for her history of Charcot foot. A month ago she had a bandage covering the callus and when she removed it, the tape pulled some skin off at the base of her 5th toe. She had an opened ulcer there ever since. She has been applying silvadine cream and soaking her foot in epsome salt as prescribed by her baggage porter head in [place]. 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 On December 15 the patient was admitted for fever, nausea, vomiting, cellulitis of left foot, and ulcer of left foot. X-ray and MRI taken showed evidence of osteomyelitis to the fifth metatarsal and base of the fifth toe as well as showed signs of soft tissue emphysema. I was consulted on December 16 when the patient was admitted, and she was taken to surgery the same day for debridement of all necrotic, nonviable, infected soft tissue and bone of the left foot with open partial fifth ray amputation. Dr. Powers then performed an angioplasty on December 20 while the patient was still admitted prior to her discharge. Details from both operative reports can be found in the patient's chart. A wound VAC was applied prior to patient's discharge home, and she is to follow back up at the wound healing center. Progress of Wound: Open surgical site to left lateral foot stable this week.Patient currently denies any feelings of nausea, vomiting, fever, chills. - Physical Exam Vital Signs Temp Pulse Resp BP 97.5 F L 71 16 101/61 04/17/18 11:21 04/17/18 11:21 04/17/18 11:21 04/17/18 11:21 General: Alert, Oriented x3, Cooperative, No apparent distress Extremities: Capillary Refill Less than 3 Seconds, No Calf Tenderness - Negative Zion and Degroot sign, Diminished Peripheral Pulses - DP and PT pulses nonpalpable, Edema - Very minor lower extremity edema Skin: Ulcer/ Wound - Open surgical site to left lateral foot with fat layer exposed. Ulcer stable this week. Measurements noted below. Base is a mixture of slough, fibrin, granular tissue as well as some slight surrounding hyperkeratotic tissue. There continues to be no extending or surrounding cellulitis, no increase in warmth, no purulence, no malodor, no probing to bone, no tracking, and no undermining at this time. Wound Measurements and Assessment WC - Nurse 1 - General Ulcer Measurement Start: 04/03/18 10:52 Freq: Status: Active Protocol: Activity Type Activity Date Activity User E-Sign Co-Sign Detail Recorded Client Recorded Date Recorded By Document 04/17/18 11:21 [facility] [id number] 04/17/18 11:27 [facility] 04/17/18 11:21 Wound Center Nurse 1 [Ulcer Assessment] #1 Left Lateral Foot -Combined with other wound No -Current Size (cm) - Length 0.1 -Current Size (cm) - Width 0.1 -Current Size (cm) - Depth 0.1 -Total Square Cm 0.01 -Photo Taken No -Epithelialization Large 67-100% -Tunneling No -Undermining/Tunneling No -Circular Undermining No -Exudate Amt Small -Exudate Type Serous -Wound Margin Flat & Intact -Texture (Gissell-wound Skin Appearance) Scarring -Moisture (Gissell-wound Skin Appearance Dry/Scaly ) -Temperature (Gissell-wound Skin No Abnormality Appearance) (Pt Warm) -Tenderness on Palpation (Gissell-wound No Skin Appearance) -Ulcer Cleansing Rinsed/ Irrigated with Saline -Foul Odor after Cleansing No -Anesthetic Used 5% Lidocaine Gel Musculoskeletal: No Tenderness to Palpation of Joints or Extremities, - - Bilateral Charcot foot type. Bilateral hammertoe deformities of digits 2?5 of the right foot and 2?4 of the left foot. Neurological: - - Epicritic sensation grossly absent to lower extremity Psych/Mental Status: Normal Affect, Appropriate Debridement Note Post-Debridement Measurements/Treatment WC - Nurse 2 - General Ulcer CM Notes Start: 04/03/18 10:52 Freq: Status: Active Protocol: Activity Type Activity Date Activity User E-Sign Co-Sign Detail Recorded Client Recorded Date Recorded By Document 04/03/18 11:21 DV [id number] 04/03/18 11:24 DV Document 04/10/18 12:04 DV [id number] 04/10/18 12:09 DV 04/03/18 04/10/18 11:21 12:04 Wound Center Nurse 2 #1 Left Lateral Foot -Time 11:23 12:07 -Correct Patient Yes Yes -Correct Side, Site, Position Yes Yes -Correct Procedure Yes Yes -Procedure Performed Yes Yes -Type of Procedure Debridement Debridement -Clinical Debridement Subcutaneous Selective -Post Debridement Size (cm) - Length 0.5 0.5 -Post Debridement Size (cm) - Width 0.2 0.2 -Post Debridement Size (cm) - Depth 0.1 0.1 -Total Square Cm 0.10 0.10 -Wound/Ulcer Outcome Not Healed Not Healed -Ulcer Cleansing Rinsed/ Rinsed/ Irrigated with Irrigated with Saline Saline -Foul Odor after Cleansing No No -Bioengineered Tissue No No -Bleeding Controlled with Pressure Pressure -Offloading Yes No -Type of Offloading Surgical Shoe -Treatment Response Procedure Procedure Tolerated Well Tolerated Well Pain Scale: 0-10 Numeric Is Patient Pain Free? Yes Yes Wound debrided: Left lateral foot Laterality: Left Type of Debridement: Excisional debridement Anesthesia Used: 4% Lidocaine Solution Depth: in the subcutaneous layer Percentage of wound debrided: 100 Instrument Used: #15 blade Tissue Removed: Adherent slough, fibrin, hyperkeratotic tissue Severity: Fat Layer Exposed Amount of bleeding with debridement: Mild Bleeding Controlled with: Pressure Patient tolerated procedure well Assessment/Plan Assessment: Open surgical site left lateral foot, DM with neuropathy, PVD, other comorbidities Plan: This patient was carefully examined and evaluated with her daughter in the room again today. Patient had surgical debridement of all necrotic, nonviable, infected soft tissue and bone of the left foot with open partial fifth ray amputation on December 16. Patient also had an angioplasty performed by Dr. Powers on December 20. Details from each operative report can be found in the patient's chart. Patient had subcutaneous debridement performed today as noted in the clinical panel. Ulcer slightly larger in size this week. Following debridement, the site was carefully cleansed, and dressed with another epipharynx to the base, followed by hydrogel, wound veil, Steri-Strips, and a dry sterile dressing. This dressing is to remain clean dry and intact for the next week. Patient is instructed to not go below the layer of wound veil if the top dressing needs changed over the week. It was stressed not to use any kind of significant compression to the lower extremity due to recently performed vascular procedure. Patient is to be nonweightbearing to the left foot at all times while site continues to heal. Patient is to keep the area clean dry and intact. Patient instructed to eat a diet high in protein to help stimulate healing potential. The importance of tight glycemic control was discussed again with this patient. Patient and her daughter were educated on all signs and symptoms of local and systemic infection and they were instructed to go to the emergency room immediately should they notice any of these. Patient will follow-up and clinic in 1 week to check on progress, but was instructed to follow-up in clinic sooner if needed.
[2018-04-24 10:41] VITALS: BP 124/71; PULSE 78; RESP 20; TEMP 36.7; BMI 24.1
--- NOTE | 2018-04-24 12:29 | PCM.WC.PN ---
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 Status: Acute Current Visit: No Code(s): E11.621 - Type 2 diabetes mellitus with foot ulcer; L97.522 - Non-pressure chronic ulcer of other part of left foot with fat layer exposed (2) Type 2 diabetes mellitus with diabetic polyneuropathy Status: Acute Current Visit: No Code(s): E11.42 - Type 2 diabetes mellitus with diabetic polyneuropathy (3) Charcot's joint of foot Status: Acute Current Visit: No Code(s): M14.679 - Charcot's joint, unspecified ankle and foot (4) PVD (peripheral vascular disease) Status: Acute Current Visit: No Code(s): I73.9 - Peripheral vascular disease, unspecified Type of Wound Chief Complaint: Ulcer left foot History of Wound: 72 year old diabetic female was being seen for a ulcer on her left lateral foot at the base of the 5th toe. She states that she was seeing a assistant community manager, Dr. Santo in [place] for a callus on the arch of her left foot and for her history of Charcot foot. A month ago she had a bandage covering the callus and when she removed it, the tape pulled some skin off at the base of her 5th toe. She had an opened ulcer there ever since. She has been applying silvadine cream and soaking her foot in epsome salt as prescribed by her assistant community manager in [place]. 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 On December 15 the patient was admitted for fever, nausea, vomiting, cellulitis of left foot, and ulcer of left foot. X-ray and MRI taken showed evidence of osteomyelitis to the fifth metatarsal and base of the fifth toe as well as showed signs of soft tissue emphysema. I was consulted on December 16 when the patient was admitted, and she was taken to surgery the same day for debridement of all necrotic, nonviable, infected soft tissue and bone of the left foot with open partial fifth ray amputation. Dr. Powers then performed an angioplasty on December 20 while the patient was still admitted prior to her discharge. Details from both operative reports can be found in the patient's chart. A wound VAC was applied prior to patient's discharge home, and she is to follow back up at the wound healing center. Progress of Wound: Open surgical site to left lateral foot stable this week. Slight improvement noted this week. Patient currently denies any feelings of nausea, vomiting, fever, chills. - Physical Exam Vital Signs Temp Pulse Resp BP 98.0 F 78 20 H 124/71 H 04/24/18 10:41 04/24/18 10:41 04/24/18 10:41 04/24/18 10:41 General: Alert, Oriented x3, Cooperative, No apparent distress Extremities: Capillary Refill Less than 3 Seconds, No Calf Tenderness - Negative Zion and Degroot signs, Diminished Peripheral Pulses - DP and PT pulses nonpalpable, Edema - Slight lower extremity edema Skin: Ulcer/ Wound - Open surgical site to left lateral foot with fat layer exposed. Improvement noted again this week. Measurements noted below. Base is a mixture of slough, fibrin, granular tissue as well as some slight surrounding hyperkeratotic tissue. There continues to be no extending or surrounding cellulitis, no increase in warmth, no purulence, no malodor, no probing to bone, no tracking, and no undermining at this time. Wound Measurements and Assessment WC - Nurse 1 - General Ulcer Measurement Start: 04/03/18 10:52 Freq: Status: Active Protocol: Activity Type Activity Date Activity User E-Sign Co-Sign Detail Recorded Client Recorded Date Recorded By Document 04/24/18 10:41 [place] [id number] 04/24/18 10:42 [place] 04/24/18 10:41 Wound Center Nurse 1 [Ulcer Assessment] #1 Left Lateral Foot -Current Size (cm) - Length 0.1 -Current Size (cm) - Width 0.1 -Current Size (cm) - Depth 0.1 -Total Square Cm 0.01 -Epithelialization Large 67-100% [Edema Assessment] -Lower Limb Edema Present NA WC - Nurse 2 - General Ulcer CM Notes Start: 04/03/18 10:52 Freq: Status: Active Protocol: Activity Type Activity Date Activity User E-Sign Co-Sign Detail Recorded Client Recorded Date Recorded By Document 04/24/18 11:30 DV [id number] 04/24/18 11:32 DV Document 04/24/18 11:47 DV [id number] 04/24/18 11:48 DV 04/24/18 04/24/18 11:30 11:47 Wound Center Nurse 2 [Procedure/Treatment] #1 Left Lateral Foot -Time 11:31 11:47 -Correct Patient Yes Yes -Correct Side, Site, Position Yes Yes -Correct Procedure Yes Yes -Procedure Performed Yes Yes -Type of Procedure Debridement Debridement -Clinical Debridement Subcutaneous Subcutaneous -Post Debridement Size (cm) - Length 0.1 0.1 -Post Debridement Size (cm) - Width 0.1 0.1 -Post Debridement Size (cm) - Depth 0.1 0.1 -Total Square Cm 0.01 0.01 -Wound/Ulcer Outcome Not Healed Not Healed -Ulcer Cleansing Rinsed/ Rinsed/ Irrigated with Irrigated with Saline Saline -Foul Odor after Cleansing No No -Bioengineered Tissue No No -Bleeding Controlled with Pressure Pressure -Offloading No Yes -Type of Offloading Surgical Shoe -Treatment Response Procedure Procedure Tolerated Well Tolerated Well [See Physician Procedure note for Specifics] Pain Scale: 0-10 Numeric [Pain] -Is Patient Pain Free? Yes Yes Musculoskeletal: No Tenderness to Palpation of Joints or Extremities, - - Bilateral Charcot foot type. Bilateral hammertoe deformities of digits 2?5 of the right foot and 2?4 of the left foot. Neurological: - - Epicritic sensation grossly absent lower extremity Psych/Mental Status: Normal Affect, Appropriate Debridement Note Post-Debridement Measurements/Treatment WC - Nurse 2 - General Ulcer CM Notes Start: 04/03/18 10:52 Freq: Status: Active Protocol: Activity Type Activity Date Activity User E-Sign Co-Sign Detail Recorded Client Recorded Date Recorded By Document 04/03/18 11:21 DV [id number] 04/03/18 11:24 DV Document 04/10/18 12:04 DV [id number] 04/10/18 12:09 DV Document 04/17/18 11:20 DV [id number] 04/17/18 19:33 DV Document 04/24/18 11:30 DV [id number] 04/24/18 11:32 DV Document 04/24/18 11:47 DV [id number] 04/24/18 11:48 DV 04/03/18 04/10/18 04/17/18 11:21 12:04 11:20 Wound Center Nurse 2 #1 Left Lateral Foot -Time 11:23 12:07 11:20 -Correct Patient Yes Yes Yes -Correct Side, Site, Position Yes Yes Yes -Correct Procedure Yes Yes Yes -Procedure Performed Yes Yes Yes -Type of Procedure Debridement Debridement Debridement -Clinical Debridement Subcutaneous Selective Subcutaneous -Post Debridement Size (cm) - Length 0.5 0.5 0.6 -Post Debridement Size (cm) - Width 0.2 0.2 0.2 -Post Debridement Size (cm) - Depth 0.1 0.1 0.1 -Total Square Cm 0.10 0.10 0.12 -Wound/Ulcer Outcome Not Healed Not Healed Not Healed -Ulcer Cleansing Rinsed/ Rinsed/ Rinsed/ Irrigated with Irrigated with Irrigated with Saline Saline Saline -Foul Odor after Cleansing No No No -Bioengineered Tissue No No Yes -Type of bioengineered Tissue EPIFIX -Expiration Date 09/25/22 -Product Lot Number [id number] -Percent Used 100 -Saline Lot Number HYDROG -Topical Lidocaine (%) 5 -Bleeding Controlled with Pressure Pressure Pressure -Offloading Yes No Yes -Type of Offloading Surgical Shoe Surgical Shoe -Treatment Response Procedure Procedure Procedure Tolerated Well Tolerated Well Tolerated Well Pain Scale: 0-10 Numeric Is Patient Pain Free? Yes Yes Yes 04/24/18 04/24/18 11:30 11:47 Wound Center Nurse 2 #1 Left Lateral Foot -Time 11:31 11:47 -Correct Patient Yes Yes -Correct Side, Site, Position Yes Yes -Correct Procedure Yes Yes -Procedure Performed Yes Yes -Type of Procedure Debridement Debridement -Clinical Debridement Subcutaneous Subcutaneous -Post Debridement Size (cm) - Length 0.1 0.1 -Post Debridement Size (cm) - Width 0.1 0.1 -Post Debridement Size (cm) - Depth 0.1 0.1 -Total Square Cm 0.01 0.01 -Wound/Ulcer Outcome Not Healed Not Healed -Ulcer Cleansing Rinsed/ Rinsed/ Irrigated with Irrigated with Saline Saline -Foul Odor after Cleansing No No -Bioengineered Tissue No No -Type of bioengineered Tissue -Expiration Date -Product Lot Number -Percent Used -Saline Lot Number -Topical Lidocaine (%) -Bleeding Controlled with Pressure Pressure -Offloading No Yes -Type of Offloading Surgical Shoe -Treatment Response Procedure Procedure Tolerated Well Tolerated Well Pain Scale: 0-10 Numeric Is Patient Pain Free? Yes Yes Wound debrided: Left lateral foot Laterality: Left Type of Debridement: Selective debridement Anesthesia Used: 4% Lidocaine Solution Depth: in the subcutaneous layer Percentage of wound debrided: 100 Instrument Used: #15 blade Tissue Removed: Fibrin, hyperkeratotic tissue Severity: Fat Layer Exposed Amount of bleeding with debridement: Mild Bleeding Controlled with: Pressure Patient tolerated procedure well Assessment/Plan Assessment: Open surgical site left lateral foot, DM with neuropathy, PVD, other comorbidities Plan: This patient was carefully examined and evaluated with her daughter in the room again today. Patient had surgical debridement of all necrotic, nonviable, infected soft tissue and bone of the left foot with open partial fifth ray amputation on December 16. Patient also had an angioplasty performed by Dr. Powers on December 20. Details from each operative report can be found in the patient's chart. Patient had selective debridement performed today as noted in the clinical panel. Ulcer shows improvement again this week. Following debridement the site was carefully cleansed, and dressed with promogran to the base, followed by a dry sterile dressing. Dressing supplies ordered for the patient. Her dressing is to be changed daily in this manner with assistance of family and home health. They understand this. It was stressed not to use any kind of significant compression to the lower extremity due to recently performed vascular procedure. Patient is to be nonweightbearing to the left foot at all times while site continues to heal. Patient is to keep the area clean dry and intact. Patient instructed to eat a diet high in protein to help stimulate healing potential. The importance of tight glycemic control was discussed again with this patient. Patient and her daughter were educated on all signs and symptoms of local and systemic infection and they were instructed to go to the emergency room immediately should they notice any of these. Patient will follow-up and clinic in 1 week to check on progress, but was instructed to follow-up in clinic sooner if needed.
--- NOTE | 2018-04-24 12:40 | PN.PCM_ITS ---
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 Status: Acute Current Visit: No Code(s): E11.621 - Type 2 diabetes mellitus with foot ulcer; L97.522 - Non-pressure chronic ulcer of other part of left foot with fat layer exposed (2) Type 2 diabetes mellitus with diabetic polyneuropathy Status: Acute Current Visit: No Code(s): E11.42 - Type 2 diabetes mellitus with diabetic polyneuropathy (3) Charcot's joint of foot Status: Acute Current Visit: No Code(s): M14.679 - Charcot's joint, unspecified ankle and foot (4) PVD (peripheral vascular disease) Status: Acute Current Visit: No Code(s): I73.9 - Peripheral vascular disease, unspecified Type of Wound Chief Complaint: Ulcer left foot History of Wound: 72 year old diabetic female was being seen for a ulcer on her left lateral foot at the base of the 5th toe. She states that she was seeing a creamery worker, Dr. Santo in [place] for a callus on the arch of her left foot and for her history of Charcot foot. A month ago she had a bandage covering the callus and when she removed it, the tape pulled some skin off at the base of her 5th toe. She had an opened ulcer there ever since. She has been applying silvadine cream and soaking her foot in epsome salt as prescribed by her creamery worker in [place]. 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 On December 15 the patient was admitted for fever, nausea, vomiting, cellulitis of left foot, and ulcer of left foot. X-ray and MRI taken showed evidence of osteomyelitis to the fifth metatarsal and base of the fifth toe as well as showed signs of soft tissue emphysema. I was consulted on December 16 when the patient was admitted, and she was taken to surgery the same day for debridement of all necrotic, nonviable, infected soft tissue and bone of the left foot with open partial fifth ray amputation. Dr. Powers then performed an angioplasty on December 20 while the patient was still admitted prior to her discharge. Details from both operative reports can be found in the patient's chart. A wound VAC was applied prior to patient's discharge home, and she is to follow back up at the wound healing center. Progress of Wound: Open surgical site to left lateral foot stable this week. Slight improvement noted this week. Patient currently denies any feelings of nausea, vomiting, fever, chills. - Physical Exam Vital Signs Temp Pulse Resp BP 98.0 F 78 20 H 124/71 H 04/24/18 10:41 04/24/18 10:41 04/24/18 10:41 04/24/18 10:41 General: Alert, Oriented x3, Cooperative, No apparent distress Extremities: Capillary Refill Less than 3 Seconds, No Calf Tenderness - Negative Zion and Degroot signs, Diminished Peripheral Pulses - DP and PT pulses nonpalpable, Edema - Slight lower extremity edema Skin: Ulcer/ Wound - Open surgical site to left lateral foot with fat layer exposed. Improvement noted again this week. Measurements noted below. Base is a mixture of slough, fibrin, granular tissue as well as some slight surrounding hyperkeratotic tissue. There continues to be no extending or surrounding cellulitis, no increase in warmth, no purulence, no malodor, no probing to bone, no tracking, and no undermining at this time. Wound Measurements and Assessment WC - Nurse 1 - General Ulcer Measurement Start: 04/03/18 10:52 Freq: Status: Active Protocol: Activity Type Activity Date Activity User E-Sign Co-Sign Detail Recorded Client Recorded Date Recorded By Document 04/24/18 10:41 [place] [id number] 04/24/18 10:42 NC 04/24/18 10:41 Wound Center Nurse 1 [Ulcer Assessment] #1 Left Lateral Foot -Current Size (cm) - Length 0.1 -Current Size (cm) - Width 0.1 -Current Size (cm) - Depth 0.1 -Total Square Cm 0.01 -Epithelialization Large 67-100% [Edema Assessment] -Lower Limb Edema Present NA WC - Nurse 2 - General Ulcer CM Notes Start: 04/03/18 10:52 Freq: Status: Active Protocol: Activity Type Activity Date Activity User E-Sign Co-Sign Detail Recorded Client Recorded Date Recorded By Document 04/24/18 11:30 DV [id number] 04/24/18 11:32 DV Document 04/24/18 11:47 DV [id number] 04/24/18 11:48 DV 04/24/18 04/24/18 11:30 11:47 Wound Center Nurse 2 [Procedure/Treatment] #1 Left Lateral Foot -Time 11:31 11:47 -Correct Patient Yes Yes -Correct Side, Site, Position Yes Yes -Correct Procedure Yes Yes -Procedure Performed Yes Yes -Type of Procedure Debridement Debridement -Clinical Debridement Subcutaneous Subcutaneous -Post Debridement Size (cm) - Length 0.1 0.1 -Post Debridement Size (cm) - Width 0.1 0.1 -Post Debridement Size (cm) - Depth 0.1 0.1 -Total Square Cm 0.01 0.01 -Wound/Ulcer Outcome Not Healed Not Healed -Ulcer Cleansing Rinsed/ Rinsed/ Irrigated with Irrigated with Saline Saline -Foul Odor after Cleansing No No -Bioengineered Tissue No No -Bleeding Controlled with Pressure Pressure -Offloading No Yes -Type of Offloading Surgical Shoe -Treatment Response Procedure Procedure Tolerated Well Tolerated Well [See Physician Procedure note for Specifics] Pain Scale: 0-10 Numeric [Pain] -Is Patient Pain Free? Yes Yes Musculoskeletal: No Tenderness to Palpation of Joints or Extremities, - - Bilateral Charcot foot type. Bilateral hammertoe deformities of digits 2?5 of the right foot and 2?4 of the left foot. Neurological: - - Epicritic sensation grossly absent lower extremity Psych/Mental Status: Normal Affect, Appropriate Debridement Note Post-Debridement Measurements/Treatment WC - Nurse 2 - General Ulcer CM Notes Start: 04/03/18 10:52 Freq: Status: Active Protocol: Activity Type Activity Date Activity User E-Sign Co-Sign Detail Recorded Client Recorded Date Recorded By Document 04/03/18 11:21 DV [id number] 04/03/18 11:24 DV Document 04/10/18 12:04 DV [id number] 04/10/18 12:09 DV Document 04/17/18 11:20 DV [id number] 04/17/18 19:33 DV Document 04/24/18 11:30 DV [id number] 04/24/18 11:32 DV Document 04/24/18 11:47 DV [id number] 04/24/18 11:48 DV 04/03/18 04/10/18 04/17/18 11:21 12:04 11:20 Wound Center Nurse 2 #1 Left Lateral Foot -Time 11:23 12:07 11:20 -Correct Patient Yes Yes Yes -Correct Side, Site, Position Yes Yes Yes -Correct Procedure Yes Yes Yes -Procedure Performed Yes Yes Yes -Type of Procedure Debridement Debridement Debridement -Clinical Debridement Subcutaneous Selective Subcutaneous -Post Debridement Size (cm) - Length 0.5 0.5 0.6 -Post Debridement Size (cm) - Width 0.2 0.2 0.2 -Post Debridement Size (cm) - Depth 0.1 0.1 0.1 -Total Square Cm 0.10 0.10 0.12 -Wound/Ulcer Outcome Not Healed Not Healed Not Healed -Ulcer Cleansing Rinsed/ Rinsed/ Rinsed/ Irrigated with Irrigated with Irrigated with Saline Saline Saline -Foul Odor after Cleansing No No No -Bioengineered Tissue No No Yes -Type of bioengineered Tissue EPIFIX -Expiration Date 09/25/22 -Product Lot Number [id number] -Percent Used 100 -Saline Lot Number HYDROG -Topical Lidocaine (%) 5 -Bleeding Controlled with Pressure Pressure Pressure -Offloading Yes No Yes -Type of Offloading Surgical Shoe Surgical Shoe -Treatment Response Procedure Procedure Procedure Tolerated Well Tolerated Well Tolerated Well Pain Scale: 0-10 Numeric Is Patient Pain Free? Yes Yes Yes 04/24/18 04/24/18 11:30 11:47 Wound Center Nurse 2 #1 Left Lateral Foot -Time 11:31 11:47 -Correct Patient Yes Yes -Correct Side, Site, Position Yes Yes -Correct Procedure Yes Yes -Procedure Performed Yes Yes -Type of Procedure Debridement Debridement -Clinical Debridement Subcutaneous Subcutaneous -Post Debridement Size (cm) - Length 0.1 0.1 -Post Debridement Size (cm) - Width 0.1 0.1 -Post Debridement Size (cm) - Depth 0.1 0.1 -Total Square Cm 0.01 0.01 -Wound/Ulcer Outcome Not Healed Not Healed -Ulcer Cleansing Rinsed/ Rinsed/ Irrigated with Irrigated with Saline Saline -Foul Odor after Cleansing No No -Bioengineered Tissue No No -Type of bioengineered Tissue -Expiration Date -Product Lot Number -Percent Used -Saline Lot Number -Topical Lidocaine (%) -Bleeding Controlled with Pressure Pressure -Offloading No Yes -Type of Offloading Surgical Shoe -Treatment Response Procedure Procedure Tolerated Well Tolerated Well Pain Scale: 0-10 Numeric Is Patient Pain Free? Yes Yes Wound debrided: Left lateral foot Laterality: Left Type of Debridement: Selective debridement Anesthesia Used: 4% Lidocaine Solution Depth: in the subcutaneous layer Percentage of wound debrided: 100 Instrument Used: #15 blade Tissue Removed: Fibrin, hyperkeratotic tissue Severity: Fat Layer Exposed Amount of bleeding with debridement: Mild Bleeding Controlled with: Pressure Patient tolerated procedure well Assessment/Plan Assessment: Open surgical site left lateral foot, DM with neuropathy, PVD, other comorbidities Plan: This patient was carefully examined and evaluated with her daughter in the room again today. Patient had surgical debridement of all necrotic, nonviable, infected soft tissue and bone of the left foot with open partial fifth ray amputation on December 16. Patient also had an angioplasty performed by Dr. Powers on December 20. Details from each operative report can be found in the patient's chart. Patient had selective debridement performed today as noted in the clinical panel. Ulcer shows improvement again this week. Following debridement the site was carefully cleansed, and dressed with promogran to the base, followed by a dry sterile dressing. Dressing supplies ordered for the patient. Her dressing is to be changed daily in this manner with assistance of family and home health. They understand this. It was stressed not to use any kind of significant compression to the lower extremity due to recently performed vascular procedure. Patient is to be nonweightbearing to the left foot at all times while site continues to heal. Patient is to keep the area clean dry and intact. Patient instructed to eat a diet high in protein to help stimulate healing potential. The importance of tight glycemic control was discussed again with this patient. Patient and her daughter were educated on all signs and symptoms of local and systemic infection and they were instructed to go to the emergency room immediately should they notice any of these. Patient will follow-up and clinic in 1 week to check on progress, but was instructed to follow-up in clinic sooner if needed.
== END 2018-04-24 23:59 ==
LOC: WC 11:00
PROVIDERS: Family Provider Family Medicine; PCP Family Medicine; Visit Provider Podiatrist
DX: E11.621 Type 2 diabetes mellitus with foot ulcer (principal); E11.42 Type 2 diabetes mellitus with diabetic polyneuropathy; L97.522 Non-pressure chronic ulcer of other part of left foot with fat layer exposed; E11.51 Type 2 diabetes mellitus with diabetic peripheral angiopathy without gangrene; E11.610 Type 2 diabetes mellitus with diabetic neuropathic arthropathy; Z95.2 Presence of prosthetic heart valve; I10 Essential (primary) hypertension; R60.0 Localized edema
CPT/HCPCS: 11042; 15275; 97597; Q4186

== ENCOUNTER 2018-05-08 11:00 | Outpatient (RCR) | payer MEDICARE, OTHER, SELFPAY ==
[2018-04-25 01:02] VITALS: BP 124/71; PULSE 78; RESP 20; TEMP 36.7
[2018-05-01 10:58] VITALS: BP 101/57; PULSE 70; RESP 18; TEMP 36.6; BMI 24.1
--- NOTE | 2018-05-01 11:23 | PN.PCM_ITS ---
(1) Diabetic ulcer of left foot Status: Acute Current Visit: No Code(s): E11.621 - Type 2 diabetes mellitus with foot ulcer; L97.529 - Non-pressure chronic ulcer of other part of left foot with unspecified severity (2) Type 2 diabetes mellitus with diabetic polyneuropathy Status: Acute Current Visit: No Code(s): E11.42 - Type 2 diabetes mellitus with diabetic polyneuropathy (3) Charcot's joint of foot Status: Acute Current Visit: No Code(s): M14.679 - Charcot's joint, unspecified ankle and foot (4) PVD (peripheral vascular disease) Status: Acute Current Visit: No Code(s): I73.9 - Peripheral vascular disease, unspecified Type of Wound Chief Complaint: Ulcer left foot History of Wound: 72 year old diabetic female was being seen for a ulcer on her left lateral foot at the base of the 5th toe. She states that she was seeing a fire sprinkler inspector, Dr. Santo in [place] for a callus on the arch of her left foot and for her history of Charcot foot. A month ago she had a bandage covering the callus and when she removed it, the tape pulled some skin off at the base of her 5th toe. She had an opened ulcer there ever since. She has been applying silvadine cream and soaking her foot in epsome salt as prescribed by her fire sprinkler inspector in [place]. 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 On December 15 the patient was admitted for fever, nausea, vomiting, cellulitis of left foot, and ulcer of left foot. X-ray and MRI taken showed evidence of osteomyelitis to the fifth metatarsal and base of the fifth toe as well as showed signs of soft tissue emphysema. I was consulted on December 16 when the patient was admitted, and she was taken to surgery the same day for debridement of all necrotic, nonviable, infected soft tissue and bone of the left foot with open partial fifth ray amputation. Dr. Powers then performed an angioplasty on December 20 while the patient was still admitted prior to her discharge. Details from both operative reports can be found in the patient's chart. A wound VAC was applied prior to patient's discharge home, and she is to follow back up at the wound healing center. Progress of Wound: Left foot shows improvement again this week. Patient currently denies any feelings of nausea, vomiting, fever, chills. - Physical Exam Vital Signs Temp Pulse Resp BP 98 F 70 18 101/57 L 05/01/18 10:58 05/01/18 10:58 05/01/18 10:58 05/01/18 10:58 General: Alert, Oriented x3, Cooperative, No apparent distress Extremities: Capillary Refill Less than 3 Seconds, No Calf Tenderness - Negative Zion and Degroot signs, Diminished Peripheral Pulses - DP and PT pulses nonpalpable, Edema - Slight lower extremity edema Skin: Ulcer/ Wound - Open surgical site to left lateral foot with fat layer exposed. Improvement noted again this week. Site almost healed. Measurements noted below. Base is a mixture of scant fibrotic tissue and granular tissue, as well as some slight surrounding hyperkeratotic tissue. There continues to be no extending or surrounding cellulitis, no increase in warmth, no purulence, no malodor, no probing to bone, no tracking, and no undermining at this time. Wound Measurements and Assessment WC - Nurse 1 - General Ulcer Measurement Start: 05/01/18 10:46 Freq: Status: Active Protocol: Activity Type Activity Date Activity User E-Sign Co-Sign Detail Recorded Client Recorded Date Recorded By Document 05/01/18 10:58 [place] [id number] 05/01/18 11:05 [place] 05/01/18 10:58 Wound Center Nurse 1 [Ulcer Assessment] #1 Left Lateral Foot -Combined with other wound No -Current Size (cm) - Length 0.1 -Current Size (cm) - Width 0.1 -Current Size (cm) - Depth 0.1 -Total Square Cm 0.01 -Photo Taken No -Epithelialization Large 67-100% -Tunneling No -Undermining/Tunneling No -Circular Undermining No -Exudate Amt None Present -Granulation Amt Large (67-100%) -Granulation Quality Pale Hutchins -Slough/Fibrin No -Texture (Gissell-wound Skin Appearance) Assessed -Moisture (Gissell-wound Skin Appearance Assessed ) -Color (Gissell-wound Skin Appearance) Assessed -Temperature (Gissell-wound Skin No Abnormality Appearance) (Pt Warm) -Tenderness on Palpation (Gissell-wound No Skin Appearance) -Ulcer Cleansing Rinsed/ Irrigated with Saline -Foul Odor after Cleansing No -Anesthetic Used 5% Lidocaine Gel [Edema Assessment] -Lower Limb Edema Present NA Musculoskeletal: No Tenderness to Palpation of Joints or Extremities, - - Bi lateral Charcot foot type. Bilateral hammertoe deformities of digits 2?5 of the right foot and 2?4 of the left foot. Neurological: - - Epicritic sensation grossly absent to lower extremity Psych/Mental Status: Normal Affect, Appropriate Debridement Note Wound debrided: Left lateral foot Laterality: Left Type of Debridement: Selective debridement Anesthesia Used: 4% Lidocaine Solution Depth: in the subcutaneous layer Percentage of wound debrided: 100 Instrument Used: #15 blade Tissue Removed: Fibrotic and hyperkeratotic tissue Severity: Fat Layer Exposed Amount of bleeding with debridement: Mild Bleeding Controlled with: Pressure Patient tolerated procedure well Assessment/Plan Assessment: Open surgical site left lateral foot, DM with neuropathy, PVD, other comorbidities Plan: This patient was carefully examined and evaluated with her daughter in the room again today. Patient had surgical debridement of all necrotic, nonviable, infected soft tissue and bone of the left foot with open partial fifth ray amputation on December 16. Patient also had an angioplasty performed by Dr. Powers on December 20. Details from each operative report can be found in the patient's chart. Patient had selective debridement performed today as noted in the clinical panel again this week. Ulcer shows improvement again this week. Following debridement the site was carefully cleansed, and dressed with promogran to the base, followed by a dry sterile dressing. Her dressing is to be changed daily in this manner with assistance of family and home health. They understand this. It was stressed not to use any kind of significant compression to the lower extremity due to recently performed vascular procedure. Patient is to be nonweightbearing to the left foot at all times while site continues to heal. Patient is to keep the area clean dry and intact. Patient instructed to eat a diet high in protein to help stimulate healing potential. The importance of tight glycemic control was discussed again with this patient. Patient and her daughter were educated on all signs and symptoms of local and systemic infection and they were instructed to go to the emergency room immediately should they notice any of these. Patient will follow-up and clinic in 1 week to check on progress, but was instructed to follow-up in clinic sooner if needed.
[2018-05-08 11:24] VITALS: BP 121/53; PULSE 71; RESP 18; TEMP 36.4; BMI 24.1
--- NOTE | 2018-05-08 11:48 | PN.PCM_ITS ---
(1) Diabetic ulcer of left foot Status: Acute Current Visit: No Code(s): E11.621 - Type 2 diabetes mellitus with foot ulcer; L97.529 - Non-pressure chronic ulcer of other part of left foot with unspecified severity (2) Type 2 diabetes mellitus with diabetic polyneuropathy Status: Acute Current Visit: No Code(s): E11.42 - Type 2 diabetes mellitus with diabetic polyneuropathy (3) Charcot's joint of foot Status: Acute Current Visit: No Code(s): M14.679 - Charcot's joint, unspecified ankle and foot (4) PVD (peripheral vascular disease) Status: Acute Current Visit: No Code(s): I73.9 - Peripheral vascular disease, unspecified Type of Wound Chief Complaint: Ulcer left foot History of Wound: 72 year old diabetic female was being seen for a ulcer on her left lateral foot at the base of the 5th toe. She states that she was seeing a bindery technician, Dr. Santo in [place] for a callus on the arch of her left foot and for her history of Charcot foot. A month ago she had a bandage covering the callus and when she removed it, the tape pulled some skin off at the base of her 5th toe. She had an opened ulcer there ever since. She has been applying silvadine cream and soaking her foot in epsome salt as prescribed by her bindery technician in [place]. 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 On December 15 the patient was admitted for fever, nausea, vomiting, cellulitis of left foot, and ulcer of left foot. X-ray and MRI taken showed evidence of osteomyelitis to the fifth metatarsal and base of the fifth toe as well as showed signs of soft tissue emphysema. I was consulted on December 16 when the patient was admitted, and she was taken to surgery the same day for debridement of all necrotic, nonviable, infected soft tissue and bone of the left foot with open partial fifth ray amputation. Dr. Powers then performed an angioplasty on December 20 while the patient was still admitted prior to her discharge. Details from both operative reports can be found in the patient's chart. A wound VAC was applied prior to patient's discharge home, and she is to follow back up at the wound healing center. Progress of Wound: Site appears healed this week. Patient currently denies any feelings of nausea, vomiting, fever, chills. - Physical Exam Vital Signs Temp Pulse Resp BP 97.5 F L 71 18 121/53 H 05/08/18 11:24 05/08/18 11:24 05/08/18 11:24 05/08/18 11:24 General: Alert, Oriented x3, Cooperative, No apparent distress Extremities: Capillary Refill Less than 3 Seconds, No Calf Tenderness - Negative Zion and Degroot signs, Diminished Peripheral Pulses - DP and PT pulses nonpalpable, Edema - Slight lower extremity edema Skin: Ulcer/ Wound - Site appears healed this week with no signs of local infection appreciated. Wound Measurements and Assessment WC - Nurse 1 - General Ulcer Measurement Start: 05/01/18 10:46 Freq: Status: Active Protocol: Activity Type Activity Date Activity User E-Sign Co-Sign Detail Recorded Client Recorded Date Recorded By Document 05/08/18 11:24 RB [id number] 05/08/18 11:32 RB 05/08/18 11:24 Wound Center Nurse 1 [Ulcer Assessment] #1 Left Lateral Foot -Combined with other wound No -Current Size (cm) - Length 0 -Current Size (cm) - Width 0 -Current Size (cm) - Depth 0 -Total Square Cm 0 -Photo Taken Yes -Epithelialization Large 67-100% -Tunneling No -Undermining/Tunneling No Musculoskeletal: No Tenderness to Palpation of Joints or Extremities, - - Bilateral Charcot foot type. Bilateral hammertoe deformities of digits 2?5 of the right foot and 2?4 of the left foot. Neurological: - - Epicritic sensation grossly absent lower extremity Psych/Mental Status: Normal Affect, Appropriate Debridement Note Post-Debridement Measurements/Treatment WC - Nurse 2 - General Ulcer CM Notes Start: 05/01/18 10:46 Freq: Status: Active Protocol: Activity Type Activity Date Activity User E-Sign Co-Sign Detail Recorded Client Recorded Date Recorded By Document 05/01/18 11:19 DV [id number] 05/01/18 11:21 DV 05/01/18 11:19 Wound Center Nurse 2 #1 Left Lateral Foot -Time 11:20 -Correct Patient Yes -Correct Side, Site, Position Yes -Correct Procedure Yes -Procedure Performed Yes -Type of Procedure Debridement -Clinical Debridement Selective -Post Debridement Size (cm) - Length 0.1 -Post Debridement Size (cm) - Width 0.1 -Post Debridement Size (cm) - Depth 0.1 -Total Square Cm 0.01 -Wound/Ulcer Outcome Not Healed -Ulcer Cleansing Rinsed/ Irrigated with Saline -Foul Odor after Cleansing No -Bioengineered Tissue No -Bleeding Controlled with Pressure -Offloading Yes -Type of Offloading Surgical Shoe -Treatment Response Procedure Tolerated Well Pain Scale: 0-10 Numeric Is Patient Pain Free? Yes No debridement was completed today Assessment/Plan Assessment: Open surgical site left lateral foot, DM with neuropathy, PVD, other comorbidities Plan: This patient was carefully examined and evaluated with her daughter in the room again today. Patient had surgical debridement of all necrotic, nonviable, infected soft tissue and bone of the left foot with open partial fifth ray amputation on December 16. Patient also had an angioplasty performed by Dr. Powers on December 20. Details from each operative report can be found in the patient's chart. Patient appears healed this week with no signs or symptoms of local infection appreciated. No debridement performed this week. It was stressed not to use any kind of significant compression to the lower extremity due to recently performed vascular procedure. Patient is to be nonweightbearing to the left foot at all times while site continues to heal and strengthen, and then she is to slowly increase activity while closely monitoring her foot to make sure there is no breakdown. Patient instructed to continue to eat a diet high in protein. The importance of tight glycemic control was discussed again with this patient. Patient was instructed to make appointment to follow-up with me at [facility] for further diabetic foot care as well as getting the patient into a pair of diabetic shoes. Patient and her daughter were educated on all signs and symptoms of local and systemic infection and they were instructed to go to the emergency room immediately should they notice any of these. At this time the patient can be discharged from the wound healing center, but was instructed to follow-up in clinic sooner if needed.
== END 2018-05-25 23:59 ==
LOC: WC 11:00
PROVIDERS: Family Provider Family Medicine; PCP Family Medicine; Visit Provider Podiatrist
DX: E11.621 Type 2 diabetes mellitus with foot ulcer (principal); E11.42 Type 2 diabetes mellitus with diabetic polyneuropathy; E11.51 Type 2 diabetes mellitus with diabetic peripheral angiopathy without gangrene; E11.610 Type 2 diabetes mellitus with diabetic neuropathic arthropathy; I10 Essential (primary) hypertension; L97.522 Non-pressure chronic ulcer of other part of left foot with fat layer exposed
CPT/HCPCS: 97597; 99212; G0463

== ENCOUNTER → 2019-11-21 | Outpatient (CLI) | payer MEDICARE, OTHER, SELFPAY ==
[2019-11-21 13:08] LABS: Absolute Lymphocyte Count 1.11 X10^3/uL (0.83-4.51); Absolute Neutrophil Count 10.6 X10^3/uL (2.0-7.7); Basophil# 0.01 X10^3/uL; Basophil% 0.1 % (0-1); Eosinophil# 0.05 X10^3/uL; Eosinophils% 0.4 % (0-5); Hematocrit 28.7 % (37-47); Hemoglobin 8.7 g/dL (12.0-15.0); Lymphocyte # 1.11 X10^3/ul (4.0); Lymphocyte % 8.8 % (19-41); Mean Corp Hgb Conc 30.3 g/dL (32-36); Mean Corpuscular Hgb 30.5 pg (27.0-32.0); Mean Corpuscular Volume 100.7 fL (81-99); Mean Platelet Vol. 12.7 fl (6.2-12.0); Monocyte# 0.69 X10^3/uL; Monocyte% 5.5 % (0-10); NRBC Flagged by Analyzer 0 % (0-5); Neutrophil # 10.64 X10^3/uL (2.7-7.7); Neutrophil % 84.8 % (47-70); POSITIVE MORPHOLOGY YES; Platelet Count 166 K/mm3 (150-450); RBC Distribution Width CV 18.9 % (11.6-14.6); RBC Distribution Width SD 69.3 fl (35.1-43.9); Red Blood Count 2.85 M/mm3 (4.2-5.4); White Blood Count 12.6 K/mm3 (4.4-11.0)
[2019-11-21 13:13] LABS: Differential Indicated SCAN CRITERIA MET
[2019-11-21 13:25] LABS: Vancomycin, Trough Level 15.2 ug/mL (5.0-15.0)
[2019-11-21 13:57] LABS: Acanthocytes 1+; Anisocytosis 1+; Hypochromasia 2+; Platelet Estimate ADEQUATE (ADEQ); Schistocytes 1+
[2019-11-21 14:03] LABS: Creatinine, Serum 0.82 mg/dL (0.55-1.02); EST Glomerular Filtration Rate 72 mL/min (>60); Est Glom Filt Rate - Afr Amer 88 mL/min (>60)
== END | disposition home or self-care (01) ==
PROVIDERS: PCP Family Medicine
DX: Z00.00 Encounter for general adult medical examination without abnormal findings (principal)
CPT/HCPCS: 80202; 82565; 85025

== ENCOUNTER 2019-12-19 16:17 | Emergency (ER) | payer MEDICARE, OTHER, SELFPAY ==
[2019-12-19] VITALS (17 sets, daily range): BP systolic 74–125; BP diastolic 51–85; PULSE 100–126; RESP 12–20; TEMP 36.2–36.8; O2SAT 99–100; BMI 24.3
--- NOTE | 2019-12-19 16:36 | EKG12_ITS ---
Test Reason : GI BLEED Blood Pressure : / mmHG Vent. Rate : 112 BPM Atrial Rate : 112 BPM P-R Int : 136 ms QRS Dur : 096 ms QT Int : 316 ms P-R-T Axes : 061 -15 105 degrees QTc Int : 431 ms Sinus tachycardia with Premature atrial complexes T wave abnormality, consider lateral ischemia Abnormal ECG When compared with ECG of 20-DEC-2017 00:27, Premature atrial complexes are now Present Vent. rate has increased BY 42 BPM T wave inversion less evident in Lateral leads Confirmed by MAHENDRA BLOCK, BIBI ([id number]), digital editor SAILAJA HAYES ([id number]) on 01/29/2020 2:22:42 PM Referred By: Confirmed By:RUMA MCCRAY MD
[2019-12-19 16:44] LABS: Absolute Lymphocyte Count 1.64 X10^3/uL (0.83-4.51); Absolute Neutrophil Count 5.9 X10^3/uL (2.0-7.7); Basophil# 0.02 X10^3/uL; Basophil% 0.2 % (0-1); Eosinophil# 0.04 X10^3/uL; Eosinophils% 0.5 % (0-5); Hematocrit 21.5 % (37-47); Hemoglobin 6.3 g/dL (12.0-15.0); Lymphocyte # 1.64 X10^3/ul (4.0); Mean Corp Hgb Conc 29.3 g/dL (32-36); Mean Corpuscular Hgb 30.4 pg (27.0-32.0); Mean Corpuscular Volume 103.9 fL (81-99); Monocyte# 0.43 X10^3/uL; Monocyte% 5.2 % (0-10); NRBC Flagged by Analyzer 0.4 % (0-5); Neutrophil # 5.91 X10^3/uL (2.7-7.7); Neutrophil % 72.1 % (47-70); Platelet Count 180 K/mm3 (150-450); RBC Distribution Width CV 16.1 % (11.6-14.6); Red Blood Count 2.07 M/mm3 (4.2-5.4); White Blood Count 8.2 K/mm3 (4.4-11.0)
[2019-12-19] MEDS: 0.9% Normal Saline 1,000 ML 1000 ML IV (16:47)
--- NOTE | 2019-12-19 16:50 | RAD_ITS ---
STUDY: X-RAY CHEST REASON FOR EXAM: Female, 74 years old. GI BLEED TECHNIQUE: Single frontal view of the chest. COMPARISON: 12/19/2017 FINDINGS: Right PICC line has been removed. Sternotomy wires and mediastinal clips. A bandage transmyocardial bleed. The lungs are clear and expanded. There is no demonstrated pleural abnormality. Normal size heart. Normal mediastinum and ajay. Normal visualized pulmonary arteries. Normal visualized aortic arch and descending thoracic aorta. Normal visualized thoracic spine. Normal visualized ribs, clavicles, and shoulders. There is no demonstrated abnormality of the visualized soft tissue structures of the upper abdomen. RAD/Chest 1 View (Portable) IMPRESSION: No acute disease Electronically Signed: Dm Brennan MD at 17:28 EDT , Service support ,
[2019-12-19 17:03] LABS: ALB/GLOB Ratio 0.8 RATIO (0.9-2.4); AST(SGOT) 15 U/L (15-37); Alanine Aminotransfer ALT/SGPT 13 U/L (13-56); Albumin, Serum 1.7 g/dL (3.2-5.0); Alkaline Phosphatase 47 U/L (45-117); Anion Gap 7 (5-15); BUN 67 mg/dL (7-18); BUN/Creat Ratio 78.4 RATIO (10-20); Calcium,Total 9.5 mg/dL (8.5-10.1); Chloride 115 mmol/L (98-107); Creatinine, Serum 0.86 mg/dL (0.55-1.02); EST Glomerular Filtration Rate 69 mL/min (>60); Est Glom Filt Rate - Afr Amer 84 mL/min (>60); Estimated Creatinine Clearance 48.19 ml/min; Globulin 2.2 g/dL (2.2-4.2); Glucose 193 mg/dL (74-106); Potassium 4.8 mmol/L (3.5-5.1); Protein, Total 3.9 g/dL (6.4-8.2); Sodium Level 138 mmol/L (136-145)
--- NOTE | 2019-12-19 17:23 | ED.VISSUMM ---
- ER Visit Summary Date of Service: 12/19/19 Chief Complaint: Weakness History of Present Illness: The patient is a 74 F presenting with generalized weakness and fatigue. Patient was discharged from [facility] yesterday. She was admitted 4 days ago for hypotension. During that admission she was found to have black stool. She had endoscopy which showed nonbleeding ulcer. Her stool returned to normal color. Colonoscopy was not performed. She was discharged yesterday. Today home health nurse noted hypotension, generalized weakness, decreased appetite. She was found to have black stool again today. 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 She has had wounds on her left stump and right foot that are being treated with Bactrim 3 times a week. She was unable to take this medication secondary to nausea. She is currently on prednisone and is weaning off prednisone for polymyositis. She denies fever or cough. She tested negative for Covid 2 days ago. He denies chest pain or shortness of breath. Denies dizziness or syncope. She is not taking anticoagulants. Physical Examination: Blood pressure 84/73, heart rate 105. Patient is afebrile. Alert no acute distress. HEENT exam pale conjunctive a. Neck is supple. Lungs are clear and equal bilaterally. Heart is regular and tachycardic Abdomen is soft nontender nondistended. No guarding or rebound Extremities small wound right plantar surface and left stump with no surrounding erythema or fluctuance. Skin is warm and dry. Pale No focal neurologic deficit. Remainder of exam is unremarkable. Emergency Department Course and Treatment: Stool is black in color and is guaiac positive. EKG sinus tachycardia rate of 115 with lateral T wave inversion. CBC shows hemoglobin 6.3. Hemoglobin was 8.4 on December 16 and 7.9 December 17. Chemistries show BUN 67, glucose 193. Troponin 0.439. She was given IV fluids and typed and crossed for packed red blood cells. Repeat blood pressure systolic 95. Discussed with [facility] ICU. They currently have no ICU beds available. Family is agreeable with transfer to [facility]. While in the emergency department patient began having shoulder pain she feels similar to her previous IA. She denies chest pain. Repeat EKG is sinus tachycardia rate of [address] depression. She was given fentanyl and Zofran IV with improvement. Discussed with [facility] ICU. They do not have nighttime GI or IR and recommend transfer to [facility]. Discussed with [facility] ICU and patient will be transferred. Disposition: Transfer Impression: GI bleed, hypotension, elevated troponin This note was generated with [employer] dictation software. It may contain incorrect words, spelling, and punctuation that were not noted in review of the chart prior to signing ED Disposition - Plan for ED Patient: Referrals: Neal Moulton MD [Primary Care Provider] -
[2019-12-19 17:26] LABS: Bacteria 0 SEEN /hpf (None Seen); Mucous, Urine 0 SEEN /hpf (<or=2+); Red Blood Cells-Urine 0 SEEN /hpf (0-5); Squamous Epithelial Cells - UA 0 SEEN /hpf (5-10); White Blood Cells 0 SEEN /hpf (0-5)
[2019-12-19 17:28] LABS: Color, Urine Yellow (Yellow); Glucose, Dipstick 100 mg/dl (Normal); Ketone-Dipstick Negative (Negative); Leukocyte Esterase-Dipstick Negative /ul (Negative); Nitrite-Dipstick Negative (Negative); Occult Blood-Urine 10 /ul (Negative); Protein-Dipstick Negative (Negative); Urine Bilirubin Dipstick Negative (Negative); Urine Clarity Clear (Clear); Urine Urobilinogen Normal (Normal)
[2019-12-19 17:51] LABS: International Normalized Ratio 1.2
[2019-12-19 17:52] LABS: Partial Thromboplast Time 27.3 Seconds (24.1-36.2)
[2019-12-19 18:02] LABS: Yeast-Urine RARE /hpf (None Seen)
[2019-12-19] MEDS: Ondansetron 4 MG/2 ML Vial IV (18:05)
[2019-12-19] MEDS: fentaNYL 100 MCG/2 ML Ampul 50 MCG IV (18:05)
[2019-12-19 19:01] LABS: Lactic Acid 0.9 mmol/L (0.4-1.9)
--- NOTE | 2019-12-19 21:19 | ED.RN ---
THIS RN CONTACTED [facility], PT IS STILL AWAITING A BED ASSIGNMENT, PER TRANSFER LINE NO ETA ON A BED ASSIGNMENT AT THIS TIME WITH UNKNOWN TIME FOR A BED TO COME AVAILABLE.
[2019-12-20] VITALS (14 sets, daily range): BP systolic 93–111; BP diastolic 55–79; PULSE 89–109; RESP 12–18; O2SAT 97–100
--- NOTE | 2019-12-20 02:22 | ED.RN ---
this rn contacted [facility] multiple times throughout the night, pt still awaiting a bed at this time. pt is supposed to be transferred to main campus for gi bleed. dr waldron informed of pt long wait for placement.
--- NOTE | 2019-12-20 07:40 | EKG12_ITS ---
Test Reason : REPEAT Blood Pressure : / mmHG Vent. Rate : 111 BPM Atrial Rate : 111 BPM P-R Int : 148 ms QRS Dur : 090 ms QT Int : 322 ms P-R-T Axes : 059 -15 062 degrees QTc Int : 437 ms Sinus tachycardia with Premature atrial complexes Otherwise normal ECG Confirmed by BRAULIO BLOCK, GARRETT ([id number]), editor at large ALEJA VILLA ([id number]) on 12/22/2019 10:26:24 AM Referred By: Confirmed By:GARRETT RAMSEY MD
[2019-12-20 08:22] LABS: Hemoglobin 9.5 g/dL (12.0-15.0)
[2019-12-20] MEDS: 0.9% Normal Saline 1,000 ML 150 ML IV (08:45)
--- NOTE | 2019-12-20 11:04 | ED.RN ---
PER [facility] STILL WAITING ON A BED
== END 2019-12-20 13:56 | disposition short-term general hospital (02) ==
PROVIDERS: Emergency Medicine; Emergency Provider Emergency Medicine; PCP Family Medicine
DX: K92.1 Melena (principal); I95.9 Hypotension, unspecified; R79.89 Other specified abnormal findings of blood chemistry; M33.20 Polymyositis, organ involvement unspecified; E11.9 Type 2 diabetes mellitus without complications; I10 Essential (primary) hypertension; I73.9 Peripheral vascular disease, unspecified; Z79.2 Long term (current) use of antibiotics; Z89.612 Acquired absence of left leg above knee; Z79.52 Long term (current) use of systemic steroids
CPT/HCPCS: 36415; 36430; 71045; 80053; 81001; 82274; 83605; 84484; 85018; 85025; 85610; 85730; 86850; 86900; 86901; 86920; 86921; 86922; 87635; 93005; 96361; 96374; 96375; 99285; J7030; P9016; A4216; J2405; U0002

== ENCOUNTER 2020-01-21 12:40 | Observation (INO) | payer MEDICARE, OTHER, MEDICAID, SELFPAY ==
[2019-12-19 16:18] VITALS: BMI 24.3
[2020-01-21 12:41] VITALS: BP 142/87; PULSE 99; RESP 17; TEMP 36.4; O2SAT 99; BMI 25.5
--- NOTE | 2020-01-21 12:49 | ED.RN ---
pt has wound vaac to left leg, ulcer to right heel. reports ron arm blood clots. reassessed yesterday by ultrasound and appear worse. pt is on plavix whnich she has been on since her heeart attack in 1993ish. no changes to blood thinners since other than taking her off her daily aspirin.
--- NOTE | 2020-01-21 13:01 | ED.DCSUM_ITS ---
History of Present Illness Chief Complaint: Upper Extremity Injury Narrative: This patient is a 74-year-old female who presents with an upper extremity DVT. Patient is a poor informant and much of the history is obtained from family member through the phone. Patient has a history of Charcot joint. She developed an infection and had a left below the knee amputation in August or September. She has a wound VAC. She was seen here in the emergency department for a GI bleed. Plan was to transfer to [facility]. She then however developed tachycardia and EKG changes. She was transferred to [facility]. 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 While in the hospital she was found to have bilateral upper extremity DVTs. Given her GI bleed she was put on Plavix only. She had follow-up ultrasounds. The resident from [facility] called our emergency department today to let us know that the right upper extremity DVT had apparently resolved but she had propagation of the left upper extremity DVT so she was advised to go to the nearest emergency department. Patient is without complaint. No chest pain no shortness of breath no dizziness. 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 Smoking Status: Never smoker - Family History Maternal Family History: Reports: Cancer - Her mother had throat cancer; and a sister had breast cancer. She had other sibling that had prostate cancer and cancer at the back of the head ofher sibling., Hypertension Review of Systems All systems negative except as indicated General: Denies: Fever Cardiovascular: Denies: Chest pain Respiratory: Denies: Dyspnea Gastrointestinal: Denies: Abdominal pain Musculoskeletal: Denies: Swelling, Extremity Pain Skin: Denies: Rash Neurological: Denies: Headache Physical Exam Vital Signs/Narrative: Vital Signs Temp Pulse Resp BP Pulse Ox 01/21/20 12:41 97.6 F L 99 17 142/87 H 99 Inital Vital Signs reviewed: Yes General: Well nourished, Well developed Head: Normocephalic Eyes: EOMI ENT: Moist mucous membranes Neck: Supple Cardiovascular: Regular rate, Regular rhythm Respiratory: No distress, CTA bilaterally Abdomen: Soft Skin: Normal color Neurological: Alert Psychological: Normal affect Diagnostic/Tx/Re-eval Laboratory Results 01/21/20 01/21/20 01/21/20 13:15 13:15 13:15 WBC 12.3 H RBC 2.80 L Hgb 8.4 L Hct 28.6 L MCV 102.1 H MCH 30.0 MCHC 29.4 L RDW Std Deviation 68.2 H RDW Coeff of Lesley 18.2 H Plt Count 328 MPV 11.4 Immature Gran % (Auto) 1.100 H Neut % (Auto) 88.7 H Lymph % (Auto) 6.6 L Glenn % (Auto) 3.1 Eos % (Auto) 0.3 Baso % (Auto) 0.2 Absolute Neuts (auto) 10.9 H Absolute Lymphs (auto) 0.81 L Nucleated RBC % 2.0 Platelet Estimate ADEQUATE Polychromasia RARE Hypochromasia 2+ Anisocytosis 2+ Macrocytosis 1+ [place] Cells RARE Acanthocytes (Spur) 1+ PT 13.4 INR 1.1 APTT Sodium 142 Potassium 4.9 Chloride 116 H Carbon Dioxide 21.0 Anion Gap 5 BUN 61 H Creatinine 0.96 Estim Creat Clear Calc 41.28 Est GFR (MDRD) Af Amer 73 Est GFR (MDRD) Non-Af 61 BUN/Creatinine Ratio 63.8 H Glucose 304 H Calcium 9.4 01/21/20 13:15 WBC RBC Hgb Hct MCV MCH MCHC RDW Std Deviation RDW Coeff of Lesley Plt Count MPV Immature Gran % (Auto) Neut % (Auto) Lymph % (Auto) Glenn % (Auto) Eos % (Auto) Baso % (Auto) Absolute Neuts (auto) Absolute Lymphs (auto) Nucleated RBC % Platelet Estimate Polychromasia Hypochromasia Anisocytosis Macrocytosis [place] Cells Acanthocytes (Spur) PT INR APTT Cancelled Sodium Potassium Chloride Carbon Dioxide Anion Gap BUN Creatinine Estim Creat Clear Calc Est GFR (MDRD) Af Amer Est GFR (MDRD) Non-Af BUN/Creatinine Ratio Glucose Calcium - Medical Decision Making Labs are unremarkable except anemia. Given patient's recent GI bleed I do feel she should be monitored while starting anticoagulation. I spoke to the hospitalist who requested Eliquis. This is propagation of a known DVT so we started her out at 5 mg. Patient will be placed in observation for monitoring of any adverse effects, recurrent bleeding. Patient and family agreeable to this plan. Patient admitted. ED Disposition - Plan for ED Patient: Disposition: Acute Care Hospital [facility] Diagnosis: DVT (deep venous thrombosis) Referrals: Neal Moulton MD [Primary Care Provider] -
[2020-01-21 13:20] LABS: Absolute Lymphocyte Count 0.81 X10^3/uL (0.83-4.51); Absolute Neutrophil Count 10.9 X10^3/uL (2.0-7.7); Basophil# 0.02 X10^3/uL; Basophil% 0.2 % (0-1); Differential Indicated SCAN CRITERIA MET; Eosinophil# 0.04 X10^3/uL; Eosinophils% 0.3 % (0-5); Hematocrit 28.6 % (37-47); Hemoglobin 8.4 g/dL (12.0-15.0); Lymphocyte # 0.81 X10^3/ul (4.0); Lymphocyte % 6.6 % (19-41); Mean Corp Hgb Conc 29.4 g/dL (32-36); Mean Corpuscular Volume 102.1 fL (81-99); Mean Platelet Vol. 11.4 fl (6.2-12.0); Monocyte# 0.38 X10^3/uL; Monocyte% 3.1 % (0-10); Neutrophil # 10.92 X10^3/uL (2.7-7.7); Neutrophil % 88.7 % (47-70); POSITIVE MORPHOLOGY YES; Platelet Count 328 K/mm3 (150-450); RBC Distribution Width CV 18.2 % (11.6-14.6); RBC Distribution Width SD 68.2 fl (35.1-43.9); White Blood Count 12.3 K/mm3 (4.4-11.0)
[2020-01-21 13:27] LABS: International Normalized Ratio 1.1; Prothrombin Time (Protime)PT. 13.4 SECONDS (11.7-14.9)
[2020-01-21 13:32] LABS: Anion Gap 5 (5-15); BUN 61 mg/dL (7-18); BUN/Creat Ratio 63.8 RATIO (10-20); Calcium,Total 9.4 mg/dL (8.5-10.1); Chloride 116 mmol/L (98-107); Creatinine, Serum 0.96 mg/dL (0.55-1.02); EST Glomerular Filtration Rate 61 mL/min (>60); Est Glom Filt Rate - Afr Amer 73 mL/min (>60); Estimated Creatinine Clearance 41.28 ml/min; Glucose 304 mg/dL (74-106); Potassium 4.9 mmol/L (3.5-5.1); Sodium Level 142 mmol/L (136-145)
[2020-01-21 13:46] LABS: Acanthocytes 1+; Anisocytosis 2+; Burr Cells RARE; Hypochromasia 2+; Macrocytosis 1+; Platelet Estimate ADEQUATE (ADEQ); Polychromasia RARE
[2020-01-21] MEDS: APIXABAN 5 MG TABLET PO ×2 (14:21→21:44)
[2020-01-21 14:22] VITALS: BP 160/80; PULSE 95; RESP 23; TEMP 36.6; O2SAT 98
--- NOTE | 2020-01-21 14:28 | HP.PCM_ITS ---
Problem List (1) DVT (deep venous thrombosis) Status: Acute (2) Ulcer of left foot Status: Chronic (3) Foot callus Status: Chronic (4) Acute osteomyelitis Status: Resolved (5) Gas gangrene of foot Status: Resolved (6) Diabetic ulcer of left foot Status: Resolved (7) Type 2 diabetes mellitus with diabetic polyneuropathy Status: Chronic Qualifiers: Diabetes mellitus halfway insulin use: with salvage determiner use Qualified Code(s): E11.42 - Type 2 diabetes mellitus with diabetic polyneuropathy; Z79.4 - intermediate frame tender (current) use of insulin (8) Osteomyelitis of left foot Status: Resolved (9) Cellulitis of left foot Status: Resolved (10) Charcot's joint of foot Status: Chronic (11) Diabetic ulcer of left foot with muscle involvement without evidence of necrosis Status: Resolved (12) PVD (peripheral vascular disease) Status: Chronic (13) Diabetic ulcer of left foot with fat layer exposed Status: Resolved (14) DVT (deep venous thrombosis) Status: Acute Qualifiers: DVT location: upper extremity Affected thrombotic vein of extremity: unspecified vein of extremity Chronicity: chronic Laterality: left Qualified Code(s): I82.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 (19) Hydroureter on left Status: Chronic (20) Hydronephrosis of left kidney Status: Chronic (21) Type 2 diabetes mellitus Status: Chronic Qualifiers: Diabetes mellitus halfway insulin use: with salvage determiner use (22) Hypertension Status: Chronic Qualifiers: Hypertension type: unspecified secondary hypertension Qualified Code(s): I15.9 - Secondary hypertension, unspecified (23) Hyperlipidemia Status: Chronic Qualifiers: Hyperlipidemia type: unspecified Qualified Code(s): E78.5 - Hyperlipidemia, unspecified History of Present Illness Date of Admission: 01/21/20 Chief Complaint: DVT The patient is a 74 year old F who was recently diagnosed with bilateral upper extremity VTE's. Patient had been on blood thinners but was stopped due to bleeding. Patient was found to have an ulcer in her stomach that was found to be due to CMV. Patient was changed over to clopidogrel as they could not fully anticoagulate the patient for the DVT. Patient has been having serial imaging of that showed apparently resolution of the right upper extremity DVT but propagation of the left upper extremity DVT. Patient was advised to come into the hospital for evaluation. Patient has not had any further bleeding episodes, denies any melena, hematochezia or hemoptysis. Patient being treated for her ulcer with ganciclovir daily which she did receive today she is not on any PPI therapy. [] Past Medical History Past Medical History (Chronic Problems): Chronic Problems Ulcer of left foot (Chronic) Foot callus (Chronic) Type 2 diabetes mellitus with diabetic polyneuropathy (Chronic) Charcot's joint of foot (Chronic) PVD (peripheral vascular disease) (Chronic) Status post coronary artery bypass graft (Chronic) Coronary artery disease (Chronic) Status post stents and CABG. Hydroureter on left (Chronic) Hydronephrosis of left kidney (Chronic) Type 2 diabetes mellitus (Chronic) Hypertension (Chronic) Hyperlipidemia (Chronic) Medical History: Medical History (Last Updated 01/21/20 @ 14:[address] 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 Allergies ANTIBIOTICS Allergy (Uncoded 01/21/20 12:41) PT UNABLE TO RESPOND-NEEDS F/U TWO ANTIBIOTICS AND I'M NOT SURE WHAT THEY ARE Home Medications: Ambulatory Orders Medication Instructions Recorded Aspirin [Aspirin, Baby] 81 mg PO DAILY 12/12/15 Atorvastatin Calcium [Lipitor] 40 mg PO QHS 12/12/15 Carvedilol [Coreg (Beta Britney)] 25 mg PO BID 12/12/15 Multivitamins,Therapeutic 1 tablet PO DAILY 12/12/15 [Multivitamin] Ramipril [Altace] 5 mg PO DAILY 12/12/15 Vitamin C 1,000 mg PO DAILY 12/12/15 Insulin Detemir [Levemir FlexPen] 18 units SC BID 12/13/15 Calcium Citrate-Vit D3 Tablet 1 tab PO DAILY 12/15/17 Ubidecarenone [Co Q-10] 200 mg PO DAILY 12/15/17 Cholestyramine (with Sugar) 4 gm PO BID PRN #30 powd.pack 12/20/17 [Cholestyramine Packet] Clopidogrel Bisulfate [Plavix] 75 mg PO DAILY #30 tablet 12/20/17 Glucerna Shake 120 ml PO 4X/DAY #120 liquid 12/20/17 Lactobacillus Acidophilus 1 tablet PO BID #60 tablet 12/20/17 [Acidophilus] metroNIDAZOLE [Flagyl] 500 mg PO Q8H #112 tablet 12/20/17 Furosemide [Lasix] 40 mg PO DAILY PRN PRN 01/02/18 Surgical History: Surgical History (Last Updated 01/21/20 @ 14:[address] 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 Lives: With Family Smoking Status: Never smoker Tobacco Use: Non-smoker Alcohol: None - *Family History Maternal History Items: Cancer - Her mother had throat cancer; and a sister had breast cancer. She had other sibling that had prostate cancer and cancer at the back of the head ofher sibling., Hypertension Paternal History Items: Heart Disease Review of Systems Constitutional: Reports: Weakness - due to myositis. Denies: Anorexia, Chills, Fever, Night Sweats Eyes: Denies: Blurred vision, Double vision HEENT: Denies: Head Aches, Sinus Congestion, Sinus Drainage Cardiovascular: Denies: Chest Pain, Palpitations Respiratory: Denies: Cough, Shortness of breath at rest, Sputum production Gastrointestinal: Denies: Abdominal Pain, Nausea, Vomiting Genitourinary: Denies: Dysuria Musculoskeletal: Denies: Joint Pain, Joint Tenderness Skin: Denies: Rash, Wounds Hematologic/ Lymphatic: Reports: Hx of blood clot. Denies: Easy Bleeding Comment: All review of systems were negative except as mentioned above in the history of present illness and the other review of systems. VTE Information - Inpt Only VTE Present on Admission: Yes VTE Mechan Device Prophylaxis: None VTE Pharm Prophylaxis ordered?: No Reason prophylaxis not ordered:: Treatment Not Indicated Patient Problems: Active and Suspected Problems DVT (deep venous thrombosis) (Acute) - Physical Exam Vitals/I&O's: Vital Signs Temp Pulse Resp BP Pulse Ox 36.6 C 95 23 H 160/80 H 98 01/21/20 14:22 01/21/20 14:22 01/21/20 14:22 01/21/20 14:22 01/21/20 14:22 Oxygen Delivery Method Room Air Weight: 63.4 kg Body Mass Index (BMI) 25.5 Finger Stick Blood Glucose 118 General: Alert, Cooperative, No apparent distress HEENT: Atraumatic, Normocephalic Oral: Moist Mucosa, No Gingival or Mucosal Lesions/ Ulcerations Neck: No Nodes, Thyroid Normal Size and Texture Lungs: Clear to auscultation, Normal air movement, No rhonchi, No wheeze Cardiovascular: Regular rate, Regular Rhythm, Normal S1, Normal S2, No murmurs Abdomen: Bowel Sounds Present, Soft, Non Tender, Non-Distended, No Hepato- splenomegaly Extremities: - - Left BKA, bandage, did not remove. Right lower extremity without any lower extremity edema. No swelling in the upper extremities. Skin: No rashes, No breakdown Musculoskeletal: Cachexia, Muscle Wasting Psych/Mental Status: Normal Affect, Appropriate Laboratory Results 01/21/20 13:15: WBC 12.3 H, RBC 2.80 L, Hgb 8.4 L, Hct 28.6 L, MCV 102.1 H, MCH 30.0, MCHC 29.4 L, RDW Std Deviation 68.2 H, RDW Coeff of Lesley 18.2 H, Plt Count 328, MPV 11.4, Immature Gran % (Auto) 1.100 H, Neut % (Auto) 88.7 H, Lymph % (Auto) 6.6 L, [place] % (Auto) 3.1, Eos % (Auto) 0.3, Baso % (Auto) 0.2, Absolute Neuts (auto) 10.9 H, Absolute Lymphs (auto) 0.81 L, Nucleated RBC % 2.0, Platelet Estimate ADEQUATE, Polychromasia RARE, Hypochromasia 2+, Anisocytosis 2+, Macrocytosis 1+, Izzy Cells RARE, Acanthocytes (Spur) 1+ 01/21/20 13:15: PT 13.4, INR 1.1 01/21/20 13:15: Sodium 142, Potassium 4.9, Chloride 116 H, Carbon Dioxide 21.0, Anion Gap 5, BUN 61 H, Creatinine 0.96, Estim Creat Clear Calc 41.28, Est GFR (MDRD) Af Amer 73, Est GFR (MDRD) Non-Af 61, BUN/Creatinine Ratio 63.8 H, Glucose 304 H, Calcium 9.4 01/21/20 13:15: APTT Cancelled Assessment/Plan All Active Problems Acute osteomyelitis (Resolved) Gas gangrene of foot (Resolved) Diabetic ulcer of left foot (Resolved) Osteomyelitis of left foot (Resolved) Cellulitis of left foot (Resolved) Diabetic ulcer of left foot with muscle involvement without evidence of necrosis (Resolved) Diabetic ulcer of left foot with fat layer exposed (Resolved) DVT (deep venous thrombosis) (Acute) DVT (deep venous thrombosis) (Acute) E coli bacteremia (Acute) Hepatosplenomegaly (Acute) 1. Left upper extremity DVT: Noted to be propagating based on the serial ultrasounds and advised admission by her vice president of product marketing. Since patient does not have any active bleeding I feel that it would be appropriate to start the patient on anticoagulation. Given the patient's history of bleeding ulcer, will elect to start her on apixaban 5 mg twice daily rather than full dosing at this time. Will monitor the patient in she remained stable with no evidence of any bleeding I feel that she could be discharged as early as the . Patient had been on clopidogrel as a stopgap in regards to treating her DVT but also the fact that she was already having issues with bleeding. That will be discontinued. 2. CMV induced peptic ulcer disease: Patient is on ganciclovir. Patient did receive a dose today which she only receives it daily. If patient is stable tomorrow she can be discharged tomorrow to resume her home ganciclovir which is administered at home. If not then we will need to initiate acyclovir dosing. Given the history of peptic ulcer disease, would start the patient on a PPI. I do not see any indication why that should be held at this time. 3. Myositis, not otherwise specified: It is unclear what the cause of her myositis is if it is a rheumatologic disease or statin induced. Patient is to follow-up with rheumatology. Patient is on prednisone and that will need to be continued. 4. Diabetes mellitus type 2: Continue with her home regimen of medications + scale. 5. VTE prophylaxis: Not indicated as patient will already be anticoagulated. Case discussed with her daughter at bedside but also with 2 of her daughters on the phone. All questions were answered. They understand plan is just to observe the patient to make sure she does not have any bleeding however the does not mean that she could have bleeding in the future. OBSV E&M: [id number] Initial observation care L2
[2020-01-21 15:08] VITALS: BMI 23.3
[2020-01-21 15:53] VITALS: BP 85/70; PULSE 88; RESP 16; TEMP 36.5; O2SAT 98
[2020-01-21 16:22] VITALS: BP 104/61; PULSE 92; RESP 18; TEMP 36.7; O2SAT 99
[2020-01-21 17:06] LABS: Bedside Glucose 300 mg/dL (70-110)
[2020-01-21] MEDS: Pantoprazole Sodium 40 MG Tablet PO (17:09)
[2020-01-21] MEDS: Insulin Lispro 100 UNIT/ML INSULN.PEN SC (17:09)
[2020-01-21 21:00] VITALS: BP 159/86; PULSE 99; RESP 18; TEMP 36.4; O2SAT 98
[2020-01-21] MEDS: 0.9% Saline Lock 10 ML Syringe IV (21:38)
[2020-01-21] MEDS: Ferrous Sulfate 325 MG Tablet PO (21:43)
[2020-01-21] MEDS: metroNIDAZOLE 500 MG Tablet PO (21:44)
[2020-01-21 22:20] LABS: Bedside Glucose 475 mg/dL (70-110)
[2020-01-21] MEDS: Insulin Lispro 100 UNIT/ML INSULN.PEN 18 UNIT SC (23:00)
[2020-01-22 02:26] LABS: Bedside Glucose 141 mg/dL (70-110)
[2020-01-22 03:00] VITALS: BP 156/81; PULSE 91; RESP 16; TEMP 36.7; O2SAT 99
[2020-01-22] MEDS: metroNIDAZOLE 500 MG Tablet PO (06:44)
[2020-01-22 07:00] LABS: Bedside Glucose 64 mg/dL (70-110)
[2020-01-22] MEDS: 0.9% Saline Lock 10 ML Syringe IV (09:06)
[2020-01-22 09:18] LABS: Absolute Lymphocyte Count 2.54 X10^3/uL (0.83-4.51); Absolute Neutrophil Count 7.1 X10^3/uL (2.0-7.7); Basophil# 0.02 X10^3/uL; Basophil% 0.2 % (0-1); Eosinophil# 0.13 X10^3/uL; Eosinophils% 1.2 % (0-5); Hematocrit 27.1 % (37-47); Hemoglobin 8.2 g/dL (12.0-15.0); Lymphocyte # 2.54 X10^3/ul (4.0); Lymphocyte % 23.6 % (19-41); Mean Corp Hgb Conc 30.3 g/dL (32-36); Mean Corpuscular Hgb 30.7 pg (27.0-32.0); Mean Corpuscular Volume 101.5 fL (81-99); Monocyte# 0.89 X10^3/uL; Monocyte% 8.3 % (0-10); Neutrophil # 7.06 X10^3/uL (2.7-7.7); Neutrophil % 65.6 % (47-70); POSITIVE MORPHOLOGY YES; Platelet Count 331 K/mm3 (150-450); RBC Distribution Width CV 17.8 % (11.6-14.6); RBC Distribution Width SD 66.4 fl (35.1-43.9); Red Blood Count 2.67 M/mm3 (4.2-5.4); White Blood Count 10.8 K/mm3 (4.4-11.0)
[2020-01-22 09:22] LABS: Differential Indicated SCAN CRITERIA MET
[2020-01-22 09:38] VITALS: BP 125/61; PULSE 97; RESP 16; TEMP 36.7; O2SAT 100
[2020-01-22] MEDS: Pantoprazole Sodium 40 MG Tablet PO (09:45)
[2020-01-22] MEDS: APIXABAN 5 MG TABLET PO (09:46)
[2020-01-22] MEDS: Menthol/Lanolin/Calamine/Znox 113 GM Tube 1 APPLIC TOPICAL (09:46)
[2020-01-22 09:52] LABS: Acanthocytes 2+; Anisocytosis 2+; Hypochromasia 1+; Macrocytosis 1+; Platelet Estimate ADEQUATE (ADEQ); Polychromasia 1+; Schistocytes 2+
[2020-01-22 09:53] LABS: Differential Comment SCANNED
--- NOTE | 2020-01-22 10:00 | DCINST_ITS ---
- Discharge Diagnoses Current Active Problems: Current Active and Chronic Problems (Last Updated 01/21/20 @ 14:[address] To Singh, DO) Hypertension (Chronic) Hyperlipidemia (Chronic) Type 2 diabetes mellitus (Chronic) Hydronephrosis of left kidney (Chronic) Hydroureter on left (Chronic) Coronary artery disease (Chronic) Status post stents and CABG. Status post coronary artery bypass graft (Chronic) Hepatosplenomegaly (Acute) E coli bacteremia (Acute) Ulcer of left foot (Chronic) Foot callus (Chronic) Type 2 diabetes mellitus with diabetic polyneuropathy (Chronic) Charcot's joint of foot (Chronic) PVD (peripheral vascular disease) (Chronic) DVT (deep venous thrombosis) (Acute) DVT (deep venous thrombosis) (Acute) You will use the following diet at home:: Cardiac Your food should be the consistency of: Regular Your liquids should be the consistency of: Regular/Thin Call your doctor if you observe: Fever of 101 or Higher, Shortness of breath, - - dark tarry stools. blood in stool. Allergies/Adverse Reactions: Allergies ANTIBIOTICS Allergy (Uncoded 01/21/20 12:41) PT UNABLE TO RESPOND-NEEDS F/U TWO ANTIBIOTICS AND I'M NOT SURE WHAT THEY ARE Medications to take at Discharge Multivitamins,Therapeutic [Multivitamin] 1 tablet PO DAILY 12/12/15 Vitamin C 1,000 mg PO BID 12/12/15 Calcium Citrate-Vit D3 Tablet 2,000 units PO DAILY 12/15/17 Glucerna Shake 120 ml PO 4X/DAY #120 liquid 12/20/17 Lactobacillus Acidophilus [Acidophilus] 1 tablet PO BID #60 tablet 12/20/17 Basaglar Kwikpen U-100 10 unit SC QHS 01/21/20 Calcium Carbonate [Calcium] 600 mg PO DAILY 01/21/20 Ferrous Sulfate [Iron] 325 mg PO QODAY 01/21/20 Insulin Lispro [Humalog KwikPen] unit SQ QHS 01/21/20 Insulin Lispro [Insulin Lispro Kwikpen U-100] SC ACHS 01/21/20 Metoprolol Tartrate 12.5 mg PO BID 01/21/20 Pantoprazole Sodium [Protonix] 40 mg PO DAILY 01/21/20 Prednisone 30 mg PO DAILY 01/21/20 Sucralfate [Carafate] 1 gm PO 4X/DAY 01/21/20 Sulfamethoxazole/Trimethoprim [Bactrim 400-80 mg Tablet] 1 ea PO DAILY 01/21/20 Vit D3/Vit K2/Calc Frutoborate [Move Free Peryh-Uewkao-M5-D3] 1 ea PO DAILY 01/21/20 Apixaban [Eliquis] 5 mg PO BID #60 tab 01/22/20 Ganciclovir 160 mg IV DAILY 01/22/20 The following prescriptions were given: Apixaban [Eliquis] 5 mg PO BID #60 tab Transmission Status: Pending to [facility] Primary Care Physician: Neal Moulton MD [Primary Care Provider] - Within 1 Week Test Results: Test results from this visit will be discussed in further detail at your follow- up appointment, if applicable. Please Follow Up With: Hematology When: 1-2 months Proposed Discharge Date: 01/22/20
--- NOTE | 2020-01-22 10:08 | PCM.DC.SUM ---
Discharge Date and Diagnosis - Problem List Patient Problems: Active and Suspected Problems (Last Updated 01/21/20 @ 14:[address] To Singh DO) DVT (deep venous thrombosis) (Acute) DVT (deep venous thrombosis) (Acute) Date of Admission: 01/21/20 Date of Discharge: 01/22/20 - Primary Discharge Diagnosis Acute Problems: Active Problems (Last Updated 01/21/20 @ 14:[address] To Singh DO) Hepatosplenomegaly (Acute) E coli bacteremia (Acute) DVT (deep venous thrombosis) (Acute) DVT (deep venous thrombosis) (Acute) - Secondary Discharge Diagnosis Chronic Problems: Chronic Problems (Last Updated 01/21/20 @ 14:[address] To Singh DO) Hypertension (Chronic) Hyperlipidemia (Chronic) Type 2 diabetes mellitus (Chronic) Hydronephrosis of left kidney (Chronic) Hydroureter on left (Chronic) Coronary artery disease (Chronic) Status post stents and CABG. Status post coronary artery bypass graft (Chronic) Ulcer of left foot (Chronic) Foot callus (Chronic) Type 2 diabetes mellitus with diabetic polyneuropathy (Chronic) Charcot's joint of foot (Chronic) PVD (peripheral vascular disease) (Chronic) Hospital Course and Treatment Operations: None, - Procedures: None Summary of Care Provided: The patient is a 74 year old F presents with propagation of lower extremity DVT. Patient has had a history of a peptic ulcer disease due to CMV. And patient did have bleeding with that. Patient did develop bilateral upper extremity DVTs and was treated with clopidogrel. She was not treated with full dose anticoagulation given her history of GI bleed due to the ulcer. Patient is continue to be treated with ganciclovir for her peptic ulcer disease due to CMV. Patient has not had any events in regards to melena, hematochezia or hemoptysis. They were doing serial ultrasounds and noted that there was resolution of the right upper extremity DVT but propagation of the left upper extremity DVT. Given the patient's complexity they advised patient go to the emergency room. Discussed with the emergency room and we agreed to start with a lower dose of apixaban at 5 mg twice daily rather than the 10 mg twice daily for a week. Patient was observed and did not have any melena hemoglobin has remained stable. I feel the patient can be discharged back home today with follow-up with her primary care doctor and floor cleaner. I would like for the the patient follow-up with her floor cleaner to see if a hypercoagulable work-up would be necessary and if the patient would need to be on an extended period of anticoagulation beyond 3 months. Patient advised that if she does have evidence of bleeding with obvious blood or melena to come back into the emergency room. I did discuss with the patient's daughter as well someone else on a conference call about the patient and my recommendations for hematology as well as primary care doctor follow-up. They are asking about a vascular surgery follow-up but I felt it was not indicated as patient can be anticoagulated and would not be a candidate for a superior vena cava filter. They want to know what they should do with follow-up with a doctor Candelaria. They are unsure of the role of this particular physician. I went on to [employer] and research that there is Dr. Candelaria is a medical scientist and that they typically work in concert with the attending physicians. [] Patient Problems: Active and Suspected Problems (Last Updated 01/21/20 @ 14:[address] To Singh, DO) DVT (deep venous thrombosis) (Acute) DVT (deep venous thrombosis) (Acute) - Physical Exam Vitals/I&O's: Vital Signs Temp Pulse Resp BP Pulse Ox 36.7 C 97 16 125/61 H 100 01/22/20 09:38 01/22/20 09:38 01/22/20 09:38 01/22/20 09:38 01/22/20 09:38 Oxygen Delivery Method Room Air Weight: 57.805 kg Body Mass Index (BMI) 23.3 Finger Stick Blood Glucose 118 Intake and Output for Last 24 Hours 01/20/20 01/21/20 01/22/20 23:59 23:59 23:59 Output Total 400 / 400 Balance -400 / -400 General: Alert, No apparent distress HEENT: Atraumatic, Normocephalic Oral: Moist Mucosa, No Gingival or Mucosal Lesions/ Ulcerations Neck: No Nodes, Thyroid Normal Size and Texture Lungs: Clear to auscultation, Normal air movement, No rhonchi, No wheeze Extremities: - - left leg wrapped, did not remove. no UE edema. Laboratory Results 01/21/20 13:15: WBC 12.3 H, RBC 2.80 L, Hgb 8.4 L, Hct 28.6 L, MCV 102.1 H, MCH 30.0, MCHC 29.4 L, RDW Std Deviation 68.2 H, RDW Coeff of Lesley 18.2 H, Plt Count 328, MPV 11.4, Immature Gran % (Auto) 1.100 H, Neut % (Auto) 88.7 H, Lymph % (Auto) 6.6 L, [place] % (Auto) 3.1, Eos % (Auto) 0.3, Baso % (Auto) 0.2, Absolute Neuts (auto) 10.9 H, Absolute Lymphs (auto) 0.81 L, Nucleated RBC % 2.0, Platelet Estimate ADEQUATE, Polychromasia RARE, Hypochromasia 2+, Anisocytosis 2+, Macrocytosis 1+, Izzy Cells RARE, Acanthocytes (Spur) 1+ 01/21/20 13:15: PT 13.4, INR 1.1 01/21/20 13:15: Sodium 142, Potassium 4.9, Chloride 116 H, Carbon Dioxide 21.0, Anion Gap 5, BUN 61 H, Creatinine 0.96, Estim Creat Clear Calc 41.28, Est GFR (MDRD) Af Amer 73, Est GFR (MDRD) Non-Af 61, BUN/Creatinine Ratio 63.8 H, Glucose 304 H, Calcium 9.4 01/21/20 13:15: APTT Cancelled 01/21/20 17:00: POC Glucose 300 H 01/21/20 21:38: POC Glucose 475 H* 01/22/20 02:20: POC Glucose 141 H 01/22/20 06:41: POC Glucose 64 L 01/22/20 09:05: WBC 10.8, RBC 2.67 L, Hgb 8.2 L, Hct 27.1 L, MCV 101.5 H, MCH 30.7, MCHC 30.3 L, RDW Std Deviation 66.4 H, RDW Coeff of Lesley 17.8 H, Plt Count 331, MPV 11.0, Immature Gran % (Auto) 1.100 H, Neut % (Auto) 65.6, Lymph % (Auto) 23.6, [place] % (Auto) 8.3, Eos % (Auto) 1.2, Baso % (Auto) 0.2, Absolute Neuts (auto) 7.1, Absolute Lymphs (auto) 2.54, Nucleated RBC % 2.0, Differential Comment SCANNED, Diff Path Review May foll, Platelet Estimate ADEQUATE, Polychromasia 1+, Hypochromasia 1+, Anisocytosis 2+, Macrocytosis 1+, Acanthocytes (Spur) 2+, Schistocytes 2+ H Current Medications Acetaminophen (Acetaminophen 325 Mg Tablet) 650 mg PO Q6H PRN PRN PRN Reason: Pain Score 1-10/Temp > 100.7 F Apixaban (Apixaban 5 Mg Tablet) 5 mg PO BID [facility] Last Admin: 01/22/20 09:46 Dose: 5 mg Documented by: Ascorbic Acid (Ascorbic Acid 500 Mg Tablet) 1,000 mg PO DAILYCM [facility] Last Admin: 01/22/20 09:44 Dose: Not Given Documented by: Atorvastatin Calcium (Atorvastatin Calcium 40 Mg Tablet) 40 mg PO QHS [facility] Last Admin: 01/21/20 21:46 Dose: Not Given Documented by: Calamine/Phenol (Menthol/Lanolin/Calamine/Znox 113 Gm Tube) 1 applic TOPICAL TID PRN; Protocol PRN Reason: DIAPER RASH Last Admin: 01/22/20 09:46 Dose: 1 applicatio Documented by: Calcium/Vitamin D (Calcium Carb/Vitamin D 1 Tablet Tablet) [facility] Admin: 01/22/20 09:44 Dose: Not Given Documented by: Carvedilol (Carvedilol 25 Mg Tablet) 25 mg PO BID [facility] Last Admin: 01/22/20 09:57 Dose: Not Given Documented by: Cholestyramine Resin (Cholestyramine/Sucrose 4 Gm/Packet) 4 gm PO BID PRN PRN Reason: Diarrhea Dextrose (Dextrose 50%-Water 25 Gm/50 Ml Disp.Syrin) 0 gm IV X1 PRN; Protocol PRN Reason: Hypoglycemia Ferrous Sulfate (Ferrous Sulfate 325 Mg Tablet) 325 mg PO QODAY@1200 [facility] Last Admin: 01/21/20 21:43 Dose: 325 mg Documented by: Glucagon (Glucagon 1 Mg/Ml Syringe) 1 mg IM .X1 PRN PRN Reason: Hypoglycemia Heparin Sodium (Beef Lung) (Heparin Pf Lock 10 Units/Ml 50 Units/5 Ml Syringe) 50 units IV UD PRN PRN Reason: Port-a-Cath (VAD)Heparin Flush Sodium Chloride () 250 mls @ 15 mls/hr IV .[id number] PRN PRN Reason: Saline Flush Sodium Chloride () 250 mls @ 15 mls/hr IV .[id number] PRN PRN Reason: Additional IVPB Infusion Insulin Glargine (Insulin Glargine 100 Units/Ml Pen) 18 units SC BID [facility] Last Admin: 01/22/20 09:46 Dose: 18 u Documented by: Insulin Human Lispro (Insulin Lispro 100 Unit/Ml Insuln.Pen) 0 unit SC ACHS & 3AM ROSSANA; Protocol Last Admin: 01/22/20 06:46 Dose: Not Given Documented by: Metronidazole (Metronidazole 500 Mg Tablet) 500 mg PO Q8 [facility] Last Admin: 01/22/20 06:44 Dose: 500 mg Documented by: Multivitamins (Multivitamins,Therapeutic Tablet) 1 tablet PO DAILYCM [facility] Last Admin: 01/22/20 09:44 Dose: Not Given Documented by: Non-Formulary Medication (Ganciclovir) 160 mg IV DAILY [facility] Ondansetron HCl (Ondansetron 4 Mg/2 Ml Vial) 4 mg IV Q8H PRN PRN PRN Reason: NAUSEA/VOMITING Pantoprazole Sodium (Pantoprazole Sodium 40 Mg Tablet) 40 mg PO DAILY [facility] Last Admin: 01/22/20 09:45 Dose: 40 mg Documented by: Ramipril (Ramipril 5 Mg Capsule) 5 mg PO DAILY [facility] Last Admin: 01/22/20 09:57 Dose: Not Given Documented by: Sodium Chloride (0.9% Saline Lock 10 Ml Syringe) 10 - 40 ml IV UD PRN PRN Reason: SALINE FLUSH Last Admin: 01/22/20 09:06 Dose: 20 ml Documented by: Sodium Chloride (0.9% Saline Lock 10 Ml Syringe) 10 - 40 ml IV UD PRN PRN Reason: Port-a-Cath (VAD) Flush Sodium Chloride (0.9 % Nacl (Sterile) Posiflush 10 Ml) 10 - 40 ml IV UD PRN PRN Reason: Port access or dressing change Discharge Diet: Low fat/ Low Cholesterol Discharge Activity: Return to Normal Activity Call your doctor if you observe: Fever of 101 or Higher, Shortness of breath, - - dark tarry stools. blood in stool. Home Medications: Medications to take at Discharge Multivitamins,Therapeutic [Multivitamin] 1 tablet PO DAILY 12/12/15 Vitamin C 1,000 mg PO BID 12/12/15 Calcium Citrate-Vit D3 Tablet 2,000 units PO DAILY 12/15/17 Glucerna Shake 120 ml PO 4X/DAY #120 liquid 12/20/17 Lactobacillus Acidophilus [Acidophilus] 1 tablet PO BID #60 tablet 12/20/17 Basaglar Kwikpen U-100 10 unit SC QHS 01/21/20 Calcium Carbonate [Calcium] 600 mg PO DAILY 01/21/20 Ferrous Sulfate [Iron] 325 mg PO QODAY 01/21/20 Insulin Lispro [Humalog KwikPen] unit SQ QHS 01/21/20 Insulin Lispro [Insulin Lispro Kwikpen U-100] SC ACHS 01/21/20 Metoprolol Tartrate 12.5 mg PO BID 01/21/20 Pantoprazole Sodium [Protonix] 40 mg PO DAILY 01/21/20 Prednisone 30 mg PO DAILY 01/21/20 Sucralfate [Carafate] 1 gm PO 4X/DAY 01/21/20 Sulfamethoxazole/Trimethoprim [Bactrim 400-80 mg Tablet] 1 ea PO DAILY 01/21/20 Vit D3/Vit K2/Calc Frutoborate [Move Free Yqxsm-Lvtaib-H7-D3] 1 ea PO DAILY 01/21/20 Apixaban [Eliquis] 5 mg PO BID #60 tab 01/22/20 Ganciclovir 160 mg IV DAILY 01/22/20 Following Prescriptions Were Given to Patient: Apixaban [Eliquis] 5 mg PO BID #60 tab Transmission Status: Pending to [facility] Primary Care Physician: Neal Moulton MD [Primary Care Provider] - Within 1 Week Please Follow Up With: Hematology When: 1-2 months Disposition: Home Minutes spent on discharge:: 40 Patient Condition:: Fair Medical Necessity - Tobacco Use Smoking Status: Never smoker Tobacco Use: Non-smoker Meaningful Use Info Meaningful Use Diagnoses (Choose all that apply): None applicable OBSV E&M: 59276 Observation care discharge
--- NOTE | 2020-01-22 11:14 | CASEMGMT ---
Social Work JONAH HuiCM stating pt needs transportation home and per dgt, pt usually uses [facility]. Transportation arranged for 1200 pickup by [facility]. Pt notified and agreeable. Phone call to dgt Annette and updated on d/c time. Call to [facility] pharmacy and informed of d/c time and they will have prescriptions delivered to room prior to 1200. RN updated on d/c time. ERICKSON Giordano
--- NOTE | 2020-01-22 11:20 | CASEMGMT ---
RN DEION received call from daughter requesting [facility]OT transport at discharge. RN CM updated SW regarding transport setup. Per [facility] Annette[facility] RN DEION called [facility] and updated on discharge to home today. CM sent discharge information to [facility].
[2020-01-22 22:30] LABS: Bedside Glucose 133 mg/dL (70-110)
[2020-01-25 12:51] LABS: Pathologist Review Reviewed
== END 2020-01-22 12:15 | disposition home health service (06) ==
LOC: ED 14:06 → MS3 14:48
PROVIDERS: Emergency Provider Emergency Medicine; PCP Family Medicine
DX: I82.622 Acute embolism and thrombosis of deep veins of left upper extremity (principal); E78.5 Hyperlipidemia, unspecified; I10 Essential (primary) hypertension; I25.10 Atherosclerotic heart disease of native coronary artery without angina pectoris; E11.51 Type 2 diabetes mellitus with diabetic peripheral angiopathy without gangrene; Z95.1 Presence of aortocoronary bypass graft; Z79.899 Other long term (current) drug therapy; Z79.4 Long term (current) use of insulin; Z79.02 Long term (current) use of antithrombotics/antiplatelets; Z89.512 Acquired absence of left leg below knee; Z87.19 Personal history of other diseases of the digestive system; R78.81 Bacteremia; B96.20 Unspecified Escherichia coli [E. coli] as the cause of diseases classified elsewhere; Z87.11 Personal history of peptic ulcer disease
CPT/HCPCS: 36592; 80048; 82962; 85025; 85610; 99218; 99285; A4216; G0378

== ENCOUNTER 2020-10-30 19:21 | Inpatient (IN) | payer MEDICARE, MEDICAID, SELFPAY ==
[2020-10-30 19:22] VITALS: BP 179/102; PULSE 82; RESP 20; TEMP 35.9; O2SAT 93; BMI 25.7
[2020-10-30 19:27] VITALS: O2SAT 88
--- NOTE | 2020-10-30 20:24 | EX.ED.DYSGE1 ---
HPI History of Present Illness Chief Complaint: Nausea/Vomiting/Diarrhea Narrative Narrative: 75-year-old female presenting with nausea. She states she had nausea and vomiting x3 since last night. Patient denies chest pain, palpitations, shortness of breath, fever, chills, abdominal pain, dysuria or hematuria, diarrhea. He states he is just not hungry. She was eating yesterday. Her daughter has concern that she has not eaten much today. Patient's daughter states that they do live with her her daughter who has Covid and has been isolated in the back bedroom. There has been no known exposure to her by her mom. Her only symptom is nausea and vomiting. [facility] Medical History CAD (coronary artery disease) CHF (congestive heart failure) DM2 (diabetes mellitus, type 2) Myositis PAD (peripheral artery disease) PUD (peptic ulcer disease) Home Medications Vitamin C 1,000 mg PO BID 12/12/15 [History Last Taken 12/15/17 08:00 1000 mg] multivitamin with folic acid [Thera] 1 tab PO DAILY 12/12/15 [History Last Taken 12/12/15] Calcium Citrate-Vit D3 Tablet 2,000 units PO DAILY 12/15/17 [History Last Taken 12/15/17 08:00 1 tab] acidophilus-pectin, citrus 1 tab PO BID #60 tablet 12/20/17 [Rx Last Taken Unknown] nut.tx.gluc intol,lf,soy-fiber [Glucerna 1.2 Trae] 120 ml PO 4X/DAY #120 liquid 12/20/17 [Rx Last Taken Unknown] Basaglar Kwikpen U-100 10 unit SC QHS 01/21/20 [History Last Taken Unknown] Prednisone 30 mg PO DAILY 01/21/20 [History Last Taken Unknown] calcium carbonate 600 mg PO DAILY 01/21/20 [History Last Taken Unknown] ferrous sulfate 325 mg PO QODAY 01/21/20 [History Last Taken Unknown] insulin lispro SC ACHS 01/21/20 [History Last Taken Unknown] insulin lispro unit SQ QHS 01/21/20 [History Last Taken Unknown] metoprolol tartrate 12.5 mg PO BID 01/21/20 [History Last Taken Unknown] pantoprazole 40 mg PO DAILY 01/21/20 [History Last Taken Unknown] sucralfate 1 gm PO 4X/DAY 01/21/20 [History Last Taken Unknown] sulfamethoxazole-trimethoprim 1 ea PO DAILY 01/21/20 [History Last Taken Unknown] vit D3-vit K2-ca fructoborate 1 ea PO DAILY 01/21/20 [History Last Taken Unknown] Ganciclovir 160 mg IV DAILY 01/22/20 [History Last Taken 01/21/20 0800] apixaban 5 mg PO BID #60 tab 01/22/20 [Rx Last Taken Unknown] Allergy/AdvReac Type Severity Reaction Status Date / Time doxycycline Allergy Other Verified 10/30/20 20:38 ANTIBIOTICS Allergy PT UNABLE Uncoded 01/21/20 12:41 TO RESPOND-NEEDS F/U Surgical History Hx of BKA Social History Smoking Status: Never smoker ROS ROS ED Constitutional Constitutional ED: Denies chills or fever(s) Eyes Eyes: Denies blurry vision or diplopia ENT ENT ED: Denies rhinorrhea or sore throat Cardiovascular Cardiovascular: Denies chest pain or palpitations Respiratory/Chest Respiratory/Chest: Denies cough, dyspnea, dyspnea on exertion or sputum Gastrointestinal Gastrointestinal: Reports nausea and vomiting; Denies abdominal pain, constipation or diarrhea Genitourinary Genitourinary ED: Denies dysuria or hematuria Musculoskeletal Musculoskeletal: Denies arthralgias or myalgias Integumentary Denies abscess or rash Neurologic Neurologic: Denies headache(s) or paresthesias EXAM Physical Exam Const Vital Signs: 10/30/20 19:22 10/30/20 19:27 10/30/20 22:13 Temperature 96.6 F L Temperature Source Temporal Pulse Rate 82 74 Respiratory Rate 20 H 21 H Blood Pressure 179/102 H 149/77 H Blood Pressure Mean 127 101 Pulse Ox 93 88 97 Oxygen Delivery Method Room Air Room Air Room Air Positive well nourished General Appearance ED: NAD HEENT Reports moist mucous membranes Negative for trauma Eyes PERRL and EOMs intact bilaterally Resp normal respiratory effort and clear to auscultation bilaterally Cardio regular rate and regular rhythm GI normal to inspection, nondistended, normoactive bowel sounds Neuro oriented x3 and CN's II-XII intact bilaterally Sensorium / Orientation: alert Psych mental status grossly normal Skin no rashes or lesions noted and no wounds MDM MDM MDM Narrative Medical decision making narrative: Patient presenting with chest nausea and vomiting. She denies any other symptoms on initial examination. I did check basic lab work including CBC, CMP, urinalysis. She did wish to be tested for Covid given the close contact with her granddaughter. Her Covid swab did come back negative. It is noted that she became hypoxic to 88% sitting in bed. At this point a chest x-ray, EKG, troponin, pro calcitonin was added. Patient is anticoagulated so I did not add a D-dimer. Patient CBC and BMP are unremarkable. She does not have a white blood cell count elevation and her hemoglobin is at baseline. Her creatinine is also at baseline. Chest x-ray on my interpretation shows no acute cardiopulmonary process but does show cardiomegaly and the radiologist does agree. Patient's EKG interpreted by myself shows a sinus rhythm at [address]-T wave changes laterally. There does appear to be new T subtle T wave inversion/depressions in leads V2 3 through V6. Patient still denies any chest pain. Her troponin came back at over 80. Patient was given aspirin. Discussed with Dr. Huizar who recommended admission and monitoring serial enzymes. Patient's daughter is counseled of this as well. Patient admitted in stable condition. Impression: 1. COVID-19 pneumonitis 2. Hypoxia resolved 3. NSTEMI 4. Abnormal EKG Lab Data Labs: Laboratory Results - last 24 hr 10/30/20 10/30/20 22:29 22:29 Sodium 139 Potassium 3.8 Chloride 105 Carbon Dioxide 27.0 Anion Gap 8 BUN 26 H Creatinine 1.17 H Estim Creat Clear Calc 33.36 Est GFR (MDRD) Af Amer 58 L Est GFR (MDRD) Non-Af 48 L BUN/Creatinine Ratio 22.9 H Glucose 130 H Calcium 10.5 H Total Bilirubin 0.30 AST 27 ALT 23 Alkaline Phosphatase 116 Troponin I High Sens 85 H Total Protein 7.0 Albumin 2.9 L Globulin 4.0 Albumin/Globulin Ratio 0.7 L Procalcitonin 0.08 Radiography Diagnostic Testing: Radiology Impression Chest X-Ray 10/30/20 21:31 IMPRESSION: Borderline cardiomegaly with no acute pulmonary airspace disease. at 2303 Reported and signed by: Desmond Holliday MD Electronically Signed: Desmond Holliday MD at 23:02 EDT Tel , Service support , Discharge Plan Triage Chief Complaint: Nausea/Vomiting/Diarrhea ED Provider: Damián Reid Dx/Rx/DC Orders Prescriptions: No Action multivitamin with folic acid [Thera] 1 TABLET tablet 1 tab PO DAILY RF: 0 Vitamin C 1,000 mg PO BID RF: 0 Calcium Citrate-Vit D3 Tablet 2,000 units PO DAILY RF: 0 acidophilus-pectin, citrus 1 TABLET tablet 1 tab PO BID Qty: 60 RF: 0 nut.tx.gluc intol,lf,soy-fiber [Glucerna 1.2 Trae] 120 ML Liquid 120 ml PO 4X/DAY Qty: 120 RF: 0 sulfamethoxazole-trimethoprim 1 EACH tablet 1 ea PO DAILY RF: 0 pantoprazole 40 MG tablet 40 mg PO DAILY RF: 0 metoprolol tartrate 25 MG tablet 12.5 mg PO BID RF: 0 vit D3-vit K2-ca fructoborate 1 EACH tablet 1 ea PO DAILY RF: 0 Prednisone 10 MG tablet 30 mg PO DAILY RF: 0 sucralfate 1 GM tablet 1 gm PO 4X/DAY RF: 0 Basaglar Kwikpen U-100 10 unit SC QHS RF: 0 calcium carbonate 600 MG tablet 600 mg PO DAILY RF: 0 ferrous sulfate 325 MG tablet 325 mg PO QODAY RF: 0 insulin lispro 100 UNIT/ML insulin pen SQ QHS RF: 0 insulin lispro 100 UNIT/ML insulin pen SC ACHS RF: 0 Ganciclovir 160 MG 160 mg IV DAILY RF: 0 apixaban 5 MG tablet 5 mg PO BID Qty: 60 RF: 0 Primary Care Provider: Neal Moulton
[2020-10-30] MEDS: Ondansetron 4 MG/2 ML Vial IV (20:38)
--- NOTE | 2020-10-30 21:31 | RAD_ITS ---
HISTORY: hypoxia EXAMINATION/TECHNIQUE: XR Chest 1 View portable AP view COMPARISON: AP chest x-ray from 12/19/19 FINDINGS: LINES/DEVICES: Sternotomy wires and cardiac rn leads. LUNGS: No overt pulmonary edema. No focal airspace consolidation. No sizable pleural effusion. No pneumothorax detected. MEDIASTINUM AND CARDIOVASCULAR STRUCTURES: Heart shadow is slightly prominent. Previous CABG. Atherosclerotic calcifications along the aorta. BONES AND SOFT TISSUES: Skeletal degenerative changes. RAD/Chest 1 View (Portable) IMPRESSION: Borderline cardiomegaly with no acute pulmonary airspace disease. at 2303 Reported and signed by: Desmond Holliday MD Electronically Signed: Desmond Holliday MD at 23:02 EDT Tel , Service support ,
[2020-10-30 21:33] LABS: ALB/GLOB Ratio 0.7 RATIO (0.9-2.4); Alanine Aminotransfer ALT/SGPT 23 U/L (13-56); Albumin, Serum 2.9 g/dL (3.2-5.0); Anion Gap 8 (5-15); BUN/Creat Ratio 22.9 RATIO (10-20); Potassium 3.8 mmol/L (3.5-5.1); Sodium Level 139 mmol/L (136-145)
--- NOTE | 2020-10-30 22:10 | EKG12_ITS ---
Test Reason : COVID Blood Pressure : / mmHG Vent. Rate : 071 BPM Atrial Rate : 071 BPM P-R Int : 172 ms QRS Dur : 090 ms QT Int : 408 ms P-R-T Axes : 016 -17 134 degrees QTc Int : 443 ms Normal sinus rhythm Septal infarct , age undetermined ST & T wave abnormality, consider lateral ischemia Abnormal ECG Confirmed by ROGELIO BLOCK, BRENT ([id number]), editorial director ALEJA VILLA ([id number]) on 11/01/2020 8:53:55 AM Referred By: PARUL Confirmed By:BRENT MERCADO MD
[2020-10-30 22:13] VITALS: BP 149/77; PULSE 74; RESP 21; O2SAT 97
[2020-10-30 23:06] LABS: Procalcitonin 0.08 ng/mL (0.00-0.09)
[2020-10-30 23:10] LABS: AST(SGOT) 27 U/L (15-37); Alkaline Phosphatase 116 U/L (45-117); BUN 26 mg/dL (7-18); Calcium,Total 10.5 mg/dL (8.5-10.1); Chloride 105 mmol/L (98-107); Creatinine, Serum 1.17 mg/dL (0.55-1.02); EST Glomerular Filtration Rate 48 mL/min (>60); Est Glom Filt Rate - Afr Amer 58 mL/min (>60); Estimated Creatinine Clearance 33.36 ml/min; Glucose 130 mg/dL (74-106); Troponin-I HS 85 pg/mL (3.0-54.0)
[2020-10-31] VITALS (13 sets, daily range): BP systolic 103–150; BP diastolic 54–99; PULSE 60–87; RESP 14–20; TEMP 36–37.5; O2SAT 91–100; BMI 24.6
--- NOTE | 2020-10-31 00:59 | PCM.HP.STD ---
HPI - General General Date of Admission: 10/31/20 HPI Narrative DONNELL MOSER, is a 75 F with a significant history of congestive heart failure; atrial fibrillation; diabetes mellitus and myositis who presents to emergency department with a persistent nausea and vomiting that started a day before presentation. Associated with her symptom is loose stools. She denies any shortness of breath or chest pain. She denies loss of taste or loss of smell. She reports occasional dry cough. Patient's granddaughter delivered who lives with patient is positive for COVID-19 virus. [facility] Medical History Atrial fibrillation CAD (coronary artery disease) CHF (congestive heart failure) DM2 (diabetes mellitus, type 2) Myositis PAD (peripheral artery disease) PUD (peptic ulcer disease) Home Medications Vitamin C 1,000 mg PO DAILY 12/12/15 [History Last Taken 12/15/17 08:00 1000 mg] multivitamin with folic acid [Thera] 1 tab PO DAILY 12/12/15 [History Last Taken 12/12/15] Glucerna 1.2 Trae 120 ml PO 4X/DAY #120 liquid 12/20/17 [Rx Last Taken Unknown] acidophilus-pectin, citrus 1 tab PO BID #60 tablet 12/20/17 [Rx Last Taken Unknown] Basaglar Kwikpen U-100 22 unit SC QHS 01/21/20 [History Last Taken Unknown] Prednisone 5 mg PO DAILY 01/21/20 [History Last Taken Unknown] ferrous sulfate 325 mg PO QODAY 01/21/20 [History Last Taken Unknown] insulin lispro SC ACHS 01/21/20 [History Last Taken Unknown] metoprolol tartrate 25 mg PO QHS 01/21/20 [History Last Taken Unknown] pantoprazole 40 mg PO DAILY 01/21/20 [History Last Taken Unknown] sucralfate 1 gm PO 4X/DAY 01/21/20 [History Last Taken Unknown] vit D3-vit K2-ca fructoborate 1 ea PO DAILY 01/21/20 [History Last Taken Unknown] apixaban 5 mg PO BID #60 tab 01/22/20 [Rx Last Taken Unknown] furosemide [Lasix] 40 mg PO QWEEK 10/31/20 [History Last Taken Unknown] potassium chloride 20 meq PO DAILY 10/31/20 [History Last Taken Unknown] ramipril 5 mg PO DAILY 10/31/20 [History Last Taken Unknown] Allergy/AdvReac Type Severity Reaction Status Date / Time doxycycline Allergy Other Verified 10/30/20 20:38 ANTIBIOTICS Allergy PT UNABLE Uncoded 01/21/20 12:41 TO RESPOND-NEEDS F/U Family History Other Heart disease Hypertension Surgical History Hx of BKA Social History Smoking Status: Never smoker ROS ROS Narrative Constitutional: Reports anorexia. Denies change in weight Eyes: Denies blurry vision, change in eye color, change in vision, discharge from eye(s), double vision, erythema, eye pain, loss of vision or other HEENT: Denies abnormal hearing, dysphagia, ear pain, epistaxis, headache(s), hearing loss, nasal congestion, nasal discharge, post nasal drip, sinus pressure, sore throat or other Cardiovascular: Denies chest pain. Denies dyspnea on exertion, orthopnea and paroxysmal nocturnal dyspnea Respiratory/Chest: Reports dry cough cough. Denies shortness of breath or wheezes Gastrointestinal: Reports nausea vomiting and loose stools. Denies constipation, hematemesis and hematochezia. Genitourinary: Denies burning urination, difficulty urinating, dysuria, hematuria, nocturia, urinary frequency, urinary hesitancy, urinary incontinence, urinary urgency or other Musculoskeletal: Denies arthralgias, back pain, joint pain, joint stiffness, joint swelling, myalgias, neck pain or other Neurologic: Denies abnormal gait, abnormal speech, confusion, disequilibrium, dizziness, focal weakness, headache(s), numbness, paresthesias, seizure-like activity, seizures, syncope, tingling, tremor(s) or other Psychiatric: Denies anxiety, depression, homicidal ideation, suicidal ideation or other Endocrinology: Denies change in body appearance, cold intolerance, excessive sweating, heat intolerance, polydipsia, polyuria or other Hematologic/Lymphatic: Denies anemia, easy bleeding, easy bruising, lymphadenopathy or other Integumentary: Denies rashes Allergic/Immunologic: Denies rhinitis, hives, eczema, asthma or other Vital Signs Vital Signs Vital Signs: 10/30/20 19:22 10/30/20 19:27 10/30/20 22:13 Temperature 96.6 F L Temperature Source Temporal Pulse Rate 82 74 Respiratory Rate 20 H 21 H Blood Pressure 179/102 H 149/77 H Blood Pressure Mean 127 101 Pulse Ox 93 88 97 Oxygen Delivery Method Room Air Room Air Room Air Weight Weight: 63.7 kg Body Mass Index (BMI) 25.7 Physical Exam Narrative Physical exam: General: Well-nourished, well-developed. Head: Normocephalic, atraumatic, no tenderness Eyes: PERRLA, EOMI ENT, no trauma, dry mucous membranes, no rhinorrhea Neck: Nontender, full range of motion, no spinal tenderness, deformities, step-off CVS: Regular rate and rhythm. S1-S2 present. No murmur, gallop or rub. Respiratory : clear to auscultation bilaterally, chest wall nontender, no wheezing Abdomen: Soft, nontender, nondistended, normal bowel sounds, no masses : Deferred Back: Nontender, no CVA tenderness, no midline spinal tenderness, deformities, step-offs Extremities: Left below the knee amputation. Nontender full range of motion. Skin: Normal color, no trauma, abrasions Neuro: Alert, oriented, cranial nerves II through XII grossly intact. Psychiatry: Normal mood. Normal affect. Not depressed. Not anxious. Results Lab / Micro Data Result Diagrams: 10/30/20 22:29 10/30/20 22:29 Labs: Laboratory Results - last 24 hr 10/30/20 22:29: Sodium 139, Potassium 3.8, Chloride 105, Carbon Dioxide 27.0, Anion Gap 8, BUN 26 H, Creatinine 1.17 H, Estim Creat Clear Calc 33.36, Est GFR (MDRD) Af Amer 58 L, Est GFR (MDRD) Non-Af 48 L, BUN/Creatinine Ratio 22.9 H, Glucose 130 H, Calcium 10.5 H, Total Bilirubin 0.30, AST 27, ALT 23, Alkaline Phosphatase 116, Troponin I High Sens 85 H, Total Protein 7.0, Albumin 2.9 L, Globulin 4.0, Albumin/Globulin Ratio 0.7 L 09/05/21 22:29: Procalcitonin 0.08 Micro: Microbiology 10/30/20 20:39 Nasal Secretion SARS-CoV-2 Antigen (Rapid) - Final Radiology Impression Chest X-Ray 10/30/20 21:31 IMPRESSION: Borderline cardiomegaly with no acute pulmonary airspace disease. at 2303 Reported and signed by: Desmond Holliday MD Electronically Signed: Desmond Holliday MD at 23:02 EDT Tel , Service support , Assessment & Plan Assessment/Plan (1) Elevated troponin: (2) Diabetes mellitus: QUALIFIERS: Diabetes mellitus complication status: without complication Diabetes mellitus terminal gauger insulin use: with terminal gauger use Diabetes mellitus type: type 2 Qualified Code(s): E11.9 - Type 2 diabetes mellitus without complications; Z79.4 - care home (current) use of insulin (3) Gastroenteritis: PLAN: Elevated troponin. Initial high sensitive troponin is elevated. Emergency doctor discussed the case with cardiology who recommended that troponin be trended. Will trend troponin. Acute gastroenteritis Secondary COVID-19. Gentle IV hydration. Review of labs shows a creatinine within baseline and with mildly elevated BUN. Trend BMP. COVID-19 infection Patient is not hypoxic. Reportedly she had only one episode of oxygen saturation to 88. Clinical monitoring History of atrial fibrillation/DVT Eliquis continued Diabetes mellitus Patient with mild hyperglycemia on presentation. Continue home basal insulin with adjustments. Accu-Chek with correction scale insulin ordered. DVT prophylaxis Continue home Eliquis Charges/Coding Visit Charges OBSV E&M: 24052 Initial observation care L3
--- NOTE | 2020-10-31 02:17 | ED.RN ---
pt and family refused, the rheumatologists requested pt not to take asa due to bleeding.
--- NOTE | 2020-10-31 02:56 | PCS.PANDOC ---
PANDEMIC DOCUMENTATION INITIATED: Date: 10/10/2020 Time: 190
[2020-10-31] MEDS: 0.9% Normal Saline 1,000 ML 60 ML IV ×2 (03:11→20:23)
--- NOTE | 2020-10-31 03:25 | NURSING ---
Spoke w/ daughter Indira on the phone. Daughter said she brought her mom to the hospital here for treatment because she was told [facility] gives the monoclonal antibodies for COVID. Indira wants her mom to get the antibodies while she is here. She said, I demand my mom to get the antibodies while she is here. Told daughter that this RN did not think we gave the antibodies while pts are admitted to inpatient. This RN spoke w/ nursing industrial chemicals supervisor who said we only give them outpatient and they can't be on any oxygen. JONAH Mckee.
[2020-10-31 04:10] LABS: Troponin-I HS 95 pg/mL (3.0-54.0)
--- NOTE | 2020-10-31 04:16 | NURSING ---
Called daughter regarding the second troponin per her request. Also informed pt that we do not give the monoclonal antibodies while pts are admitted. Daughter extremely concerned about her mom getting them while she is her because her only method of transportation is [facility] because she is in a wheelchair and a soha lift and she has to call them 2 weeks in advance to get a ride for her mom; therefore, she will not be able to get her a ride after discharge to bring her back for the antibody infusion. This RN assured pt that the correct resources to get this straightened out are not here right now on dayshift and that this RN will pass her concerns onto dayshift so they can be addressed. Daughter verbalizes understanding and is thankful. JONAH Mckee.
[2020-10-31] MEDS: 0.9% Saline Lock 10 ML Syringe IV (06:08)
[2020-10-31] MEDS: Sucralfate 1 GM Tablet PO ×4 (06:08→20:23)
[2020-10-31 06:25] LABS: Absolute Lymphocyte Count 2.92 X10^3/uL (0.83-4.51); Absolute Neutrophil Count 3.6 X10^3/uL (2.0-7.7); Basophil# 0.03 X10^3/uL; Basophil% 0.4 % (0-1); Eosinophil# 0.02 X10^3/uL; Eosinophils% 0.2 % (0-5); Hematocrit 42.2 % (37-47); Hemoglobin 13.5 g/dL (12.0-15.0); Lymphocyte # 2.92 X10^3/ul (0.83-4.51); Lymphocyte % 35.7 % (19-41); Mean Corpuscular Hgb 29.1 pg (27.0-32.0); Mean Corpuscular Volume 90.9 fL (81-99); Mean Platelet Vol. 13.6 fl (6.2-12.0); Monocyte# 1.61 X10^3/uL; Monocyte% 19.7 % (0-10); NRBC Flagged by Analyzer 0 % (0-5); Neutrophil # 3.56 X10^3/uL (2.7-7.7); Neutrophil % 43.6 % (47-70); POSITIVE DIFFERENTIAL YES; Platelet Count 164 K/mm3 (150-450); RBC Distribution Width CV 15.2 % (11.6-14.6); RBC Distribution Width SD 50.4 fl (35.1-43.9); Red Blood Count 4.64 M/mm3 (4.2-5.4); White Blood Count 8.2 K/mm3 (4.4-11.0)
[2020-10-31 06:47] LABS: Differential Indicated SCAN CRITERIA MET
[2020-10-31 06:57] LABS: Troponin-I HS 97 pg/mL (3.0-54.0)
[2020-10-31 07:15] LABS: Differential Comment SCANNED
--- NOTE | 2020-10-31 07:32 | ECHOD_ITS ---
Reason For Study: CAD/ASHD Procedure This was a 2D Doppler, Color Flow transthoracic echocardiogram. The study was technically difficult. Exam performed portable in patient room. The exam was abbreviated due to the COVID 19 protocol. Left Ventricle Normal LV size. Sigmoid septum. Mild segmental systolic dysfunction (see wall motion). The estimated ejection fraction is 45 %. Unable to assess diastolic dysfunction. Infero-Basal: Hypokinetic. Basal inferoseptal: Hypokinetic. Mid-Posterior: Hypokinetic. Mid-Inferior: Hypokinetic. Mid-inferoseptal : Hypokinetic. Mid-anteroseptal : Hypokinetic. Inferior [place] : Hypokinetic. Septal [place] : Hypokinetic. Right Ventricle Normal RV size. Normal systolic function. Atria Normal left atrium. Normal right atrium. No doppler evidence for ASD. Mitral Valve Mild focal mitral valve calcification of the anterior leaflet. The mitral valve chordae are thickened and/or calcified. Trivial mitral valve insufficiency. Tricuspid Valve Normal tricuspid valve. Mild tricuspid valve insufficiency. Right ventricular systolic pressure estimated to be 40 mmHg. Aortic Valve Trivial aortic valve insufficiency. Pulmonic Valve The pulmonic valve is not well visualized. Great Vessels The aortic root is not well visualized. Pericardium/Pleural No pericardial effusion. MMode/2D Measurements & Calculations LVIDd: 4.8 cm IVSd: 0.89 cm LA dimension: 3.5 cm LVIDs: 3.8 cm LVPWd: 0.88 cm FS: 20.8 % LAV(MOD-bp): 58.1 ml LA A4 area: 19.1 cm2 RA A4 area: 13.6 cm2 LAV(MOD-bp) Indexed: 35.9 ml/m2 LAV(MOD-sp2): 57.5 ml LAV(MOD-sp4): 58.3 ml Doppler Measurements & Calculations PA V2 max: 89.1 cm/sec TR max damon: 302.8 cm/sec TR max P.7 mmHg ECHO/Echo Complete Interpretation Summary The study was technically difficult. Mild segmental systolic dysfunction (see wall motion). The estimated ejection fraction is 45 %. Sigmoid septum. Mild focal mitral valve calcification of the anterior leaflet. The mitral valve chordae are thickened and/or calcified. Trivial mitral valve insufficiency. Mild tricuspid valve insufficiency. Trivial aortic valve insufficiency. Right ventricular systolic pressure estimated to be 40 mmHg. Unable to assess diastolic dysfunction. Comment: Based upon the 2D echocardiographic images obtained a mitral valve alex uloplasty ring cannot be excluded and a stable appearing bioprosthetic aortic valve apparatus cannot be excluded. Ordering Physician: Rachel Mandujano Referring Physician: Neal Moulton Performed By: Lety Briseno, RDCS, RVT
--- NOTE | 2020-10-31 07:48 | NURSING ---
called daughter Annette for update and she called her sister Hortencia to listen also. Told them this nurse just got on shift and has not layed eyes on her yet md has not seen her yet this am. She ordered her breakfast and did good in night. Both were yelling at nurse that they demand patient gets monoclonal antibodies. Explained that is an outpatient thing but will ask md. They then stated that they demand this nurse puts a note in and make sure she gets this. Explained that this nurse has no control on what she gets, But this nurse will talk to md and have md call them and give them an update.
[2020-10-31 07:59] LABS: Anion Gap 8 (5-15); BUN 29 mg/dL (7-18); Calcium,Total 9.9 mg/dL (8.5-10.1); Chloride 108 mmol/L (98-107); Creatinine, Serum 1.16 mg/dL (0.55-1.02); EST Glomerular Filtration Rate 48 mL/min (>60); Est Glom Filt Rate - Afr Amer 59 mL/min (>60); Estimated Creatinine Clearance 33.65 ml/min; Glucose 92 mg/dL (74-106); Potassium 3.7 mmol/L (3.5-5.1); Sodium Level 139 mmol/L (136-145)
[2020-10-31] MEDS: Ramipril 5 MG Capsule PO (08:28)
[2020-10-31] MEDS: APIXABAN 5 MG TABLET PO ×2 (08:29→20:24)
[2020-10-31] MEDS: Ferrous Sulfate 325 MG Tablet PO (08:29)
[2020-10-31] MEDS: Multivitamins,Therapeutic Tablet 1 TABLET PO (08:29)
[2020-10-31] MEDS: Glucerna Shake 120 ML LIQUID PO ×3 (08:31→17:14)
[2020-10-31] MEDS: Acetaminophen 325 MG Tablet 650 MG PO (08:31)
[2020-10-31] MEDS: Pantoprazole Sodium 40 MG Tablet PO (08:32)
[2020-10-31 09:15] LABS: Bedside Glucose 88 mg/dL (70-110)
--- NOTE | 2020-10-31 09:43 | PCM.HOSP.N ---
Hospitalist Note This is a 75-year-old white female presented to the emergency department with nausea and vomiting x3 since the day prior to presentation. She was eating well the day prior to presentation but had not eaten much on the day of admission. They do live with the patient's granddaughter who was diagnosed with Covid recently. The patient also reported that she had some loose stools in addition to her nausea and vomiting with poor p.o. intake. On admission she was 88% on room air and oxygenation improved to 92% on room air the following day. Thus far she has had no true fevers and her temperature readings 99.5 she is otherwise hemodynamically stable. Her serum troponin with a high-sensitivity of 85 a repeat of 95 and then another repeat at 97. These are minimal elevations and I suspect more likely would be related to her Covid infection and NSTEMI type II with subendocardial ischemia. Cardiology has been consulted and an echocardiogram has been ordered. We will continue IV fluids at this time. Given the fact that she required oxygen with an 88% saturation on room air dexamethasone and remdesivir were initiated. There was evidently a conversation between [facility] nurse and the family and they were upset that she was not getting monoclonal antibody at this time. The patient is alert and oriented x3 and is able to discuss with her family which she and I discussed today. She would potentially be eligible for outpatient monoclonal antibody if she is not requiring oxygen and can be discharged in stable condition prior to 10 days from the time of diagnosis. I suspect the predominantly her symptoms are all related to Covid at this time. She has not been vaccinated. Patient has many comorbidities that leave her at high risk for worsening coronavirus disease. We will need to watch blood sugars closely with Decadron use. Serial lab has been ordered. I did attempt to call family at [phone] this morning with a salesperson pets [employer] pet supplies being Hortencia Hdz but there was no answer and the phone went directly to [employer]. Diagnoses: COVID-19 Acute hypoxic respiratory failure Troponin elevation Nausea and vomiting Dehydration Hypertension Hyperlipidemia DM-two CAD status post CABG PVD History of DVT GERD Chronic steroid use
[2020-10-31] MEDS: dexAMETHasone 4 MG Tablet 6 MG PO (10:40)
[2020-10-31 11:40] LABS: Bedside Glucose 181 mg/dL (70-110)
--- NOTE | 2020-10-31 11:43 | NURSING ---
Patient states she wants Bertha Bolton [phone] as her main primary contact to give medical information to her.
--- NOTE | 2020-10-31 11:46 | CON.PCM.CA_ITS ---
Assessment & Plan Assessment/Plan (1) Elevated troponin: PLAN: The patient does have a mildly elevated troponin I level. It has been repeated. It has not significantly changed. The etiology is unclear as to whether this represents a noncardiovascular event related to her COVID-19 diagnosis and concerns of gastroenteritis superimposed upon her underlying cardiovascular condition which would be a type II event vers us a primary cardiovascular event. At the moment the patient appears to have symptoms that are noncardiac in etiology. She does not appear with classic symptoms of ongoing angina pectoris/acute coronary syndrome or obvious acute on chronic CHF or obvious symptoms related to underlying recurrent atrial dysrhythmias, etc. She has had an ECG. Her findings are as noted above. She has also undergone further evaluation with a transthoracic echocardiogram as noted above. At the present time she can continue to be monitored. She will continue medical therapy for her underlying cardiovascular condition as best as she is able and tolerated. Over time, as she recuperates from her COVID-19 illness and her gastroenteritis she can be considered for future additional cardiovascular noninvasive letter and/or invasive studies as deemed appropriate. She does follow with a ticket dispatcher from the [facility] system. (2) Coronary artery disease: QUALIFIERS: Coronary Disease-Associated Artery/Lesion type: [place] artery [place] vs. transplanted heart: [place] heart PLAN: She does have a history of CAD. The details of which are unknown at this time. She should continue risk factor evaluation care as best as possible. (3) Status post coronary artery bypass graft: PLAN: She has a history of CABG. Again the details are unknown at this time. An attempt will be made to retrieve her previous cardiovascular medical records for continuity of care. (4) Valvular heart disease: PLAN: She states she has a history of valvular heart disease. She states her second open heart surgery procedure was for valvular heart disease. Again the details are unknown. An attempt will be made to acquire her previous cardiovascular records for continuity of care. In the interim she has undergone evaluation with a transthoracic echocardiogram. Her valvular findings are as noted above. (5) CHF (congestive heart failure): PLAN: There is reports she has a history of CHF. The details are unknown. She underwent evaluation with a transthoracic echocardiogram. She has mild diminished LV systolic function with an estimated LVEF of approximately 45%. Of note, she had a previous transthoracic cardiogram at [facility] on 08-21-2004. At that time her estimated LVEF was approximately 50% with similar left ventricular regional wall motion abnormalities. At the moment she does not appear to have any symptoms of acute CHF/pulmonary edema. She should continue medical management and follow-up as deemed appropriate. (6) Atrial fibrillation: QUALIFIERS: Atrial fibrillation type: unspecified Qualified Code(s): I48.91 - Unspecified atrial fibrillation PLAN: She states she has had atrial fibrillation. She believes she underwent a synchronized biphasic DC cardioversion for such in the past. At the moment she appears to be remaining in sinus rhythm. (7) Hyperlipidemia: QUALIFIERS: Hyperlipidemia type: unspecified Qualified Code(s): E78.5 - Hyperlipidemia, unspecified PLAN: There is a history of hyperlipidemia. It does not appear she is on lipid-lowering medical therapy. Her lipid labs can be reassessed. Unless there is a reason that she cannot tolerate lipid-lowering therapy such as a statin medication then based upon her history of CAD/PAD, etc., this would be a reasonable medication for her to be on. (8) Hypertension: QUALIFIERS: Hypertension type: unspecified secondary hypertension Qualified Code(s): I15.9 - Secondary hypertension, unspecified PLAN: Her blood pressure can be followed and medications can be adjusted as necessary. (9) PVD (peripheral vascular disease): PLAN: She has a history of peripheral arterial occlusive disease. She will continue evaluation care by her other physicians for this. (10) Gastroenteritis: PLAN: She presents with symptoms of gastroenteritis based upon her report of nausea, emesis, diarrhea. Unclear whether this is related to her COVID-19 status. She will continue evaluation care per internal medicine. (11) COVID: PLAN: She is COVID-19 positive. She remains in isolation at this time. She was receiving medical therapy via internal medicine. Again, based upon her COVID-19 positive status she will continue conservative cardiovascular medical therapy. Once she is post her COVID-19 positive status then consideration can be given as to additional noninvasive or invasive studies. Future cardiovascular evaluation regarding such can be managed by her primary ticket dispatcher via the [facility] system. Addt'l Comments The patient's case was discussed and reviewed with the patient and Dr. Mandujano. This note was generated using a voice recognition system and there may be incorrect words, spelling or punctuation that were not noted when reviewing the office note prior to saving. HPI Consult Data Date of Consult: 10/31/20 HPI Narrative HPI Narrative: DONNELL MOSER, is a 75 year old white female who presents for cardiovascular consultation based upon concerns of a mildly elevated troponin I level/without significant change superimposed upon a history of underlying CAD, CABG, valvular heart disease status post valvular surgery, atrial fibrillation, CHF, PAD, and now COVID-19 positive. The patient states that she was experiencing nausea and apparently there was a history of emesis and diarrhea which brought her to the hospital. She underwent evaluation in the emergency department which included troponin I levels which were reported as mildly elevated. They have been repeated without significant change. She had an ECG that demonstrated sinus rhythm with poor R wave progression with a septal RI pattern of indeterminate age and nonspecific ST/T wave abnormality. Her chest x-ray is as noted below. She was also found to be COVID-19 positive. She was placed in the hospital for further evaluation and care. She states that she feels tired. She does not describe any ongoing chest discomfort. She states she has had no acute respiratory related issues that she recalls. There has been no obvious orthopnea or PND or worsening peripheral pitting edema. There has been no near syncope or syncope. She does state that she has undergone 2 separate open heart surgeries in the past. She believes one was at the [facility] [place] and one was at [facility]. She believes one was for CABG and the second 1 was for valvular heart disease. Those reports are unavailable for review at this time. [facility] Medical History (Updated 10/31/20 @ 11:[address] Joby Mcdonald MD) Atrial fibrillation Atrial fibrillation CAD (coronary artery disease) CHF (congestive heart failure) CHF (congestive heart failure) COVID DM2 (diabetes mellitus, type 2) Myositis PAD (peripheral artery disease) PUD (peptic ulcer disease) Valvular heart disease Home Medications Vitamin C 1,000 mg PO DAILY 12/12/15 [History Last Taken 12/15/17 08:00 1000 mg] multivitamin with folic acid [Thera] 1 tab PO DAILY 12/12/15 [History Last Taken 12/12/15] Glucerna 1.2 Trae 120 ml PO 4X/DAY #120 liquid 12/20/17 [Rx Last Taken Unknown] acidophilus-pectin, citrus 1 tab PO BID #60 tablet 10/26/18 [Rx Last Taken Unknown] Basaglar Kwikpen U-100 22 unit SC QHS 01/21/20 [History Last Taken Unknown] Prednisone 5 mg PO DAILY 01/21/20 [History Last Taken Unknown] ferrous sulfate 325 mg PO QODAY 01/21/20 [History Last Taken Unknown] insulin lispro SC ACHS 01/21/20 [History Last Taken Unknown] metoprolol tartrate 25 mg PO QHS 01/21/20 [History Last Taken Unknown] pantoprazole 40 mg PO DAILY 01/21/20 [History Last Taken Unknown] sucralfate 1 gm PO 4X/DAY 01/21/20 [History Last Taken Unknown] vit D3-vit K2-ca fructoborate 1 ea PO DAILY 01/21/20 [History Last Taken Unknown] apixaban 5 mg PO BID #60 tab 01/22/20 [Rx Last Taken Unknown] furosemide [Lasix] 40 mg PO QWEEK 10/31/20 [History Last Taken Unknown] potassium chloride 20 meq PO DAILY 10/31/20 [History Last Taken Unknown] ramipril 5 mg PO DAILY 10/31/20 [History Last Taken Unknown] Allergy/AdvReac Type Severity Reaction Status Date / Time doxycycline Allergy Other Verified 10/30/20 20:38 ANTIBIOTICS Allergy PT UNABLE Uncoded 01/21/20 12:41 TO RESPOND-NEEDS F/U Family History Other Heart disease Hypertension Surgical History Hx of BKA Social History Smoking Status: Never smoker ROS Constitutional Constitutional: Reports as per HPI Eyes Eyes: Reports as per HPI ENT HEENT: Reports as per HPI Cardiovascular Cardiovascular: Reports nausea and vomiting Respiratory/Chest Respiratory/Chest: Reports as per HPI Gastrointestinal Gastrointestinal: Reports diarrhea, nausea and vomiting Genitourinary Genitourinary: Reports as per HPI Musculoskeletal Musculoskeletal: Reports as per HPI Neurologic Neurologic: Reports as per HPI Physical Exam Const alert, oriented x3, no apparent distress and healthy appearing Orientation / Consciousness: awake HEENT normocephalic, head/scalp atraumatic and hearing grossly normal bilaterally Eyes PERRL and EOMs intact bilaterally Neck full ROM, supple and no JVD Chest Chest: midline sternotomy incision Resp normal respiratory effort and clear to auscultation bilaterally Cardio regular rate, regular rhythm, S1 normal heart sound and S2 normal heart sound GI normal to inspection, nondistended, normoactive bowel sounds Extremity no pedal edema Skin no rashes or lesions noted Neuro oriented x3 and moves all extremities Psych mental status grossly normal Objective Data Vital Signs: Vital Signs Temp Pulse Resp BP Pulse Ox 99.5 F H 67 14 117/66 92 10/31/20 08:24 10/31/20 08:24 10/31/20 08:24 10/31/20 08:24 10/31/20 08:24 Oxygen Flow Rate (L/min) 2 Oxygen Delivery Method Nasal Cannula Weight: 134 lb 14.766 oz Body Mass Index (BMI) 24.6 Intake & Output: Intake and Output for Last 24 Hours 10/29/20 10/30/20 10/31/20 23:59 23:59 23:59 Intake Total 514 / 514 Balance 514 / 514 Lab / Micro Data Result Diagrams: 10/31/20 05:07 10/31/20 05:07 Labs: Laboratory Results - last 24 hr 10/30/20 22:29: Sodium 139, Potassium 3.8, Chloride 105, Carbon Dioxide 27.0, Anion Gap 8, BUN 26 H, Creatinine 1.17 H, Estim Creat Clear Calc 33.36, Est GFR (MDRD) Af Amer 58 L, Est GFR (MDRD) Non-Af 48 L, BUN/Creatinine Ratio 22.9 H, Glucose 130 H, Calcium 10.5 H, Total Bilirubin 0.30, AST 27, ALT 23, Alkaline Phosphatase 116, Troponin I High Sens 85 H, Total Protein 7.0, Albumin 2.9 L, Globulin 4.0, Albumin/Globulin Ratio 0.7 L 10/30/20 22:29: Procalcitonin 0.08 10/31/20 03:26: Troponin I High Sens 95 H 10/31/20 05:07: WBC 8.2, RBC 4.64, Hgb 13.5, Hct 42.2, MCV 90.9, MCH 29.1, MCHC 32.0, RDW Std Deviation 50.4 H, RDW Coeff of Lesley 15.2 H, Plt Count 164, MPV 13.6 H, Immature Gran % (Auto) 0.400, Neut % (Auto) 43.6 L, Lymph % (Auto) 35.7, [place] % (Auto) 19.7 H, Eos % (Auto) 0.2, Baso % (Auto) 0.4, Absolute Neuts (auto) 3.6, Absolute Lymphs (auto) 2.92, Nucleated RBC % 0, Differential Comment SCANNED 10/31/20 05:07: Sodium 139, Potassium 3.7, Chloride 108 H, Carbon Dioxide 23.0, Anion Gap 8, BUN 29 H, Creatinine 1.16 H, Estim Creat Clear Calc 33.65, Est GFR (MDRD) Af Amer 59 L, Est GFR (MDRD) Non-Af 48 L, BUN/Creatinine Ratio 25.0 H, Glucose 92, Calcium 9.9 10/31/20 05:07: Troponin I High Sens 97 H 10/31/20 08:20: POC Glucose 88 10/31/20 11:14: POC Glucose 181 H Micro: Microbiology 10/30/20 20:39 Nasal Secretion SARS-CoV-2 Antigen (Rapid) - Final Cardiology Labs/Tests 10/30/20 22:29: Sodium 139, Potassium 3.8, Chloride 105, Carbon Dioxide 27.0, Anion Gap 8, BUN 26 H, Creatinine 1.17 H, Est GFR (MDRD) Af Amer 58 L, Est GFR (MDRD) Non-Af 48 L, BUN/Creatinine Ratio 22.9 H, Glucose 130 H, Calcium 10.5 H, Total Bilirubin 0.30 10/31/20 05:07: WBC 8.2, RBC 4.64, Hgb 13.5, Hct 42.2, MCV 90.9, MCH 29.1, MCHC 32.0, Plt Count 164, MPV 13.6 H, Immature Gran % (Auto) 0.400, Neut % (Auto) 43.6 L, Lymph % (Auto) 35.7, [place] % (Auto) 19.7 H, Eos % (Auto) 0.2, Baso % (Auto) 0.4, Absolute Neuts (auto) 3.6, Nucleated RBC % 0 10/31/20 05:07: Sodium 139, Potassium 3.7, Chloride 108 H, Carbon Dioxide 23.0, Anion Gap 8, BUN 29 H, Creatinine 1.16 H, Est GFR (MDRD) Af Amer 59 L, Est GFR (MDRD) Non-Af 48 L, BUN/Creatinine Ratio 25.0 H, Glucose 92, Calcium 9.9 Rhythm: Sinus rhythm EKG: As noted above ECHO: 08-21-2004 Normal LV size. The estimated ejection fraction is 50 %. There are regional wall motion abnormalities as specified. ECHO: 10-31-2020 Interpretation Summary The study was technically difficult. Mild segmental systolic dysfunction (see wall motion). The estimated ejection fraction is 45 %. Sigmoid septum. Mild focal mitral valve calcification of the anterior leaflet. The mitral valve chordae are thickened and/or calcified. Trivial mitral valve insufficiency. Mild tricuspid valve insufficiency. Trivial aortic valve insufficiency. Right ventricular systolic pressure estimated to be 40 mmHg. Unable to assess diastolic dysfunction. Comment: Based upon the 2D echocardiographic images obtained a mitral valve annuloplasty ring cannot be excluded and a stable appearing bioprosthetic aortic valve apparatus cannot be excluded. Radiography Diagnostic Testing: Radiology Impression Chest X-Ray 10/30/20 21:31 IMPRESSION: Borderline cardiomegaly with no acute pulmonary airspace disease. at 2303 Reported and signed by: Desmond Holliday MD Electronically Signed: Desmond Holliday MD at 23:02 EDT Tel , Service support ,
--- NOTE | 2020-10-31 11:53 | NURSING ---
called Bertha Bolton per patient request gave update. Family is fine with treatment plan and have a better understanding of the monoclonal antibiodies.
[2020-10-31] MEDS: Insulin Lispro 100 UNIT/ML INSULN.PEN SC ×2 (17:15→20:24)
[2020-10-31 17:26] LABS: Bedside Glucose 277 mg/dL (70-110)
[2020-10-31] MEDS: Metoprolol Tartrate 25 MG Tablet PO (20:24)
[2020-10-31 20:36] LABS: Bedside Glucose 381 mg/dL (70-110)
[2020-11-01] VITALS (14 sets, daily range): BP systolic 124–145; BP diastolic 52–70; PULSE 58–68; RESP 14–18; TEMP 36.2–36.7; O2SAT 90–100
--- NOTE | 2020-11-01 03:53 | NURSING ---
Daughter Annette called in just now asking how her mom was doing. This RN told her she's doing okay and that dayshift had made out with the family that we are only to give updates to pt's sister Bertha who would update the rest of the family. Daughter acknowledged this and said she was just checking on her and wanted to make sure she was okay since her aunt Bertha wouldn't be calling in the middle of the night. This RN reassured her that pt is stable. JONAH Mckee.
[2020-11-01] MEDS: Sucralfate 1 GM Tablet PO ×4 (06:22→21:22)
[2020-11-01 07:27] LABS: Hemoglobin 12.9 g/dL (12.0-15.0); Mean Corp Hgb Conc 30.7 g/dL (32-36); Mean Corpuscular Hgb 28.7 pg (27.0-32.0); Mean Corpuscular Volume 93.3 fL (81-99); Platelet Count 176 K/mm3 (150-450); RBC Distribution Width CV 14.6 % (11.6-14.6); RBC Distribution Width SD 50.4 fl (35.1-43.9); White Blood Count 7.1 K/mm3 (4.4-11.0)
[2020-11-01 07:48] LABS: ALB/GLOB Ratio 0.7 RATIO (0.9-2.4); AST(SGOT) 28 U/L (15-37); Alanine Aminotransfer ALT/SGPT 24 U/L (13-56); Albumin, Serum 2.4 g/dL (3.2-5.0); Alkaline Phosphatase 101 U/L (45-117); Anion Gap 4 (5-15); BUN 41 mg/dL (7-18); BUN/Creat Ratio 32.8 RATIO (10-20); Calcium,Total 9.3 mg/dL (8.5-10.1); Chloride 107 mmol/L (98-107); Creatinine, Serum 1.25 mg/dL (0.55-1.02); EST Glomerular Filtration Rate 44 mL/min (>60); Est Glom Filt Rate - Afr Amer 54 mL/min (>60); Estimated Creatinine Clearance 31.23 ml/min; Globulin 3.6 g/dL (2.2-4.2); Glucose 199 mg/dL (74-106); Potassium 4.4 mmol/L (3.5-5.1); Sodium Level 135 mmol/L (136-145)
[2020-11-01] MEDS: Ramipril 5 MG Capsule PO (09:16)
[2020-11-01] MEDS: Pantoprazole Sodium 40 MG Tablet PO (09:16)
[2020-11-01] MEDS: Glucerna Shake 120 ML LIQUID PO ×2 (09:16→11:39)
[2020-11-01] MEDS: APIXABAN 5 MG TABLET PO ×2 (09:17→21:22)
[2020-11-01] MEDS: Multivitamins,Therapeutic Tablet 1 TABLET PO (09:17)
[2020-11-01] MEDS: dexAMETHasone 4 MG Tablet 6 MG PO (09:17)
[2020-11-01] MEDS: Acetaminophen 325 MG Tablet 650 MG PO (09:18)
[2020-11-01 09:31] LABS: Bedside Glucose 143 mg/dL (70-110)
[2020-11-01 10:47] LABS: Mucous, Urine 0 SEEN /hpf (<or=2+); Red Blood Cells-Urine 0 SEEN /hpf (0-5); Squamous Epithelial Cells - UA 0 SEEN /hpf (5-10)
[2020-11-01 10:49] LABS: Color, Urine Yellow (Yellow); Glucose, Dipstick 100 mg/dl (Normal); Ketone-Dipstick 5 mg/dl (Negative); Leukocyte Esterase-Dipstick Negative /ul (Negative); Nitrite-Dipstick Negative (Negative); Occult Blood-Urine Negative /ul (Negative); Protein-Dipstick 500 mg/dl (Negative); Specific Gravity, Urine 1.015 (1.002-1.030); Urine Bilirubin Dipstick Negative (Negative); Urine Clarity Cloudy (Clear); Urine Urobilinogen Normal (Normal)
[2020-11-01 11:06] LABS: Triple Phosphate Crystals Ur 3+ /hpf (<or=1+)
[2020-11-01 11:07] LABS: Bacteria 3+ /hpf (None Seen); White Blood Cells 0-5 SEEN /hpf (0-5)
[2020-11-01] MEDS: Insulin Lispro 100 UNIT/ML INSULN.PEN SC ×3 (11:39→23:17)
[2020-11-01 12:05] LABS: Bedside Glucose 190 mg/dL (70-110)
--- NOTE | 2020-11-01 12:20 | CASEMGMT ---
JONAH ALBARRAN Face to Face with patient for initial transition planning/care coordination assessment. RN DEION introduced self and role at [facility]. Patient sitting in chair, alert and oriented. Patient willing to participate in assessment and is able to answer all questions appropriately. Care providers, pharmacy, and demographics verified. Patient wishes to discharge home, and is active with [facility]. Patient states she has no further needs or concerns at this time. CM to follow for discharge planning needs that may arise. PCP: Gabrielle Specialists: Alyson restaurant hospitality manager Preferred Pharmacy: [facility] Insurance: [facility] [place] Prescription Benefit: yes Living Will/HPOA: yes daughter Annette Alaniz LNOK: daughter Living Arrangements: Patient lives with daughter and granddaughter in a mobile home with ramp to enter. Patient states daughter assist with ADLs. Transportation: [facility] [place] or daughter DME/HHC: Patient states she has shower chair, raised toilet, grab bars, walker, and wheelchair at home. Patient states she is active with [facility] for SN, PT, and OT Patient was provided a list of DME providers consistent with the patient?s preferred geographic region, medical needs, and insurance network. The patient?s preferred provider is [facility]. Will monitor for need for home oxygen Disposition Plan: Patient to discharge home with resumption of HHC, family support, and follow-up plans in place. Korina GRIER, RN, CM
--- NOTE | 2020-11-01 14:08 | PN.HOSP_ITS ---
Subjective Subjective Patient has no significant subjective complaints. At rest she is quiring 1 to 2 L nasal cannula to keep sats greater than 92%. She denies any shortness of breath. Appetite has improved. She states overall she is feeling fairly well. With regards to discharge she has significant help at home but all of her help currently has Covid and is unable to give her any help at this time. Case management is assessing placement options given the limitations to current discharge home. Objective Data Objective Data Vital Signs: Vital Signs Temp Pulse Resp BP Pulse Ox 97.8 F 58 L 15 129/60 H 90 11/01/20 09:08 11/01/20 09:08 11/01/20 09:08 11/01/20 09:08 11/01/20 12:01 Oxygen Flow Rate (L/min) 2 Oxygen Delivery Method Room Air Weight: 61.2 kg Body Mass Index (BMI) 24.6 Intake & Output: Intake and Output for Last 24 Hours 10/30/20 10/31/20 11/01/20 23:59 23:59 23:59 Intake Total 2047 / 2047 1667 / 1667 Output Total 450 / 450 500 / 500 Balance 1597 / 1597 1167 / 1167 Lab / Micro Data Result Diagrams: 11/01/20 06:35 11/01/20 06:35 Labs: Laboratory Results - last 24 hr 10/31/20 17:12: POC Glucose 277 H 10/31/20 20:18: POC Glucose 381 H 11/01/20 06:35: WBC 7.1, RBC 4.50, Hgb 12.9, Hct 42.0, MCV 93.3, MCH 28.7, MCHC 30.7 L, RDW Std Deviation 50.4 H, RDW Coeff of Lesley 14.6, Plt Count 176 11/01/20 06:35: Sodium 135 L, Potassium 4.4, Chloride 107, Carbon Dioxide 24.0, Anion Gap 4 L, BUN 41 H, Creatinine 1.25 H, Estim Creat Clear Calc 31.23, Est GFR (MDRD) Af Amer 54 L, Est GFR (MDRD) Non-Af 44 L, BUN/Creatinine Ratio 32.8 H , Glucose 199 H, Calcium 9.3, Total Bilirubin 0.30, AST 28, ALT 24, Alkaline Phosphatase 101, Total Protein 6.0 L, Albumin 2.4 L, Globulin 3.6, Albumin/ Globulin Ratio 0.7 L 11/01/20 09:07: POC Glucose 143 H 11/01/20 10:24: Urine Color Yellow, Urine Clarity Cloudy, Urine pH 8.0, Ur Specific [place] 1.015, Urine Protein 500 H, Urine Glucose (UA) 100 H, Urine Ketones 5 H, Urine Occult Blood Negative, Urine Nitrite Negative, Urine Bilirubin Negative, Urine Urobilinogen Normal, Ur Leukocyte Esterase Negative, Urine RBC 0 SEEN, Urine WBC 0-5 SEEN, Ur Squamous Epith Cells 0 SEEN, Triple Phos Crystals 3+, Urine Bacteria 3+, Urine Mucus 0 SEEN 11/01/20 11:36: POC Glucose 190 H Micro: Microbiology 10/30/20 20:39 Nasal Secretion SARS-CoV-2 Antigen (Rapid) - Final SARS-CoV-2 (COVID 19) Physical Exam Const alert, oriented x3, no apparent distress and average body habitus Constitutional Narrative: Older white female sitting on the edge of the bed with therapy services at the bedside, patient appears comfortable and nontoxic, very pleasant Exam Limitations: no limitations HEENT head/scalp atraumatic and moist oral mucous membranes HEENT Narrative: No thrush Head and Scalp: normocephalic Eyes PERRL, EOMs intact bilaterally and conjunctivae normal Resp normal respiratory effort, no retractions, no use of accessory muscles and clear to auscultation bilaterally Auscultation: Negative for crackles, rales, rhonchi or wheezes Cardio regular rate, regular rhythm, S1 normal heart sound, S2 normal heart sound, no murmurs, no rub, no gallops, no clicks and no JVD GI normal to inspection, nondistended, normoactive bowel sounds, soft to palpation, non-tender and non-distended Extremity no clubbing, cyanosis or edema Extremity Narrative: Left lower extremity BKA Peripheral Pulses: Yes pulses 2+ throughout Neuro oriented x3, CN's II-XII intact bilaterally, moves all extremities and no focal motor deficits Sensorium / Orientation: awake and alert Speech: speech normal Psych affect normal Psych Narrative: Very pleasant Assessment & Plan Assessment/Plan (1) COVID: (2) Elevated troponin: (3) Nausea and vomiting: (4) Diarrhea: PLAN: Assessment: COVID-19 Acute hypoxic respiratory failure Troponin elevation Nausea and vomiting-resolved Diarrhea-resolved ENID Dehydration Hypertension Hyperlipidemia DM-two CAD status post CABG PVD History of DVT GERD Chronic steroid use Plan: Doubt any acute coronary event at this time and troponin elevation is likely related to strain from Covid with nausea vomiting and diarrhea -Echo shows an EF of 45%--> unable to find previous echo and clinic thank and patient has not had one here but she believes her previous EF was in the 40s upon discussion of this with her -Await further cardiology input Patient is currently on 0 to 2 L nasal cannula to maintain sats greater than 92% -Continue supplemental oxygen as needed -Continue Decadron day 2 of 10 -Continue remdesivir day 2 of 5 -Titrate oxygen accordingly Continue gentle hydration with IV fluids as serum creatinine is slightly elevated from baseline Increase Lantus to 25 units at at bedtime and continue SSI -Blood sugar elevation most likely related to Decadron Patient is otherwise stable and may be able to be discharged in the next 24 hours although there is currently a barrier to discharge home as she is given care by her family members whom she lives with but unfortunately they all have Covid and are ill and unable to care for her at this time. Case management is in search of a facility that may be able to take her temporarily until she is able to go back home Charges/Coding Visit Charges Inpatient E&M: 10797 Subs Hosp L2
[2020-11-01] MEDS: 0.9% Normal Saline 1,000 ML 75 ML IV (14:28)
--- NOTE | 2020-11-01 15:20 | CHAPLAIN ---
Type of Pastoral Visit _x__ Initial Visit ___ Follow-up Visit ___ On-call Visit ___ General Patient Visit ___ Spiritual Assessment ___ Family Conference ___ Bereavement ___ Rapid Response ___ Code Blue ___ Other (describe below) Pastoral Care Referral From _x__ Patient ___ Family ___ Nurse ___ Physician ___ Inspecting Engineer ___ Typist ___ Other (describe below) Sacrament/Intervention _x__ Active listening ___ Anointing ___ Zoroastrian ___ Bereavement ___ Communion ___ Malia exploration ___ ___ Life review _x__ Prayer ___ Reconciliation ___ Sacrament of Sick ___ Supportive presence ___ Wedding ___ Other (describe below) Pastoral Comments phone call into patient room and pt answers the phone; pt sounds upbeat and states I hardly feel sick anymore; pt says many people are praying for her and that God has been good to me; pt states that a prayer would be welcome; offer of support as needed
[2020-11-01 17:35] LABS: Bedside Glucose 409 mg/dL (70-110)
[2020-11-01] MEDS: Metoprolol Tartrate 25 MG Tablet PO (21:21)
[2020-11-01 21:31] LABS: Bedside Glucose 494 mg/dL (70-110)
[2020-11-01 22:49] LABS: Glucose 568 mg/dL (74-106)
[2020-11-02] VITALS (9 sets, daily range): BP systolic 141–149; BP diastolic 61–75; PULSE 53–87; RESP 12–20; TEMP 36.4–36.7; O2SAT 93–99
[2020-11-02] MEDS: 0.9% Normal Saline 1,000 ML 75 ML IV (03:14)
[2020-11-02] MEDS: Sucralfate 1 GM Tablet PO ×3 (06:20→16:12)
[2020-11-02 06:59] LABS: Hematocrit 39.7 % (37-47); Hemoglobin 12.7 g/dL (12.0-15.0); Mean Corpuscular Hgb 29.3 pg (27.0-32.0); Mean Corpuscular Volume 91.5 fL (81-99); Mean Platelet Vol. 13.2 fl (6.2-12.0); POSITIVE MORPHOLOGY YES; Platelet Count 177 K/mm3 (150-450); RBC Distribution Width CV 14.2 % (11.6-14.6); RBC Distribution Width SD 47.7 fl (35.1-43.9); Red Blood Count 4.34 M/mm3 (4.2-5.4); White Blood Count 7.2 K/mm3 (4.4-11.0)
[2020-11-02 07:15] LABS: Scan Indicated on CBC? Y/N YES- FLAGS NOTED
[2020-11-02 07:28] LABS: ALB/GLOB Ratio 0.7 RATIO (0.9-2.4); AST(SGOT) 31 U/L (15-37); Alanine Aminotransfer ALT/SGPT 25 U/L (13-56); Albumin, Serum 2.3 g/dL (3.2-5.0); Alkaline Phosphatase 110 U/L (45-117); Anion Gap 6 (5-15); BUN 44 mg/dL (7-18); BUN/Creat Ratio 38.9 RATIO (10-20); Calcium,Total 8.9 mg/dL (8.5-10.1); Chloride 109 mmol/L (98-107); Creatinine, Serum 1.13 mg/dL (0.55-1.02); EST Glomerular Filtration Rate 50 mL/min (>60); Est Glom Filt Rate - Afr Amer 60 mL/min (>60); Estimated Creatinine Clearance 34.55 ml/min; Globulin 3.4 g/dL (2.2-4.2); Glucose 189 mg/dL (74-106); Potassium 4.4 mmol/L (3.5-5.1); Protein, Total 5.7 g/dL (6.4-8.2); Sodium Level 135 mmol/L (136-145)
[2020-11-02] MEDS: dexAMETHasone 4 MG Tablet 6 MG PO (09:48)
[2020-11-02] MEDS: Ramipril 5 MG Capsule PO (09:48)
[2020-11-02] MEDS: APIXABAN 5 MG TABLET PO (09:48)
[2020-11-02] MEDS: Pantoprazole Sodium 40 MG Tablet PO (09:49)
[2020-11-02] MEDS: Ferrous Sulfate 325 MG Tablet PO (09:49)
[2020-11-02] MEDS: Multivitamins,Therapeutic Tablet 1 TABLET PO (09:49)
[2020-11-02] MEDS: Insulin Lispro 100 UNIT/ML INSULN.PEN 10 UNIT SC ×3 (09:49→16:11)
[2020-11-02 10:01] LABS: Bedside Glucose 143 mg/dL (70-110)
--- NOTE | 2020-11-02 10:31 | CASEMGMT ---
Pt does not normally ambulate so pt to be tested for home oxygen need with exertion during transfers. Maura MCKENZIE updated, voices understanding. Pt is currently on room air. CM to follow. Jonathan MCKENZIE CM
--- NOTE | 2020-11-02 11:14 | CASEMGMT ---
Addendum entered by Maida Yin 11/02/20 13:23: SW called [facility] and spoke with Gearld Anam on the coverage line and let him know about discharge as well. D/C instructions were faxed to [facility]. Maida ELLISON Original Note: SW spoke with patient to verify her discharge plan. She said she is going home and her granddaughter will be caring for her. She said her daughter will be picking her up. MINDY told her we will make sure her home health is resumed and MINDY will notify David at [facility] that she is being discharged. MINDY also called David at [facility] and left her a message letting her know patient is going to be discharged today. MINDY will fax d/c instructions once completed. Maida ELLISON
--- NOTE | 2020-11-02 11:40 | CASEMGMT ---
[facility] palliative screening tool completed and pt does not meet criteria for palliative referral at this time. SStkay MCKENZIE CM
[2020-11-02] MEDS: Insulin Lispro 100 UNIT/ML INSULN.PEN SC ×2 (12:00→16:12)
--- NOTE | 2020-11-02 12:06 | DS.PCM_ITS ---
Providers Date of Admission: 10/31/20 Primary Care Physician: Dr. Neal Moulton MD Consultations 10/31/20 08:14 Consult: Cardiology Routine Consulting Provider: Joby Mcdonald Reason for Consult: troponin EMERGENT Consult: No MD Notified: Yes Date Notified: 10/31/20 Time Notified: 08:32 Method of Notification: Text Reason For Visit: ELEVATED TROPONIN, COVID INFECTION Diagnosis Discharge Diagnosis (1) COVID: Status: Acute Code(s): U07.1 - COVID-19 (2) Elevated troponin: Status: Acute Code(s): R77.8 - Other specified abnormalities of plasma proteins (3) Nausea and vomiting: Status: Acute Code(s): R11.2 - Nausea with vomiting, unspecified (4) Diarrhea: Status: Acute Code(s): R19.7 - Diarrhea, unspecified Medications at Discharge Home Medications Vitamin C 1,000 mg PO DAILY 12/12/15 multivitamin with folic acid [Thera] 1 tab PO DAILY 12/12/15 Glucerna 1.2 Trae 120 ml PO 4X/DAY #120 liquid 12/20/17 acidophilus-pectin, citrus 1 tab PO BID #60 tablet 12/20/17 Basaglar Kwikpen U-100 22 unit SC QHS 01/21/20 Prednisone 5 mg PO DAILY 01/21/20 ferrous sulfate 325 mg PO QODAY 01/21/20 insulin lispro SC ACHS 01/21/20 metoprolol tartrate 25 mg PO QHS 01/21/20 pantoprazole 40 mg PO DAILY 01/21/20 sucralfate 1 gm PO 4X/DAY 01/21/20 vit D3-vit K2-ca fructoborate 1 ea PO DAILY 01/21/20 apixaban 5 mg PO BID #60 tab 01/22/20 furosemide [Lasix] 40 mg PO QWEEK 10/31/20 potassium chloride 20 meq PO DAILY 10/31/20 ramipril 5 mg PO DAILY 10/31/20 dexamethasone 6 mg PO DAILY #7 tab 11/02/20 Hospital Course Operations None Procedures 2-D Echocardiogram Summary of Care Provided Minutes Spent on Discharge: 42 Hospital Course: Katherin Hdz is a 75-year-old white female who presented to the emergency department at [facility] on 10/31/2020 with persistent nausea and vomiting as well as diarrhea that started the day prior to admission. Upon admission she denied fever or chills, shortness of breath or chest pain, loss of taste or sense of smell, however, she reported an occasional dry cough. She was living with the granddaughter who was found to be Covid positive recently. The patient was nonvaccinated for COVID-19. On admission she was found to be Covid positive but not hypoxic. Her lowest oxygen saturation was 88 and she was placed on 1 L nasal cannula but able to be and was able to maintain oxygen saturations greater than 92% consistently with with sats typically 96 to 99% on room air. She is also checked with mobility and found to have oxygen saturations at 99% with exertion as well. During her hospitalization she was placed on remdesivir and Decadron given her transient hypoxia on admission. Her nausea and vomiting ceased and her diarrhea improved. Her oral intake improved drastically during her hospitalization. She was evaluated by therapy services and deemed not requiring any more services other than her current home health care prior to discharge. She did have mild troponin leak with her peak high- sensitivity troponin no greater than 95. An echocardiogram was done and showed stable disease with no changes in her EF or wall motion. Cardiology did evaluate the patient and since the patient was asymptomatic and had no other signs or symptoms of worsening coronary disease he felt that she should follow- up with her primary nuclear physicist, Dr. Shields, but felt likely that this was not related to any cardiac event was more likely related to her underlying COVID-19 infection and dehydration. As she was not requiring oxygen with exertion or at rest at discharge and she was still within a 10-day window, she was referred for outpatient monoclonal antibody and this was being set up at discharge. She is to complete her Decadron and was warned that her blood sugars would be elevated during this time.. Once her Decadron is completed she is to restart her home prednisone. She is to follow-up with her PCP after she has completed quarantine which ends on 11/18/2020. Discharge diagnoses: COVID-19 Troponin elevation Nausea and vomiting-resolved Diarrhea-resolved ENID-resolved Dehydration-resolved Hypertension Hyperlipidemia DM-2 CAD status post CABG PVD History of DVT GERD Chronic steroid use Physical Exam Const alert, oriented x3, no apparent distress and average body habitus Constitutional Narrative: Older white female sleeping on my arrival but awakens easily. Happy that she is able to go home today General Appearance: cooperative, comfortable, well kempt and well developed Exam Limitations: no limitations HEENT normocephalic, head/scalp atraumatic and moist oral mucous membranes HEENT Narrative: No thrush noted, mildly [facility] Eyes PERRL, EOMs intact bilaterally and conjunctivae normal Neck no lymphadenopathy, supple and no JVD Neck Narrative: Trachea midline, no thyroid enlargement Resp normal respiratory effort, no retractions, no use of accessory muscles and clear to auscultation bilaterally Auscultation: Negative for crackles, rales, rhonchi or wheezes Cardio regular rate, regular rhythm, S1 normal heart sound, S2 normal heart sound, no murmurs, no rub, no gallops, no clicks and no JVD GI normal to inspection, nondistended, normoactive bowel sounds, soft to palpation, non-tender and non-distended Extremity no clubbing, cyanosis or edema Extremity Narrative: Left lower extremity BKA Skin no rashes or lesions noted, no wounds, skin turgor normal and no jaundice Neuro oriented x3, CN's II-XII intact bilaterally, moves all extremities and no focal motor deficits Sensorium / Orientation: awake and alert Speech: speech normal Psych affect normal Psych Narrative: Very pleasant Weight / BMI Weight Weight: 61.2 kg Body Mass Index (BMI) 24.6 ABG / Lab / Microbiology Data Result Diagrams: 11/02/20 06:38 11/02/20 06:38 Laboratory: Laboratory Results - last 24 hr 11/01/20 17:18: POC Glucose 409 H 11/01/20 21:18: POC Glucose 494 H* 11/01/20 21:58: Glucose 568 H* 11/02/20 06:38: WBC 7.2, RBC 4.34, Hgb 12.7, Hct 39.7, MCV 91.5, MCH 29.3, MCHC 32.0, RDW Std Deviation 47.7 H, RDW Coeff of Lesley 14.2, Plt Count 177, MPV 13.2 H 11/02/20 06:38: Sodium 135 L, Potassium 4.4, Chloride 109 H, Carbon Dioxide 20.0 L, Anion Gap 6, BUN 44 H, Creatinine 1.13 H, Estim Creat Clear Calc 34.55, Est GFR (MDRD) Af Amer 60, Est GFR (MDRD) Non-Af 50 L, BUN/Creatinine Ratio 38.9 H, Glucose 189 H, Calcium 8.9, Total Bilirubin 0.20, AST 31, ALT 25, Alkaline Phosphatase 110, Total Protein 5.7 L, Albumin 2.3 L, Globulin 3.4, Albumin/Globulin Ratio 0.7 L 11/02/20 09:38: POC Glucose 143 H Microbiology: Microbiology 10/30/20 20:39 Nasal Secretion SARS-CoV-2 Antigen (Rapid) - Final SARS-CoV-2 (COVID 19) D/C Instructions Discharge Diet: Low fat / Low cholesterol and 1800 Calorie Control Diet Discharge Activity: Return to Normal Activity (Please quarantine until 11/19/2020) Meaningful Use Info Meaningful Use Diagnoses (Choose all that apply): None applicable Discharge Plan Admission Admit Date/Time: 10/31/20 18:57 Primary Reason for Your Visit: COVID-19 Attending Provider: Rachel Mandujano Primary Care Provider: Neal Moulton Consulting Providers: Joby Mcdonald Instructions Additional Instructions / Restrictions: 1. You will continue Decadron for another 7 days; please note your blood sugars will be elevated during this time compared to baseline 2. Once you have completed your Decadron please restart your home prednisone 3. Please quarantine at home until 11/18/2020 secondary to COVID-19 infection 4. Referral is in process for monoclonal antibody at discharge since you are able to receive this as you are not needing oxygen Discharge Orders/Prescriptions Prescriptions: New dexamethasone 4 mg Tablet 6 mg PO DAILY Qty: 7 RF: 0 Continued multivitamin with folic acid [Thera] 1 TABLET tablet 1 tab PO DAILY RF: 0 Vitamin C 1,000 mg PO DAILY RF: 0 acidophilus-pectin, citrus 1 TABLET tablet 1 tab PO BID Qty: 60 RF: 0 Glucerna 1.2 Trae 120 ML liquid 120 ml PO 4X/DAY Qty: 120 RF: 0 pantoprazole 40 MG tablet 40 mg PO DAILY RF: 0 metoprolol tartrate 25 MG tablet 25 mg PO QHS RF: 0 vit D3-vit K2-ca fructoborate 1 EACH tablet 1 ea PO DAILY RF: 0 sucralfate 1 GM tablet 1 gm PO 4X/DAY RF: 0 Basaglar Kwikpen U-100 22 unit SC QHS RF: 0 ferrous sulfate 325 MG tablet 325 mg PO QODAY RF: 0 insulin lispro 100 UNIT/ML insulin pen SC ACHS RF: 0 apixaban 5 MG tablet 5 mg PO BID Qty: 60 RF: 0 ramipril 5 mg Capsule 5 mg PO DAILY RF: 0 furosemide [Lasix] 40 mg Tablet 40 mg PO QWEEK RF: 0 potassium chloride 10 mEq Tablet Extended Release 20 meq PO DAILY RF: 0 Held Prednisone 10 MG tablet 5 mg PO DAILY RF: 0 Hold Instructions: Resume on 11/08/20. Referrals / Follow Up: Neal Moulton MD [Primary Care Provider] - Within 1 Month Disposition Disposition (needs filled in before D/C Order can be placed): Home Health Service Charges/Coding Visit Charges Inpatient E&M: 89735 Disch Hosp
[2020-11-02 12:11] LABS: Bedside Glucose 188 mg/dL (70-110)
--- NOTE | 2020-11-02 12:21 | CASEMGMT ---
Addendum entered by Korina Quintero 11/02/20 15:20: Pt to be discharged and have monoclonal antibodies prior to transport home. Annette, pt's daughter, updated and voices understanding. Sly, PCU charge, Maura MCKENZIE, and Mehrdad PCU legal secretary, updated and per nurse providing monoclonal antibodies, transport can be set up for 1999 and Mehrdad, legal secretary, aware to set up transport for that time and also to notify family, voices understanding. Maura MCKENZIE aware that daughter wants to make sure pt orders dinner and it gets delivered to pt here or on [facility], voices understanding. Pt updated on all, voices understanding and thanks this JONAH ALBARRAN. Jonathan MCKENZIE CM Addendum entered by Korina Quintero 11/02/20 14:39: Call from pul office and they state they are attempting to get pt set up for antibody infusion today s/p discharge. CM to follow. Call to [facility] to notify of pt d/c today, voice understanding. Jonathan MCKENZIE CM Addendum entered by Korina Quintero 11/02/20 13:22: Pt is agreeable to monoclonal antibodies and is updated on all at this time. Dr. Mandujano contacted Rona Correa BRICKLAYER SUPERVISOR with pulmonary regarding monoclonal antibodies and Rona states that pt's info needs to be submitted via the [facility] monoclonal antibody hotline and pt will be contacted regarding same. This RN CM spoke with Alicia warehouse clerk, and she states the same. Pt info left on [facility] Hotline and also informed them the families concerns with getting transport for pt d/t COVID + and her normal w/c bound status s/p bka. Pt does not have her own w/c here and is unable to stand/pivot. Hotline also left this RN CM's contact info. CM to follow. Jonathan MCKENZIE CM Original Note: Per pt, plan is to go home with granddaughter to care for her until her daughter, who is paid to be her aide, is recovered from COVID and able to care for her again. Pt also has [facility] and JOHN order in, clinicals to be faxed once obtained/HH to be notified. Pt states will need cot transport home d/t not having own w/c her and unable to stand/pivot. This RN DEION then received call from Bertha, pt's sis-in-law, in regards to pt and per pt, it ok for this RN CM to speak with Bertha at this time. Bertha onto phone and is very upset that pt being discharged today and no one has called to talk to her even though pt is A/Ox4 at this time. Per Bertha, it should be all over her chart that Bretha needs contacted about everything to do with pt as pt doesn't know what's going on. Per all nursing notes, pt is A/O and Bertha updated at this time. Pt is A/Ox4 at this time. Bertha states that she was told CM would be calling to set up discharge plan and this RN CM advised that is pt is A/O then pt is able to set up d/c plan. Bertha states that pt's daughter, Hortencia, is her caregiver and she is unable to care for her d/t her COVID. Bertha states that they need to find new caregiver before pt can come home. This RN CM informed Bertha that pt stated her granddaughter would be caring for pt until daughter was recovered and Bertha states no one has talked to daughter, Hortencia, or granddaughter, Rocio, regarding same and then adds pt's daughter, Annette, to 3 way call so this RN CM can speak with her as well. Per Annette, they are good for pt to come home by cot today and granddaughter will care for pt until daughter recovered and able to take care back over. This RN CM informed Annette that JOHN order to be sent to [facility] and this RN CM to notify of pt discharge today and Annette thanks this RN CM at this time. Annette states no concerns with pt discharging today by cot. Annette does ask if pt can be given the monoclonal antibodies prior to coming home and Dr. Mandujano updated at this time. This RN CM to update Annette when able. Per Bertha now, this RN CM needs to speak with Annette regarding any further discharge planning. Maura MCKENZIE and Mehrdad, U legal secretary, updated on all, voice understanding. CM to follow. Jonathan MCKENZIE CM
[2020-11-02 16:25] LABS: Bedside Glucose 164 mg/dL (70-110)
--- NOTE | 2020-11-03 09:57 | CASEMGMT ---
Call from [facility] and [facility] order re-faxed per request. Jonathan MCKENZIE CM
--- NOTE | 2020-11-03 16:39 | CASEMGMT ---
JONAH CM Discharge Follow-up Phone Call: CRISTINO:Tyrone Strata:3 Call Date: 11/03/20 Discharge Date:11/02/20 Time of Call: 1635 Admitting Diagnosis: COVID-19 This RN CM attempted to contact pt and/or pt's daughter Annette (same cell phone listed for both and daughter Annette). Nonidentifying voicemail recieved and nondescript message left requesting a return call. Aubree Lisa RN CM
== END 2020-11-02 18:31 | disposition home health service (06) | DRG 178 ==
LOC: ED 21:34 → PCU 10-31 04:51
PROVIDERS: Nurse Practitioner Family; Admitting Provider Hospitalist; Emergency Provider Student in an Organized Health Care Education/Training Program; PCP Family Medicine; Visit Provider Internal Medicine
DX: U07.1 COVID-19 (principal); D68.69 Other thrombophilia; R79.89 Other specified abnormal findings of blood chemistry; E86.0 Dehydration; A08.4 Viral intestinal infection, unspecified; E78.5 Hyperlipidemia, unspecified; I25.10 Atherosclerotic heart disease of native coronary artery without angina pectoris; Z95.1 Presence of aortocoronary bypass graft; E11.51 Type 2 diabetes mellitus with diabetic peripheral angiopathy without gangrene; Z86.718 Personal history of other venous thrombosis and embolism; K21.9 Gastro-esophageal reflux disease without esophagitis; Z79.52 Long term (current) use of systemic steroids; Z79.4 Long term (current) use of insulin; Z79.899 Other long term (current) drug therapy; I11.0 Hypertensive heart disease with heart failure; I50.9 Heart failure, unspecified; I48.91 Unspecified atrial fibrillation; Z79.02 Long term (current) use of antithrombotics/antiplatelets; Z89.512 Acquired absence of left leg below knee
CPT/HCPCS: 36415; 71045; 80048; 80053; 81001; 82947; 82962; 84145; 84484; 85025; 85027; 87426; 93005; 93306; 97162; 97166; 99285; J7030; J7050; A4216; J2405

== ENCOUNTER 2020-11-02 18:16 | Outpatient (CLI) | payer MEDICARE, SELFPAY ==
[2020-11-02 18:52] VITALS: BP 139/62; PULSE 57; RESP 16; TEMP 36.4; O2SAT 93; BMI 24.7
[2020-11-02] MEDS: 0.9% Saline Lock 10 ML Syringe IV (19:08)
[2020-11-02 19:40] VITALS: BP 142/75; PULSE 56; RESP 16; TEMP 36.6; O2SAT 93
[2020-11-02 21:00] VITALS: BP 144/80; PULSE 56; RESP 16; TEMP 36.5; O2SAT 100
== END 2020-11-02 21:00 | disposition home or self-care (01) ==
LOC: ICUOUT 18:17 → MS2 18:17
PROVIDERS: PCP Family Medicine; Referring Provider Nurse Practitioner Acute Care; Visit Provider Nurse Practitioner Acute Care
DX: Z23 Encounter for immunization (principal); U07.1 COVID-19
CPT/HCPCS: J7050; M0243; A4216; Q0244

== ENCOUNTER → 2020-11-17 11:52 | Outpatient (CLI) | payer MEDICARE, MEDICAID, SELFPAY ==
[2020-11-17 12:28] LABS: CPK Total, Creatine Kinase 42 U/L (26-192)
== END ==
PROVIDERS: PCP Family Medicine; Referring Provider Family Medicine; Visit Provider Family Medicine
DX: A08.4 Viral intestinal infection, unspecified (principal); B25.9 Cytomegaloviral disease, unspecified; R53.81 Other malaise
CPT/HCPCS: 82550

== ENCOUNTER 2023-02-04 21:47 | Inpatient (IN) | payer MEDICARE, MEDICAID, SELFPAY ==
[2023-02-04 21:49] VITALS: BP 153/78; PULSE 79; RESP 16; TEMP 36.8; O2SAT 88; BMI 22.9
[2023-02-04] MEDS: Dextrose 50%-Water 25 GM/50 ML DISP.SYRIN IV (22:10)
--- NOTE | 2023-02-04 22:16 | EKG12_ITS ---
Test Reason : DYSRHYTHMIA Blood Pressure : / mmHG Vent. Rate : 078 BPM Atrial Rate : 078 BPM P-R Int : 212 ms QRS Dur : 092 ms QT Int : 424 ms P-R-T Axes : 046 -43 108 degrees QTc Int : 483 ms Sinus rhythm with 1st degree A-V block Left axis deviation Cannot rule out Anteroseptal infarct (cited on or before 30-OCT-2020) T wave abnormality, consider lateral ischemia Abnormal ECG Confirmed by MAHENDRA BLOCK, BIBI ([id number]), research editor KBOY PEACOCK ([id number]) on 02/11/2023 6:58:06 AM Referred By: Cyndi Churchill Confirmed By:RUMA MCCRAY MD
--- NOTE | 2023-02-04 22:17 | EX.ED.DYSGE1 ---
HPI History of Present Illness Chief Complaint: Hypoglycemia Detail of Chief Complaint: Nausea Informant: patient Narrative Narrative: Patient presents to the emergency department complaining nausea and dry heaves. Symptoms started this afternoon. Patient currently being treated for an infection to her left stump and on clindamycin for the last 5 days. Patient denies any diarrhea. She started running a low-grade fever today up to 99. Nursing staff checked blood sugar and was down to 53 on arrival to ER. Patient did not take her evening insulin last checked her blood sugar this morning it was 99. She last ate around 4:30 PM and ate half a hamburger. She otherwise denies recent illness. She denies chest pain. She denies abdominal pain. She denies urinary symptoms. Denies cough or sore throat. [facility] Medical History (Updated 02/05/23 @ 01:07 by Alexandra Ortiz) Atrial fibrillation Atrial fibrillation CAD (coronary artery disease) Charcot foot due to diabetes mellitus CHF (congestive heart failure) CHF (congestive heart failure) Coronary artery disease COVID Diabetes mellitus DM2 (diabetes mellitus, type 2) Hyperlipidemia Hypertension Myositis Neuropathy PAD (peripheral artery disease) PUD (peptic ulcer disease) PVD (peripheral vascular disease) Splenic cancer Valvular heart disease Home Medications Vitamin C 1,000 mg PO DAILY supplement 12/12/15 [History Last Taken 12/15/17 08:00 1000 mg] multivitamin with folic acid 400 mcg tablet (Thera) 1 tab PO DAILY supplement 12/12/15 [History Last Taken 12/12/15] acidophilus 25 million cell-pectin, citrus 100 mg tablet 1 tab PO BID #60 TABLETS 12/20/17 [Rx Last Taken Unknown] nutrition tx glu intol,lac-free,soy-fiber 0.06 gram-1.2 kcal/mL liquid (Glucerna 1.2 Trae) 120 ml PO 4X/DAY ##120 12/20/17 [Rx Last Taken Unknown] Basaglar Kwikpen U-100 14 unit subcut QHS Check with primary doctor 01/21/20 [History Last Taken Unknown] ferrous sulfate 325 mg (65 mg iron) tablet 325 mg PO QODAY 01/21/20 [History Last Taken Unknown] insulin lispro 100 unit/mL subcutaneous pen 1 sliding scale dose subcut ACHS Check with primary doctor 01/21/20 [History Last Taken Unknown] metoprolol tartrate 25 mg tablet 25 mg PO QHS 01/21/20 [History Last Taken Unknown] pantoprazole 40 mg tablet,delayed release 40 mg PO DAILY Check with primary doctor 01/21/20 [History Last Taken Unknown] sucralfate 1 gram tablet 1 g PO 4X/DAY 01/21/20 [History Last Taken Unknown] vitamin D3 20 mcg-vit K2 180 mcg-calcium fructoborate 216 mg tablet 1 ea PO DAILY 01/21/20 [History Last Taken Unknown] apixaban 2.5 mg tablet (Eliquis) 2.5 mg PO Q12H 02/04/23 [History Last Taken Unknown] cholecalciferol (vitamin D3) 50 mcg (2,000 unit) capsule 50 mcg PO DAILY 02/04/23 [History Last Taken Unknown] clindamycin HCl 300 mg capsule 300 mg PO Q8H 02/04/23 [History Last Taken Unknown] dapagliflozin propanediol 10 mg tablet (Farxiga) 10 mg PO QHS 02/04/23 [History Last Taken Unknown] hydralazine 50 mg tablet 50 mg PO Q12H 02/04/23 [History Last Taken Unknown] isosorbide dinitrate 20 mg tablet 10 mg PO BID 02/04/23 [History Last Taken Unknown] multivitamin-iron 9 mg-folic acid 400 mcg-calcium and minerals tablet (Therems-M) 1 tab PO DAILY 02/04/23 [History Last Taken Unknown] torsemide 100 mg tablet 100 mg PO MOWEFR 02/04/23 [History Last Taken Unknown] Allergy/AdvReac Type Severity Reaction Status Date / Time doxycycline Allergy Other Verified 11/02/20 13:49 Family History (Reviewed 11/02/20 @ 13:54 by Rona Sotelo DIETETIC TECHNICIAN REGISTERED, DIETETIC TECHNICIAN REGISTERED-C) Other Heart disease Hypertension Surgical History H/O splenectomy History of heart valve repair Hx of BKA Status post coronary artery bypass graft Social History (Reviewed 11/02/20 @ 13:54 by Rona Sotelo DIETETIC TECHNICIAN REGISTERED, DIETETIC TECHNICIAN REGISTERED-C) Smoking Status: Never smoker ROS ROS ED Review of Systems ROS Unobtainable: other Constitutional Constitutional ED: Reports lethargy; Denies chills, fever(s), sweats or weight loss Eyes Eyes: Denies blurry vision, change in vision or diplopia ENT ENT ED: Denies rhinorrhea or sore throat Cardiovascular Cardiovascular: Denies chest pain, orthopnea or racing heartbeat Respiratory/Chest Respiratory/Chest: Denies cough, dyspnea, dyspnea on exertion, orthopnea or sputum Gastrointestinal Gastrointestinal: Reports nausea and vomiting; Denies abdominal pain or diarrhea Genitourinary Genitourinary ED: Denies dysuria, hematuria or urinary frequency Musculoskeletal Musculoskeletal: Denies arthralgias, back pain, myalgias or neck pain Integumentary Denies abscess, Abrasions or rash Neurologic Neurologic: Denies headache(s) or weakness Psychiatric Psychiatric: Denies anxiety, depression or suicidal thoughts Endocrine Endocrinology: Denies polydipsia, polyphagia or polyuria Hematologic/Lymphatic Hematologic/Lymphatic: Denies easy bleeding, easy bruising or lymphadenopathy Allergic/Immunologic Allergic/Immunologic ED: Denies mouth swelling, tongue swelling or urticaria EXAM Physical Exam Const Vital Signs: 02/04/23 21:49 02/04/23 22:08 02/04/23 23:00 Temperature 98.3 F 98.4 F Temperature Source Temporal Oral Pulse Rate 79 77 Respiratory Rate 16 19 H Respiratory Effort Normal Non-Labored Respiratory Pattern Normal Blood Pressure 153/78 H 133/73 H Blood Pressure Mean 103 93 Pulse Ox 88 91 Oxygen Delivery Method Nasal Cannula Nasal Cannula Oxygen Flow Rate (L/min) 3 2 02/04/23 23:47 02/04/23 23:59 02/05/23 00:00 Temperature 99.0 F 99.0 F Temperature Source Temporal Pulse Rate 77 75 75 Respiratory Rate 25 H 25 H 25 H Respiratory Effort Respiratory Pattern Blood Pressure 137/77 H 122/70 H 122/70 H Blood Pressure Mean 97 87 87 Pulse Ox 91 92 92 Oxygen Delivery Method Nasal Cannula Nasal Cannula Oxygen Flow Rate (L/min) 3 Positive well nourished and well developed General Appearance ED: well developed and NAD HEENT Reports TM's clear and moist mucous membranes normocephalic and atraumatic; Negative for trauma or tenderness Tympanic Membrane ED: Yes TM's clear Eyes PERRL and EOMs intact bilaterally General Eye ED: Negative for pale conjunctiva or scleral icterus Neck no lymphadenopathy, supple and no JVD General: Negative for tenderness Chest Wall inspection of chest normal and palpation of chest normal Chest: Negative for tenderness Resp normal respiratory effort and clear to auscultation bilaterally Effort and Inspection: Negative for respiratory distress or pain with movement Auscultation: Negative for rhonchi, wheezes or diminished lung sounds Cardio regular rate, regular rhythm, S1 normal heart sound, S2 normal heart sound and no murmurs Peripheral Pulses: pulses 2+ throughout GI normal to inspection, nondistended, normoactive bowel sounds, soft to palpation, non-tender, non-distended and no masses Back/Spine no CVA tenderness and no thoracic nor lumbar tenderness Extremity Extremity Narrative: Left BKA noted with small ulceration on left stump that is packed and looks good without any significant drainage or cellulitic changes. General Extremety ED: Negative for edema General Extremity: Negative for edema Neuro oriented x3, CN's II-XII intact bilaterally, no sensory deficits noted and gait normal Sensorium / Orientation: awake, alert, oriented to person, oriented to place and oriented to time Motor Exam: strength 5/5 throughout and strength abnormal Psych mental status grossly normal Skin no rashes or lesions noted and no wounds MDM MDM MDM Narrative Medical decision making narrative: Kimotz with nausea and low-grade fever today. Recently on antibiotics for infection in her stump. Patient also noted to have low blood glucose level. IV line established on arrival. She was given an amp of D50. Patient had an EKG on arrival that showed a sinus rhythm with a rate of 78 bpm with old septal infarct and nonspecific ST changes. When compared with prior EKG no significant changes noted. CBC with differential count 9.5 with hemoglobin 14.8 and platelet count of 186. Chemistries unremarkable. BUN elevated 55 and creatinine 2.15. Glucose was 58 and troponin was normal at 30. COVID and flu testing obtained was positive for COVID-19. Chest x-ray mitral rotation shows cardiomegaly and central pulmonary congestion. On arrival she received Zofran 4 mg IV. She attempted to eat but then immediately became nauseated again had to receive a second dose of Zofran. I was able to review her lab work on MyChart and noted that on January 29 patient's creatinine was 1.5 and today it is 2.15. Case will be discussed with hospitalist evaluate patient for admission for intractable nausea and vomiting and COVID-19 and acute kidney injury, and hypoglycemia. Lab Data Attestation: I reviewed the patient's lab results. Labs: Laboratory Results - last 24 hr 12/01/1702/04/23 02/04/23 21:59 22:00 22:28 WBC 9.5 RBC 4.89 Hgb 14.8 Hct 45.3 MCV 92.6 MCH 30.3 MCHC 32.7 RDW Std Deviation 52.6 H RDW Coeff of Lesley 15.6 H Plt Count 186 MPV 12.8 H Immature Gran % (Auto) 0.300 Neut % (Auto) 65.4 Lymph % (Auto) 18.2 L [place] % (Auto) 13.5 H Eos % (Auto) 1.8 Baso % (Auto) 0.8 Absolute Neuts (auto) 6.2 Absolute Lymphs (auto) 1.73 Nucleated RBC % 0 Sodium 136 Potassium 4.4 Chloride 106 Carbon Dioxide 22.0 Anion Gap 8 BUN 55 H Creatinine 2.15 H Estim Creat Clear Calc 17.61 Est GFR (MDRD) Af Amer 29 L Est GFR (MDRD) Non-Af 24 L BUN/Creatinine Ratio 25.6 H Glucose 58 L Calcium 10.0 Troponin I High Sens 30 Urine Color Urine Clarity Urine pH Ur Specific [place] Urine Protein Urine Glucose (UA) Urine Ketones Urine Occult Blood Urine Nitrite Urine Bilirubin Urine Urobilinogen Ur Leukocyte Esterase Urine RBC Urine WBC Ur Squamous Epith Cells Urine Bacteria Urine Mucus POC Glucose 53 L 198 H 02/04/23 02/04/23 22:30 23:27 WBC RBC Hgb Hct MCV MCH MCHC RDW Std Deviation RDW Coeff of Lesley Plt Count MPV Immature Gran % (Auto) Neut % (Auto) Lymph % (Auto) [place] % (Auto) Eos % (Auto) Baso % (Auto) Absolute Neuts (auto) Absolute Lymphs (auto) Nucleated RBC % Sodium Potassium Chloride Carbon Dioxide Anion Gap BUN Creatinine Estim Creat Clear Calc Est GFR (MDRD) Af Amer Est GFR (MDRD) Non-Af BUN/Creatinine Ratio Glucose Calcium Troponin I High Sens Urine Color Straw Urine Clarity Clear Urine pH 6.0 Ur Specific [place] 1.010 Urine Protein 15 H Urine Glucose (UA) 100 H Urine Ketones Negative Urine Occult Blood Negative Urine Nitrite Positive H Urine Bilirubin Negative Urine Urobilinogen Normal Ur Leukocyte Esterase Negative Urine RBC 0 SEEN Urine WBC 0 SEEN Ur Squamous Epith Cells 0 SEEN Urine Bacteria 2+ Urine Mucus 0 SEEN POC Glucose 158 H Radiography Diagnostic Testing: Clinical Impression(s) from Imaging Studies Chest X-Ray 02/04/23 23:35 IMPRESSION: Right hilar and perihilar infiltrates which may represent pneumonia. Recommend follow-up with chest x-ray versus CT to ensure resolution and exclude lymphadenopathy or neoplasm. Electronically Signed: Filiberto Estrada, at 0:15 EST , 1 view chest x-ray obtained interpreted by myself as cardiomegaly with central pulmonary congestion/mild CHF. EKG Initial EKG: Attestation: I personally reviewed and interpreted this EKG as follows: Comments: Sinus rhythm with a rate of [address] changes and old septal infarct Prior EKG tracings: available for review Prior: Unchanged Discharge Plan Dx/Rx/DC Orders Clinical Impression: ENID (acute kidney injury), COVID-19, Hypoglycemia, Intractable nausea and vomiting Disposition Disposition: Acute Care Hospital [facility] Discharge Date/Time: 02/05/23 01:49
[2023-02-04 22:29] LABS: Bedside Glucose 53 mg/dL (74-106)
[2023-02-04] MEDS: Ondansetron 4 MG/2 ML Vial IV ×2 (22:35→23:45)
[2023-02-04] MEDS: 0.9% Normal Saline (1000mL) 1,000 ML 150 ML IV (22:36)
[2023-02-04 22:45] LABS: Bedside Glucose 198 mg/dL (74-106)
[2023-02-04 23:00] VITALS: BP 133/73; PULSE 77; RESP 19; TEMP 36.9; O2SAT 91
[2023-02-04 23:00] LABS: Mucous, Urine 0 SEEN /hpf (<or=2+); Red Blood Cells-Urine 0 SEEN /hpf (0-5); Squamous Epithelial Cells - UA 0 SEEN /hpf (5-10); White Blood Cells 0 SEEN /hpf (0-5)
[2023-02-04 23:06] LABS: Color, Urine Straw (Yellow); Glucose, Dipstick 100 mg/dl (Normal); Ketone-Dipstick Negative (Negative); Leukocyte Esterase-Dipstick Negative /ul (Negative); Nitrite-Dipstick Positive (Negative); Occult Blood-Urine Negative /ul (Negative); Protein-Dipstick 15 mg/dl (Negative); Urine Bilirubin Dipstick Negative (Negative); Urine Clarity Clear (Clear); Urine Urobilinogen Normal (Normal)
[2023-02-04 23:10] LABS: Absolute Lymphocyte Count 1.73 X10^3/uL (0.83-4.51); Absolute Neutrophil Count 6.2 X10^3/uL (2.0-7.7); Basophil# 0.08 X10^3/uL; Basophil% 0.8 % (0-1); Eosinophil# 0.17 X10^3/uL; Eosinophils% 1.8 % (0-5); Hematocrit 45.3 % (37-47); Hemoglobin 14.8 g/dL (12.0-15.0); Lymphocyte # 1.73 X10^3/ul (0.83-4.51); Lymphocyte % 18.2 % (19-41); Mean Corp Hgb Conc 32.7 g/dL (32-36); Mean Corpuscular Hgb 30.3 pg (27.0-32.0); Mean Corpuscular Volume 92.6 fL (81-99); Mean Platelet Vol. 12.8 fl (6.2-12.0); Monocyte# 1.28 X10^3/uL; Monocyte% 13.5 % (0-10); NRBC Flagged by Analyzer 0 % (0-5); Neutrophil % 65.4 % (47-70); Platelet Count 186 K/mm3 (150-450); RBC Distribution Width CV 15.6 % (11.6-14.6); RBC Distribution Width SD 52.6 fl (35.1-43.9); Red Blood Count 4.89 M/mm3 (4.2-5.4); White Blood Count 9.5 K/mm3 (4.4-11.0)
[2023-02-04 23:19] LABS: Bacteria 2+ /hpf (None Seen)
[2023-02-04 23:23] LABS: Anion Gap 8 (5-15); BUN 55 mg/dL (7-18); BUN/Creat Ratio 25.6 RATIO (10-20); Chloride 106 mmol/L (98-107); Creatinine, Serum 2.15 mg/dL (0.55-1.02); EST Glomerular Filtration Rate 24 mL/min (>60); Est Glom Filt Rate - Afr Amer 29 mL/min (>60); Estimated Creatinine Clearance 17.61 ml/min; Glucose 58 mg/dL (74-106); Potassium 4.4 mmol/L (3.5-5.1); Sodium Level 136 mmol/L (136-145); Troponin-I HS 30 pg/mL (3.0-54.0)
--- NOTE | 2023-02-04 23:35 | RAD_ITS ---
INDICATION: dyspnea EXAMINATION/TECHNIQUE: X-RAY - XR Chest 1 View COMPARISON: 10/30/2020. FINDINGS: LINES/DEVICES: None. LUNGS: Right hilar and perihilar infiltrates. Left basilar atelectasis versus scarring. No evidence of a pleural effusion or a pneumothorax. MEDIASTINUM AND CARDIOVASCULAR STRUCTURES: Cardiac silhouette is normal in size and contour. Stable postsurgical changes. BONES AND SOFT TISSUES: No acute abnormality. RAD/Chest 1 View (Portable) IMPRESSION: Right hilar and perihilar infiltrates which may represent pneumonia. Recommend follow-up with chest x-ray versus CT to ensure resolution and exclude lymphadenopathy or neoplasm. Electronically Signed: Filiberto Estrada DO at 0:15 EST ,
[2023-02-04 23:44] LABS: Bedside Glucose 158 mg/dL (74-106)
[2023-02-04 23:47] VITALS: BP 137/77; PULSE 77; RESP 25; O2SAT 91
[2023-02-04 23:59] VITALS: BP 122/70; PULSE 75; RESP 25; TEMP 37.2; O2SAT 92
[2023-02-05] VITALS (11 sets, daily range): BP systolic 114–146; BP diastolic 69–87; PULSE 72–84; RESP 16–26; TEMP 36.4–37.6; O2SAT 92–95; BMI 24.3
--- NOTE | 2023-02-05 00:17 | HP.PCM_ITS ---
HPI - General General Date of Admission: 02/05/23 Date of Service: 02/05/23 Chief Complaint: Nausea and vomiting HPI Narrative DONNELL MOSER, is a 77 F who presents to the emergency room with chief complaint of nausea and vomiting. Onset of symptoms began earlier this evening while at home. Patient has significant past medical history of left AKA, diabetes with a wound in her stump that is being treated as an outpatient with clindamycin. Incidentally patient tested positive for COVID in the emergency room today and was found to have hypoglycemia with initial sugar of 53. Sugar has improved with treatment in the emergency room however patient remains nauseated and tired. Patient denies any respiratory symptoms no shortness of breath or hypoxemia at this time or fevers or chills. She will be admitted for observation and IV hydration due to increased creatinine and nausea and vomiting. Will use isolation precautions for COVID, however patient is negative for respiratory symptoms at this time. [facility] Medical History Atrial fibrillation Atrial fibrillation CAD (coronary artery disease) CHF (congestive heart failure) CHF (congestive heart failure) COVID DM2 (diabetes mellitus, type 2) Myositis PAD (peripheral artery disease) PUD (peptic ulcer disease) Valvular heart disease Home Medications Vitamin C 1,000 mg PO DAILY supplement 12/12/15 [History Last Taken 12/15/17 08:00 1000 mg] multivitamin with folic acid 400 mcg tablet (Thera) 1 tab PO DAILY supplement 12/12/15 [History Last Taken 12/12/15] acidophilus 25 million cell-pectin, citrus 100 mg tablet 1 tab PO BID #60 TABLETS 12/20/17 [Rx Last Taken Unknown] nutrition tx glu intol,lac-free,soy-fiber 0.06 gram-1.2 kcal/mL liquid (Glucerna 1.2 Trae) 120 ml PO 4X/DAY ##120 12/20/17 [Rx Last Taken Unknown] Basaglar Kwikpen U-100 14 unit subcut QHS Check with primary doctor 01/21/20 [History Last Taken Unknown] ferrous sulfate 325 mg (65 mg iron) tablet 325 mg PO QODAY 01/21/20 [History Last Taken Unknown] insulin lispro 100 unit/mL subcutaneous pen 1 sliding scale dose subcut ACHS Check with primary doctor 01/21/20 [History Last Taken Unknown] metoprolol tartrate 25 mg tablet 25 mg PO QHS 01/21/20 [History Last Taken Unknown] pantoprazole 40 mg tablet,delayed release 40 mg PO DAILY Check with primary doctor 01/21/20 [History Last Taken Unknown] sucralfate 1 gram tablet 1 g PO 4X/DAY 01/21/20 [History Last Taken Unknown] vitamin D3 20 mcg-vit K2 180 mcg-calcium fructoborate 216 mg tablet 1 ea PO DAILY 01/21/20 [History Last Taken Unknown] apixaban 2.5 mg tablet (Eliquis) 2.5 mg PO Q12H 02/04/23 [History Last Taken Unknown] cholecalciferol (vitamin D3) 50 mcg (2,000 unit) capsule 50 mcg PO DAILY 02/04/23 [History Last Taken Unknown] clindamycin HCl 300 mg capsule 300 mg PO Q8H 02/04/23 [History Last Taken Unknown] dapagliflozin propanediol 10 mg tablet (Farxiga) 10 mg PO QHS 02/04/23 [History Last Taken Unknown] hydralazine 50 mg tablet 50 mg PO Q12H 02/04/23 [History Last Taken Unknown] isosorbide dinitrate 20 mg tablet 10 mg PO BID 02/04/23 [History Last Taken Unknown] multivitamin-iron 9 mg-folic acid 400 mcg-calcium and minerals tablet (Therems- M) 1 tab PO DAILY 02/04/23 [History Last Taken Unknown] torsemide 100 mg tablet 100 mg PO MOWEFR 02/04/23 [History Last Taken Unknown] Allergy/AdvReac Type Severity Reaction Status Date / Time doxycycline Allergy Other Verified 11/02/20 13:49 Family History Other Heart disease Hypertension Surgical History Hx of BKA Social History Smoking Status: Never smoker ROS Constitutional Constitutional: Denies chills or fever(s) Eyes Eyes: Denies blurry vision ENT HEENT: Denies abnormal hearing Cardiovascular Cardiovascular: Denies chest pain Respiratory/Chest Respiratory/Chest: Denies cough or shortness of breath at rest Gastrointestinal Gastrointestinal: Reports nausea and vomiting; Denies diarrhea Genitourinary Genitourinary: Reports dysuria Musculoskeletal Musculoskeletal: Denies back pain Integumentary Integumentary: Reports wounds Psychiatric Psychiatric: Denies anxiety Vital Signs Vital Signs Vital Signs: 02/04/23 21:49 02/04/23 22:08 02/04/23 23:00 Temperature 98.3 F 98.4 F Temperature Source Temporal Oral Pulse Rate 79 77 Respiratory Rate 16 19 H Respiratory Effort Normal Non-Labored Respiratory Pattern Normal Blood Pressure 153/78 H 133/73 H Blood Pressure Mean 103 93 Pulse Ox 88 91 Oxygen Delivery Method Nasal Cannula Nasal Cannula Oxygen Flow Rate (L/min) 3 2 02/04/23 23:47 02/04/23 23:59 02/05/23 00:00 Temperature 99.0 F 99.0 F Temperature Source Temporal Pulse Rate 77 75 75 Respiratory Rate 25 H 25 H 25 H Respiratory Effort Respiratory Pattern Blood Pressure 137/77 H 122/70 H 122/70 H Blood Pressure Mean 97 87 87 Pulse Ox 91 92 92 Oxygen Delivery Method Nasal Cannula Nasal Cannula Oxygen Flow Rate (L/min) 3 Weight Weight: 125 lb 7.088 oz Body Mass Index (BMI) 22.9 Physical Exam Const alert General Appearance: cooperative HEENT normocephalic and head/scalp atraumatic Neck no lymphadenopathy Lymph Lymphatic: no lymphadenopathy noted Resp normal respiratory effort and normal air movement Effort and Inspection: Negative for respiratory distress Cardio regular rate, regular rhythm, S1 normal heart sound and S2 normal heart sound GI normal to inspection, nondistended, normoactive bowel sounds Extremity normal capillary refill Skin Wounds: wounds noted Wound Narrative: left aka stump wound packed no drainage Neuro no focal motor deficits and no sensory deficits noted Psych cooperative and affect normal Results Lab / Micro Data 02/04/23 22:00 02/04/23 22:00 Labs: Laboratory Results - last 24 hr 02/04/23 21:59: POC Glucose 53 L 02/04/23 22:00: WBC 9.5, RBC 4.89, Hgb 14.8, Hct 45.3, MCV 92.6, MCH 30.3, MCHC 32.7, RDW Std Deviation 52.6 H, RDW Coeff of Lesley 15.6 H, Plt Count 186, MPV 12.8 H, Immature Gran % (Auto) 0.300, Neut % (Auto) 65.4, Lymph % (Auto) 18.2 L, [place] % (Auto) 13.5 H, Eos % (Auto) 1.8, Baso % (Auto) 0.8, Absolute Neuts (auto) 6.2, Absolute Lymphs (auto) 1.73, Nucleated RBC % 0, Sodium 136, Potassium 4.4, Chl oride 106, Carbon Dioxide 22.0, Anion Gap 8, BUN 55 H, Creatinine 2.15 H, Estim Creat Clear Calc 17.61, Est GFR (MDRD) Af Amer 29 L, Est GFR (MDRD) Non-Af 24 L, BUN/Creatinine Ratio 25.6 H, Glucose 58 L, Calcium 10.0, Troponin I High Sens 30 02/04/23 22:28: POC Glucose 198 H 02/04/23 22:30: Urine Color Straw, Urine Clarity Clear, Urine pH 6.0, Ur Specific [place] 1.010, Urine Protein 15 H, Urine Glucose (UA) 100 H, Urine Ketones Negative, Urine Occult Blood Negative, Urine Nitrite Positive H, Urine Bilirubin Negative, Urine Urobilinogen Normal, Ur Leukocyte Esterase Negative, Urine RBC 0 SEEN, Urine WBC 0 SEEN, Ur Squamous Epith Cells 0 SEEN, Urine Bacteria 2+, Urine Mucus 0 SEEN 02/04/23 23:27: POC Glucose 158 H Micro: Microbiology 02/04/23 22:30 Nasal Secretion SARS-CoV-2 & FLU Antigen (Rapid) - Final SARS-CoV-2 (COVID 19) Imagaing Radiology Impression Chest X-Ray 02/04/23 23:35 IMPRESSION: Right hilar and perihilar infiltrates which may represent pneumonia. Recommend follow-up with chest x-ray versus CT to ensure resolution and exclude lymphadenopathy or neoplasm. Electronically Signed: Filiberto Estrada DO at 0:15 EST , Assessment & Plan Assessment/Plan (1) Intractable nausea and vomiting: (2) Hypoglycemia: (3) COVID-19: (4) ENID (acute kidney injury): (5) Type 2 diabetes mellitus: QUALIFIERS: Diabetes mellitus solar sales advisor insulin use: with solar sales advisor use PLAN: Plan 1 intractable nausea and vomiting?admit patient to general medical floor for IV hydration 2. Hypoglycemia continue to monitor blood glucose levels repeat BMP in the morning 3. Type 2 diabetes due to hypoglycemia we will hold diabetic medications this evening 4. COVID-19?Place patient in COVID isolation, x-ray does reveal perihilar infiltrates however patient is not hypoxic and does not require further treatment for COVID at this time 4. DVT prophylaxis?SCDs due to increased creatinine will not use low molecular weight heparin at this time Charges/Coding Visit Charges OBSV E&M: 47121 Observ/hosp same date L2
[2023-02-05 01:03] LABS: Bedside Glucose 157 mg/dL (74-106)
[2023-02-05] MEDS: Metoprolol Tartrate 25 MG Tablet PO ×2 (01:58→21:45)
[2023-02-05] MEDS: Isosorbide DN 10 MG Tablet PO ×3 (01:58→21:44)
[2023-02-05] MEDS: APIXABAN 2.5 MG TABLET (WCH) PO ×3 (01:58→21:43)
[2023-02-05] MEDS: Clindamycin HCl 150 MG Capsule 300 MG PO ×3 (01:59→16:53)
[2023-02-05] MEDS: hydrALAZINE 50 MG Tablet PO ×3 (01:59→21:42)
[2023-02-05] MEDS: Sucralfate 1 GM Tablet PO ×3 (05:41→16:53)
[2023-02-05] MEDS: 0.9% Normal Saline (1000mL) 1,000 ML 150 ML IV ×2 (05:41→12:22)
[2023-02-05 05:57] LABS: Absolute Neutrophil Count 5.6 X10^3/uL (2.0-7.7); Basophil# 0.08 X10^3/uL; Basophil% 0.9 % (0-1); Eosinophil# 0.01 X10^3/uL; Eosinophils% 0.1 % (0-5); Hematocrit 42.3 % (37-47); Hemoglobin 13.7 g/dL (12.0-15.0); Mean Corp Hgb Conc 32.4 g/dL (32-36); Mean Corpuscular Hgb 30.2 pg (27.0-32.0); Mean Corpuscular Volume 93.2 fL (81-99); Mean Platelet Vol. 12.3 fl (6.2-12.0); Monocyte# 1.07 X10^3/uL; Monocyte% 12.6 % (0-10); NRBC Flagged by Analyzer 0 % (0-5); Neutrophil # 5.64 X10^3/uL (2.7-7.7); Neutrophil % 66.2 % (47-70); POSITIVE MORPHOLOGY YES; Platelet Count 176 K/mm3 (150-450); RBC Distribution Width CV 15.7 % (11.6-14.6); RBC Distribution Width SD 52.5 fl (35.1-43.9); Red Blood Count 4.54 M/mm3 (4.2-5.4); White Blood Count 8.5 K/mm3 (4.4-11.0)
[2023-02-05 06:00] LABS: Differential Indicated SCAN CRITERIA MET
[2023-02-05 06:12] LABS: Anion Gap 8 (5-15); BUN 51 mg/dL (7-18); BUN/Creat Ratio 24.4 RATIO (10-20); Calcium,Total 9.3 mg/dL (8.5-10.1); Chloride 105 mmol/L (98-107); Creatinine, Serum 2.09 mg/dL (0.55-1.02); EST Glomerular Filtration Rate 24 mL/min (>60); Est Glom Filt Rate - Afr Amer 30 mL/min (>60); Estimated Creatinine Clearance 16.45 ml/min; Glucose 145 mg/dL (74-106); Potassium 4.5 mmol/L (3.5-5.1); Sodium Level 136 mmol/L (136-145)
[2023-02-05] MEDS: Nystatin Powder 15gm Bottle 1 APPLIC TOPICAL ×3 (07:00→21:45)
[2023-02-05 07:08] LABS: Reactive Lymphocyte RARE
[2023-02-05] MEDS: Ferrous Sulfate 325 MG Tablet PO (09:00)
[2023-02-05] MEDS: Multivitamins,Ther W-Minerals Tablet 1 TABLET PO (09:00)
[2023-02-05] MEDS: 0.9% Saline Lock 10 ML Syringe IV ×2 (09:08→17:45)
[2023-02-05] MEDS: Remdesivir 200 MG in 0.9% Normal Saline (250mL Bag) 210 ML 250 MG IV (09:08)
[2023-02-05 09:09] LABS: Alkaline Phosphatase 98 U/L (45-117)
[2023-02-05] MEDS: Cholecalciferol (VIT D3) 25 MCG TABLET (1,000 UNITS) 50 MCG PO (09:11)
[2023-02-05] MEDS: Menthol/Lanolin/Calamine/Znox 113 GM Tube 1 APPLIC TOPICAL ×2 (09:14→21:38)
[2023-02-05] MEDS: dexAMETHasone 4 MG Tablet 6 MG PO (09:35)
[2023-02-05] MEDS: Ondansetron 4 MG/2 ML Vial IV ×2 (09:36→17:45)
--- NOTE | 2023-02-05 12:14 | PN.HOSP_ITS ---
Hospitalist Note This is a 77-year-old female who presents emergency department at [facility] on 02/05/2023 early in the morning complaining of nausea and vomiting. She reported that the symptoms began earlier that evening she also has a history of a left AKA with the stump infection that is currently being treated with clindamycin. A COVID test was performed the emergency department and was found to be positive. She did have nausea and vomiting with previous COVID infection back in 2020. She was also noted to be hypoglycemic and is diab etic at baseline on insulin. She wears 2 L nasal cannula at baseline and has done so since she was treated for COVID back in 2020. This morning she remains on 2 L however oxygen levels are around 88% on this 2 L so I did increase her to 3 L. We started her on Decadron and remdesivir given the fact that she is requiring a bit more oxygen than she does at baseline. I went ahead and restarted her subcu insulin as her blood sugars have recovered. Will continue IV fluids until her creatinine improves as she does appear to be quite dehydrated. With regards to her stump infection she will remain on clindamycin and I will plan to extend her antibiotics after discussion with the family for another 3 to 7 days after discharge. She did grow sensitive staph per discussion with family out of that wound. Wound care nurse is to evaluate the patient later today and perform dressing change. Patient is to eating she feels better today. Will advance diet to cardiac/carb control and reinitiate her home insulin. Will continue IV fluids due to ENID. May be ready to discharge home in next 24 hours depending on clinical progress. Discussed with patient and family.
[2023-02-05] MEDS: Glucerna Shake 120 ML LIQUID PO (14:03)
[2023-02-05] MEDS: Pantoprazole Sodium 40 MG Tablet PO (18:21)
[2023-02-05] MEDS: 0.9% Normal Saline (1000mL) 1,000 ML 100 ML IV (21:38)
[2023-02-05] MEDS: Insulin Glargine-YFGN 100 UNIT/ML Pen 14 UNIT SC (22:08)
[2023-02-05 22:23] LABS: Bedside Glucose 352 mg/dL (74-106)
[2023-02-05] MEDS: Acetaminophen 325 MG Tablet 650 MG PO (22:34)
[2023-02-06] MEDS: Clindamycin HCl 150 MG Capsule 300 MG PO ×2 (02:03→10:07)
[2023-02-06 02:25] VITALS: BP 112/71; PULSE 63; RESP 18; TEMP 36.9; O2SAT 95
[2023-02-06] MEDS: Insulin Lispro 100 UNIT/ML INSULN.PEN SC ×2 (06:48→12:46)
[2023-02-06 06:59] VITALS: BMI 23.9
[2023-02-06 07:13] LABS: Bedside Glucose 260 mg/dL (74-106)
[2023-02-06 08:13] LABS: Hemoglobin 13.7 g/dL (12.0-15.0); Mean Corp Hgb Conc 31.9 g/dL (32-36); Mean Corpuscular Hgb 30.5 pg (27.0-32.0); Mean Corpuscular Volume 95.8 fL (81-99); Mean Platelet Vol. 11.8 fl (6.2-12.0); Platelet Count 172 K/mm3 (150-450); RBC Distribution Width CV 15.7 % (11.6-14.6); RBC Distribution Width SD 55.5 fl (35.1-43.9); Red Blood Count 4.49 M/mm3 (4.2-5.4); White Blood Count 7.2 K/mm3 (4.4-11.0)
[2023-02-06 08:44] LABS: ALB/GLOB Ratio 0.8 RATIO (0.9-2.4); AST(SGOT) 26 U/L (15-37); Alanine Aminotransfer ALT/SGPT 17 U/L (13-56); Albumin, Serum 2.8 g/dL (3.2-5.0); Alkaline Phosphatase 102 U/L (45-117); Anion Gap 7 (5-15); BUN 59 mg/dL (7-18); BUN/Creat Ratio 26.9 RATIO (10-20); Calcium,Total 9.2 mg/dL (8.5-10.1); Chloride 105 mmol/L (98-107); Creatinine, Serum 2.19 mg/dL (0.55-1.02); EST Glomerular Filtration Rate 23 mL/min (>60); Est Glom Filt Rate - Afr Amer 28 mL/min (>60); Globulin 3.3 g/dL (2.2-4.2); Glucose 266 mg/dL (74-106); Potassium 4.9 mmol/L (3.5-5.1); Protein, Total 6.1 g/dL (6.4-8.2); Sodium Level 132 mmol/L (136-145)
[2023-02-06 10:06] VITALS: BP 99/65; PULSE 57; RESP 18; TEMP 36.6; O2SAT 97
[2023-02-06] MEDS: Mag Hydrox/Al Hydrox/Simeth 30 ML UDC PO (10:07)
[2023-02-06] MEDS: dexAMETHasone 4 MG Tablet 6 MG PO (10:08)
[2023-02-06] MEDS: Multivitamins,Ther W-Minerals Tablet 1 TABLET PO (10:08)
[2023-02-06] MEDS: Remdesivir 100 MG in 0.9% Normal Saline (250mL Bag) 230 ML 250 MG IV (10:08)
[2023-02-06] MEDS: Nystatin Powder 15gm Bottle 1 APPLIC TOPICAL (10:09)
[2023-02-06] MEDS: 0.9% Normal Saline (1000mL) 1,000 ML 75 ML IV (10:09)
[2023-02-06] MEDS: Cholecalciferol (VIT D3) 25 MCG TABLET (1,000 UNITS) 50 MCG PO (10:09)
[2023-02-06] MEDS: Pantoprazole Sodium 40 MG Tablet PO (10:09)
[2023-02-06] MEDS: APIXABAN 2.5 MG TABLET (WCH) PO (10:15)
--- NOTE | 2023-02-06 10:35 | WOUNDNOTE ---
wound photo: left stump
[2023-02-06 12:33] LABS: Bedside Glucose 273 mg/dL (74-106)
--- NOTE | 2023-02-06 13:35 | PCM.DC.SUM ---
Providers Date of Admission: 02/05/23 Date of Discharge: 02/06/23 Primary Care Physician: Dr. Neal Moulton MD Consultations 02/05/23 12:16 Consult: Onc/Wound/traffic workforce representative Routine Comment: Reason For Visit: NAUSEA AND VOMITING, COVID-19 POSITIVE Diagnosis Discharge Diagnosis (1) Intractable nausea and vomiting: Status: Acute Code(s): R11.2 - Nausea with vomiting, unspecified (2) Hypoglycemia: Status: Acute Code(s): E16.2 - Hypoglycemia, unspecified (3) COVID-19: Status: Acute Code(s): U07.1 - COVID-19 (4) ENID (acute kidney injury): Status: Acute Code(s): N17.9 - Acute kidney failure, unspecified (5) Type 2 diabetes mellitus: Status: Chronic Code(s): E11.9 - Type 2 diabetes mellitus without complications Qualifiers: Diabetes mellitus assisted insulin use: with superintendent container terminal use Medications at Discharge Home Medications Vitamin C 1,000 mg PO DAILY supplement 12/12/15 multivitamin with folic acid 400 mcg tablet (Thera) 1 tab PO DAILY supplement 12/12/15 acidophilus 25 million cell-pectin, citrus 100 mg tablet 1 tab PO BID #60 TABLETS 12/20/17 nutrition tx glu intol,lac-free,soy-fiber 0.06 gram-1.2 kcal/mL liquid (Glucerna 1.2 Trae) 120 ml PO 4X/DAY ##120 12/20/17 Basaglar Kwikpen U-100 14 unit subcut QHS Check with primary doctor 01/21/20 ferrous sulfate 325 mg (65 mg iron) tablet 325 mg PO QODAY 01/21/20 insulin lispro 100 unit/mL subcutaneous pen 1 sliding scale dose subcut ACHS Check with primary doctor 01/21/20 metoprolol tartrate 25 mg tablet 25 mg PO QHS 01/21/20 sucralfate 1 gram tablet 1 g PO 4X/DAY STOMACH 01/21/20 vitamin D3 20 mcg-vit K2 180 mcg-calcium fructoborate 216 mg tablet 1 ea PO DAILY 01/21/20 apixaban 2.5 mg tablet (Eliquis) 2.5 mg PO Q12H 02/04/23 cholecalciferol (vitamin D3) 50 mcg (2,000 unit) capsule 50 mcg PO DAILY 02/04/23 dapagliflozin propanediol 10 mg tablet (Farxiga) 10 mg PO QHS 02/04/23 hydralazine 50 mg tablet 50 mg PO Q12H 02/04/23 isosorbide dinitrate 20 mg tablet 10 mg PO BID 02/04/23 multivitamin-iron 9 mg-folic acid 400 mcg-calcium and minerals tablet (Therems-M) 1 tab PO DAILY 02/04/23 torsemide 100 mg tablet 100 mg PO MOWEFR 02/04/23 clindamycin HCl 300 mg capsule 300 mg PO Q8H #4 caps 02/06/23 Hospital Course Summary of Care Provided Hospital Course: Mrs. Hdz is a 77-year-old female who presented to the emergency department at [facility] on 02/05/2023 early in the morning complaining of nausea and vomiting that had started the day prior. She reported that she had a history of a left AKA with the stump infection that is currently being treated with clindamycin and had been doing quite well. A COVID test was performed the emergency department and was found to be positive. With her previous COVID-19 infections did have nausea and vomiting so I highly suspect that her nausea and vomiting was related to this. She was also noted to be hypoglycemic and is diabetic at baseline on insulin and I suspect this is related to poor p.o. intake with her nausea and vomiting as her numbers improved quite rapidly once we were able to get nutrition into her. She has been wearing 2 L nasal cannula at baseline and has done so since she was treated for COVID back in 2020. This morning she remains on 2 L however oxygen levels are around 88% on this 2 L so I did increase her to 3 L. We initially started her on Decadron and remdesivir given the fact that she is requiring a bit more oxygen than she does at baseline however she corrected quite quickly and was back to her baseline with oxygen saturations in the mid 90s so these were discontinued upon discharge. By the time of my initial evaluation mid afternoon of 02/05/2023 she was feeling much better and tolerating p.o. intake. We were able to ascertain that her baseline serum creatinine appears to be running between 1.7 and 2. Serum creatinine on presentation was 2.15 and fluctuated in this range throughout her hospital stay. We did discontinue her Farxiga at the time of discharge and asked her to follow-up with her primary care physician as her estimated GFR was less than 45. With regards to her stump infection she will remain on clindamycin and I will plan to extend her antibiotics after discussion with the family for another 3 after discussion with her daughter. She did grow sensitive staph per discussion with family out of that wound. Our wound care nurse is to evaluated and a dressing change was performed. By the a.m. of 02/06/2023 she was feeling much better. As noted she was back on her 2 L nasal cannula without any issue and tolerating p.o. diet without problems. Prescription for the clindamycin extension was sent to the local pharmacy and she will take another 3 total days of the clindamycin and again we did hold her Farxiga discharged with instruction to follow-up with her primary care physician. We elected not to discharge her on Decadron as her hypoxia was very transient and it was causing significant blood sugar elevation. She was able to be discharged in stable condition on 02/06/2023 home with her family. She is to follow-up with her wound doctor in [place] as well as the wound clinic as previously instructed. Of asked her to follow-up with her primary care physician within the next 2 weeks. Extensive discussion both with the patient and her daughter daughters was held prior to discharge. No other medication changes were made. 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 DM-2 History of DVT tension CHF-type unknown-chronic History of atrial fibrillation-paroxysmal CAD PAD History of peptic ulcer disease Physical Exam Const alert, oriented x3, no apparent distress, average body habitus and no limitations Constitutional Narrative: Older, chronically ill-appearing, white female, lying in bed, daughter at bedside, looks much improved in the last 24 hours and appears nontoxic General Appearance: cooperative, comfortable, well kempt and well developed HEENT normocephalic, head/scalp atraumatic and moist oral mucous membranes HEENT Narrative: Mallampati 2, no thrush Eyes PERRL, EOMs intact bilaterally and conjunctivae normal Eyes Narrative: No scleral icterus Neck no lymphadenopathy and supple Neck Narrative: Trach midline, no thyroid enlargement, no JVD Resp normal respiratory effort, no retractions, no use of accessory muscles and clear to auscultation bilaterally Auscultation: Negative for rales, rhonchi or wheezes Cardio regular rate, regular rhythm, S1 normal heart sound, S2 normal heart sound, no rub, no gallops and no clicks; Negative for no murmurs Cardio Narrative: 2 out of 6 systolic murmur GI normal to inspection, nondistended, normoactive bowel sounds, soft to palpation and non-tender Extremity no clubbing, cyanosis or edema Extremity Narrative: Left AKA, right lower extremity with Charcot foot deformity but no significant edema, pedal pulse 1+ Skin Skin Narrative: Small wound at the distal aspect of the stump on the left lower extremity with no significant drainage, packing in place, no surrounding erythema Neuro oriented x3, moves all extremities and no focal motor deficits Speech: speech normal Psych affect normal Psych Narrative: Extremely pleasant, interacts appropriately, eye contact is good Weight / BMI Weight Weight: 55.384 kg Body Mass Index (BMI) 23.9 ABG / Lab / Microbiology Data 02/06/23 07:14 02/06/23 07:14 Laboratory: Laboratory Results - last 24 hr 02/05/23 22:04: POC Glucose 352 H 02/06/23 06:47: POC Glucose 260 H 02/06/23 07:14: WBC 7.2, RBC 4.49, Hgb 13.7, Hct 43.0, MCV 95.8, MCH 30.5, MCHC 31.9 L, RDW Std Deviation 55.5 H, RDW Coeff of Lesley 15.7 H, Plt Count 172, MPV 11.8, Sodium 132 L, Potassium 4.9, Chloride 105, Carbon Dioxide 20.0 L, Anion Gap 7, BUN 59 H, Creatinine 2.19 H, Estim Creat Clear Calc 15.70, Est GFR (MDRD) Af Amer 28 L, Est GFR (MDRD) Non-Af 23 L, BUN/Creatinine Ratio 26.9 H, Glucose 266 H, Calcium 9.2, Total Bilirubin 0.40, AST 26, ALT 17, Alkaline Phosphatase 102, Total Protein 6.1 L, Albumin 2.8 L, Globulin 3.3, Albumin/Globulin Ratio 0.8 L 02/06/23 12:14: POC Glucose 273 H Microbiology: Microbiology 02/04/23 22:30 Nasal Secretion SARS-CoV-2 & FLU Antigen (Rapid) - Final SARS-CoV-2 (COVID 19) D/C Instructions Discharge Diet: Low fat / Low cholesterol and 1800 Calorie Control Diet Meaningful Use Info Meaningful Use Diagnoses (Choose all that apply): None applicable Discharge Plan Admission Admit Date/Time: 02/05/23 16:18 Primary Reason for Your Visit: Nausea and vomiting Attending Provider: Rachel Mandujano Primary Care Provider: Neal Moulton Consulting Providers: Joby Melgoza Instructions Additional Instructions / Restrictions: 1. We stopped your Farxiga for now until you follow-up with your primary care physician. Per our discussion your renal function has been low enough that this med is contraindicated. 2. Please obtain a follow-up basic metabolic profile from your primary care physician to be done in 5 to 7 days to reassess your kidney function--> serum creatinine on discharge was 2.1 3. Continue antibiotics for leg wound infection as we discussed and follow-up with wound care. 4. Please isolate for 5 days from symptom onset and wear a mask in public for total of 10 days from symptom onset as we discussed 5. Continue wearing your oxygen 2 L [id number]. Discharge Orders/Prescriptions Prescriptions: Continued multivitamin with folic acid [Thera] 1 TABLET tablet 1 tab PO DAILY Patient Comments: supplement Vitamin C 1,000 mg PO DAILY Patient Comments: supplement acidophilus-pectin, citrus 1 TABLET tablet 1 tab PO BID Qty: 60 0RF Glucerna 1.2 Trae 120 ML liquid 120 ml PO 4X/DAY Qty: 120 0RF Patient Comments: takes max protein ? metoprolol tartrate 25 MG tablet 25 mg PO QHS vit D3-vit K2-ca fructoborate 1 EACH tablet 1 ea PO DAILY sucralfate 1 GM tablet 1 g PO 4X/DAY Patient Comments: PT NOT TAKING Basaglar Kwikpen U-100 14 unit SC QHS ferrous sulfate 325 MG tablet 325 mg PO QODAY Rx Instructions: TAKES EVERY OTHER DAY. SUPPOSED TO TAKE TODAY. 01/20 insulin lispro 100 UNIT/ML insulin pen 1 sliding scale dose SC ACHS Protocol: 6. Sliding Scale Insulin Custom Condition: 151-200 Dose/Route: 3 Condition: 201-250 Dose/Route: 6 Condition: 251-300 Dose/Route: 9 Condition: 301-350 Dose/Route: 12 Condition: 351-400 Dose/Route: 15 Protocol Text: Custom Sliding Scale Eliquis 2.5 mg tablet 2.5 mg PO Q12H torsemide 100 mg tablet 100 mg PO MOWEFR There-M 9 mg iron-400 mcg tablet 1 tab PO DAILY cholecalciferol (vitamin D3) 50 mcg (2,000 unit) capsule 50 mcg PO DAILY hydralazine 50 mg tablet 50 mg PO Q12H isosorbide dinitrate 20 mg tablet 10 mg PO BID clindamycin HCl 300 mg capsule 300 mg PO Q8H Qty: 4 0RF Held Farxiga 10 mg tablet 10 mg PO QHS Hold Instructions: Hold till you follow-up with your primary care physician as this drug usually is not given with kidney disease having a GFR less than 45 which you are what was was and has been recently Discontinued pantoprazole 40 MG tablet 40 mg PO DAILY Hold Instructions: MD Ordered Referrals / Follow Up: Neal Moulton MD [Primary Care Provider] - Within 2 Weeks (Hospital follow-up) Disposition Disposition (needs filled in before D/C Order can be placed): Home, Self Care Charges/Coding Visit Charges Inpatient E&M: 52584 Disch Hosp >30min
--- NOTE | 2023-02-06 13:40 | CASEMGMT ---
RN?CM?FARMWORKER DIVERSIFIED CROPS?CM spoke w/pt's dtr, Meghna, in room. Pt currently sleeping. Meghna asked for RN DEION to call pt's other dtr, Annette for initial transition planning/care coordination?assessment.?RN?CM?placed call to Annette and the following information obtained. Care providers, pharmacy, and demographics verified/updated at this time. PCP: Gabrielle Specialists: Alyson color maker; Mary Anne, communication coordinator @ [facility]; David nephro @ [facility]. Preferred Pharmacy: [facility] Insurance: [employer] [facility] [place] Prescription Benefit: yes LNOK: dtr's, Annette and Meghna. Sister, Bertha Living Arrangements: Patient lives with daughter in a mobile home with ramp to enter. Family assists pt with ADLs, medication mgnt, groceries, bills, and other home mgnt tasks. Transportation: [place] or daughters DME: Patient has shower chair, raised toilet, grab bars, walker, hospital bed, pulse ox, O2 through [employer] @ 2 l/m (has concentrator and portability, which family can bring in for pt to go home on), functioning glucometer w/supplies, prosthetic lt leg, BP machine, and wheelchair at home. SNF/HHC: Patient has been to a in [facility] in the past and has had [facility] in the past. Dtr states they would like pt to discharge home and would like [facility] and declines wanting list of other HHC options at this time. Ivett, planner, made aware. Order placed for HHC: SN and PT/OT. Questions answered. Dtr denies having further questions at this time. PLAN:??Home w/HHC and family support. Mindy DORSEYN?RN?CM
--- NOTE | 2023-02-06 13:53 | CASEMGMT ---
Addendum entered by Ivett Kong 02/06/23 16:34: Discharge Planning Patient was declined by [facility]. RN CM and daughter updated. Daughter agreeable to referral being sent to [facility]. [facility] accepted patient. Patients daughter updated. Ivett Kong, Discharge Planning Asst. Original Note: Discharge Planning HH referral sent via [facility] to [facility]. Ivett Kong, Discharge Planning Asst.
[2023-02-06 14:21] VITALS: BP 105/67; PULSE 63; RESP 18; TEMP 36.6; O2SAT 91
--- NOTE | 2023-02-06 15:13 | CHAPLAIN ---
Type of Pastoral Visit ___ Initial Visit ___ Follow-up Visit ___ On-call Visit ___ General Patient Visit ___ Spiritual Assessment ___ Family Conference ___ Bereavement ___ Rapid Response ___ Code Blue ___ Other (describe below) Pastoral Care Referral From ___ Patient ___ Family ___ Nurse ___ Physician ___ Manager Functional ___ Production Troubleshooter ___ Other (describe below) Sacrament/Intervention ___ Active listening ___ Anointing ___ Advent ___ Bereavement ___ Communion ___ Malia exploration ___ ___ Life review ___ Prayer ___ Reconciliation ___ Sacrament of Sick ___ Supportive presence ___ Wedding ___ Other (describe below) Pastoral Comments phone call made into isolation room; daughter answers the phone as patient is unavailable; daughter states that pt is expecting to go home today and has been feeling better; offer of support given; no other needs
== END 2023-02-06 17:00 | disposition home health service (06) | DRG 178 ==
LOC: ED 02-05 00:02 → MS3 02-05 00:40
PROVIDERS: Admitting Provider Family Medicine; Emergency Provider Emergency Medicine; PCP Family Medicine; Referring Provider Emergency Medicine; Visit Provider Internal Medicine
DX: U07.1 COVID-19 (principal); N17.9 Acute kidney failure, unspecified; J96.11 Chronic respiratory failure with hypoxia; T87.44 Infection of amputation stump, left lower extremity; I13.0 Hypertensive heart and chronic kidney disease with heart failure and stage 1 through stage 4 chronic kidney disease, or unspecified chronic kidney disease; E11.649 Type 2 diabetes mellitus with hypoglycemia without coma; E11.22 Type 2 diabetes mellitus with diabetic chronic kidney disease; I48.0 Paroxysmal atrial fibrillation; E86.0 Dehydration; N18.32 Chronic kidney disease, stage 3b; I50.9 Heart failure, unspecified; E11.40 Type 2 diabetes mellitus with diabetic neuropathy, unspecified; E11.51 Type 2 diabetes mellitus with diabetic peripheral angiopathy without gangrene; Z79.4 Long term (current) use of insulin; R11.2 Nausea with vomiting, unspecified; I25.10 Atherosclerotic heart disease of native coronary artery without angina pectoris; E78.5 Hyperlipidemia, unspecified; Y83.5 Amputation of limb(s) as the cause of abnormal reaction of the patient, or of later complication, without mention of misadventure at the time of the procedure; Z79.899 Other long term (current) drug therapy
CPT/HCPCS: 36415; 71045; 80048; 80053; 81001; 82962; 84075; 84484; 85025; 85027; 87428; 93005; 94668; 97162; 97166; 99252; 99285; J7030; J7050; A4216; G0463; J0248; J2405

== ENCOUNTER 2023-02-15 16:14 | Outpatient (RCR) | payer MEDICARE, MEDICAID, SELFPAY ==
[2023-02-11 18:20] LABS: Anion Gap 4 (5-15); BUN 52 mg/dL (7-18); BUN/Creat Ratio 26.5 RATIO (10-20); Calcium,Total 9.7 mg/dL (8.5-10.1); Chloride 106 mmol/L (98-107); Creatinine, Serum 1.96 mg/dL (0.55-1.02); EST Glomerular Filtration Rate 26 mL/min (>60); Est Glom Filt Rate - Afr Amer 32 mL/min (>60); Glucose 163 mg/dL (74-106); Potassium 4.4 mmol/L (3.5-5.1); Sodium Level 136 mmol/L (136-145)
[2023-02-15 16:54] LABS: Anion Gap 4 (5-15); BUN 43 mg/dL (7-18); Calcium,Total 10.2 mg/dL (8.5-10.1); Chloride 104 mmol/L (98-107); Creatinine, Serum 1.72 mg/dL (0.55-1.02); EST Glomerular Filtration Rate 31 mL/min (>60); Est Glom Filt Rate - Afr Amer 37 mL/min (>60); Glucose 125 mg/dL (74-106); Potassium 4.6 mmol/L (3.5-5.1); Sodium Level 138 mmol/L (136-145)
== END 2023-02-24 18:00 | disposition home or self-care (01) ==
LOC: HHLAB 16:14
PROVIDERS: PCP Family Medicine; Visit Provider Family Medicine
DX: N18.32 Chronic kidney disease, stage 3b (principal); U07.1 COVID-19
CPT/HCPCS: 80048

== ENCOUNTER 2023-12-28 00:07 | Emergency (ER) | payer MEDICARE, MEDICAID, SELFPAY ==
[2023-12-28 00:07] VITALS: PULSE 76; RESP 18; TEMP 36.8; O2SAT 93; BMI 23.6
[2023-12-28 00:14] VITALS: BP 111/67
--- NOTE | 2023-12-28 00:28 | EX.ED.DYSGE1 ---
HPI History of Present Illness Chief Complaint: Nosebleed Informant: patient Onset/Context/Timing Onset: Today Context: Sudden Onset Timing: Continuous Quality: Dark blood Location: Left nares Worsened by: Oxygen Relieved by: Nothing Narrative Narrative: Patient presents with epistaxis that began tonight. Patient states it began rather suddenly. Patient states it is mainly coming out of the left nares. Patient states she wears oxygen which irritates her nose and causes some bleeding. Patient states she had a similar episode a couple days ago that stopped spontaneously. Patient denies any bleeding or drainage down the back of her throat. Patient denies any fevers or chills. Patient denies any trauma or injury. Prior similar symptoms: [facility] Medical History Neuropathy Charcot foot due to diabetes mellitus Splenic cancer COVID Atrial fibrillation CHF (congestive heart failure) Valvular heart disease Atrial fibrillation Diabetes mellitus CHF (congestive heart failure) Myositis PAD (peripheral artery disease) CAD (coronary artery disease) PUD (peptic ulcer disease) DM2 (diabetes mellitus, type 2) PVD (peripheral vascular disease) Coronary artery disease Type 2 diabetes mellitus Hyperlipidemia Hypertension Home Medications ?Medication ?Instructions ?Recorded ?Last Taken ?Type Vitamin C 1,000 mg PO DAILY supplement 12/12/15 12/15/17 08:00 History 1000 mg multivitamin with folic acid 400 1 tab PO DAILY supplement 12/12/15 12/12/15 History mcg tablet (Thera) acidophilus 25 million 1 tab PO BID #60 TABLETS 12/20/17 Unknown Rx cell-pectin, citrus 100 mg tablet nutrition tx glu 120 ml PO 4X/DAY ##120 12/20/17 Unknown Rx intol,lac-free,soy-fiber 0.06 gram-1.2 kcal/mL liquid (Glucerna 1.2 Trae) Basaglar Kwikpen U-100 14 unit subcut QHS Check with 01/21/20 Unknown History primary doctor ferrous sulfate 325 mg (65 mg 325 mg PO QODAY 01/21/20 Unknown History iron) tablet insulin lispro 100 unit/mL 1 sliding scale dose subcut ACHS 01/21/20 Unknown History subcutaneous pen Check with primary doctor metoprolol tartrate 25 mg tablet 25 mg PO QHS 01/21/20 Unknown History sucralfate 1 gram tablet 1 g PO 4X/DAY STOMACH 01/21/20 Unknown History vitamin D3 20 mcg-vit K2 180 1 ea PO DAILY 01/21/20 Unknown History mcg-calcium fructoborate 216 mg tablet apixaban 2.5 mg tablet (Eliquis) 2.5 mg PO Q12H 02/04/23 Unknown History cholecalciferol (vitamin D3) 50 50 mcg PO DAILY 02/04/23 Unknown History mcg (2,000 unit) capsule dapagliflozin propanediol 10 mg 10 mg PO QHS 02/04/23 Unknown History tablet (Farxiga) hydralazine 50 mg tablet 50 mg PO Q12H 02/04/23 Unknown History isosorbide dinitrate 20 mg tablet 10 mg PO BID 02/04/23 Unknown History multivitamin-iron 9 mg-folic acid 1 tab PO DAILY 02/04/23 Unknown History 400 mcg-calcium and minerals tablet (Therems-M) torsemide 100 mg tablet 100 mg PO MOWEFR 02/04/23 Unknown History clindamycin HCl 300 mg capsule 300 mg PO Q8H #4 caps 02/06/23 Unknown Rx metoprolol succinate 25 mg 12.5 mg PO DAILY 12/28/23 Unknown History tablet,extended release 24 hr Allergy/AdvReac Type Severity Reaction Status Date / Time doxycycline Allergy Other Verified 12/28/23 00:09 adhesive AdvReac Other Verified 12/28/23 01:13 metformin AdvReac NEEDS Verified 12/28/23 01:13 FOLLOW-UP Family History (Reviewed 11/02/20 @ 13:54 by Rona Sotelo PERSONAL BANKING ADVISOR, PERSONAL BANKING ADVISOR-C) Other Heart disease Hypertension Surgical History H/O splenectomy History of heart valve repair Hx of BKA Status post coronary artery bypass graft Social History Smoking Status: Never smoker ROS ROS ED Constitutional Constitutional ED: Denies chills or fever(s) Eyes Eyes: Denies blurry vision or change in vision ENT ENT ED: Reports epistaxis; Denies sore throat Cardiovascular Cardiovascular: Denies chest pain or palpitations Respiratory/Chest Respiratory/Chest: Denies cough or dyspnea Gastrointestinal Gastrointestinal: Denies nausea or vomiting Genitourinary Genitourinary ED: Denies dysuria or hematuria Musculoskeletal Musculoskeletal: Denies back pain or neck pain Integumentary Denies abscess or rash Neurologic Neurologic: Denies headache(s) or weakness Allergic/Immunologic Allergic/Immunologic ED: Denies mouth swelling or urticaria EXAM Physical Exam Const Vital Signs: 12/28/23 00:07 12/28/23 00:14 Temperature 98.2 F Temperature Source Oral Pulse Rate 76 Respiratory Rate 18 Blood Pressure 111/67 Blood Pressure Mean 81 Pulse Ox 93 Oxygen Delivery Method Nasal Cannula Oxygen Flow Rate (L/min) 2.5 Positive well nourished and well developed General Appearance ED: well developed and NAD HEENT Reports moist mucous membranes HEENT Narrative: There is a large blood clot noted in the left nares. There is no septal deviation or septal hematoma noted. Neck supple and no JVD Neuro oriented x3, CN's II-XII intact bilaterally and no sensory deficits noted Sensorium / Orientation: alert Motor Exam: strength 5/5 throughout Psych mental status grossly normal MDM MDM MDM Narrative Medical decision making narrative: The blood clot was removed from the left nares. Mar solution was applied to cotton balls and was placed in the left nares. There is minimal bleeding noted on the cotton balls. There is no active bleeding noted. There is some friable mucosa along the anterior nasal septum. I discussed the options of packing versus bacitracin ointment and observation. Patient did not want to have packing placed at this time. Bacitracin ointment was applied to the left nares. Patient will be observed in the emergency department. Patient was advised that if the bleeding were to recur, packing would need to be placed at that time. Patient and family understand and are agreeable with the plan. All questions were answered. Treatment and Re-Evaluation :: Patient had no further bleeding on reevaluation. Patient was instructed to continue using bacitracin or Neosporin ointment to her left nares. Patient was instructed to follow-up with her primary care physician in 3 to 5 days. Patient was instructed return if worse in any way. Patient understood and was agreeable with the plan. All questions were answered. Discharge Plan Triage Chief Complaint: Nosebleed ED Provider: To Banda Dx/Rx/DC Orders Clinical Impression: Acute anterior epistaxis, Type 2 diabetes mellitus with diabetic polyneuropathy Instructions: ED Epistaxis (Adult) Prescriptions: No Action multivitamin with folic acid [Thera] 1 TABLET tablet 1 tab PO DAILY Patient Comments: supplement Vitamin C 1,000 mg PO DAILY Patient Comments: supplement acidophilus-pectin, citrus 1 TABLET tablet 1 tab PO BID Qty: 60 0RF Glucerna 1.2 Trae 120 ML liquid 120 ml PO 4X/DAY Qty: 120 0RF Patient Comments: takes max protein ? metoprolol tartrate 25 MG tablet 25 mg PO QHS vit D3-vit K2-ca fructoborate 1 EACH tablet 1 ea PO DAILY sucralfate 1 GM tablet 1 g PO 4X/DAY Patient Comments: PT NOT TAKING Basaglar Kwikpen U-100 14 unit SC QHS ferrous sulfate 325 MG tablet 325 mg PO QODAY Rx Instructions: TAKES EVERY OTHER DAY. SUPPOSED TO TAKE TODAY. 01/20 insulin lispro 100 UNIT/ML insulin pen 1 sliding scale dose SC ACHS Protocol: 6. Sliding Scale Insulin Custom Condition: 151-200 Dose/Route: 3 Condition: 201-250 Dose/Route: 6 Condition: 251-300 Dose/Route: 9 Condition: 301-350 Dose/Route: 12 Condition: 351-400 Dose/Route: 15 Protocol Text: Custom Sliding Scale Eliquis 2.5 mg tablet 2.5 mg PO Q12H torsemide 100 mg tablet 100 mg PO MOWEFR There-M 9 mg iron-400 mcg tablet 1 tab PO DAILY cholecalciferol (vitamin D3) 50 mcg (2,000 unit) capsule 50 mcg PO DAILY Farxiga 10 mg tablet 10 mg PO QHS hydralazine 50 mg tablet 50 mg PO Q12H isosorbide dinitrate 20 mg tablet 10 mg PO BID clindamycin HCl 300 mg capsule 300 mg PO Q8H Qty: 4 0RF metoprolol succinate 25 mg tablet extended release 24 hr 12.5 mg PO DAILY Primary Care Provider: Neal Moulton Referrals: Neal Moulton MD [Primary Care Provider] - 3-5 Days Print Language: Guatemalan Disposition Disposition: Home, Self Care
[2023-12-28] MEDS: Mixture 30 ML Bottle TOPICAL (01:36)
[2023-12-28 03:55] VITALS: BP 122/77; PULSE 74; RESP 17; TEMP 36.6; O2SAT 95
== END 2023-12-28 03:56 | disposition home or self-care (01) ==
PROVIDERS: Emergency Provider Emergency Medicine; PCP Family Medicine; Visit Provider Emergency Medicine
DX: R04.0 Epistaxis (principal); I11.0 Hypertensive heart disease with heart failure; I50.9 Heart failure, unspecified; E11.51 Type 2 diabetes mellitus with diabetic peripheral angiopathy without gangrene; E11.42 Type 2 diabetes mellitus with diabetic polyneuropathy; E78.5 Hyperlipidemia, unspecified; I25.10 Atherosclerotic heart disease of native coronary artery without angina pectoris; Z79.899 Other long term (current) drug therapy
CPT/HCPCS: 99282